=== PATIENT | male | born 1960 | race Caucasian/White ===

== ENCOUNTER 2018-10-25 07:04 | Day surgery (SDC) | payer BC ==
[2018-10-23 14:00] VITALS: BMI 41.3
[~2018-10-25 07:04] MED LIST: LACTATED RINGERS 1,000 ML IV SCH
[2018-10-25] MEDS ORDERED: LACTATED RINGERS 1,000 ML IV ONE (07:20)
[2018-10-25 07:28] VITALS: TEMP 97.8
[2018-10-25 07:40] LABS: Glucose,Whole Blood 90 mg/dL (75-99)
[2018-10-25] MEDS ORDERED: LIDOCAINE 1% INJ 10MG/ML (20 ML MDV) ONE (07:55)
[2018-10-25] MEDS ORDERED: fentaNYL (PF) 50 MCG/ML 2 ML AMP ONE (07:55)
[2018-10-25] MEDS ORDERED: MIDAZOLAM 2 MG/2 ML VIAL ONE (07:55)
[2018-10-25] MEDS ORDERED: PHENYLEPHRINE-0.9% NACL SYG 1 MG/10 ML SYRINGE ONE (07:55)
[2018-10-25] MEDS ORDERED: PROPOFOL 10 MG/ML 20 ML VIAL IV ONE (07:55)
--- NOTE | 2018-10-25 08:33 | P.PCN ---
Date of Procedure: 10/25/18 Procedure(s) Performed: Procedure: Colonoscopy and polypectomy. Preoperative diagnosis: Screening for neoplasia. Postoperative diagnosis: 1. Right colon polyp snared but no large polyps or cancer. 2. Diverticulosis with no evidence of acute diverticulitis or strictures. Preparation: HalfLytely prep. Sedation: Was provided by anesthesia. Brief clinical history: The patient is a 58-year-old male who is scheduled for this evaluation for screening for neoplasia age being his risk factor. No family history of colon cancer. He has no abdominal complaints, bleeding or anemia. This would be his first colonoscopy. Procedure: With the patient on his left lateral decubitus position and after informed consent and adequate sedation, the perianal area was inspected and it did not show any fissures or fistulas. There were no masses felt on digital rectal examination. The Olympus CF H190L video colonoscope was then inserted in the rectum in the usual fashion and advanced to the cecum. There were multiple diverticular orifices seen scattered along the length of the bowel wall , more on the left side, with no evidence of acute diverticulitis or strictures. There was a 1-1.5 cm polyp in the proximal right colon which I snared and retrieved by suction but there were no large polyps or cancer. The mucosa appeared healthy. I retroflexed the endoscope in the rectum before the endoscope was withdrawn. The patient tolerated the procedure well. Plan: The patient was reassured. Discussed dietary measures. He will follow up with you as planned and I anticipate repeating his colonoscopy in 5 years.
[2018-10-25 08:45] VITALS: RESP 18
[2018-10-25 09:00] VITALS: BP 111/74; PULSE 84
[2018-10-26 08:20] LABS: Glucose,Whole Blood 83 mg/dL (75-99)
== END 2018-10-25 09:35 | disposition home or self-care (01) ==
LOC: ORWHC2ENDO 07:04
DX: Z12.11 Encounter for screening for malignant neoplasm of colon (principal); D12.2 Benign neoplasm of ascending colon; K57.30 Diverticulosis of large intestine without perforation or abscess without bleeding; E11.9 Type 2 diabetes mellitus without complications; K21.9 Gastro-esophageal reflux disease without esophagitis; I10 Essential (primary) hypertension; I25.10 Atherosclerotic heart disease of native coronary artery without angina pectoris; I25.2 Old myocardial infarction; Z95.1 Presence of aortocoronary bypass graft; Z85.46 Personal history of malignant neoplasm of prostate; Z86.79 Personal history of other diseases of the circulatory system; Z79.01 Long term (current) use of anticoagulants; Z79.899 Other long term (current) drug therapy; Z79.4 Long term (current) use of insulin; Z95.5 Presence of coronary angioplasty implant and graft
CPT/HCPCS: 88305; 45385; J2250; J2001; J3010; J2370; J2704

== ENCOUNTER 2022-10-05 07:51 | Day surgery (SDC) | payer MEDICARE ==
[2022-10-03 11:32] VITALS: BMI 43.8
[~2022-10-05 07:51] MED LIST changes: +LIDOCAINE 1% (10MG/ML) FOR IV START INTRADERMA PRN
[2022-10-05 08:29] VITALS: TEMP 97.5
[2022-10-05] MEDS ORDERED: LACTATED RINGERS 1,000 ML IV ONE (08:29)
[2022-10-05 08:37] LABS: Glucose,Whole Blood 78 mg/dL (70-110)
[2022-10-05] MEDS ORDERED: KETAMINE 10 MG/ML 20 ML VIAL ONE (08:57)
[2022-10-05] MEDS ORDERED: PROPOFOL 10 MG/ML 20 ML VIAL IV ONE (08:57)
--- NOTE | 2022-10-05 09:28 | P.PCN ---
Date of Procedure: 10/05/22 Procedure(s) Performed: BRIEF HISTORY: Patient is a 62-year-old pleasant white male scheduled for an elective colonoscopy as a part of evaluation of prior history of colon polyps. Last colonoscopy was 4 years ago. PROCEDURE PERFORMED: Colonoscopy with snare polypectomy. PREOPERATIVE DIAGNOSIS: History of colon polyps. IV sedation per Anesthesia. PROCEDURE: After informed consent was obtained, the patient, was brought into the endoscopy unit. IV sedation was administered by Anesthesia under continuous monitoring. Digital rectal examination was normal. Initially the Olympus CF-160 flexible video colonoscope was then inserted in the rectum, gradually advanced into the cecum without any difficulty. Careful examination was performed as the scope was gradually being withdrawn. Ileocecal valve and the appendiceal orifice were visualized and appeared normal. Prep was excellent. Mucosa of the cecum, had a 6 mm sessile polyp removed by snare polypectomy. In the transverse colon there was a 5 mm polyp removed by snare polypectomy. Rest of the ascending colon, transverse colon, descending colon, appeared normal. In the sigmoid: There was a 3 mm and 7 mm polyp removed by snare polypectomy. Scattered sigmoid diverticulosis seen. Rest of the sigmoid colon, and rectum appeared normal. Ret roflexion was performed in the rectum and no lesions were seen. The patient tolerated the procedure well. IMPRESSION: Norm 6 mm cecal polyp status post polypectomy 5 mm sessile transverse colon polyp status post polypectomy 3 mm and 7 mm sigmoid polyp status post polypectomy Scattered sigmoid diverticulosis RECOMMENDATIONS: Findings of this examination were discussed with the patientas well as his family. He was advised to follow with the biopsy results. If the biopsy results adenoma he can have a repeat colonoscopy in 3 years.].
[2022-10-05 09:44] LABS: Glucose,Whole Blood 82 mg/dL (70-110)
[2022-10-05 10:08] VITALS: BP 119/65; PULSE 66; RESP 18
== END 2022-10-05 10:13 | disposition home or self-care (01) ==
LOC: ORWHC2ENDO 07:51
PROVIDERS: ATTEND Internal Medicine Gastroenterology
DX: Z12.11 Encounter for screening for malignant neoplasm of colon (principal); D12.3 Benign neoplasm of transverse colon; D12.5 Benign neoplasm of sigmoid colon; K57.30 Diverticulosis of large intestine without perforation or abscess without bleeding
CPT/HCPCS: 88305; 45385; J2704

== ENCOUNTER 2023-04-24 14:09 | Observation (INO) | payer MEDICARE ==
[2023-04-24] MEDS ORDERED: FUROSEMIDE 10 MG/ML 4 ML VIAL IV STA (14:50)
--- NOTE | 2023-04-24 14:57 | ED ---
General Adult HPI - General Chief complaint: Shortness of Breath Stated complaint: fluid retention Time Seen by Provider: 04/24/23 14:13 Source: patient, EMS, RN notes reviewed, old records reviewed (Review of records from Dr. Mccloud's office) Mode of arrival: EMS Limitations: no limitations - History of Present Illness Initial comments: Patient is a pleasant 63-year-old male presenting to the emergency department with concerns with edema and dyspnea. Onset of symptoms was several weeks ago. Patient normally rarely takes his Lasix however has been taking it daily for the past 2 weeks. Patient is having progressive leg swelling. No leg pain. Patient does have progressive dyspnea, especially with exertion or lying flat. No chest pain. No fever. Occasional cough with clear sputum. - Related Data Home Medications Medication Instructions Recorded Confirmed Apixaban [Eliquis] 5 mg PO BID 10/23/18 10/03/22 Aspirin [Adult Low Dose Aspirin EC] 81 mg PO DAILY 10/23/18 10/03/22 Atorvastatin [Lipitor] 80 mg PO HS 10/23/18 10/03/22 Empagliflozin [Jardiance] 25 mg PO DAILY 10/23/18 10/03/22 Omeprazole [PriLOSEC] 20 mg PO AC-BRKFST 10/23/18 10/03/22 lisinopriL 20 mg PO DAILY 10/23/18 10/03/22 Furosemide [Lasix] 40 mg PO DAILY PRN 10/03/22 10/03/22 Insulin Aspart [NovoLOG Flexpen] 36 - 50 units SQ AC-TID PRN 10/03/22 10/03/22 Insulin Degludec [Tresiba 120 units SQ HS 10/03/22 10/03/22 Flextouch U-200 Pen] Metoprolol Tartrate [Lopressor] 50 mg PO BID 10/03/22 10/03/22 Triamterene/Hydrochlorothiazid 1 each PO QAM 10/03/22 10/03/22 [Triamterene-Hctz 37.5-25 mg Cp] metFORMIN HCL [Glucophage] 1,000 mg PO BID 10/03/22 10/03/22 Allergies Allergy/AdvReac Type Severity Reaction Status Date / Time No Known Allergies Allergy Verified 04/24/23 14:28 Review of Systems ROS Statement: Those systems with pertinent positive or pertinent negative responses have been documented in the HPI. ROS Other: All systems not noted in ROS Statement are negative. Constitutional: Denies: fever Eyes: Denies: eye pain Respiratory: Reports: as per HPI, cough, dyspnea Cardiovascular: Reports: dyspnea on exertion, orthopnea, edema. Denies: chest pain Endocrine: Reports: fatigue Gastrointestinal: Denies: abdominal pain Genitourinary: Denies: urgency Past Medical History Past Medical History: Atrial Fibrillation, Coronary Artery Disease (CAD), Cancer, Diabetes Mellitus, Hypertension, Myocardial Infarction (HI), Prostate Disorder, Sleep Apnea/CPAP/BIPAP Additional Past Medical History / Comment(s): PROSTATE CANCER, uses CPAP, Last Myocardial Infarction Date:: 2015 History of Any Multi-Drug Resistant Organisms: None Reported Past Surgical History: Appendectomy, Coronary Bypass/CABG, Heart Catheterization With Stent, Hernia Repair, Prostate Surgery Additional Past Surgical History / Comment(s): HEART CATHS X7 WITH TOTAL OF 7 STENTS., CABG OCT 2016, JAYLYN INGUINAL HERNIAS., UMBILICAL HERNIAS. Past Anesthesia/Blood Transfusion Reactions: No Reported Reaction Date of Last Stent Placement:: UNKNOWN Past Psychological History: No Psychological Hx Reported Smoking Status: Former smoker - Past Family History Mother Family Medical History: No Reported History General Exam Limitations: no limitations General appearance: alert, in no apparent distress Head exam: Present: normocephalic Eye exam: Present: normal appearance Neck exam: Present: normal inspection Respiratory exam: Present: rales ( base of L) Cardiovascular Exam: Present: irregular rhythm GI/Abdominal exam: Present: soft. Absent: tenderness Extremities exam: Present: pedal edema. 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 Right bundle branch block. Inferior Q waves. Nonspecific T waves.) EKG shows: atrial fibrillation Medical Decision Making - Medical Decision Making Was pt. sent in by a medical professional or institution (, PA, COTTON CLASSER, urgent care, hospital, or prison...) When possible be specific @ -No Did you speak to anyone other than the patient for history (EMS, parent, family, police, friend...)? What history was obtained from this source @ -No Did you review nursing and triage notes (agree or disagree)? Why? @ -I reviewed and agree with nursing and triage notes Were old charts reviewed (outside hosp., previous admission, EMS record, old EKG, old radiological studies, urgent care reports/EKG's, prison records)? Report findings @ -No old charts were reviewed Differential Diagnosis (chest pain, altered mental status, abdominal pain women, abdominal pain men, vaginal bleeding, weakness, fever, dyspnea, syncope, headache, dizziness, GI bleed, back pain, seizure, CVA, palpatations, mental health)? @ -Differential Dyspnea: Coronary syndrome, arrhythmia, tamponade, asthma, COPD, pulmonary embolism, pneumonia, pneumothorax, pulmonary effusion, anaphylaxis, diabetic ketoacidosis, flailed chest, pulmonary contusion, diaphragmatic rupture, anemia, ne uromuscular, this is not meant to be an all-inclusive list. EKG interpreted by me (3pts min.). @ -Chest x-ray concerning for CHF X-rays interpreted by me (1pt min.). @ -None done CT interpreted by me (1pt min.). @ -None done U/S interpreted by me (1pt. min.). @ -None done What testing was considered but not performed or refused? (CT, X-rays, U/S, labs)? Why? @ -None What meds were considered but not given or refused? Why? @ -None Did you discuss the management of the patient with other professionals (professionals i.e. , PA, COTTON CLASSER, lab, RT, psych nurse, foster care social worker, health insurance assessor, teacher, real estate utilization officer, piano case and bench assembler)? Give summary @ -Case was discussed with practitioner Yany rojas, covering for Dr. Martins, who will admit covering for Dr. Mccloud Was smoking cessation discussed for >3mins.? @ -No Was critical care preformed (if so, how long)? @ -No Were there social determinants of health that impacted care today? How? (Homelessness, low income, unemployed, alcoholism, drug addiction, transportation, low edu. Level, literacy, decrease access to med. care, halfway, rehab)? @ -No Was there de-escalation of care discussed even if they declined (Discuss DNR or withdrawal of care, Hospice)? DNR status @ -No What co-morbidities impacted this encounter? (DM, HTN, Smoking, COPD, CAD, Cancer, CVA, ARF, Chemo, Hep., AIDS, mental health diagnosis, sleep apnea, morbid obesity)? @ -None Was patient admitted / discharged? Hospital course, mention meds given and route, prescriptions, significant lab abnormalities, going to OR and other pertinent info. @ -Patient reevaluated. Patient and family updated on results and plan. Patient will be admitted Undiagnosed new problem with uncertain prognosis? @ -No Drug Therapy requiring intensive monitoring for toxicity (Heparin, Nitro, Insulin, Cardizem)? @ -No Were any procedures done? @ -No Diagnosis/symptom? @ -CHF Acute, or Chronic, or Acute on Chronic? @ -Acute Uncomplicated (without systemic symptoms) or Complicated (systemic symptoms)? @ -default Side effects of treatment? @ -No Exacerbation, Progression, or Severe Exacerbation? @ -No Poses a threat to life or bodily function? How? (Chest pain, USA, HI, pneumonia, PE, COPD, DKA, ARF, appy, cholecystitis, CVA, Diverticulitis, Homicidal, Suicidal, threat to staff... and all critical care pts) @ -No - Lab Data Result diagrams: 04/24/23 15:41 04/24/23 15:41 Lab Results 04/24/23 04/24/23 04/24/23 Range/Units 15:32 15:41 15:41 WBC 7.2 (3.8-10.6) k/uL RBC 4.86 (4.30-5.90) m/uL Hgb 10.3 L (13.0-17.5) gm/dL Hct 34.7 L (39.0-53.0) % MCV 71.3 L (80.0-100.0) fL MCH 21.2 L (25.0-35.0) pg MCHC 29.7 L (31.0-37.0) g/dL RDW 19.5 H (11.5-15.5) % Plt Count 266 (150-450) k/uL MPV 7.5 Neutrophils % 68 % Lymphocytes % 17 % Monocytes % 9 % Eosinophils % 2 % Basophils % 1 % Neutrophils # 4.9 (1.3-7.7) k/uL Lymphocytes # 1.3 (1.0-4.8) k/uL Monocytes # 0.7 (0-1.0) k/uL Eosinophils # 0.2 (0-0.7) k/uL Basophils # 0.0 (0-0.2) k/uL Hypochromasia Marked Poikilocytosis Slight Anisocytosis Slight Microcytosis Marked PT 11.7 (9.0-12.0) sec INR 1.1 (<1.2) APTT 27.4 (22.0-30.0) sec Sodium (137-145) mmol/L Potassium (3.5-5.1) mmol/L Chloride (98-107) mmol/L Carbon Dioxide (22-30) mmol/L Anion Gap mmol/L BUN (9-20) mg/dL Creatinine (0.66-1.25) mg/dL Est GFR (CKD-EPI)AfAm (>60 ml/min/1.73 sqM) Est GFR (CKD-EPI)NonAf (>60 ml/min/1.73 sqM) Glucose (74-99) mg/dL POC Glucose (mg/dL) 54 L (70-110) mg/dL POC Glu Thread Grinder Tool ID Luis Alfredo Weinstein Calcium (8.4-10.2) mg/dL Magnesium (1.6-2.3) mg/dL Total Bilirubin (0.2-1.3) mg/dL AST (17-59) U/L ALT (4-49) U/L Alkaline Phosphatase (38-126) U/L Troponin I (0.000-0.034) ng/mL NT-Pro-B Natriuret Pep pg/mL Total Protein (6.3-8.2) g/dL Albumin (3.5-5.0) g/dL 04/24/23 04/24/23 04/24/23 Range/Units 15:41 15:41 15:41 WBC (3.8-10.6) k/uL RBC (4.30-5.90) m/uL Hgb (13.0-17.5) gm/dL Hct (39.0-53.0) % MCV (80.0-100.0) fL MCH (25.0-35.0) pg MCHC (31.0-37.0) g/dL RDW (11.5-15.5) % Plt Count (150-450) k/uL MPV Neutrophils % % Lymphocytes % % Monocytes % % Eosinophils % % Basophils % % Neutrophils # (1.3-7.7) k/uL Lymphocytes # (1.0-4.8) k/uL Monocytes # (0-1.0) k/uL Eosinophils # (0-0.7) k/uL Basophils # (0-0.2) k/uL Hypochromasia Poikilocytosis Anisocytosis Microcytosis PT (9.0-12.0) sec INR (<1.2) APTT (22.0-30.0) sec Sodium 141 (137-145) mmol/L Potassium 4.2 (3.5-5.1) mmol/L Chloride 98 (98-107) mmol/L Carbon Dioxide 33 H (22-30) mmol/L Anion Gap 10 mmol/L BUN 31 H (9-20) mg/dL Creatinine 0.96 (0.66-1.25) mg/dL Est GFR (CKD-EPI)AfAm >90 (>60 ml/min/1.73 sqM) Est GFR (CKD-EPI)NonAf 83 (>60 ml/min/1.73 sqM) Glucose 40 L* (74-99) mg/dL POC Glucose (mg/dL) (70-110) mg/dL POC Glu Thread Grinder Tool ID Calcium 8.9 (8.4-10.2) mg/dL Magnesium 2.0 (1.6-2.3) mg/dL Total Bilirubin 1.1 (0.2-1.3) mg/dL AST 25 (17-59) U/L ALT 21 (4-49) U/L Alkaline Phosphatase 110 (38-126) U/L Troponin I 0.014 (0.000-0.034) ng/mL NT-Pro-B Natriuret Pep 1940 pg/mL Total Protein 7.3 (6.3-8.2) g/dL Albumin 4.1 (3.5-5.0) g/dL Disposition Clinical Impression: Congestive heart failure Disposition: ADMITTED IP TO THIS HOSP Is patient prescribed a controlled substance at d/c from ED?: No Referrals: Jeanie Mccloud DO [Primary Care Provider] - 1-2 days Time of Disposition: 16:38
[2023-04-24 15:34] LABS: Glucose,Whole Blood 54 mg/dL (70-110)
[2023-04-24 15:50] LABS: Anisocytosis Slight; Basophils % (A) 1 %; Eosinophils # (A) 0.2 k/uL (0-0.7); Eosinophils % (A) 2 %; HCT 34.7 % (39.0-53.0); HGB 10.3 gm/dL (13.0-17.5); Hypochromasia Marked; Lymphocytes # (A) 1.3 k/uL (1.0-4.8); Lymphocytes % (A) 17 %; MCH 21.2 pg (25.0-35.0); MCHC 29.7 g/dL (31.0-37.0); MCV 71.3 fL (80.0-100.0); Mean Platelet Volume 7.5; Microcytosis Marked; Monocytes # (A) 0.7 k/uL (0-1.0); Monocytes % (A) 9 %; Neutrophils # (A) 4.9 k/uL (1.3-7.7); Neutrophils % (A) 68 %; Platelet Count 266 k/uL (150-450); Poikilocytosis Slight; RBC 4.86 m/uL (4.30-5.90); RDW 19.5 % (11.5-15.5); WBC 7.2 k/uL (3.8-10.6)
[2023-04-24 16:03] LABS: ALT 21 U/L (4-49); AST 25 U/L (17-59); African American GFR (CKD) >90 (>60 ml/min/1.73 sqM); Albumin 4.1 g/dL (3.5-5.0); Alkaline Phosphatase 110 U/L (38-126); Anion Gap 10 mmol/L; Blood Urea Nitrogen 31 mg/dL (9-20); Calcium 8.9 mg/dL (8.4-10.2); Carbon Dioxide 33 mmol/L (22-30); Chloride 98 mmol/L (98-107); Non-African American GFR(CKD) 83 (>60 ml/min/1.73 sqM); Potassium 4.2 mmol/L (3.5-5.1); Sodium 141 mmol/L (137-145); Total Bilirubin 1.1 mg/dL (0.2-1.3); Total Protein 7.3 g/dL (6.3-8.2)
[2023-04-24 16:10] LABS: INR 1.1 (<1.2); Partial Thromboplastin Time 27.4 sec (22.0-30.0); Prothrombin Time 11.7 sec (9.0-12.0)
[2023-04-24 16:15] LABS: Glucose 40 mg/dL (74-99)
--- NOTE | 2023-04-24 16:28 | XR ---
EXAMINATION TYPE: XR chest 2V DATE OF EXAM: 04/24/2023 COMPARISON: Outside chest x-ray March 06, 2019 HISTORY: Difficulty in breathing. TECHNIQUE: Frontal and lateral views of the chest are obtained. FINDINGS: Overlying sternal wires, several superiorly which are broken are redemonstrated. Overlying mediastinal clips are redemonstrated. There is coronary artery stent in the left circumflex distribu tion redemonstrated. Lateral view is suboptimal due to large body habitus similar to prior. Persisten t cardiomegaly with mild interstitial edema. No pleural effusion or pneumothorax seen bilaterally. IMPRESSION: Findings are consistent with CHF exacerbation. Cardiomegaly with mild central vascular c ongestion is present.
[2023-04-24 16:37] LABS: Glucose,Whole Blood 59 mg/dL (70-110)
[2023-04-24] MEDS ORDERED: ASPIRIN 325 MG TAB PO STA (16:39)
[2023-04-24 18:03] LABS: Glucose,Whole Blood 115 mg/dL (70-110)
[2023-04-24] MEDS ORDERED: DEXTROSE 50% SYRINGE 50 ML IVP PRN ×2 (19:58)
[2023-04-24] MEDS: FUROSEMIDE 10 MG/ML 4 ML VIAL IV SCH (20:18)
[2023-04-24] MEDS: APIXABAN 5 MG TAB PO SCH (20:18)
[2023-04-24] MEDS: ATORVASTATIN 80 MG TAB PO SCH (20:18)
[2023-04-24] MEDS: METOPROLOL TARTRATE 50 MG TAB PO SCH (20:18)
[2023-04-24] MEDS: metFORMIN 500 MG TAB PO SCH (20:19)
[2023-04-24 20:25] LABS: Glucose,Whole Blood 174 mg/dL (70-110)
[2023-04-24] MEDS: INSULIN ASPART (NovoLOG) 100 UNIT/ML VIAL SQ SCH (20:32)
[2023-04-24] MEDS ORDERED: INSULIN DETEMIR (LEVEMIR) 100 UNIT/ML SYR SQ SCH (21:00)
--- NOTE | 2023-04-24 23:29 | HP ---
HISTORY AND PHYSICAL CHIEF COMPLAINT: Shortness of breath and leg edema. HISTORY OF PRESENT ILLNESS: This is a 63-year-old gentleman with a past medical history of multiple medical problems including CAD, CABG, is complaining of bilateral leg swelling and as well as shortness of breath on walking. The patient came to [facility], was found to have CHF and the patient is admitted with intravenous Lasix at this time. The patient also reports that the patient is working on controlling the diabetes mellitus with resultant hemoglobin A1c 6.8 recently. There is no history of any fever, rigors, or chills. PAST MEDICAL HISTORY: Reviewed, include CAD, CABG, diabetes mellitus type 2, atrial ablation. Rest of the history and rest of the chart is also reviewed. HOME MEDICATIONS: Reviewed include insulin. Dose and rest of medications reviewed. ALLERGIES: None. FAMILY HISTORY: History of diabetes and heart disease in the family. SOCIAL HISTORY: Previous history of smoking. REVIEW OF SYSTEMS: A 14-point review is negative except as mentioned earlier. PHYSICAL EXAMINATION: VITAL SIGNS: Pulse is 85, blood pressure 102/70, respirations 18. HEENT: Conjunctivae normal. NECK: No jugular venous distention. CARDIOVASCULAR: S1, S2 muffled. RESPIRATIONS: A few scattered rhonchi and crackles in the bases. ABDOMEN: Soft, obese. LEGS: Bilateral pitting pedal edema up to the midthigh. SKIN: As mentioned earlier. NERVOUS SYSTEM: No focal deficit. JOINTS: No active deforming arthropathy. LABORATORY DATA: Reviewed. BNP is 1940. Chest x-ray reviewed personally. ASSESSMENT: 1. Congestive heart failure acute exacerbation. 2. History of coronary artery disease, coronary artery bypass grafting. 3. Diabetes mellitus, type 2. 4. Atrial fibrillation. 5. Hypertension. 6. Multiple medical issues. RECOMMENDATIONS AND DISCUSSION: This is a 63-year-old gentleman admitted with multiple complex medical issues, we will monitor the patient closely. We will initiate intravenous Lasix 40 mg IV q.8h and monitor creatinine closely. Monitor the intake and output closely. Limiting fluid intake to 1200 mL per 24 hours. Cardiology consultation. 2D echo with Doppler. Resume the home medications. Monitor blood sugars closely. Overall prognosis extremely guarded because of multiple complex medical issues. The patient is receiving a large dose of short-acting insulin, which we will reduce the amount and observe. The blood sugars are going up. The home dose may be reinstituted. Discussed with the patient. Prognosis guarded. Further recommendations to follow. See orders for further details. MMODL / IJN: [id number] /
[2023-04-25 03:37] LABS: Glucose,Whole Blood 45 mg/dL (70-110)
[2023-04-25] MEDS: FUROSEMIDE 10 MG/ML 4 ML VIAL IV SCH ×3 (03:48→21:45)
[2023-04-25 03:50] LABS: Glucose,Whole Blood 65 mg/dL (70-110)
[2023-04-25 04:02] LABS: Glucose,Whole Blood 88 mg/dL (70-110)
[2023-04-25 06:19] LABS: Glucose,Whole Blood 135 mg/dL (70-110)
[2023-04-25] MEDS: INSULIN ASPART (NovoLOG) 100 UNIT/ML VIAL SQ SCH ×4 (06:22→21:39)
[2023-04-25] MEDS: PANTOPRAZOLE 40 MG TABLET PO SCH (06:24)
[2023-04-25] MEDS: MULTIVITAMINS, THERA 1 EACH TAB PO SCH (08:42)
[2023-04-25] MEDS: metFORMIN 500 MG TAB PO SCH ×2 (08:42→21:46)
[2023-04-25] MEDS: APIXABAN 5 MG TAB PO SCH ×2 (08:42→21:46)
[2023-04-25] MEDS: TRIAMTERENE-HCTZ 37.5-25MG 1 EACH CAP PO SCH (08:43)
[2023-04-25] MEDS: lisinopriL 20 MG TAB PO SCH (08:43)
[2023-04-25] MEDS: ASPIRIN 81 MG PO SCH (08:43)
[2023-04-25] MEDS: DAPAGLIFLOZIN PROPANEDIOL 10 MG TABLET PO SCH (08:43)
[2023-04-25] MEDS: METOPROLOL TARTRATE 50 MG TAB PO SCH ×2 (08:43→21:46)
[2023-04-25] MEDS ORDERED: ASPIRIN 325 MG TAB PO SCH (09:00)
--- NOTE | 2023-04-25 10:52 | CA ---
Transthoracic Echo Report Name: Luis Alfredo Steinberg Age: 63 Gender: M : 1960 Exam Date: 04/25/2023 07:31 Exam Location: [facility] Ht (in): 76 Wt (lb): 387 Ordering Physician: Lonnie Martins MD Attending/Referring Phys: [facility] Care Program Resident Satinder Brito Procedure CPT: Indications: chf Cardiac Hx: Technical Quality: Technically difficult study Contrast 1: Lumason Total Dose (mL): 5 Contrast 2: Agitated Saline Total Dose (mL): 10 MEASUREMENTS (Male / Female) Normal Values 2D ECHO LV Diastolic Diameter PLAX 4.8 cm 4.2 - 5.9 / 3.9 - 5.3 cm LV Systolic Diameter PLAX 3.3 cm IVS Diastolic Thickness 1.5 cm 0.6 - 1.0 / 0.6 - 0.9 cm LVPW Diastolic Thickness 1.6 cm 0.6 - 1.0 / 0.6 - 0.9 cm LV Relative Wall Thickness 0.6 RV Internal Dim ED PLAX 4.5 cm LVOT Diameter 2.5 cm Aortic Root Diameter 3.0 cm LA Systolic Diameter LX 3.7 cm 3.0 - 4.0 / 2.7 - 3.8 cm LV Diastolic Volume MOD BP 101.1 cm??? 67 - 155 / 56 - 104 cm??? LV Systolic Volume MOD BP 41.9 cm??? 22 - 58 / 19 - 49 cm??? LV Ejection Fraction MOD BP 58.6 % >= 55 % LV Diastolic Volume MOD 4C 83.9 cm??? LV Systolic Volume MOD 4C 35.7 cm??? LV Ejection Fraction MOD 4C 57.4 % LV Diastolic Length 4C 8.6 cm LV Systolic Length 4C 7.6 cm LV Diastolic Volume MOD 2C 117.1 cm??? LV Systolic Volume MOD 2C 48.7 cm??? LV Ejection Fraction MOD 2C 58.4 % LV Diastolic Length 2C 8.2 cm LV Systolic Length 2C 7.7 cm LA Volume 139.6 cm??? 18 - 58 / 22 - 52 cm??? Ascending Aorta Diameter 2.9 cm DOPPLER AV Peak Velocity 131.7 cm/s AV Peak Gradient 6.9 mmHg LVOT Peak Velocity 77.3 cm/s LVOT Peak Gradient 2.4 mmHg AV Area Cont Eq pk 2.9 cm??? Mitral E Point Velocity 132.6 cm/s Mitral A Point Velocity 32.5 cm/s Mitral E to A Ratio 4.1 MV Deceleration Time 158.1 ms MV E' Velocity 6.9 cm/s Mitral E to MV E' Ratio 19.2 TR Peak Velocity 278.9 cm/s TR Peak Gradient 31.1 mmHg Right Ventricular Systolic Press 37.7 mmHg PV Peak Velocity 77.0 cm/s PV Peak Gradient 2.4 mmHg FINDINGS Left Ventricle Left ventricular ejection fraction is estimated a_40-45 %. Right Ventricle Right ventricular dilatation. RVSP=56mmhg Right Atrium Normal right atrial size. Left Atrium Left atrial dilatation. Mitral Valve Mitral valve not well visualized. Aortic Valve Trileaflet aortic valve. No aortic valve stenosis or regurgitation. Tricuspid Valve Structurally normal tricuspid valve. Mild to moderat TR. Pulmonic Valve Pulmonic valve not well visualized. No pulmonic regurgitation. Pericardium Not well visualized. Aorta Normal size aortic root and proximal ascending aorta. CONCLUSIONS Mildly impaired LV function was EF between 40-45% Previewed by: Dr. Chandana Mcintosh MD (Electronically Signed) Final Date: 25 April 2023 10:51
[2023-04-25 11:41] LABS: Glucose,Whole Blood 58 mg/dL (70-110)
[2023-04-25 12:06] LABS: Anisocytosis Slight; Basophils % (A) 0 %; Eosinophils # (A) 0.2 k/uL (0-0.7); Eosinophils % (A) 2 %; HCT 36.1 % (39.0-53.0); HGB 10.6 gm/dL (13.0-17.5); Hypochromasia Marked; Lymphocytes # (A) 1.1 k/uL (1.0-4.8); Lymphocytes % (A) 15 %; MCHC 29.3 g/dL (31.0-37.0); MCV 71.6 fL (80.0-100.0); Mean Platelet Volume 7.5; Microcytosis Marked; Monocytes # (A) 0.7 k/uL (0-1.0); Monocytes % (A) 9 %; Neutrophils # (A) 5.3 k/uL (1.3-7.7); Neutrophils % (A) 71 %; Platelet Count 259 k/uL (150-450); Poikilocytosis Slight; RBC 5.04 m/uL (4.30-5.90); RDW 19.6 % (11.5-15.5); WBC 7.5 k/uL (3.8-10.6)
[2023-04-25 12:17] LABS: African American GFR (CKD) >90 (>60 ml/min/1.73 sqM); Anion Gap 10 mmol/L; Blood Urea Nitrogen 29 mg/dL (9-20); Calcium 8.8 mg/dL (8.4-10.2); Carbon Dioxide 35 mmol/L (22-30); Chloride 97 mmol/L (98-107); Glucose 58 mg/dL (74-99); Non-African American GFR(CKD) 78 (>60 ml/min/1.73 sqM); Potassium 4.1 mmol/L (3.5-5.1); Sodium 142 mmol/L (137-145)
[2023-04-25 12:27] LABS: Glucose,Whole Blood 63 mg/dL (70-110)
[2023-04-25 12:27] LABS: Glucose,Whole Blood 69 mg/dL (70-110)
[2023-04-25 12:28] LABS: Glucose,Whole Blood 102 mg/dL (70-110)
[2023-04-25 12:43] VITALS: BMI 47.2
--- NOTE | 2023-04-25 14:17 | PN ---
PROGRESS NOTE DATE OF SERVICE: 04/25/2023 SUBJECTIVE: This is a 63-year-old gentleman who was admitted with CHF acute exacerbation and closely monitored. The patient has significant bilateral leg edema. A 2D echo which was reviewed personally by me showed ejection fraction about 40% to 45%. OBJECTIVE: VITAL SIGNS: Pulse is 84, blood pressure 99/56, respirations 19. CHEST: A few scattered rhonchi in the bases. ABDOMEN: Soft, obese. LEGS: Bilateral leg edema. LABORATORY DATA: Labs are reviewed. ASSESSMENT: 1. Congestive heart failure acute exacerbation with acute on chronic systolic dysfunction, ejection fraction is 40% to 45%. 2. History of coronary artery disease, coronary artery bypass grafting. 3. Diabetes mellitus, type 2. 4. Atrial fibrillation. 5. Bilateral leg edema. 6. Multiple medical issues. RECOMMENDATIONS: Recommend to continue current medications. Continue symptomatic treatment. Continue the Lasix. Otherwise, I would recommend ultrasound of the legs to rule out the possibility of DVT. Repeat labs. Closely follow with Cardiology and the prognosis guarded. Blood pressure is borderline. Further recommendations to follow. MMODL / IJN: [id number] /
--- NOTE | 2023-04-25 15:41 | US ---
EXAMINATION TYPE: US venous doppler duplex LE BI DATE OF EXAM: 04/25/2023 3:30 PM COMPARISON: NONE CLINICAL INDICATION: Male, 63 years old with history of leg swelling, rule out dvt; edema SIDE PERFORMED: Bilateral TECHNIQUE: The lower extremity deep venous system is examined utilizing real time linear array sonog pedro with graded compression, doppler sonography and color-flow sonography. VESSELS IMAGED: Common Femoral Vein Deep Femoral Vein Greater Saphenous Vein * Femoral Vein Popliteal Vein Small Saphenous Vein * Proximal Calf Veins (* superficial vessels) Right Leg: Negative for DVT Left Leg: Negative for DVT IMPRESSION: Grayscale, color doppler, spectral doppler imaging performed of the deep veins of the lo wer extremities. There is normal flow, compressibility, vascular waveforms.
[2023-04-25 16:50] LABS: Glucose,Whole Blood 123 mg/dL (70-110)
[2023-04-25] MEDS: NITROGLYCERIN OINT 1 INCH/GM PACKET TOPICAL SCH ×2 (16:57→21:39)
--- NOTE | 2023-04-25 17:49 | P.CRDCN ---
History of Present Illness History of present illness: HISTORY OF PRESENTING ILLNESS Patient pleasant 63-year-old male with history of CAD status post CABG as well as prior PCI, lower extremity edema, diabetes mellitus type 2, sleep apnea, prostate cancer who presents secondary to increasing shortness breath and lower extremity edema. Symptoms have been going on for last few weeks. He has been having increased lower extremity edema and normally does not take Lasix however has started taking it more recently over last 2 weeks however no significant improvement. Therefore presented to emergency department. He follows with a professional sports scout out of [facility]. EKG shows atrial fibrillation with right bundle branch block with nonspecific ST depressions. Blood work shows hemoglobin 10.3, platelets 266, glucose 40, BUN 31, creatinine 0.9, troponin 0.014, proBNP 1940. He was started on IV Lasix 40 mg every 8 hours and continued on home medications. REVIEW OF SYSTEMS At the time of my exam: CONSTITUTIONAL: Denies fever or chills. CARDIOVASCULAR: Denies chest pain, +shortness of breath, orthopnea, PND or palpitations. RESPIRATORY: Denies cough. GASTROINTESTINAL: Denies abdominal pain, diarrhea, constipation, nausea or vomiting. MUSCULOSKELETAL: Denies myalgias. NEUROLOGIC: Denies numbness, tingling or weakness. ENDOCRINE: Denies fatigue, weight change, polydipsia or polyurina. GENITOURINARY: Denies burning, hematuria or urgency with micturation. HEMATOLOGIC: Denies history of anemia or bleeding. PHYSICAL EXAMINATION Vital signs reviewed. CONSTITUTIONAL: No apparent distress. HEENT: Head is normocephalic. Pupils are equal, round. Sclerae anicteric. Mucous membranes of the mouth are moist. No JVD. No carotid bruit. CHEST EXAMINATION: Lungs are clear to auscultation. No chest wall tenderness is noted on palpation or with deep breathing. HEART EXAMINATION: Regular rate and rhythm. S1, S2 heard. No murmurs, gallops or rub. ABDOMEN: Soft, nontender. Positive bowel sounds. EXTREMITIES: 2+ peripheral pulses, no lower extremity edema and no calf tenderness. NEUROLOGIC EXAMINATION: Patient is awake, alert and oriented x3. ASSESSMENT 1. Acute on chronic diastolic heart failure 2. CAD s/p PCI as well as CABG 3. Lower extremity edema likely component of heart failure as well as some component of venous insufficiency with varicose veins 4. Hypertension 5. Diabetes mellitus type 2 6. Mild cardiomyopathy of 40-45%, stable per patient 7. Persistent Afib, may be permanent "in Afib 12/06" per patient PLAN Patient with heart failure symptoms with increased lower extremity edema over the last 2 weeks. No acute exacerbating issues such as A. fib or uncontrolled hypertension. Continue diuretics. His cardiomyopathy apparently is fairly stable per patient. Continue remainder of other medications. Hopeful discharge x-ray 4-48 hours if continues improved. Past Medical History Past Medical History: Atrial Fibrillation, Coronary Artery Disease (CAD), Cancer, Diabetes Mellitus, Hypertension, Myocardial Infarction ([place]), Prostate Disorder, Sleep Apnea/CPAP/BIPAP Additional Past Medical History / Comment(s): PROSTATE CANCER, uses CPAP Last Myocardial Infarction Date:: 2015 History of Any Multi-Drug Resistant Organisms: None Reported Past Surgical History: Appendectomy, Coronary Bypass/CABG, Heart Catheterization With Stent, Hernia Repair, Prostate Surgery Additional Past Surgical History / Comment(s): HEART CATHS X7 WITH TOTAL OF 7 STENTS, CABG OCT 2016, JAYLYN INGUINAL HERNIAS, UMBILICAL HERNIAS. Past Anesthesia/Blood Transfusion Reactions: No Reported Reaction Date of Last Stent Placement:: UNKNOWN Past Psychological History: No Psychological Hx Reported Smoking Status: Former smoker Past Alcohol Use History: Rare Additional Past Alcohol Use History / Comment(s): Smoked 3 PPD. Past Drug Use History: None Reported - Past Family History Mother Family Medical History: No Reported History Additional Family Medical History / Comment(s): Heart disease Father Family Medical History: Diabetes Mellitus Additional Family Medical History / Comment(s): Heart disease Medications and Allergies Home Medications Medication Instructions Recorded Confirmed Type Apixaban [Eliquis] 5 mg PO BID 10/23/18 04/24/23 History Aspirin [Adult Low Dose Aspirin EC] 81 mg PO DAILY 10/23/18 04/24/23 History Atorvastatin [Lipitor] 80 mg PO HS 10/23/18 04/24/23 History Empagliflozin [Jardiance] 25 mg PO DAILY 10/23/18 04/24/23 History Omeprazole [PriLOSEC] 20 mg PO DAILY 10/23/18 04/24/23 History lisinopriL 20 mg PO DAILY 10/23/18 04/24/23 History Insulin Aspart [NovoLOG Flexpen] 36 - 50 units SQ AC-TID PRN 10/03/22 04/24/23 History Insulin Degludec [Tresiba 110 units SQ HS 10/03/22 04/24/23 History Flextouch U-200 Pen] Metoprolol Tartrate [Lopressor] 50 mg PO BID 10/03/22 04/24/23 History Triamterene/Hydrochlorothiazid 1 cap PO DAILY 10/03/22 04/24/23 History [Triamterene-Hctz 37.5-25 mg Cp] Multivitamins, Thera [Multivitamin 1 tab PO DAILY 04/24/23 04/24/23 History (formulary)] metFORMIN HCL [Glucophage] 1,000 mg PO BID 04/24/23 04/24/23 History Allergies Allergy/AdvReac Type Severity Reaction Status Date / Time No Known Allergies Allergy Verified 04/24/23 17:09 Physical Exam Vitals: Vital Signs Temp Pulse Pulse Resp BP BP Pulse Ox 04/25/23 11:50 84 20 115/72 95 04/25/23 08:40 97.8 F 84 19 99/56 99 04/25/23 03:34 97.6 F 70 21 108/70 100 04/24/23 23:15 98.5 F 68 21 104/69 94 L 04/24/23 20:15 21 04/24/23 20:14 98.2 F 80 21 116/62 95 04/24/23 18:38 98.0 F 99 22 138/61 93 L 04/24/23 17:55 79 20 97/54 96 04/24/23 16:27 85 18 103/73 95 04/24/23 14:29 84 20 04/24/23 14:20 97.6 F 84 20 109/73 94 L Intake and Output 04/24/23 04/25/23 04/25/23 22:59 06:59 14:59 Intake Total 550 10 118 Output Total 1475 950 Balance 550 -1806 -830 Intake: IV 10 10 Invasive Line 1 10 10 Oral 540 118 Output: Urine 1375 950 Stool 100 Other: Voiding Method Toilet Toilet Toilet Urinal Urinal Urinal Weight 180.076 kg 175.9 kg 175.9 kg Results 04/25/23 11:39 04/25/23 11:39 Cardiac Enzymes 04/24/23 04/24/23 Range/Units 15:41 15:41 AST 25 (17-59) U/L Troponin I 0.014 (0.000-0.034) ng/mL Coagulation 04/24/23 Range/Units 15:41 PT 11.7 (9.0-12.0) sec APTT 27.4 (22.0-30.0) sec CBC 04/24/23 04/25/23 Range/Units 15:41 11:39 WBC 7.2 7.5 (3.8-10.6) k/uL RBC 4.86 5.04 (4.30-5.90) m/uL Hgb 10.3 L 10.6 L (13.0-17.5) gm/dL Hct 34.7 L 36.1 L (39.0-53.0) % Plt Count 266 259 (150-450) k/uL Comprehensive Metabolic Panel 04/24/23 04/25/23 Range/Units 15:41 11:39 Sodium 141 142 (137-145) mmol/L Potassium 4.2 4.1 (3.5-5.1) mmol/L Chloride 98 97 L (98-107) mmol/L Carbon Dioxide 33 H 35 H (22-30) mmol/L BUN 31 H 29 H (9-20) mg/dL Creatinine 0.96 1.01 (0.66-1.25) mg/dL Glucose 40 L* 58 L (74-99) mg/dL Calcium 8.9 8.8 (8.4-10.2) mg/dL AST 25 (17-59) U/L ALT 21 (4-49) U/L Alkaline Phosphatase 110 (38-126) U/L Total Protein 7.3 (6.3-8.2) g/dL Albumin 4.1 (3.5-5.0) g/dL Current Medications Generic Name Dose Route Start Last Admin Trade Name Freq PRN Reason Stop Dose Admin Apixaban 5 mg 04/24/23 21:00 04/25/23 08:42 Apixaban 5 Mg Tab PO 5 mg BID JANIS Administration Protocol Aspirin 81 mg 04/25/23 09:00 04/25/23 08:43 Aspirin 81 Mg PO 81 mg DAILY JANIS Administration Atorvastatin Calcium 80 mg 04/24/23 21:00 04/24/23 20:18 Atorvastatin 80 Mg Tab PO 80 mg HS JANIS Administration Dapagliflozin 10 mg 04/25/23 09:00 04/25/23 08:43 Dapagliflozin Propanediol 10 Mg Tablet PO 10 mg DAILY JANIS Administration Dextrose/Water 25 ml 04/24/23 19:58 Dextrose 50% Syringe 50 Ml IVP PER PROTOCOL PRN Hypoglycemia Protocol Dextrose/Water 50 ml 04/24/23 19:58 Dextrose 50% Syringe 50 Ml IVP PER PROTOCOL PRN Hypoglycemia Protocol Furosemide 40 mg 04/24/23 20:00 04/25/23 11:51 Furosemide 10 Mg/Ml 4 Ml Vial IV 40 mg Q8H JANIS Administration Insulin Aspart 0 unit 04/24/23 21:00 04/25/23 11:46 Insulin Aspart (Novolog) 100 Unit/Ml Vial SQ Not Given ACHS [facility] Protocol Lisinopril 20 mg 04/25/23 09:00 04/25/23 08:43 Lisinopril 20 Mg Tab PO 20 mg DAILY JANIS Administration Metformin HCl 1,000 mg 04/24/23 21:00 04/25/23 08:42 Metformin 500 Mg Tab PO 1,000 mg BID JANIS Administration Metoprolol Tartrate 50 mg 04/24/23 21:00 04/25/23 08:43 Metoprolol Tartrate 50 Mg Tab PO 50 mg BID JANIS Administration Multivitamins 1 each 04/25/23 09:00 04/25/23 08:42 Multivitamins, Thera 1 Each Tab PO 1 each DAILY JANIS Administration Nitroglycerin 1 inch 04/25/23 18:00 Nitroglycerin Oint 1 Inch/Gm Packet TOPICAL QID [facility] Pantoprazole Sodium 40 mg 04/25/23 07:30 04/25/23 06:24 Pantoprazole 40 Mg Tablet PO 40 mg [id number]-[id number] JANIS Administration Triamterene/Hydrochlorothiazide 1 each 04/25/23 09:00 04/25/23 08:43 Triamterene-Hctz 37.5-25mg 1 Each Cap PO 1 each DAILY JANIS Administration Intake and Output 04/24/23 04/25/23 04/25/23 22:59 06:59 14:59 Intake Total 550 10 118 Output Total 1475 950 Balance 550 -8551 -832 Intake: IV 10 10 Invasive Line 1 10 10 Oral 540 118 Output: Urine 1375 950 Stool 100 Other: Voiding Method Toilet Toilet Toilet Urinal Urinal Urinal Weight 180.076 kg 175.9 kg 175.9 kg Patient Weight 04/26/23 06:59 Weight 175.9 kg 04/25/23 11:39 04/25/23 11:39
[2023-04-25 20:14] LABS: Glucose,Whole Blood 139 mg/dL (70-110)
[2023-04-25] MEDS: ATORVASTATIN 80 MG TAB PO SCH (21:46)
[2023-04-25 23:24] VITALS: TEMP 97.5
[2023-04-26] MEDS: PANTOPRAZOLE 40 MG TABLET PO SCH (06:03)
[2023-04-26] MEDS: FUROSEMIDE 10 MG/ML 4 ML VIAL IV SCH ×2 (06:03→12:29)
[2023-04-26 06:24] LABS: Glucose,Whole Blood 66 mg/dL (70-110)
[2023-04-26] MEDS: INSULIN ASPART (NovoLOG) 100 UNIT/ML VIAL SQ SCH ×2 (06:35→11:48)
[2023-04-26 06:55] LABS: Glucose,Whole Blood 105 mg/dL (70-110)
[2023-04-26] MEDS: METOPROLOL TARTRATE 50 MG TAB PO SCH (09:37)
[2023-04-26] MEDS: NITROGLYCERIN OINT 1 INCH/GM PACKET TOPICAL SCH ×2 (09:37→12:30)
[2023-04-26] MEDS: MULTIVITAMINS, THERA 1 EACH TAB PO SCH (09:37)
[2023-04-26] MEDS: TRIAMTERENE-HCTZ 37.5-25MG 1 EACH CAP PO SCH (09:37)
[2023-04-26] MEDS: APIXABAN 5 MG TAB PO SCH (09:37)
[2023-04-26] MEDS: lisinopriL 20 MG TAB PO SCH (09:37)
[2023-04-26] MEDS: ASPIRIN 81 MG PO SCH (09:37)
[2023-04-26] MEDS: metFORMIN 500 MG TAB PO SCH (09:38)
[2023-04-26] MEDS: DAPAGLIFLOZIN PROPANEDIOL 10 MG TABLET PO SCH (09:41)
[2023-04-26 09:43] VITALS: RESP 16
[2023-04-26 11:16] LABS: Anisocytosis Slight; Basophils % (A) 0 %; Eosinophils # (A) 0.2 k/uL (0-0.7); Eosinophils % (A) 3 %; HCT 35.6 % (39.0-53.0); HGB 10.1 gm/dL (13.0-17.5); Hypochromasia Marked; Lymphocytes # (A) 1.4 k/uL (1.0-4.8); Lymphocytes % (A) 19 %; MCH 20.6 pg (25.0-35.0); MCHC 28.3 g/dL (31.0-37.0); MCV 72.6 fL (80.0-100.0); Mean Platelet Volume 7.1; Microcytosis Marked; Monocytes # (A) 0.6 k/uL (0-1.0); Monocytes % (A) 9 %; Neutrophils # (A) 4.8 k/uL (1.3-7.7); Neutrophils % (A) 66 %; Platelet Count 242 k/uL (150-450); Poikilocytosis Slight; RBC 4.91 m/uL (4.30-5.90); RDW 19.5 % (11.5-15.5); WBC 7.3 k/uL (3.8-10.6)
[2023-04-26 11:31] LABS: African American GFR (CKD) 82 (>60 ml/min/1.73 sqM); Anion Gap 6 mmol/L; Blood Urea Nitrogen 28 mg/dL (9-20); Calcium 8.7 mg/dL (8.4-10.2); Carbon Dioxide 37 mmol/L (22-30); Chloride 95 mmol/L (98-107); Glucose 166 mg/dL (74-99); Non-African American GFR(CKD) 71 (>60 ml/min/1.73 sqM); Potassium 4.1 mmol/L (3.5-5.1); Sodium 138 mmol/L (137-145)
[2023-04-26 11:39] LABS: Glucose,Whole Blood 113 mg/dL (70-110)
[2023-04-26 13:47] VITALS: BP 106/58; PULSE 74
--- NOTE | 2023-04-26 13:57 | P.PN ---
Subjective Progress Note Date: 04/26/23 HISTORY OF PRESENTING ILLNESS Patient pleasant 63-year-old male with history of CAD status post CABG as well as prior PCI, lower extremity edema, diabetes mellitus type 2, sleep apnea, prostate cancer who presents secondary to increasing shortness breath and lower extremity edema. Symptoms have been going on for last few weeks. He has been having increased lower extremity edema and normally does not take Lasix however has started taking it more recently over last 2 weeks however no significant improvement. Therefore presented to emergency department. 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 EKG shows atrial fibrillation with right bundle branch block with nonspecific ST depressions. Blood work shows hemoglobin 10.3, platelets 266, glucose 40, BUN 31, creatinine 0.9, troponin 0.014, proBNP 1940. He was started on IV Lasix 40 mg every 8 hours and continued on home medications. 04/26 Patient states that both his breathing and lower extremity edema is improving. He is urinating well. He states that the redness to his lower legs is also improved. He has been maintained on IV Lasix 40 mg every 8 hours. Repeat blood work reveals hemoglobin of 10.1, potassium 4.1, BUN 20 creatinine 1.09. Ultrasound bilateral lower extremity is negative for DVT. Echocardiogram reveals EF 40-45%. Plan is for discharge home today PHYSICAL EXAMINATION Vital signs reviewed. CONSTITUTIONAL: No apparent distress. HEENT: Head is normocephalic. Pupils are equal, round. Sclerae anicteric. Mucous membranes of the mouth are moist. No JVD. No carotid bruit. CHEST EXAMINATION: Lungs are clear to auscultation. No chest wall tenderness is noted on palpation or with deep breathing. HEART EXAMINATION: Regular rate and rhythm. S1, S2 heard. No murmurs, gallops or rub. ABDOMEN: Soft, nontender. Positive bowel sounds. EXTREMITIES: 2+ peripheral pulses, no lower extremity edema and no calf t enderness. NEUROLOGIC EXAMINATION: Patient is awake, alert and oriented x3. ASSESSMENT 1. Acute on chronic diastolic heart failure 2. CAD s/p PCI as well as CABG 3. Lower extremity edema likely component of heart failure as well as some component of venous insufficiency with varicose veins 4. Hypertension 5. Diabetes mellitus type 2 6. Mild cardiomyopathy of 40-45%, stable per patient 7. Persistent Afib, may be permanent "in Afib 12/06" per patient PLAN Patient with heart failure symptoms with increased lower extremity edema over the last 2 weeks. No acute exacerbating issues such as A. fib or uncontrolled hypertension. Continue diuretics. His cardiomyopathy apparently is fairly stable per patient. Continue remainder of other medications. Patient is cleared for discharge home from cardiology. Nurse practitioner note has been reviewed, I agree with the documented findings and plan of care. Patient was seen and examined. Objective - Vital Signs Vital signs: Vital Signs Temp 97.5 F L 04/25/23 20:00 Pulse 78 04/26/23 08:00 Resp 16 04/26/23 08:00 BP 123/66 04/26/23 08:00 Pulse Ox 95 04/26/23 08:24 FiO2 Intake & Output 04/25/23 04/26/23 04/26/23 18:59 06:59 18:59 Intake Total 376 540 Output Total 1950 1000 825 Balance -1574 -1000 -285 Weight 175.9 kg 173.2 kg Intake: Oral 376 540 Output: Urine 1850 1000 825 Stool 100 Other: Voiding Method Toilet Toilet Toilet Urinal Urinal Urinal - Labs CBC & Chem 7: 04/26/23 09:59 04/26/23 09:59 Labs: Abnormal Lab Results - Last 24 Hours (Table) 04/25/23 04/25/23 04/25/23 Range/Units 11:39 16:34 20:06 Hgb (13.0-17.5) gm/dL Hct (39.0-53.0) % MCV (80.0-100.0) fL MCH (25.0-35.0) pg MCHC (31.0-37.0) g/dL RDW (11.5-15.5) % Chloride (98-107) mmol/L Carbon Dioxide (22-30) mmol/L BUN (9-20) mg/dL Glucose (74-99) mg/dL POC Glucose (mg/dL) 123 H 139 H (70-110) mg/dL Hemoglobin A1c 7.0 H % 04/26/23 04/26/23 04/26/23 Range/Units 06:23 09:59 09:59 Hgb 10.1 L (13.0-17.5) gm/dL Hct 35.6 L (39.0-53.0) % MCV 72.6 L (80.0-100.0) fL MCH 20.6 L (25.0-35.0) pg MCHC 28.3 L (31.0-37.0) g/dL RDW 19.5 H (11.5-15.5) % Chloride 95 L (98-107) mmol/L Carbon Dioxide 37 H (22-30) mmol/L BUN 28 H (9-20) mg/dL Glucose 166 H (74-99) mg/dL POC Glucose (mg/dL) 66 L (70-110) mg/dL Hemoglobin A1c % 04/26/23 Range/Units 11:38 Hgb (13.0-17.5) gm/dL Hct (39.0-53.0) % MCV (80.0-100.0) fL MCH (25.0-35.0) pg MCHC (31.0-37.0) g/dL RDW (11.5-15.5) % Chloride (98-107) mmol/L Carbon Dioxide (22-30) mmol/L BUN (9-20) mg/dL Glucose (74-99) mg/dL POC Glucose (mg/dL) 113 H (70-110) mg/dL Hemoglobin A1c %
--- NOTE | 2023-04-27 12:40 | P.DS ---
Providers Date of admission: 04/24/23 16:54 Expected date of discharge: 04/26/23 Attending physician: Lonnie Martins Consults: 04/24/23 16:39 Consult Physician Routine Consulting Provider: Kishan Moffett Consult Reason/Comments: chf Do you want consulting provider notified?: Yes Primary care physician: Jeanie Sanchez Hospital Course: Final diagnosis Congestive heart failure, acute exacerbation with acute on chronic systolic dysfunction, EF 40-45% History of coronary artery disease with CABG Diabetes mellitus, type II Atrial fibrillation history Bilateral leg edema History of prostate cancer Hypertension history Sleep apnea uses a CPAP Former smoker GI prophylaxis DVT prophylaxis Full code Discharge disposition Patient is being discharged in a stable condition with guarded prognosis to home. Patient will follow-up with Dr. Sanchez in the outpatient setting upon discharge. Patient is to continue with oral diuretics twice daily for the next 1 week and then transitioned down to once daily and close outpatient follow-up with labs as well as cardiology follow-up as scheduled. Total time taken is greater than 35 minutes. Hospital course This is a 63-year-old male who was recently admitted with bilateral lower extremity edema with concerns of heart failure exacerbation. Patient being evaluated by cardiology maintained on IV Lasix and diuresed well and has cleared the patient for discharge. Please refer to cardiology notes for further HPI. Patient encouraged to continue with compression stockings or Chai wraps bilaterally to lower extremities from the toes up to the thighs and elevating while at rest. Strongly encourage fluid restrictions and monitoring of diet including salt intake. Patient to continue on Lasix 40 mg twice daily for the next 1 week and then transitioned to daily thereafter with close outpatient follow-up of labs. Patient also instructed to follow-up with primary care provider on discharge. Currently no reports of chest pain, shortness of breath, or palpitations. Patient is afebrile. No reports of nausea or vomiting and patient is tolerating diet. Patient will be discharged home today. Physical exam: Gen: This is a 63-year-old male who is awake, alert and oriented 3, well- developed, well-nourished, morbidly obese HEENT: Head is atraumatic, normocephalic. Pupils equal, round. Sclerae is anicteric. NECK: Supple. No JVD. No lymphadenopathy. No thyromegaly. LUNGS: Clear to auscultation. No wheezes or rhonchi. No intercostal retractions. HEART: Regular rate and rhythm. No murmur. ABDOMEN: Soft. Bowel sounds are present. No masses. No tenderness. EXTREMITIES: No pedal edema. No calf tenderness. Bilateral lower extremities with significant edema although some improvement from admission NEUROLOGICAL: Patient is awake, alert and oriented x3. Cranial nerves 2 through 12 are grossly intact. Please refer to medication reconciliation sheet for a list of medications. The impression and plan of care has been dictated by Yany Wilson, Nurse Practitioner as directed. Dr. Eliezer MD I have performed a history and examination and MDM of this patient, discussed the same with the dictator, and agree with the dictator's assessment and plan as written ,documented as a scribe. Based on total visit time, I have performed more than 50% of the visit. Patient Condition at Discharge: Stable Plan - Discharge Summary Discharge Rx Participant: No New Discharge Prescriptions: New Furosemide [Lasix] 40 mg PO BID #35 tab Continue Apixaban [Eliquis] 5 mg PO BID Omeprazole [PriLOSEC] 20 mg PO DAILY Atorvastatin [Lipitor] 80 mg PO HS lisinopriL 20 mg PO DAILY Empagliflozin [Jardiance] 25 mg PO DAILY Aspirin [Adult Low Dose Aspirin EC] 81 mg PO DAILY Triamterene/Hydrochlorothiazid [Triamterene-Hctz 37.5-25 mg Cp] 1 cap PO DAILY metFORMIN HCL [Glucophage] 1,000 mg PO BID Multivitamins, Thera [Multivitamin (formulary)] 1 tab PO DAILY Insulin Aspart [NovoLOG Flexpen] 36 - 50 units SQ AC-TID PRN PRN Reason: Blood Sugar - High Insulin Degludec [Tresiba Flextouch U-200 Pen] 110 units SQ HS Metoprolol Tartrate [Lopressor] 50 mg PO BID Discharge Medication List Apixaban [Eliquis] 5 mg PO BID 10/23/18 [History] Aspirin [Adult Low Dose Aspirin EC] 81 mg PO DAILY 10/23/18 [History] Atorvastatin [Lipitor] 80 mg PO HS 10/23/18 [History] Empagliflozin [Jardiance] 25 mg PO DAILY 10/23/18 [History] Omeprazole [PriLOSEC] 20 mg PO DAILY 10/23/18 [History] lisinopriL 20 mg PO DAILY 10/23/18 [History] Insulin Aspart [NovoLOG Flexpen] 36 - 50 units SQ AC-TID PRN 10/03/22 [History] Insulin Degludec [Tresiba Flextouch U-200 Pen] 110 units SQ HS 10/03/22 [History] Metoprolol Tartrate [Lopressor] 50 mg PO BID 10/03/22 [History] Triamterene/Hydrochlorothiazid [Triamterene-Hctz 37.5-25 mg Cp] 1 cap PO DAILY 10/03/22 [History] Multivitamins, Thera [Multivitamin (formulary)] 1 tab PO DAILY 04/24/23 [History] metFORMIN HCL [Glucophage] 1,000 mg PO BID 04/24/23 [History] Furosemide [Lasix] 40 mg PO BID #35 tab 04/26/23 [Rx] Follow up Appointment(s)/Referral(s): Kishan Moffett DO [STAFF PHYSICIAN] - 1 Week (office will call with an appt.) Jeanie Sanchez DO [Primary Care Provider] - 1-2 days Ambulatory/Diagnostic Orders: Basic Metabolic Panel [LAB.AMB] Time Frame: 3 Days, Location: None Selected Patient Instructions/Handouts: Heart Failure (ER), Heart Failure (DC) Activity/Diet/Wound Care/Special Instructions: Activity Limited until follow-up Continue with Lasix twice daily 40 mg for 1 week and then 40 mg daily Recommend repeat labs in one week to monitor kidney functions Recommend follow-up with primary care provider on discharge Recommend follow-up with cardiology outpatient in one week Recommend wearing Chai wraps to bilateral lower extremities and elevated while at rest Continue heart healthy diet Discharge Disposition: HOME SELF-CARE
== END 2023-04-26 15:40 | disposition home or self-care (01) ==
LOC: EC 14:09 → 3SCARD 16:40 → OBSVTOIN 16:54 → INTOOBSV 16:54 → 3SCARD 17:59 → UNDODISIN 04-26 15:40
PROVIDERS: ADMIT Hospitalist; ATTEND Hospitalist
DX: I11.0 Hypertensive heart disease with heart failure (principal); I50.33 Acute on chronic diastolic (congestive) heart failure; R60.0 Localized edema; I48.19 Other persistent atrial fibrillation; I42.9 Cardiomyopathy, unspecified; I25.10 Atherosclerotic heart disease of native coronary artery without angina pectoris; E11.9 Type 2 diabetes mellitus without complications; G47.30 Sleep apnea, unspecified; I25.2 Old myocardial infarction; E66.01 Morbid (severe) obesity due to excess calories; Z85.46 Personal history of malignant neoplasm of prostate; Z87.891 Personal history of nicotine dependence; Z95.1 Presence of aortocoronary bypass graft; Z79.01 Long term (current) use of anticoagulants; Z79.82 Long term (current) use of aspirin; Z79.84 Long term (current) use of oral hypoglycemic drugs; Z79.899 Other long term (current) drug therapy; Z79.4 Long term (current) use of insulin
CPT/HCPCS: 96372; 96376 ×3; 96374; 99285; 36415; 94760; 93005; 93306; 83880; 80053; 80048 ×2; 83735; 84484; 85025 ×3; 85610; 85730; 83036; 71046; 93970; G0378 ×3; J1940 ×3; Q9950

== ENCOUNTER 2023-06-20 06:48 | Day surgery (SDC) | payer MEDICARE ==
[2023-06-14 09:17] VITALS: BMI 45.0
[~2023-06-20 06:48] MED LIST changes: -LIDOCAINE 1% (10MG/ML) FOR IV START INTRADERMA PRN
[2023-06-20 07:19] VITALS: TEMP 97.4
[2023-06-20] MEDS ORDERED: LIDOCAINE 1% (10MG/ML) FOR IV START INTRADERMA ONE (07:25)
[2023-06-20 07:37] LABS: Glucose,Whole Blood 105 mg/dL (70-110)
[2023-06-20] MEDS ORDERED: PROPOFOL 10 MG/ML 20 ML VIAL IV ONE (08:08)
--- NOTE | 2023-06-20 08:43 | P.PCN ---
Date of Procedure: 06/20/23 Procedure(s) Performed: BRIEF HISTORY: Patient is [id number] pleasant white male scheduled for an elective colonoscopy as a part of evaluation of iron deficiency anemia.his last colonoscopy was a year ago and was noted to have multiple colon polyps. PROCEDURE PERFORMED: Colonoscopy. PREOPERATIVE DIAGNOSIS: iron deficiency anemia. IV sedation per Anesthesia. PROCEDURE: After informed consent was obtained, the patient, was brought into the endoscopy unit. IV sedation was administered by Anesthesia under continuous monitoring. Digital rectal examination was normal. Initially the Olympus CF-160 flexible video colonoscope was then inserted in the rectum, gradually advanced into the cecum with moderate to severe difficulty. Careful examination was performed as the scope was gradually being withdrawn. Ileocecal valve and the appendiceal orifice were visualized and appeared normal. Prep was excellent. Mucosa of the cecum, ascending colon, transverse colon, descending colon, sigmoid colon, and rectum appeared normal. Retroflexion was performed in the rectum and no lesions were seen. The patient tolerated the procedure well. IMPRESSION: Normal-appearing colon from rectum to cecum with no evidence of colorectal neoplasia . scattered sigmoid diverticula RECOMMENDATIONS: Findings of this examination were discussed with the patient as well as his family. He was advised to have a repeat screening colonoscopy in 3 years because of the prior history of colon polyps.
[2023-06-20 09:07] VITALS: BP 152/71; PULSE 76; RESP 18
== END 2023-06-20 09:21 | disposition home or self-care (01) ==
LOC: ORWHC2ENDO 06:48
PROVIDERS: ATTEND Internal Medicine Gastroenterology
DX: K57.30 Diverticulosis of large intestine without perforation or abscess without bleeding (principal); D50.9 Iron deficiency anemia, unspecified; I25.2 Old myocardial infarction; I10 Essential (primary) hypertension; E78.5 Hyperlipidemia, unspecified; I25.10 Atherosclerotic heart disease of native coronary artery without angina pectoris; G47.33 Obstructive sleep apnea (adult) (pediatric); E11.9 Type 2 diabetes mellitus without complications; Z79.01 Long term (current) use of anticoagulants; Z79.899 Other long term (current) drug therapy; Z79.82 Long term (current) use of aspirin
CPT/HCPCS: 45378; J2704

== ENCOUNTER 2025-02-25 16:58 | Inpatient (IN) | payer MEDICARE ==
--- NOTE | 2025-02-25 17:04 | ED ---
SOB HPI - General Chief Complaint: Shortness of Breath Stated Complaint: SOB Time Seen by Provider: 02/25/25 17:03 Source: patient, RN notes reviewed, old records reviewed Mode of arrival: wheelchair Limitations: no limitations - History of Present Illness Initial Comments: This is a 65 male to the ER today. He presents today for evaluation regards to shortness of breath severe lower extremity edema shortness of breath chest pain with walking history of A-fib on Eliquis history of heart failure long ago history of smoking mainly underlying history of heart disease. Patient was at his primary care because he has been feeling unwell and he sent him to the ER for low blood pressure elevated heart rate and shortness of breath with lower extremity edema severe -: days(s) Severity: severe Severity scale (1-10): 8 Consistency: constant Improves With: nothing Worsens With: nothing, lying flat, exertion Known History Of: congestive heart failure Context: recent URI, anxiety, recent illness Treatments Prior to Arrival: none - Related Data Home Medications Medication Instructions Recorded Confirmed Apixaban [Eliquis] 5 mg PO BID 10/23/18 02/25/25 Aspirin [Adult Low Dose Aspirin EC] 81 mg PO DAILY 10/23/18 02/25/25 Atorvastatin [Lipitor] 80 mg PO HS 10/23/18 02/25/25 Empagliflozin [Jardiance] 25 mg PO DAILY 10/23/18 02/25/25 Omeprazole [PriLOSEC] 20 mg PO DAILY PRN 10/23/18 02/25/25 lisinopriL 20 mg PO DAILY 10/23/18 02/25/25 Insulin Aspart [NovoLOG Flexpen] 36 - 50 units SQ AC-TID 10/03/22 02/25/25 Insulin Degludec [Tresiba 60 units SQ HS 10/03/22 02/25/25 Flextouch U-200 Pen] Metoprolol Tartrate [Lopressor] 50 mg PO BID 10/03/22 02/25/25 Triamterene/Hydrochlorothiazid 1 cap PO DAILY 10/03/22 02/25/25 [Triamterene-Hctz 37.5-25 mg Cp] Multivitamins, Thera [Multivitamin 1 tab PO DAILY 04/24/23 02/25/25 (formulary)] Furosemide [Lasix] 40 mg PO BID 02/25/25 02/25/25 metFORMIN HCL [Glucophage] 1,000 mg PO BID 02/25/25 02/25/25 Allergies Allergy/AdvReac Type Severity Reaction Status Date / Time No Known Allergies Allergy Verified 02/25/25 17:55 Review of Systems ROS Statement: Those systems with pertinent positive or pertinent negative responses have been documented in the HPI. ROS Other: All systems not noted in ROS Statement are negative. Past Medical History Past Medical History: Atrial Fibrillation, Coronary Artery Disease (CAD), Cancer, Diabetes Mellitus, Hypertension, Myocardial Infarction ([place]), Prostate Disorder, Sleep Apnea/CPAP/BIPAP Additional Past Medical History / Comment(s): PROSTATE CANCER, uses CPAP Last Myocardial Infarction Date:: 2015 History of Any Multi-Drug Resistant Organisms: None Reported Past Surgical History: Appendectomy, Coronary Bypass/CABG, Heart Catheterization With Stent, Hernia Repair, Prostate Surgery Additional Past Surgical History / Comment(s): HEART CATHS X7 WITH TOTAL OF 7 STENTS, CABG OCT 2016, JAYLYN INGUINAL HERNIAS, UMBILICAL HERNIAS. Past Anesthesia/Blood Transfusion Reactions: No Reported Reaction Additional Past Anesthesia/Blood Transfusion Reaction / Comment(s): no blood transfusion Date of Last Stent Placement:: 2014 Past Psychological History: No Psychological Hx Reported Smoking Status: Former smoker Past Alcohol Use History: Rare Past Drug Use History: None Reported - Past Family History Mother Family Medical History: No Reported History Additional Family Medical History / Comment(s): Heart disease Father Family Medical History: Diabetes Mellitus Additional Family Medical History / Comment(s): Heart disease General Exam Limitations: no limitations General appearance: alert, in no apparent distress Head exam: Present: atraumatic, normocephalic, normal inspection Eye exam: Present: normal appearance, PERRL, EOMI. Absent: scleral icterus, conjunctival injection, periorbital swelling ENT exam: Present: normal exam, mucous membranes moist Neck exam: Present: normal inspection. Absent: tenderness, meningismus, lymphadenopathy Respiratory exam: Present: normal lung sounds bilaterally, respiratory distress, rhonchi, stridor, decreased breath sounds, prolonged expiratory. Absent: whe ezes, rales Cardiovascular Exam: Present: irregular rhythm, normal heart sounds. Absent: systolic murmur, diastolic murmur, rubs, gallop, clicks GI/Abdominal exam: Present: soft, normal bowel sounds. Absent: distended, tenderness, guarding, rebound, rigid Extremities exam: Present: normal inspection, full ROM, normal capillary refill. Absent: tenderness, pedal edema, joint swelling, calf tenderness Back exam: Present: normal inspection Neurological exam: Present: alert, oriented X3, CN II-XII intact Psychiatric exam: Present: normal affect, normal mood Skin exam: Present: warm, dry, intact, normal color. Absent: rash Course Vital Signs 02/25/25 02/25/25 02/25/25 16:58 17:06 17:14 Temperature 97.5 F L Pulse Rate 75 68 Respiratory 18 24 24 Rate Blood Pressure 96/64 106/67 O2 Sat by Pulse 85 L 95 Oximetry 02/25/25 02/25/25 02/25/25 17:24 17:34 18:16 Temperature 97.6 F Pulse Rate 68 81 81 Respiratory 22 18 18 Rate Blood Pressure 101/70 O2 Sat by Pulse 97 Oximetry 02/25/25 19:52 Temperature 97.6 F Pulse Rate 73 Respiratory 20 Rate Blood Pressure 105/63 O2 Sat by Pulse 95 Oximetry - Reevaluation(s) Reevaluation #1: 02/25/25 17:54 Medical records reviewed Reevaluation #2: 02/25/25 18:33 Patient has not improvement in oxygen here in the ER with supplemental oxygen Reevaluation #3: 02/25/25 18:33 Informed of results questions answered Reevaluation #4: Was pt. sent in by a medical professional or institution (, PA, [facility], urgent care, hospital, or long-term...) When possible be specific @ -no Did you speak to anyone other than the patient for history (EMS, parent, family, police, friend...)? What history was obtained from this source @ -no Did you review nursing and triage notes (agree or disagree)? Why? @ -agree Are old charts reviewed (outside hosp., previous admission, EMS record, old EKG, old radiological studies, urgent care reports/EKG's, long-term records)? Report findings @ -yes Differential Diagnosis (chest pain, altered mental status, abdominal pain women, abdominal pain men, vaginal bleeding, weakness, fever, dyspnea, syncope, headache, dizziness, GI bleed, back pain, seizure, CVA, palpatations, mental health, musculoskeletal)? @ -prior EKG interpreted by me (3pts min.). @ -yes X-rays interpreted by me (1pt min.). @ -yes positive heart failure CT interpreted by me (1pt min.). @ -no U/S interpreted by me (1pt. min.). @ -no What testing was considered but not performed or refused? (CT, X-rays, U/S, labs)? Why? @ -none What meds were considered but not given or refused? Why? @ -none Did you discuss the management of the patient with other professionals (professionals i.e. Dr., PA, [facility], lab, RT, psych nurse, social sciences department chair, shredding machine operator, teacher, science and operations officer, rn case manager hospice)? Give summary @ -no Was smoking cessation discussed for >3mins.? @ -no Was critical care preformed (if so, how long)? @ -no Were there social determinants of health that impacted care today? How? (Homelessness, low income, unemployed, alcoholism, drug addiction, transportation, low edu. Level, literacy, decrease access to med. care, detention, rehab)? @ -none Was there de-escalation of care discussed even if they declined (Discuss DNR or withdrawal of care, Hospice)? DNR status @ -no What co-morbidities impacted this encounter? (DM, HTN, Smoking, COPD, CAD, Cancer, CVA, ARF, Chemo, Hep., AIDS, mental health diagnosis, sleep apnea, morbid obesity)? @ -none Was patient admitted / discharged? Hospital course, mention meds given and route, prescriptions, significant lab abnormalities, going to OR and other pertinent info. @ - 65 Male to the ER for evaluation of severe shortness of breath severe dyspnea here in the ER will admit for cardiac evaluation and CHF Admitted Undiagnosed new problem with uncertain prognosis? @ -no Drug Therapy requiring intensive monitoring for toxicity (Heparin, Nitro, Insulin, Cardizem)? @ -no Were any procedures done? @ -no Diagnosis/symptom? @ -CHF Acute, or Chronic, or Acute on Chronic? @ -Acute Uncomplicated (without systemic symptoms) or Complicated (systemic symptoms)? @ -Complicated Side effects of treatment? @ -no Exacerbation, Progression, or Severe Exacerbation? @ -exacerbation Poses a threat to life or bodily function? How? (Chest pain, [place], [place], pneumonia, PE, COPD, DKA, ARF, appy, cholecystitis, CVA, Diverticulitis, Homicidal, Suicidal, threat to staff... and all critical care pts) @ -yes yes with heart failure Reevaluation #5: Differential Dyspnea: Coronary syndrome, arrhythmia, tamponade, asthma, COPD, pulmonary embolism, pneumonia, pneumothorax, pulmonary effusion, anaphylaxis, diabetic ketoacidosis, flailed chest, pulmonary contusion, diaphragmatic rupture, anemia, neuromuscular, this is not meant to be an all-inclusive list. - Consultations Consultation #1: With admitting physicians agreed to admit this patient, [facility] Medical Decision Making - Medical Decision Making 65 Male to the ER for evaluation of severe shortness of breath severe dyspnea here in the ER will admit for cardiac evaluation and CHF - Lab Data Result diagrams: 03/02/25 04:53 03/02/25 04:53 Lab Results 02/25/25 02/25/25 02/25/25 Range/Units 17:22 17:22 17:22 WBC 6.08 (4.50-10.00) 10*3/uL RBC 4.85 (4.40-5.60) 10*6/uL Hgb 9.3 L (13.0-17.0) g/dL Hct 33.5 L (39.6-50.0) % MCV 69.1 L (80.0-97.0) fL MCH 19.2 L (27.0-32.0) pg MCHC 27.8 L (32.0-37.0) g/dL Plt Count 266 (140-440) 10*3/uL MPV 8.8 L (9.5-12.2) fL Immature Gran % (Auto) 0.3 % Neutrophils % 64.3 % Lymphocytes % 18.3 % Monocytes % 13.2 % Eosinophils % 3.1 % Basophils % 0.8 % Immature Gran # 0.02 (0.00-0.04) 10*3/uL Neutrophils # 3.91 (1.80-7.70) 10*3/uL Lymphocytes # 1.11 (0.90-5.00) 10*3/uL Monocytes # 0.80 (0.20-1.00) 10*3/uL Eosinophils # 0.19 (0.04-0.35) 10*3/uL Basophils # 0.05 (0.00-0.10) 10*3/uL PT 12.9 H (10.0-12.5) sec INR 1.2 H (<1.2) APTT 26.5 (22.0-30.0) sec Sodium 138 (137-145) mmol/L Potassium 4.7 (3.5-5.1) mmol/L Chloride 102 (98-107) mmol/L Carbon Dioxide 28 (22-30) mmol/L Anion Gap 8 mmol/L BUN 49 H (9-20) mg/dL Creatinine 1.29 H (0.66-1.25) mg/dL Est GFR (CKD-EPI)AfAm 66 (>60 ml/min/1.73 sqM) Est GFR (CKD-EPI)NonAf 57 (>60 ml/min/1.73 sqM) Glucose 164 H (74-99) mg/dL Estimated Ave Glu mg/dL mg/dL Hemoglobin A1c (<=6.0) % Plasma Lactic Acid Cong (0.7-2.0) mmol/L Calcium 8.9 (8.4-10.2) mg/dL Magnesium 1.9 (1.6-2.3) mg/dL Total Bilirubin 0.9 (0.2-1.3) mg/dL AST 27 (17-59) U/L ALT 22 (4-49) U/L Alkaline Phosphatase 147 H (38-126) U/L Troponin I (0.000-0.034) ng/mL NT-Pro-B Natriuret Pep 3550 pg/mL Total Protein 6.8 (6.3-8.2) g/dL Albumin 3.8 (3.5-5.0) g/dL 02/25/25 02/25/25 02/25/25 Range/Units 17:22 17:22 17:22 WBC (4.50-10.00) 10*3/uL RBC (4.40-5.60) 10*6/uL Hgb (13.0-17.0) g/dL Hct (39.6-50.0) % MCV (80.0-97.0) fL MCH (27.0-32.0) pg MCHC (32.0-37.0) g/dL Plt Count (140-440) 10*3/uL MPV (9.5-12.2) fL Immature Gran % (Auto) % Neutrophils % % Lymphocytes % % Monocytes % % Eosinophils % % Basophils % % Immature Gran # (0.00-0.04) 10*3/uL Neutrophils # (1.80-7.70) 10*3/uL Lymphocytes # (0.90-5.00) 10*3/uL Monocytes # (0.20-1.00) 10*3/uL Eosinophils # (0.04-0.35) 10*3/uL Basophils # (0.00-0.10) 10*3/uL PT (10.0-12.5) sec INR (<1.2) APTT (22.0-30.0) sec Sodium (137-145) mmol/L Potassium (3.5-5.1) mmol/L Chloride (98-107) mmol/L Carbon Dioxide (22-30) mmol/L Anion Gap mmol/L BUN (9-20) mg/dL Creatinine (0.66-1.25) mg/dL Est GFR (CKD-EPI)AfAm (>60 ml/min/1.73 sqM) Est GFR (CKD-EPI)NonAf (>60 ml/min/1.73 sqM) Glucose (74-99) mg/dL Estimated Ave Glu mg/dL 171 mg/dL Hemoglobin A1c 7.6 H (<=6.0) % Plasma Lactic Acid Cong 2.0 (0.7-2.0) mmol/L Calcium (8.4-10.2) mg/dL Magnesium (1.6-2.3) mg/dL Total Bilirubin (0.2-1.3) mg/dL AST (17-59) U/L ALT (4-49) U/L Alkaline Phosphatase (38-126) U/L Troponin I <0.012 (0.000-0.034) ng/mL NT-Pro-B Natriuret Pep pg/mL Total Protein (6.3-8.2) g/dL Albumin (3.5-5.0) g/dL - EKG Data -: EKG Interpreted by Me (EKG is Sinus 70 OR 125 QRS 162 QTc 460) - Radiology Data Radiology results: report reviewed (X-ray positive CHF), image reviewed Critical Care Time Critical Care Time: Yes Total Critical Care Time: 31 Disposition Clinical Impression: Congestive heart failure, Bilateral leg edema, Hypoxia Disposition: ADMITTED IP TO THIS HOSP Condition: Fair Is patient prescribed a controlled substance at d/c from ED?: No Time of Disposition: 18:30
[2025-02-25] MEDS: IPRATROPIUM-ALBUTEROL 3 ML NEB INHALATION STA (17:24)
[2025-02-25 17:35] LABS: Basophils # (A) 0.05 10*3/uL (0.00-0.10); Basophils % (A) 0.8 %; Eosinophils # (A) 0.19 10*3/uL (0.04-0.35); Eosinophils % (A) 3.1 %; HCT 33.5 % (39.6-50.0); HGB 9.3 g/dL (13.0-17.0); Lymphocytes # (A) 1.11 10*3/uL (0.90-5.00); Lymphocytes % (A) 18.3 %; MCH 19.2 pg (27.0-32.0); MCHC 27.8 g/dL (32.0-37.0); MCV 69.1 fL (80.0-97.0); Mean Platelet Volume 8.8 fL (9.5-12.2); Monocytes % (A) 13.2 %; Neutrophils # (A) 3.91 10*3/uL (1.80-7.70); Neutrophils % (A) 64.3 %; Platelet Count 266 10*3/uL (140-440); RBC 4.85 10*6/uL (4.40-5.60); WBC 6.08 10*3/uL (4.50-10.00)
[2025-02-25 17:46] LABS: INR 1.2 (<1.2); Partial Thromboplastin Time 26.5 sec (22.0-30.0); Prothrombin Time 12.9 sec (10.0-12.5)
[2025-02-25 17:51] LABS: ALT 22 U/L (4-49); AST 27 U/L (17-59); African American GFR (CKD) 66 (>60 ml/min/1.73 sqM); Albumin 3.8 g/dL (3.5-5.0); Alkaline Phosphatase 147 U/L (38-126); Anion Gap 8 mmol/L; Blood Urea Nitrogen 49 mg/dL (9-20); Calcium 8.9 mg/dL (8.4-10.2); Carbon Dioxide 28 mmol/L (22-30); Chloride 102 mmol/L (98-107); Glucose 164 mg/dL (74-99); Magnesium 1.9 mg/dL (1.6-2.3); Non-African American GFR(CKD) 57 (>60 ml/min/1.73 sqM); Potassium 4.7 mmol/L (3.5-5.1); Sodium 138 mmol/L (137-145); Total Bilirubin 0.9 mg/dL (0.2-1.3); Total Protein 6.8 g/dL (6.3-8.2)
[2025-02-25 18:00] LABS: NT-Pro-B-Type Natriuretic Pept 3550 pg/mL
--- NOTE | 2025-02-25 18:37 | XR ---
EXAMINATION TYPE: XR chest 1V portable DATE OF EXAM: 02/25/2025 6:07 PM COMPARISON: Chest radiographs from 6 x 23 TECHNIQUE: XR chest 1V portable Portable AP radiograph of the chest. CLINICAL INDICATION:Male, 65 years old with history of sob; FINDINGS: Lungs/Pleura: There is no evidence of pleural effusion, focal consolidation, or pneumothorax. Pulmonary vascularity: Pulmonary vascular congestion. Heart/mediastinum: Cardiomediastinal silhouette is enlarged and stable. Post-CABG changes. Left circ umflex distribution coronary stent redemonstrated. Musculoskeletal: No acute osseous pathology. Midline sternotomy wires are noted and stable. Few of th e upper sternotomy wires are again fracture. IMPRESSION: Cardiomegaly and mild pulmonary vascular congestion. Correlate with BNP for congestive heart failure. [facility], , 02/25/2025 6:35 PM
[2025-02-25] MEDS: FUROSEMIDE 10 MG/ML 4 ML VIAL IV SCH (19:26)
[2025-02-25 20:13] LABS: Glucose,Whole Blood 155 mg/dL (70-110)
[2025-02-25] MEDS ORDERED: PANTOPRAZOLE 40 MG TABLET PO PRN (22:18)
[2025-02-25] MEDS ORDERED: DEXTROSE 50% SYRINGE 50 ML IVP PRN ×2 (22:20)
[2025-02-25] MEDS: ATORVASTATIN 80 MG TAB PO SCH (22:56)
[2025-02-25] MEDS: APIXABAN 5 MG TAB PO SCH (22:56)
[2025-02-25] MEDS: METOPROLOL TARTRATE 50 MG TAB PO SCH (22:56)
[2025-02-25] MEDS: INSULIN GLARGINE (LANTUS) 100 UNIT/ML SYR SQ SCH (22:56)
[2025-02-26 06:30] LABS: Glucose,Whole Blood 165 mg/dL (70-110)
[2025-02-26] MEDS: INSULIN LISPRO (HumaLOG) 100 UNIT/ML 10 mL VL SQ SCH ×2 (06:49→06:50)
--- NOTE | 2025-02-26 09:06 | P.CRDCN ---
History of Present Illness History of present illness: HISTORY OF PRESENT ILLNESS: This is a 65-year-old male with a past medical history significant for coronary artery disease with previous CABG, congestive heart failure, hypertension, hype rlipidemia, diabetes, and atrial fibrillation. Patient follows in the office with Dr. Richards out of [facility]. We have been asked to see the patient in consultation for congestive heart failure. Patient examined at the bedside. Patient presented to the hospital with a chief complaint of shortness of breath. Patient states he has been feeling short of breath for the past 2 weeks. He also reports having a cough with sputum production. He reports increased swelling in his lower extremities. He reports a 20 pound weight gain in the past 6 weeks. He states he has been compliant with all of his medications and has been following a low-sodium diet. Patient was found to be in acute CHF and was started on IV Lasix. DIAGNOSTICS: - EKG reveals atrial fibrillation with controlled ventricular rate - Chest xray cardiomegaly mild pulmonary vascular congestion - Laboratory data: WBC 6.08. Hemoglobin 9.3. Platelet count 266. Sodium 138. Potassium 4.7. BUN 49. Creatinine 1.29. Troponin negative x 3. proBNP 3550. - Current home cardiac medications include aspirin 81 mg daily, Lasix 40 mg twice a day, metoprolol tartrate 50 mg twice a day, Eliquis 5 mg twice a day, lisinopril 20 mg daily, Lipitor 80 mg at night, Jardiance 25 mg daily - Most recent echocardiogram obtained in April 2023 revealed ejection fraction 40 to 45% - Cardiac catheterization history: Unknown REVIEW OF SYSTEMS: At the time of my exam: CONSTITUTIONAL: Denies fever or chills. HEENT: Denies blurred vision, vision changes, or eye pain. Denies hemoptysis CARDIOVASCULAR: Denies chest pain. Denies orthopnea. Denies PND. Denies palpitations RESPIRATORY: Denies shortness of breath. GASTROINTESTINAL: Denies abdominal pain. Denies nausea or vomiting. HEMATOLOGIC: Denies bleeding disorders. GENITOURINARY: Denies any blood in urine. SKIN: Denies pruitis. Denies rash. PHYSICAL EXAM: VITAL SIGNS: Reviewed. GENERAL: Well-developed in no acute distress. HEENT: Head is normocephalic. Pupils are equal, round. Sclerae anicteric. Mucous membranes of the mouth are moist. Neck supple. No JVD or thyromegaly LUNGS: Respirations even and unlabored. Lungs with bibasilar crackles HEART: Irregular rate and rhythm. S1 and S2 heard. ABDOMEN: Soft. Nondistended. Nontender. EXTREMITIES: Normal range of motion. No clubbing or cyanosis. Peripheral pulses intact. Bilateral lower extremity edema noted NEUROLOGIC: Awake and alert. Oriented x 3. ASSESSMENT: Acute on chronic heart failure with reduced EF Coronary artery disease with previous CABG Ischemic cardiomyopathy 40 to 45% Persistent atrial fibrillation Hypertension Hyperlipidemia Diabetes Obesity: BMI 48.7 PLAN: Obtain 2D echo to assess cardiac structure and function Continue IV Lasix 40 mg every 12 hours Daily weights, accurate intake and output, monitoring of kidney function Resume home cardiac medications Further recommendations pending patient course Nurse practitioner note has been reviewed by physician. Signing provider agrees with the documented findings, assessment, and plan of care documented by COUNTER SALES REPRESENTATIVE as a scribe. Past Medical History Past Medical History: Atrial Fibrillation, Coronary Artery Disease (CAD), Cancer, Diabetes Mellitus, Hypertension, Myocardial Infarction ([place]), Prostate Disorder, Sleep Apnea/CPAP/BIPAP Additional Past Medical History / Comment(s): PROSTATE CANCER, uses CPAP Last Myocardial Infarction Date:: 2015 History of Any Multi-Drug Resistant Organisms: None Reported Past Surgical History: Appendectomy, Coronary Bypass/CABG, Heart Catheterization With Stent, Hernia Repair, Prostate Surgery Additional Past Surgical History / Comment(s): HEART CATHS X7 WITH TOTAL OF 7 STENTS, CABG OCT 2016, JAYLYN INGUINAL HERNIAS, UMBILICAL HERNIAS. Past Anesthesia/Blood Transfusion Reactions: No Reported Reaction Additional Past Anesthesia/Blood Transfusion Reaction / Comment(s): no blood transfusion Date of Last Stent Placement:: 2014 Past Psychological History: No Psychological Hx Reported Smoking Status: Former smoker Past Alcohol Use History: Rare Additional Past Alcohol Use History / Comment(s): Smoked 3 PPD. quit 30 years Past Drug Use History: None Reported - Past Family History Mother Family Medical History: No Reported History Additional Family Medical History / Comment(s): Heart disease Father Family Medical History: Diabetes Mellitus Additional Family Medical History / Comment(s): Heart disease Medications and Allergies Home Medications Medication Instructions Recorded Confirmed Type Apixaban [Eliquis] 5 mg PO BID 10/23/18 02/25/25 History Aspirin [Adult Low Dose Aspirin EC] 81 mg PO DAILY 10/23/18 02/25/25 History Atorvastatin [Lipitor] 80 mg PO HS 10/23/18 02/25/25 History Empagliflozin [Jardiance] 25 mg PO DAILY 10/23/18 02/25/25 History Omeprazole [PriLOSEC] 20 mg PO DAILY PRN 10/23/18 02/25/25 History lisinopriL 20 mg PO DAILY 10/23/18 02/25/25 History Insulin Aspart [NovoLOG Flexpen] 36 - 50 units SQ AC-TID 10/03/22 02/25/25 History Insulin Degludec [Tresiba 60 units SQ HS 10/03/22 02/25/25 History Flextouch U-200 Pen] Metoprolol Tartrate [Lopressor] 50 mg PO BID 10/03/22 02/25/25 History Triamterene/Hydrochlorothiazid 1 cap PO DAILY 10/03/22 02/25/25 History [Triamterene-Hctz 37.5-25 mg Cp] Multivitamins, Thera [Multivitamin 1 tab PO DAILY 04/24/23 02/25/25 History (formulary)] Furosemide [Lasix] 40 mg PO BID 02/25/25 02/25/25 History metFORMIN HCL [Glucophage] 1,000 mg PO BID 02/25/25 02/25/25 History Allergies Allergy/AdvReac Type Severity Reaction Status Date / Time No Known Allergies Allergy Verified 02/25/25 17:55 Physical Exam Vitals: Vital Signs Temp Pulse Pulse Resp BP BP Pulse Ox 02/26/25 07:14 97.7 F 61 18 102/58 99 02/26/25 00:50 98.8 F 73 16 93/54 93 L 02/25/25 21:46 20 02/25/25 20:20 97.5 F L 76 18 120/65 100 02/25/25 20:00 97.5 F L 76 18 120/65 100 02/25/25 19:52 97.6 F 73 20 105/63 95 02/25/25 18:16 97.6 F 81 18 101/70 97 02/25/25 17:34 81 18 02/25/25 17:24 68 22 02/25/25 17:14 68 24 106/67 95 02/25/25 17:06 24 04/08/25 16:58 97.5 F L 75 18 96/64 85 L Intake and Output 02/25/25 02/26/25 02/26/25 22:59 06:59 14:59 Intake Total 1500 Output Total 1400 Balance 100 Intake: Oral 1500 Output: Urine 1400 Other: Voiding Method External Catheter Weight 181.437 kg Results 02/25/25 17:22 02/25/25 17:22 Cardiac Enzymes 02/25/25 02/25/25 02/25/25 Range/Units 17:22 17:22 20:35 AST 27 (17-59) U/L Troponin I <0.012 <0.012 (0.000-0.034) ng/mL 02/25/25 Range/Units 23:33 AST (17-59) U/L Troponin I 0.013 (0.000-0.034) ng/mL Coagulation 02/25/25 Range/Units 17:22 PT 12.9 H (10.0-12.5) sec APTT 26.5 (22.0-30.0) sec CBC 02/25/25 Range/Units 17:22 WBC 6.08 (4.50-10.00) 10*3/uL RBC 4.85 (4.40-5.60) 10*6/uL Hgb 9.3 L (13.0-17.0) g/dL Hct 33.5 L (39.6-50.0) % Plt Count 266 (140-440) 10*3/uL Comprehensive Metabolic Panel 02/25/25 Range/Units 17:22 Sodium 138 (137-145) mmol/L Potassium 4.7 (3.5-5.1) mmol/L Chloride 102 (98-107) mmol/L Carbon Dioxide 28 (22-30) mmol/L BUN 49 H (9-20) mg/dL Creatinine 1.29 H (0.66-1.25) mg/dL Glucose 164 H (74-99) mg/dL Calcium 8.9 (8.4-10.2) mg/dL AST 27 (17-59) U/L ALT 22 (4-49) U/L Alkaline Phosphatase 147 H (38-126) U/L Total Protein 6.8 (6.3-8.2) g/dL Albumin 3.8 (3.5-5.0) g/dL Current Medications Generic Name Dose Route Start Last Admin Trade Name Frank PRN Reason Stop Dose Admin Apixaban 5 mg 02/25/25 22:30 02/25/25 22:56 Apixaban 5 Mg Tab PO 5 mg BID COUNTS INCLUDE 234 BEDS AT THE [facility] Administration Protocol Aspirin 81 mg 02/26/25 09:00 Aspirin 81 Mg PO DAILY COUNTS INCLUDE 234 BEDS AT THE [facility] Atorvastatin Calcium 80 mg 02/25/25 22:30 02/25/25 22:56 Atorvastatin 80 Mg Tab PO 80 mg HS COUNTS INCLUDE 234 BEDS AT THE [facility] Administration Dapagliflozin 10 mg 02/26/25 09:00 Dapagliflozin Propanediol 10 Mg Tablet PO DAILY COUNTS INCLUDE 234 BEDS AT THE [facility] Dextrose/Water 25 ml 02/25/25 22:20 Dextrose 50% Syringe 50 Ml IVP PER PROTOCOL PRN Hypoglycemia Protocol Dextrose/Water 50 ml 02/25/25 22:20 Dextrose 50% Syringe 50 Ml IVP PER PROTOCOL PRN Hypoglycemia Protocol Furosemide 40 mg 02/25/25 19:00 02/26/25 06:49 Furosemide 10 Mg/Ml 4 Ml Vial IV 40 mg Q12H JANIS Administration Insulin Glargine 60 unit 02/25/25 22:45 02/25/25 22:56 Insulin Glargine (Lantus) 100 Unit/Ml Syr SQ 60 unit HS COUNTS INCLUDE 234 BEDS AT THE [facility] Administration Insulin Human Lispro 36 unit 02/26/25 07:30 02/26/25 06:50 Insulin Lispro (Humalog) 100 Unit/Ml 10 Ml Vl SQ Not Given AC-TID COUNTS INCLUDE 234 BEDS AT THE [facility] Insulin Human Lispro 0 unit 02/26/25 07:30 02/26/25 06:49 Insulin Lispro (Humalog) 100 Unit/Ml 10 Ml Vl SQ 2 unit ACHS JANIS Administration Protocol Metoprolol Tartrate 50 mg 02/25/25 22:30 02/25/25 22:56 Metoprolol Tartrate 50 Mg Tab PO 50 mg BID COUNTS INCLUDE 234 BEDS AT THE [facility] Administration Multivitamins 1 each 02/26/25 09:00 Multivitamins, Thera 1 Each Tab PO DAILY COUNTS INCLUDE 234 BEDS AT THE [facility] Pantoprazole Sodium 40 mg 02/25/25 22:18 Pantoprazole 40 Mg Tablet PO DAILY PRN GI Upset Intake and Output 02/25/25 02/26/25 02/26/25 22:59 06:59 14:59 Intake Total 1500 Output Total 1400 Balance 100 Intake: Oral 1500 Output: Urine 1400 Other: Voiding Method External Catheter Weight 181.437 kg 02/25/25 17:22 02/25/25 17:22
[2025-02-26] MEDS: DAPAGLIFLOZIN PROPANEDIOL 10 MG TABLET PO SCH (09:33)
[2025-02-26] MEDS: MULTIVITAMINS, THERA 1 EACH TAB PO SCH (09:33)
[2025-02-26] MEDS: ASPIRIN 81 MG PO SCH (09:33)
--- NOTE | 2025-02-26 12:07 | P.HPIM ---
History of Present Illness This is a pleasant 65 years old male with past medical history of multiple medical problems including history of CHF. Patient went to see his PCP Dr. Sanchez who referred him to the hospital has been having increasingly worsening leg swelling and shortness of breath over several days and weeks or even months. He feels some dizziness when he tries to get up He denies chest pain. His leather skinner Dr. Cabral from outside of the system. He denies any specific GI/ symptoms. No headache or dizziness currently. No weakness or numbness. He denies smoking alcohol or illicit drugs. He was admitted to the hospital about 1 year ago for course of similar complaints and acute CHF. Patient is hemodynamically stable, blood pressure slightly on the low side 96/64. Before it was more 120/65 on admission. Patient is afebrile. He has unremarkable CBC, BMP and INR. Troponin is negative. Hemoglobin 9.3 which is slightly less than his baseline of 10-11. Creatinine 1.2 which is at baseline of 1.2-1.4. proBNP is elevated 3550. Chest x-ray showing cardiomegaly with pulmonary vascular congestion EKG showing sinus rhythm with marked sinus arrhythmia at a rate of 70/min with right bundle branch block and there is Q waves in the inferior leads. Echocardiogram is requested and is pending On admission time during and hydrochlorothiazide was held as well as metformin 1000 and lisinopril 20 mg. Patient continued on his home dose of aspirin 81 mg metoprolol 50 mg and his insulin confirms he takes Lantus 6 units at 56 units up to 50 units with meals. He is currently placed on IV Lasix 40 mg twice daily. Review of Systems Review of systems CONSTITUTIONAL: No fever, no malaise, no fatigue. HEENT: No recent visual problems or hearing problems. Denied any sore throat. CARDIOVASCULAR: No orthopnea, PND, no palpitations, no syncope. PULMONARY: No chest wall tenderness, no hemoptysis. GASTROINTESTINAL: No diarrhea, no nausea, no vomiting, no abdominal pain. Normoactive bowel sounds. NEUROLOGICAL: No headaches, no weakness, no numbness. HEMATOLOGICAL: Denies any bleeding or petechiae. GENITOURINARY: Denies any burning micturition, frequency, or urgency. MUSCULOSKELETAL/RHEUMATOLOGICAL: Denies any joint pain, swelling, or any muscle pain. ENDOCRINE: Denies any polyuria or polydipsia. Past Medical History Past Medical History: Atrial Fibrillation, Coronary Artery Disease (CAD), Cancer, Diabetes Mellitus, Hypertension, Myocardial Infarction ([place]), Prostate Disorder, Sleep Apnea/CPAP/BIPAP Additional Past Medical History / Comment(s): PROSTATE CANCER, uses CPAP Last Myocardial Infarction Date:: 2015 History of Any Multi-Drug Resistant Organisms: None Reported Past Surgical History: Appendectomy, Coronary Bypass/CABG, Heart Catheterization With Stent, Hernia Repair, Prostate Surgery Additional Past Surgical History / Comment(s): HEART CATHS X7 WITH TOTAL OF 7 STENTS, CABG OCT 2016, JAYLYN INGUINAL HERNIAS, UMBILICAL HERNIAS. Past Anesthesia/Blood Transfusion Reactions: No Reported Reaction Additional Past Anesthesia/Blood Transfusion Reaction / Comment(s): no blood transfusion Date of Last Stent Placement:: 2014 Past Psychological History: No Psychological Hx Reported Smoking Status: Former smoker Past Alcohol Use History: Rare Additional Past Alcohol Use History / Comment(s): Smoked 3 PPD. quit 30 years Past Drug Use History: None Reported - Past Family History Mother Family Medical History: No Reported History Additional Family Medical History / Comment(s): Heart disease Father Family Medical History: Diabetes Mellitus Additional Family Medical History / Comment(s): Heart disease Medications and Allergies Home Medications Medication Instructions Recorded Confirmed Type Apixaban [Eliquis] 5 mg PO BID 10/23/18 02/25/25 History Aspirin [Adult Low Dose Aspirin EC] 81 mg PO DAILY 10/23/18 02/25/25 History Atorvastatin [Lipitor] 80 mg PO HS 10/23/18 02/25/25 History Empagliflozin [Jardiance] 25 mg PO DAILY 10/23/18 02/25/25 History Omeprazole [PriLOSEC] 20 mg PO DAILY PRN 10/23/18 02/25/25 History lisinopriL 20 mg PO DAILY 10/23/18 02/25/25 History Insulin Aspart [NovoLOG Flexpen] 36 - 50 units SQ AC-TID 10/03/22 02/25/25 History Insulin Degludec [Tresiba 60 units SQ HS 10/03/22 02/25/25 History Flextouch U-200 Pen] Metoprolol Tartrate [Lopressor] 50 mg PO BID 10/03/22 02/25/25 History Triamterene/Hydrochlorothiazid 1 cap PO DAILY 10/03/22 02/25/25 History [Triamterene-Hctz 37.5-25 mg Cp] Multivitamins, Thera [Multivitamin 1 tab PO DAILY 04/24/23 02/25/25 History (formulary)] Furosemide [Lasix] 40 mg PO BID 02/25/25 02/25/25 History metFORMIN HCL [Glucophage] 1,000 mg PO BID 02/25/25 02/25/25 History Allergies Allergy/AdvReac Type Severity Reaction Status Date / Time No Known Allergies Allergy Verified 02/25/25 17:55 Physical Exam Vitals: Vital Signs Temp Pulse Pulse Resp BP BP Pulse Ox 02/26/25 10:22 20 02/26/25 07:14 97.7 F 61 18 102/58 99 02/26/25 00:50 98.8 F 73 16 93/54 93 L 02/25/25 21:46 20 02/25/25 20:20 97.5 F L 76 18 120/65 100 02/25/25 20:00 97.5 F L 76 18 120/65 100 02/25/25 19:52 97.6 F 73 20 105/63 95 02/25/25 18:16 97.6 F 81 18 101/70 97 02/25/25 17:34 81 18 02/25/25 17:24 68 22 02/25/25 17:14 68 24 106/67 95 02/25/25 17:06 24 02/25/25 16:58 97.5 F L 75 18 96/64 85 L Intake and Output 02/25/25 02/26/25 02/26/25 22:59 06:59 14:59 Intake Total 1500 Output Total 1400 Balance 100 Intake: Oral 1500 Output: Urine 1400 Other: Voiding Method External Catheter External Catheter Weight 181.437 kg -GENERAL: The patient is alert and oriented x3, not in any acute distress. Well developed, well nourished. Morbidly obese HEENT: Pupils are round and equally reacting to light. EOMI. No scleral icterus. No conjunctival pallor. Normocephalic, atraumatic. No pharyngeal erythema. No thyromegaly. CARDIOVASCULAR: S1 and S2 present. No murmurs, rubs, or gallops. -PULMONARY: Chest is clear to auscultation, no wheezing , bilateral basal crackles. ABDOMEN: Soft, nontender, nondistended, normoactive bowel sounds. No palpable organomegaly. MUSCULOSKELETAL: No joint swelling or deformity. -EXTREMITIES: No cyanosis, clubbing,. Bilateral pitting leg edema. NEUROLOGICAL: Gross neurological examination did not reveal any focal deficits. SKIN: No rashes. no petechiae. Results CBC & Chem 7: 02/25/25 17:22 02/25/25 17:22 Labs: Abnormal Lab Results - Last 24 Hours (Table) 02/25/25 02/25/25 02/25/25 Range/Units 17:22 17: 17:22 Hgb 9.3 L (13.0-17.0) g/dL Hct 33.5 L (39.6-50.0) % MCV 69.1 L (80.0-97.0) fL MCH 19.2 L (27.0-32.0) pg MCHC 27.8 L (32.0-37.0) g/dL MPV 8.8 L (9.5-12.2) fL PT 12.9 H (10.0-12.5) sec INR 1.2 H (<1.2) BUN 49 H (9-20) mg/dL Creatinine 1.29 H (0.66-1.25) mg/dL Glucose 164 H (74-99) mg/dL POC Glucose (mg/dL) (70-110) mg/dL Hemoglobin A1c (<=6.0) % Alkaline Phosphatase 147 H (38-126) U/L 02/25/25 02/25/25 02/26/25 Range/Units 17:22 20:12 06:29 Hgb (13.0-17.0) g/dL Hct (39.6-50.0) % MCV (80.0-97.0) fL MCH (27.0-32.0) pg MCHC (32.0-37.0) g/dL MPV (9.5-12.2) fL PT (10.0-12.5) sec INR (<1.2) BUN (9-20) mg/dL Creatinine (0.66-1.25) mg/dL Glucose (74-99) mg/dL POC Glucose (mg/dL) 155 H 165 H (70-110) mg/dL Hemoglobin A1c 7.6 H (<=6.0) % Alkaline Phosphatase (38-126) U/L Thrombosis Risk Factor Assmnt - Choose All That Apply Each Factor Represents 1 point: Obesity (BMI >25), Swollen legs (current) Other Risk Factors: Yes Each Risk Factor Represents 2 Points: Age 61-74 years Thrombosis Risk Factor Assessment Total Risk Factor Score: 4 Thrombosis Risk Factor Assessment Level: Moderate Risk Assessment and Plan Assessment: Acute CHF exacerbation Mild hypertension, asymptomatic Chronic kidney disease Chronic anemia with slight worsening recently Paroxysmal A-fib on Eliquis at home obesity with BMI of 48.7. Coronary artery disease, status post CABG and stent placement Diabetes mellitus Hypertension Hyperlipidemia Benign prostatic hypertrophy Sleep apnea on CPAP/BiPAP. Plan: Continue with IV Lasix 40 mg twice daily Keep holding triamterene hydrochlorothiazide and metformin Cardiac team consult Check echocardiogram Continue with Eliquis 5 mg and aspirin 81 mg which are home doses. Labs and medication were reviewed.. Continue same treatment. Continue with symptomatic treatment. Resume home medication. Monitor labs and vitals. DVT and GI prophylaxis. Further recommendations as per clinical course of the patient DVT prophylaxis: Eliquis GI Prophylaxis: Protonix PT/OT: Pending Prognosis is guarded
[2025-02-26 12:55] LABS: Glucose,Whole Blood 168 mg/dL (70-110)
[2025-02-26 14:43] VITALS: BMI 48.6
[2025-02-26 16:13] LABS: Glucose,Whole Blood 159 mg/dL (70-110)
[2025-02-26 20:35] LABS: Glucose,Whole Blood 271 mg/dL (70-110)
[2025-02-27 02:37] LABS: Glucose,Whole Blood 156 mg/dL (70-110)
[2025-02-27 06:19] LABS: Glucose,Whole Blood 192 mg/dL (70-110)
[2025-02-27 08:34] LABS: HCT 31.5 % (39.6-50.0); HGB 8.4 g/dL (13.0-17.0); MCH 18.8 pg (27.0-32.0); MCHC 26.7 g/dL (32.0-37.0); MCV 70.5 FL (80.0-97.0); Mean Platelet Volume 9.6 FL (9.5-12.2); NRBC Per 100 WBC 0 X 10*3/uL (0.00-0.01); Platelet Count 267 X 10*3/uL (140-440); RBC 4.47 X 10*6/uL (4.40-5.60); RDW 21.8 % (11.5-14.5); WBC 6.55 X 10*3/uL (4.50-10.00)
[2025-02-27 09:13] LABS: BUN/Creat Ratio 31.87 Ratio (12.00-20.00); Blood Urea Nitrogen 47.8 mg/dL (9.0-27.0); Calcium 8.7 mg/dL (8.7-10.3); Carbon Dioxide 29.1 mmol/L (21.6-31.8); Chloride 101 mmol/L (96-109); Ferritin 9.5 ng/mL (22.0-322.0); Glucose 171 mg/dL (70-110); Iron 24 UG/DL (65-175); Potassium 4.9 mmol/L (3.5-5.5); Sodium 138 mmol/L (135-145); Total Iron Binding Capacity 500 UG/DL (228-460)
[2025-02-27 10:08] LABS: Acanthocytes 2+ (None Seen); Anisocytosis (M) 2+ (None Seen); Basophils # (A) 0.05 X 10*3/uL (0.00-0.10); Basophils % (A) 0.8 %; Elliptocytes 2+ (None Seen); Eosinophils # (A) 0.22 X 10*3/uL (0.04-0.35); Eosinophils % (A) 3.4 %; Lymphocytes # (A) 1.22 X 10*3/uL (0.90-5.00); Lymphocytes % (A) 18.6 %; Microcytosis (M) 3+ (None Seen); Monocytes # (A) 1.12 X 10*3/uL (0.20-1.00); Monocytes % (A) 17.1 %; Neutrophils # (A) 3.91 X 10*3/uL (1.80-7.70); Neutrophils % (A) 59.6 %
--- NOTE | 2025-02-27 10:58 | CA ---
Transthoracic Echo Report Name: Luis Alfredo Steinberg Age: 65 Gender: M : 1960 Exam Date: 02/26/2025 14:43 Exam Location: [facility] Ht (in): 76 Wt (lb): 400 Ordering Physician: Myron Herron DO Attending/Referring Phys: [id number], [employer] Shereen Quinn RDCS Procedure CPT: Indications: Heart failure Cardiac Hx: Stents x7, CABG Technical Quality: Technically difficult study Contrast 1: Definity Total Dose (mL): 5 Contrast 2: Total Dose (mL): MEASUREMENTS (Male / Female) Normal Values 2D ECHO LV Diastolic Diameter PLAX 5.7 cm 4.2 - 5.9 / 3.9 - 5.3 cm LV Systolic Diameter PLAX 4.6 cm IVS Diastolic Thickness 1.3 cm 0.6 - 1.0 / 0.6 - 0.9 cm LVPW Diastolic Thickness 1.0 cm 0.6 - 1.0 / 0.6 - 0.9 cm LV Relative Wall Thickness 0.4 LVOT Diameter 2.4 cm LV Diastolic Volume MOD BP 236.0 cm??? 67 - 155 / 56 - 104 cm??? LV Systolic Volume MOD BP 148.0 cm??? 22 - 58 / 19 - 49 cm??? LV Ejection Fraction MOD BP 37.3 % >= 55 % LV Cardiac Index MOD BP 2004.5 cm???/min???m??? LV Diastolic Volume MOD 4C 214.0 cm??? LV Systolic Volume MOD 4C 129.1 cm??? LV Ejection Fraction MOD 4C 39.6 % LV Cardiac Index MOD 4C 1932.8 cm???/min???m??? LV Diastolic Length 4C 10.0 cm LV Systolic Length 4C 10.0 cm LV Diastolic Volume MOD 2C 251.5 cm??? LV Systolic Volume MOD 2C 156.9 cm??? LV Ejection Fraction MOD 2C 37.6 % LV Cardiac Index MOD 2C 2155.2 cm???/min???m??? LV Diastolic Length 2C 10.4 cm LV Systolic Length 2C 9.2 cm LA Volume 166.1 cm??? 18 - 58 / 22 - 52 cm??? LA Volume Index 51.8 cm???/m??? 16 - 28 cm???/m??? DOPPLER AV Peak Velocity 134.5 cm/s AV Peak Gradient 7.2 mmHg AV Mean Velocity 86.6 cm/s AV Mean Gradient 3.5 mmHg AV Velocity Time Integral 26.2 cm LVOT Peak Velocity 93.9 cm/s LVOT Peak Gradient 3.5 mmHg LVOT Velocity Time Integral 19.8 cm LVOT Stroke Volume 87.5 cm??? LVOT Stroke Volume Index 29.4 ml/m??? LVOT Cardiac Index 1993.4 cm???/min???m??? AV Area Cont Eq vti 3.3 cm??? AV Area Cont Eq pk 3.1 cm??? MV Peak Velocity 166.1 cm/s MV Peak Gradient 11.0 mmHg MV Mean Velocity 95.0 cm/s MV Mean Gradient 4.3 mmHg MV Velocity Time Integral 31.5 cm TR Peak Velocity 308.2 cm/s TR Peak Gradient 38.0 mmHg Right Atrial Pressure 20.0 mmHg Pulmonary Artery Systolic Pressu 58.0 mmHg Right Ventricular Systolic Press 58.0 mmHg PV Peak Velocity 81.6 cm/s PV Peak Gradient 2.7 mmHg FINDINGS Left Ventricle Left ventricular ejection fraction is estimated at 40 %. Mildly increased septal wall thickness. Severely increased left ventricular diastolic volume. Severely increased left ventricular systolic volume. Moderately decreased left ventricular ejection fraction. Global left ventricular hypokinesis. D-shaped septum. Right Ventricle Severe right ventricular dilatation. Severely reduced right ventricular global systolic function. Severe pulmonary hypertension. Right Atrium Severe right atrial dilatation. Left Atrium Severely increased left atrial volume. Moderately increased left atrial area. Mitral Valve Structurally normal mitral valve. No evidence for mitral valve prolapse. No mitral stenosis. Trace to mild mitral regurgitation. Aortic Valve Trileaflet aortic valve. No aortic valve stenosis or regurgitation. Tricuspid Valve Structurally normal tricuspid valve. No tricuspid stenosis. Moderate to severe tricuspid regurgitation, may be underestimated due to inadequate image quality. Pulmonic Valve Structurally normal pulmonic valve. No pulmonic stenosis. Trace pulmonic regurgitation. Pericardium Trace pericardial effusion located posteriorly. Aorta Normal size aortic root and proximal ascending aorta. CONCLUSIONS Technically difficult study for interpretation with poorly visualized endocardium and intracardiac valves The EF is around 40% Severe pulmonary hypertension Dilated right ventricle Moderate to severe tricuspid regurgitation Poorly visualized aortic valve and mitral valve Previewed by: Dr. Chandana Mcintosh MD (Electronically Signed) Final Date: 27 February 2025 10:57
[2025-02-27] MEDS ORDERED: DOCUSATE 100 MG CAP PO PRN (11:22)
--- NOTE | 2025-02-27 11:53 | P.NPCON ---
History of Present Illness - Reason for Consult acute renal failure, chronic renal failure - History of Present Illness Reason for consultation: Acute kidney injury on chronic kidney disease History of present illness: Patient is a 65-year-old male seen in renal consultation for acute kidney injury on chronic kidney disease. Patient has chronic kidney disease stage IIIa with baseline creatinine near 1.3-1.4. Creatinine today is 1.5. Patient came to the hospital due to shortness of breath and edema in the lower extremities. Family is present at bedside. Per family member, patient has gained about 100 pounds in the last 3 months. Patient does take oral Lasix at home. Patient states he has been voiding but urine output has been low. He denies any gross hematuria or dysuria. No fever or chills. He does have a nonproductive cough. No vomiting or diarrhea. Oral intake is good. He does have history of diabetes. Also has history of coronary disease with stent placements and then subsequent CABG. He denies use of nonsteroidals. Currently on 3 L nasal cannula. Hemodynamically stable. Vital signs are stable. General: No acute distress. HEENT: Head exam is unremarkable. On nasal cannula. LUNGS: Scattered rhonchi. HEART: Rate and Rhythm are regular. ABDOMEN: Obese, nontender. EXTREMITITES: 2+ edema. Past Medical History Past Medical History: Atrial Fibrillation, Coronary Artery Disease (CAD), Cancer, Diabetes Mellitus, Hypertension, Myocardial Infarction ([place]), Prostate Disorder, Sleep Apnea/CPAP/BIPAP Additional Past Medical History / Comment(s): PROSTATE CANCER, uses CPAP Last Myocardial Infarction Date:: 2015 History of Any Multi-Drug Resistant Organisms: None Reported Past Surgical History: Appendectomy, Coronary Bypass/CABG, Heart Catheterization With Stent, Hernia Repair, Prostate Surgery Additional Past Surgical History / Comment(s): HEART CATHS X7 WITH TOTAL OF 7 STENTS, CABG OCT 2016, JAYLYN INGUINAL HERNIAS, UMBILICAL HERNIAS. Past Anesthesia/Blood Transfusion Reactions: No Reported Reaction Additional Past Anesthesia/Blood Transfusion Reaction / Comment(s): no blood transfusion Date of Last Stent Placement:: 2014 Past Psychological History: No Psychological Hx Reported Smoking Status: Former smoker Past Alcohol Use History: Rare Additional Past Alcohol Use History / Comment(s): Smoked 3 PPD. quit 30 years Past Drug Use History: None Reported - Past Family History Mother Family Medical History: No Reported History Additional Family Medical History / Comment(s): Heart disease Father Family Medical History: Diabetes Mellitus Additional Family Medical History / Comment(s): Heart disease Medications and Allergies Home Medications Medication Instructions Recorded Confirmed Type Apixaban [Eliquis] 5 mg PO BID 10/23/18 02/25/25 History Aspirin [Adult Low Dose Aspirin EC] 81 mg PO DAILY 10/23/18 02/25/25 History Atorvastatin [Lipitor] 80 mg PO HS 10/23/18 02/25/25 History Empagliflozin [Jardiance] 25 mg PO DAILY 10/23/18 02/25/25 History Omeprazole [PriLOSEC] 20 mg PO DAILY PRN 10/23/18 02/25/25 History lisinopriL 20 mg PO DAILY 10/23/18 02/25/25 History Insulin Aspart [NovoLOG Flexpen] 36 - 50 units SQ AC-TID 10/03/22 02/25/25 History Insulin Degludec [Tresiba 60 units SQ HS 10/03/22 02/25/25 History Flextouch U-200 Pen] Metoprolol Tartrate [Lopressor] 50 mg PO BID 10/03/22 02/25/25 History Triamterene/Hydrochlorothiazid 1 cap PO DAILY 10/03/22 02/25/25 History [Triamterene-Hctz 37.5-25 mg Cp] Multivitamins, Thera [Multivitamin 1 tab PO DAILY 04/24/23 02/25/25 History (formulary)] Furosemide [Lasix] 40 mg PO BID 02/25/25 02/25/25 History metFORMIN HCL [Glucophage] 1,000 mg PO BID 02/25/25 02/25/25 History Allergies Allergy/AdvReac Type Severity Reaction Status Date / Time No Known Allergies Allergy Verified 02/25/25 17:55 Physical Exam Vitals: Vital Signs Temp Pulse Resp BP Pulse Ox 02/27/25 06:57 97.8 F 64 20 131/62 93 L 02/27/25 01:28 97.6 F 58 L 20 108/76 96 02/26/25 19:28 97.9 F 97 16 110/72 92 L 02/26/25 13:03 98.0 F 73 16 116/67 97 Intake and Output 02/26/25 02/27/25 02/27/25 22:59 06:59 14:59 Output Total 875 300 Balance -875 -300 Output: Urine 875 300 Other: Voiding Method External Catheter # Voids 1 1 Weight 187.4 kg Results - Lab Results Most recent lab results Calcium 8.7 mg/dL (8.7-10.3) 02/27/25 03:21 Magnesium 1.9 mg/dL (1.6-2.3) 02/25/25 17:22 02/27/25 03:21 02/27/25 03:21 Assessment and Plan Plan: Assessment: 1. Acute kidney injury secondary to ATN secondary to cardiorenal syndrome. Creatinine 1.5 today. 2. Chronic kidney disease stage IIIa with baseline creatinine 1.3-1.4 secondary to nephrosclerosis/diabetic kidney disease. 3. Acute hypoxic respiratory failure. 4. Volume overload. 5. Diabetes mellitus. 6. Anemia of chronic kidney disease. Iron deficiency noted. 7. History of A-fib. 8. Acute on chronic systolic CHF ejection fraction of 40% with severe pulmonary hypertension, moderate to severe tricuspid regurgitation. Plan: Increase Lasix dose to 60 mg IV twice daily. Add metolazone 5 mg once daily. Maintain Farxiga. Low-salt diet and 1500 cc fluid restriction. Check UA. Check bladder scan to make sure no urinary retention. Check renal ultrasound. Add IV iron. Continue to monitor renal function and urine output. Thank you for the consultation. I will continue to follow the patient with you during his hospital stay.
[2025-02-27 11:56] LABS: Glucose,Whole Blood 194 mg/dL (70-110)
[2025-02-27] MEDS ORDERED: IPRATROPIUM-ALBUTEROL 3 ML NEB INHALATION PRN (11:56)
[2025-02-27] MEDS: metOLazone 5 MG TAB PO SCH (12:25)
[2025-02-27] MEDS: SODIUM FERRIC GLUCONAT-SUCROSE 125 MG in SODIUM CHLORIDE 0.9% 100 ML IVPB SCH (12:25)
--- NOTE | 2025-02-27 12:26 | XR ---
EXAMINATION TYPE: XR chest 1V DATE OF EXAM: 02/27/2025 12:21 PM COMPARISON: None. CLINICAL INDICATION: Male, 65 years old with history of sob, TECHNIQUE: XR chest 1V view(s) obtained. FINDINGS: The heart size is prominent. The pulmonary vasculature is normal. Bibasilar infiltrates are present developing from comparison IMPRESSION: 1. Cardiomegaly. 2. Bibasilar infiltrates developing from prior exam. Correlate for atelectasis. Differential diagnosi s would include pneumonia, pulmonary edema. [facility], , 02/27/2025 12:24 PM
--- NOTE | 2025-02-27 13:07 | P.PN ---
Subjective HISTORY OF PRESENT ILLNESS: This is a 65-year-old male with a past medical history significant for coronary artery disease with previous CABG, congestive heart failure, hypertension, hyperlipidemia, diabetes, and atrial fibrillation. Patient follows in the office with Dr. Richards out of [facility]. We have been asked to see the patient in consultation for congestive heart failure. Patient examined at the bedside. Patient presented to the hospital with a chief complaint of shortness of breath. Patient states he has been feeling short of breath for the past 2 weeks. He also reports having a cough with sputum production. He reports increased swelling in his lower extremities. He reports a 20 pound weight gain in the past 6 weeks. He states he has been compliant with all of his medications and has been following a low-sodium diet. Patient was found to be in acute CHF and was started on IV Lasix. DIAGNOSTICS: - EKG reveals atrial fibrillation with controlled ventricular rate - Chest xray cardiomegaly mild pulmonary vascular congestion - Laboratory data: WBC 6.08. Hemoglobin 9.3. Platelet count 266. Sodium 138. Potassium 4.7. BUN 49. Creatinine 1.29. Troponin negative x 3. proBNP 3550. - Current home cardiac medications include aspirin 81 mg daily, Lasix 40 mg twice a day, metoprolol tartrate 50 mg twice a day, Eliquis 5 mg twice a day, lisinopril 20 mg daily, Lipitor 80 mg at night, Jardiance 25 mg daily - Most recent echocardiogram obtained in April 2023 revealed ejection fraction 40 to 45% - Cardiac catheterization history: Unknown 02/27/2025 Patient examined this morning. Patient is sitting up in the chair. Patient continues to report shortness of breath. He denies chest pain or pressure. He continues to have lower extremity edema. Patient's Lasix has been increased to 60 mg every 12 hours per pulmonary. Creatinine today 1.5, up from 1.29. Echocardiogram reveals ejection fraction 40%, global hypokinesis, trace to mild MR, moderate to severe TR PHYSICAL EXAM: VITAL SIGNS: Reviewed. GENERAL: Well-developed in no acute distress. HEENT: Head is normocephalic. Pupils are equal, round. Sclerae anicteric. Mucous membranes of the mouth are moist. Neck supple. No JVD or thyromegaly LUNGS: Respirations even and unlabored. Lungs with bibasilar crackles HEART: Irregular rate and rhythm. S1 and S2 heard. ABDOMEN: Soft. Nondistended. Nontender. EXTREMITIES: Normal range of motion. No clubbing or cyanosis. Peripheral pulses intact. Bilateral lower extremity edema noted NEUROLOGIC: Awake and alert. Oriented x 3. ASSESSMENT: Acute on chronic heart failure with reduced EF Coronary artery disease with previous CABG Ischemic cardiomyopathy 40 to 45% Persistent atrial fibrillation Hypertension Hyperlipidemia Diabetes Obesity: BMI 48.7 PLAN: Continue IV Lasix 40 mg every 12 hours. Dose increased to 60 mg per nephrology. Daily weights, accurate intake and output, monitoring of kidney function Continue additional cardiac medications Further recommendations pending patient course Nurse practitioner note has been reviewed by physician. Signing provider agrees with the documented findings, assessment, and plan of care documented by [employer] as a scribe. Objective - Vital Signs Vital signs: Vital Signs Temp 97.8 F 02/27/25 06:57 Pulse 64 02/27/25 06:57 Resp 20 02/27/25 06:57 BP 131/62 02/27/25 06:57 Pulse Ox 93 L 02/27/25 06:57 FiO2 Intake & Output 02/26/25 02/27/25 02/27/25 18:59 06:59 18:59 Output Total 875 300 Balance -875 -300 Weight 181.437 kg 187.4 kg Output: Urine 875 300 Other: Voiding Method External Catheter External Catheter # Voids 1 1 - Labs CBC & Chem 7: 02/27/25 03:21 02/27/25 03:21 Labs: Abnormal Lab Results - Last 24 Hours (Table) 02/26/25 02/26/25 02/27/25 Range/Units 16:11 20:34 02:35 Hgb (13.0-17.0) g/dL Hct (39.6-50.0) % MCV (80.0-97.0) FL MCH (27.0-32.0) pg MCHC (32.0-37.0) g/dL RDW (11.5-14.5) % Monocytes # (0.20-1.00) X 10*3/uL Anisocytosis (manual) (None Seen) Microcytosis (manual) (None Seen) Elliptocytes (None Seen) Acanthocytes (Spur) (None Seen) BUN (9.0-27.0) mg/dL Est GFR (CKD-EPI) (>=60) BUN/Creatinine Ratio (12.00-20.00) Ratio Glucose (70-110) mg/dL POC Glucose (mg/dL) 159 H 271 H 156 H (70-110) mg/dL Iron (65-175) UG/DL TIBC (228-460) UG/DL % Saturation (15.00-50.00) Transferrin (204.0-354.0) mg/dL Ferritin (22.0-322.0) ng/mL Vitamin B12 (200.0-944.0) pg/mL 02/27/25 02/27/25 02/27/25 Range/Units 03:21 03:21 06:17 Hgb 8.4 L (13.0-17.0) g/dL Hct 31.5 L (39.6-50.0) % MCV 70.5 L (80.0-97.0) FL MCH 18.8 L (27.0-32.0) pg MCHC 26.7 L (32.0-37.0) g/dL RDW 21.8 H (11.5-14.5) % Monocytes # 1.12 H (0.20-1.00) X 10*3/uL Anisocytosis (manual) 2+ A (None Seen) Microcytosis (manual) 3+ A (None Seen) Elliptocytes 2+ A (None Seen) Acanthocytes (Spur) 2+ A (None Seen) BUN 47.8 H (9.0-27.0) mg/dL Est GFR (CKD-EPI) 51 L (>=60) BUN/Creatinine Ratio 31.87 H (12.00-20.00) Ratio Glucose 171 H (70-110) mg/dL POC Glucose (mg/dL) 192 H (70-110) mg/dL Iron 24 L (65-175) UG/DL TIBC 500 H (228-460) UG/DL % Saturation 4.80 L (15.00-50.00) Transferrin 357.0 H (204.0-354.0) mg/dL Ferritin 9.5 L (22.0-322.0) ng/mL Vitamin B12 1318.0 H (200.0-944.0) pg/mL 02/27/25 Range/Units 11:53 Hgb (13.0-17.0) g/dL Hct (39.6-50.0) % MCV (80.0-97.0) FL MCH (27.0-32.0) pg MCHC (32.0-37.0) g/dL RDW (11.5-14.5) % Monocytes # (0.20-1.00) X 10*3/uL Anisocytosis (manual) (None Seen) Microcytosis (manual) (None Seen) Elliptocytes (None Seen) Acanthocytes (Spur) (None Seen) BUN (9.0-27.0) mg/dL Est GFR (CKD-EPI) (>=60) BUN/Creatinine Ratio (12.00-20.00) Ratio Glucose (70-110) mg/dL POC Glucose (mg/dL) 194 H (70-110) mg/dL Iron (65-175) UG/DL TIBC (228-460) UG/DL % Saturation (15.00-50.00) Transferrin (204.0-354.0) mg/dL Ferritin (22.0-322.0) ng/mL Vitamin B12 (200.0-944.0) pg/mL
--- NOTE | 2025-02-27 13:20 | P.PN ---
Subjective This is a pleasant 65 years old male with past medical history of multiple medical problems including history of CHF. Patient went to see his PCP Dr. Sanchez who referred him to the hospital has been having increasingly worsening leg swelling and shortness of breath over several days and weeks or even months. He feels some dizziness when he tries to get up He denies chest pain. His institution librarian Dr. Cabral from outside of the system. He denies any specific GI/ symptoms. No headache or dizziness currently. No weakness or numbness. He denies smoking alcohol or illicit drugs. He was admitted to the hospital about 1 year ago for course of similar complaints and acute CHF. Patient is hemodynamically stable, blood pressure slightly on the low side 96/64. Before it was more 120/65 on admission. Patient is afebrile. He has unremarkable CBC, BMP and INR. Troponin is negative. Hemoglobin 9.3 which is slightly less than his baseline of 10-11. Creatinine 1.2 which is at baseline of 1.2-1.4. proBNP is elevated 3550. Chest x-ray showing cardiomegaly with pulmonary vascular congestion EKG showing sinus rhythm with marked sinus arrhythmia at a rate of 70/min with right bundle branch block and there is Q waves in the inferior leads. Echocardiogram is requested and is pending On admission time during and hydrochlorothiazide was held as well as metformin 1000 and lisinopril 20 mg. Patient continued on his home dose of aspirin 81 mg metoprolol 50 mg and his insulin confirms he takes Lantus 6 units at 56 units up to 50 units with meals. He is currently placed on IV Lasix 40 mg twice daily. 02/27 Patient has worsening pulmonary breathing he is more short of breath, he still on 3 L oxygen via nasal cannula Repeat chest x-ray showing worsening pulmonary infiltrate. Patient with no chest pain. No much coughing. We going to consult pulmonary service. He still on IV Lasix twice daily, metolazone was ordered Nephrology team consulted after creatinine went up 1.2 up to 1.5. Discussed with case with the [id number] after the patient gave me verbal consent. She was concerned about his urine output and his breathing. All que stions answered to their satisfaction. Will check labs in the morning. Also repeat chest x-ray shows possibility of pneumonia therefore recommend starting him on ceftriaxone and Zithromax will check procalcitonin Review of systems CONSTITUTIONAL: No fever, no malaise, no fatigue. GASTROINTESTINAL: No diarrhea, no nausea, no vomiting, no abdominal pain. Normoactive bowel sounds. NEUROLOGICAL: No headaches, no weakness, no numbness. HEMATOLOGICAL: Denies any bleeding or petechiae. GENITOURINARY: Denies any burning micturition, frequency, or urgency. MUSCULOSKELETAL/RHEUMATOLOGICAL: Denies any joint pain, swelling, or any muscle pain. ENDOCRINE: Denies any polyuria or polydipsia. Active Medications Generic Name Dose Route Start Last Admin Trade Name Freq PRN Reason Stop Dose Admin Albuterol/Ipratropium 3 ml 02/27/25 11:56 Ipratropium-Albuterol 3 Ml Neb INHALATION RT-QID PRN Shortness Of Breath Or Wheezing Apixaban 5 mg 02/25/25 22:30 02/27/25 08:50 Apixaban 5 Mg Tab PO 5 mg BID JANIS Administration Protocol Aspirin 81 mg 02/26/25 09:00 02/27/25 08:50 Aspirin 81 Mg PO 81 mg DAILY JANIS Administration Atorvastatin Calcium 80 mg 02/25/25 22:30 02/26/25 21:13 Atorvastatin 80 Mg Tab PO 80 mg HS JANIS Administration Azithromycin 500 mg 02/27/25 13:30 Azithromycin 500 Mg Tab PO 03/01/25 09:01 DAILY JANIS Protocol Dapagliflozin 10 mg 02/26/25 09:00 02/27/25 08:50 Dapagliflozin Propanediol 10 Mg Tablet PO 10 mg DAILY JANIS Administration Dextrose/Water 25 ml 02/25/25 22:20 Dextrose 50% Syringe 50 Ml IVP PER PROTOCOL PRN Hypoglycemia Protocol Dextrose/Water 50 ml 02/25/25 22:20 Dextrose 50% Syringe 50 Ml IVP PER PROTOCOL PRN Hypoglycemia Protocol Docusate Sodium 100 mg 02/27/25 11:22 Docusate 100 Mg Cap PO BID PRN Constipation Furosemide 60 mg 02/27/25 19:00 Furosemide 10 Mg/Ml 10 Ml Vial IV Q12H JANIS Ferric Sodium Gluconate 125 mg 110 mls @ 100 mls/hr 02/27/25 12:00 02/27/25 12:25 / Sodium Chloride IVPB 03/02/25 11:59 100 mls/hr DAILY JANIS Administration Ceftriaxone Sodium 1 gm/ 50 mls @ 100 mls/hr 02/27/25 13:30 Sodium Chloride IVPB Q24HR [facility] Protocol Insulin Glargine 60 unit 02/25/25 22:45 02/26/25 21:13 Insulin Glargine (Lantus) 100 Unit/Ml Syr SQ 60 unit HS JANIS Administration Insulin Human Lispro 0 unit 02/26/25 07:30 02/27/25 12:25 Insulin Lispro (Humalog) 100 Unit/Ml 10 Ml Vl SQ 2 unit ACHS JANIS Administration Protocol Metolazone 5 mg 02/27/25 12:00 02/27/25 12:25 Metolazone 5 Mg Tab PO 5 mg DAILY JANIS Administration Metoprolol Tartrate 50 mg 02/25/25 22:30 02/27/25 08:50 Metoprolol Tartrate 50 Mg Tab PO 50 mg BID JANIS Administration Multivitamins 1 each 02/26/25 09:00 02/27/25 08:50 Multivitamins, Thera 1 Each Tab PO 1 each DAILY JNAIS Administration Pantoprazole Sodium 40 mg 02/25/25 22:18 Pantoprazole 40 Mg Tablet PO DAILY PRN GI Upset Objective - Vital Signs Vital signs: Vital Signs Temp 97.8 F 02/27/25 06:57 Pulse 64 02/27/25 06:57 Resp 20 02/27/25 06:57 BP 131/62 02/27/25 06:57 Pulse Ox 93 L 02/27/25 06:57 FiO2 Intake & Output 02/26/25 02/27/25 02/27/25 18:59 06:59 18:59 Output Total 875 300 Balance -875 -300 Weight 181.437 kg 187.4 kg Output: Urine 875 300 Other: Voiding Method External Catheter External Catheter # Voids 1 1 - Exam -GENERAL: The patient is alert and oriented x3, not in any acute distress. Well developed, well nourished. Morbidly obese HEENT: Pupils are round and equally reacting to light. EOMI. No scleral icterus. No conjunctival pallor. Normocephalic, atraumatic. No pharyngeal erythema. No thyromegaly. CARDIOVASCULAR: S1 and S2 present. No murmurs, rubs, or gallops. -PULMONARY: Chest is clear to auscultation, no wheezing , Bilateral decreased air entry with crepitation ABDOMEN: Soft, nontender, nondistended, normoactive bowel sounds. No palpable organomegaly. MUSCULOSKELETAL: No joint swelling or deformity. EXTREMITIES: No cyanosis, clubbing, or pedal edema. NEUROLOGICAL: Gross neurological examination did not reveal any focal deficits. SKIN: No rashes. no petechiae. - Labs CBC & Chem 7: 02/27/25 03:21 02/27/25 03:21 Labs: Abnormal Lab Results - Last 24 Hours (Table) 02/26/25 02/26/25 02/27/25 Range/Units 16:11 20:34 02:35 Hgb (13.0-17.0) g/dL Hct (39.6-50.0) % MCV (80.0-97.0) FL MCH (27.0-32.0) pg MCHC (32.0-37.0) g/dL RDW (11.5-14.5) % Monocytes # (0.20-1.00) X 10*3/uL Anisocytosis (manual) (None Seen) Microcytosis (manual) (None Seen) Elliptocytes (None Seen) Acanthocytes (Spur) (None Seen) BUN (9.0-27.0) mg/dL Est GFR (CKD-EPI) (>=60) BUN/Creatinine Ratio (12.00-20.00) Ratio Glucose (70-110) mg/dL POC Glucose (mg/dL) 159 H 271 H 156 H (70-110) mg/dL Iron (65-175) UG/DL TIBC (228-460) UG/DL % Saturation (15.00-50.00) Transferrin (204.0-354.0) mg/dL Ferritin (22.0-322.0) ng/mL Vitamin B12 (200.0-944.0) pg/mL 02/27/25 02/27/25 02/27/25 Range/Units 03:21 03:21 06:17 Hgb 8.4 L (13.0-17.0) g/dL Hct 31.5 L (39.6-50.0) % MCV 70.5 L (80.0-97.0) FL MCH 18.8 L (27.0-32.0) pg MCHC 26.7 L (32.0-37.0) g/dL RDW 21.8 H (11.5-14.5) % Monocytes # 1.12 H (0.20-1.00) X 10*3/uL Anisocytosis (manual) 2+ A (None Seen) Microcytosis (manual) 3+ A (None Seen) Elliptocytes 2+ A (None Seen) Acanthocytes (Spur) 2+ A (None Seen) BUN 47.8 H (9.0-27.0) mg/dL Est GFR (CKD-EPI) 51 L (>=60) BUN/Creatinine Ratio 31.87 H (12.00-20.00) Ratio Glucose 171 H (70-110) mg/dL POC Glucose (mg/dL) 192 H (70-110) mg/dL Iron 24 L (65-175) UG/DL TIBC 500 H (228-460) UG/DL % Saturation 4.80 L (15.00-50.00) Transferrin 357.0 H (204.0-354.0) mg/dL Ferritin 9.5 L (22.0-322.0) ng/mL Vitamin B12 1318.0 H (200.0-944.0) pg/mL 02/27/25 Range/Units 11:53 Hgb (13.0-17.0) g/dL Hct (39.6-50.0) % MCV (80.0-97.0) FL MCH (27.0-32.0) pg MCHC (32.0-37.0) g/dL RDW (11.5-14.5) % Monocytes # (0.20-1.00) X 10*3/uL Anisocytosis (manual) (None Seen) Microcytosis (manual) (None Seen) Elliptocytes (None Seen) Acanthocytes (Spur) (None Seen) BUN (9.0-27.0) mg/dL Est GFR (CKD-EPI) (>=60) BUN/Creatinine Ratio (12.00-20.00) Ratio Glucose (70-110) mg/dL POC Glucose (mg/dL) 194 H (70-110) mg/dL Iron (65-175) UG/DL TIBC (228-460) UG/DL % Saturation (15.00-50.00) Transferrin (204.0-354.0) mg/dL Ferritin (22.0-322.0) ng/mL Vitamin B12 (200.0-944.0) pg/mL Assessment and Plan Assessment: Acute CHF exacerbation Mild hypertension, asymptomatic Acute kidney injury on CKD Chronic kidney disease Chronic anemia with slight worsening recently Paroxysmal A-fib on Eliquis at home obesity with BMI of 48.7. Coronary artery disease, status post CABG and stent placement Diabetes mellitus Hypertension Hyperlipidemia Benign prostatic hypertrophy Sleep apnea on CPAP/BiPAP. Plan: Continue with IV Lasix 40 mg twice daily Keep holding triamterene hydrochlorothiazide and metformin Cardiac team consult Check echocardiogram Nephrology team consult Metolazone added Check procalcitonin Start antibiotic Pulmonary team consult Continue with Eliquis 5 mg and aspirin 81 mg which are home doses. Labs and medication were reviewed.. Continue same treatment. Continue with symptomatic treatment. Resume home medication. Monitor labs and vitals. DVT and GI prophylaxis. Further recommendations as per clinical course of the patient DVT prophylaxis: Eliquis GI Prophylaxis: Protonix PT/OT: Pending Prognosis is guarded
--- NOTE | 2025-02-27 13:59 | US ---
EXAMINATION TYPE: US renals and bladder DATE OF EXAM: 02/27/2025 COMPARISON: NONE CLINICAL INDICATION: Male, 65 years old with history of nelda; morbidly obese 400lbs TECHNIQUE: Grayscale imaging of the bilateral kidneys and urinary bladder: FINDINGS: EXAM MEASUREMENTS: Right Kidney: 10.9 x 5.9 x 6.8cm Left Kidney: not seen Right Kidney: limited views Left Kidney: not seen due to bowel gas and habitus, patient could not lay flat either Bladder: not seen - pt voided during exam IMPRESSION: 1. Limited exam [facility], , 02/27/2025 1:57 PM
--- NOTE | 2025-02-27 15:38 | P.CNPUL ---
History of Present Illness Consult date: 02/27/25 Requesting physician: Kelechi E Nir Reason for consult: dyspnea, hypoxemia, abnormal CXR/CT Chief complaint: Lower extremity edema, shortness of breath History of present illness: This is a morbidly obese 65-year-old male patient with a known history of obstructive sleep apnea maintained on CPAP, congestive heart failure, atrial fibrillation anticoagulated with Eliquis, diabetes mellitus, hypertension, coronary artery disease with stent placement x 7, coronary artery bypass surgery in 2016, former smoker of 30 years at 3 packs/day however quit 30 years ago. He presented here on February 25, 2025 with complaints of increasing shortness of breath, increasing lower extremity edema. Chest x-ray showed cardiomegaly and mild pulmonary vascular congestion. White count 6.5. Hemoglobin 8.4. P latelets 267. Sodium 138. Potassium 4.9. Bicarb 29. BUN 48. Creatinine 1.5. Glucose 171. Troponins were negative. proBNP 3550. Echocardiogram revealed impaired left ventricular systolic function with an ejection fraction of 40%. Severe pulmonary hypertension. Moderate to severe tricuspid regurgitation. He is seen today in consultation on the regular medical floor. He is currently resting in bed. Awake and alert in no acute distress. He is maintaining O2 saturations in the 90s on 3 L/min per nasal cannula. He has been afebrile. Hemodynamically stable. He has been initiated on Lasix 60 mg IV every 12 hours. Review of Systems REVIEW OF SYSTEMS: CONSTITUTIONAL: Denies any recent significant weight loss or weight gain. EYES: Denies change in vision. EARS, NOSE, MOUTH, THROAT: Denies headaches, denies sore throat. CARDIOVASCULAR: Denies chest pain, palpitations or syncopal episodes. RESPIRATORY: Positive for shortness of breath, no cough, congestion or hemoptysis. GASTROINTESTINAL: Denies change in appetite, denies abdominal pain GENITOURINARY: Denies hematuria, denies infections. MUSKULOSKELETAL: Positive for lower extremity swelling. INTEGUMENTARY: Denies rash, denies eczema. NEUROLOGICAL: Denies recent memory loss, no recent seizure activity. PSYCHIATRIC: Denies anxiety, denies depression. HEMATOLOGIC/LYMPHATIC: Denies anemia, denies enlarged lymph nodes. Past Medical History Past Medical History: Atrial Fibrillation, Coronary Artery Disease (CAD), Cancer, Diabetes Mellitus, Hypertension, Myocardial Infarction ([place]), Prostate Disorder, Sleep Apnea/CPAP/BIPAP Additional Past Medical History / Comment(s): PROSTATE CANCER, uses CPAP Last Myocardial Infarction Date:: 2015 History of Any Multi-Drug Resistant Organisms: None Reported Past Surgical History: Appendectomy, Coronary Bypass/CABG, Heart Catheterization With Stent, Hernia Repair, Prostate Surgery Additional Past Surgical History / Comment(s): HEART CATHS X7 WITH TOTAL OF 7 STENTS, CABG OCT 2016, JAYLYN INGUINAL HERNIAS, UMBILICAL HERNIAS. Past Anesthesia/Blood Transfusion Reactions: No Reported Reaction Additional Past Anesthesia/Blood Transfusion Reaction / Comment(s): no blood transfusion Date of Last Stent Placement:: 2014 Past Psychological History: No Psychological Hx Reported Smoking Status: Former smoker Past Alcohol Use History: Rare Additional Past Alcohol Use History / Comment(s): Smoked 3 PPD. quit 30 years Past Drug Use History: None Reported - Past Family History Mother Family Medical History: No Reported History Additional Family Medical History / Comment(s): Heart disease Father Family Medical History: Diabetes Mellitus Additional Family Medical History / Comment(s): Heart disease Medications and Allergies Home Medications Medication Instructions Recorded Confirmed Type Apixaban [Eliquis] 5 mg PO BID 10/23/18 02/25/25 History Aspirin [Adult Low Dose Aspirin EC] 81 mg PO DAILY 10/23/18 02/25/25 History Atorvastatin [Lipitor] 80 mg PO HS 10/23/18 02/25/25 History Empagliflozin [Jardiance] 25 mg PO DAILY 10/23/18 02/25/25 History Omeprazole [PriLOSEC] 20 mg PO DAILY PRN 10/23/18 02/25/25 History lisinopriL 20 mg PO DAILY 10/23/18 02/25/25 History Insulin Aspart [NovoLOG Flexpen] 36 - 50 units SQ AC-TID 10/03/22 02/25/25 History Insulin Degludec [Tresiba 60 units SQ HS 10/03/22 02/25/25 History Flextouch U-200 Pen] Metoprolol Tartrate [Lopressor] 50 mg PO BID 10/03/22 02/25/25 History Triamterene/Hydrochlorothiazid 1 cap PO DAILY 10/03/22 02/25/25 History [Triamterene-Hctz 37.5-25 mg Cp] Multivitamins, Thera [Multivitamin 1 tab PO DAILY 04/24/23 02/25/25 History (formulary)] Furosemide [Lasix] 40 mg PO BID 02/25/25 02/25/25 History metFORMIN HCL [Glucophage] 1,000 mg PO BID 02/25/25 02/25/25 History Allergies Allergy/AdvReac Type Severity Reaction Status Date / Time No Known Allergies Allergy Verified 02/25/25 17:55 Physical Exam Vitals: Vital Signs Temp Pulse Resp BP Pulse Ox 02/27/25 13:47 97.4 F L 68 22 111/64 92 L 02/27/25 06:57 97.8 F 64 20 131/62 93 L 02/27/25 01:28 97.6 F 58 L 20 108/76 96 02/26/25 19:28 97.9 F 97 16 110/72 92 L Intake and Output 02/27/25 02/27/25 02/27/25 06:59 14:59 22:59 Output Total 300 Balance -300 Output: Urine 300 Other: # Voids 1 1 Weight 187.4 kg GENERAL EXAM: Alert, 65-year-old morbidly obese male, on 3 L nasal cannula, fairly comfortable in no apparent distress. HEAD: Normocephalic. EYES: Normal reaction of pupils, equal size. NOSE: Clear with pink turbinates. THROAT: No erythema or exudates. NECK: No masses, no JVD. CHEST: No chest wall deformity. LUNGS: Equal air entry with close in the bilateral bases. CVS: S1 and S2 normal with no audible murmur, regular rhythm. ABDOMEN: Soft, unable to appreciate any hepatosplenomegaly, normal bowel sounds, no guarding or rigidity. SPINE: No scoliosis or deformity SKIN: No rashes CENTRAL NERVOUS SYSTEM: No focal deficits, tone is normal in all 4 extremities. EXTREMITIES: There is 2-3+ peripheral edema. No clubbing, no cyanosis. Peripheral pulses are intact. Results - Laboratory Findings CBC and BMP: 02/27/25 03:21 02/27/25 03:21 PT/INR, D-dimer PT 12.9 sec (10.0-12.5) H 02/25/25 17:22 INR 1.2 (<1.2) H 02/25/25 17:22 Abnormal lab findings: Abnormal Labs 02/25/25 02/25/25 02/25/25 17:22 17:22 17:22 Hgb 9.3 L Hct 33.5 L MCV 69.1 L MCH 19.2 L MCHC 27.8 L RDW MPV 8.8 L Monocytes # Anisocytosis (manual) Microcytosis (manual) Elliptocytes Acanthocytes (Spur) PT 12.9 H INR 1.2 H BUN 49 H Creatinine 1.29 H Est GFR (CKD-EPI) BUN/Creatinine Ratio Glucose 164 H POC Glucose (mg/dL) Hemoglobin A1c Iron TIBC % Saturation Transferrin Ferritin Alkaline Phosphatase 147 H Vitamin B12 02/25/25 02/25/25 02/26/25 17:22 20:12 06:29 Hgb Hct MCV MCH MCHC RDW MPV Monocytes # Anisocytosis (manual) Microcytosis (manual) Elliptocytes Acanthocytes (Spur) PT INR BUN Creatinine Est GFR (CKD-EPI) BUN/Creatinine Ratio Glucose POC Glucose (mg/dL) 155 H 165 H Hemoglobin A1c 7.6 H Iron TIBC % Saturation Transferrin Ferritin Alkaline Phosphatase Vitamin B12 02/26/25 02/26/25 02/26/25 12:54 16:11 20:34 Hgb Hct MCV MCH MCHC RDW MPV Monocytes # Anisocytosis (manual) Microcytosis (manual) Elliptocytes Acanthocytes (Spur) PT INR BUN Creatinine Est GFR (CKD-EPI) BUN/Creatinine Ratio Glucose POC Glucose (mg/dL) 168 H 159 H 271 H Hemoglobin A1c Iron TIBC % Saturation Transferrin Ferritin Alkaline Phosphatase Vitamin B12 02/27/25 02/27/25 02/27/25 02:35 03:21 03:21 Hgb 8.4 L Hct 31.5 L MCV 70.5 L MCH 18.8 L MCHC 26.7 L RDW 21.8 H MPV Monocytes # 1.12 H Anisocytosis (manual) 2+ A Microcytosis (manual) 3+ A Elliptocytes 2+ A Acanthocytes (Spur) 2+ A PT INR BUN 47.8 H Creatinine Est GFR (CKD-EPI) 51 L BUN/Creatinine Ratio 31.87 H Glucose 171 H POC Glucose (mg/dL) 156 H Hemoglobin A1c Iron 24 L TIBC 500 H % Saturation 4.80 L Transferrin 357.0 H Ferritin 9.5 L Alkaline Phosphatase Vitamin B12 1318.0 H 02/27/25 02/27/25 06:17 11:53 Hgb Hct MCV MCH MCHC RDW MPV Monocytes # Anisocytosis (manual) Microcytosis (manual) Elliptocytes Acanthocytes (Spur) PT INR BUN Creatinine Est GFR (CKD-EPI) BUN/Creatinine Ratio Glucose POC Glucose (mg/dL) 192 H 194 H Hemoglobin A1c Iron TIBC % Saturation Transferrin Ferritin Alkaline Phosphatase Vitamin B12 - Diagnostic Findings Chest x-ray: image reviewed Assessment and Plan Assessment: Acute hypoxemic respiratory failure secondary to an acute exacerbation of systolic congestive heart failure, severe pulmonary hypertension, morbid obesity Severe pulmonary hypertension/cor pulmonale Morbid obesity with a BMI of 50 kg/m Obstructive sleep apnea maintained on BiPAP Obesity/hypoventilation syndrome Chronic systolic congestive heart failure with an ejection fraction of 40% Coronary artery disease with previous multiple stent placements/CABG 2016 Fibrillation anticoagulated with Eliquis Diabetes mellitus, type II Hypertension History of prostate cancer status post surgery Former smoker Gastroesophageal reflux disease Hyperlipidemia Plan: The patient was seen and evaluated Imaging, labs and medications reviewed Currently stable on 3 L nasal cannula Requested family to bring in his home BiPAP device Continue DuoNeb and elations Continue IV diuretics Continue Zaroxolyn Recommend indwelling [place] catheter for accurate I&O Anticoagulated with Eliquis Continue on ceftriaxone and azithromycin for now Check a procalcitonin Anticoagulated with Eliquis Protonix for GI prophylaxis Resume his home medications Increase his activity as tolerated Titrate down the FiO2 as tolerated Plan of care was discussed with the patient and his family We will continue to follow and make further recommendations based on his clinical status I have personally seen and examined the patient, performed the documentation and the assessment and plan as written. Number of minutes spent on the visit: 20 Dictation was produced using [employer] dictation software. Please excuse any grammatical, word or spelling errors. Time with Patient: Greater than 30
[2025-02-27] MEDS: IPRATROPIUM-ALBUTEROL 3 ML NEB INHALATION STA (16:24)
[2025-02-27 16:46] LABS: Glucose,Whole Blood 232 mg/dL (70-110)
[2025-02-27] MEDS: AZITHROMYCIN 500 MG TAB PO SCH (17:39)
[2025-02-27] MEDS: FUROSEMIDE 10 MG/ML 10 ML VIAL IV SCH (18:23)
[2025-02-27 18:39] LABS: Appearance,Urine Clear (Clear); Bilirubin,Urine Negative (Negative); Blood,Urine Negative (Negative); Color,Urine Colorless; Glucose,Urine (UA) 4+ (Negative); Ketones,Urine Negative (Negative); Leukocyte Esterase,Urine Negative (Negative); Nitrite,Urine Negative (Negative); Protein,Urine Negative (Negative); Specific Gravity,Urine 1.015 (1.001-1.035); Urobilinogen,Urine <2.0 mg/dL (<2.0)
[2025-02-27 20:26] LABS: Glucose,Whole Blood 217 mg/dL (70-110)
[2025-02-28 06:27] LABS: Glucose,Whole Blood 156 mg/dL (70-110)
--- NOTE | 2025-02-28 09:54 | P.CONS ---
History of Present Illness - Reason for Consult Consult date: 02/28/25 Anemia Requesting physician: Lonnie Martins - Chief Complaint Shortness of breath - History of Present Illness This a pleasant 65-year-old male with multiple comorbidities including iron deficiency anemia, morbid obesity, pulmonary hypertension, cor pulmonale, obstructive sleep apnea maintained on BiPAP at home, obesity hypoventilation syndrome underlying coronary artery disease with previous stenting and CABG, chronic atrial fibrillation, diabetes mellitus who had presented to the emergency department 3 days ago with complaints of shortness of breath and increased lower extremity edema. Patient admitted with acute hypoxemic respiratory failure and acute kidney injury. He is being followed by pulmonology and nephrology. Patient has a history of iron deficiency anemia he has had outpatient colonoscopy in 2022 as part of his workup for anemia which was a normal colon. Prior to that he had a colonoscopy in 2021 with findings of colon polyps status post polypectomy. Currently patient is trying to rest. He is not very responsive to answering questions. When asked if he has had an upper endoscopy he states he does not know. No record in chart at this time. Patient is not currently on Eliquis 5 mg twice daily for chronic atrial fibrillation. He has microcytic anemia. Gastroenterology was consulted for further evaluation. Iron studies completed and are consistent with iron deficiency anemia. Patient denies any blood in his stool or black stool. Denies any abdominal pain nausea or vomiting. Review of Systems REVIEW OF SYSTEMS: CARDIOPULMONARY: No chest pain, positive for shortness of breath and dyspnea on exertion. Lower extremity swelling. Gastrointestinal: No abdominal pain. No nausea or vomiting. No hematemesis, coffee-ground emesis. No rectal bleeding, or melena. GENITOURINARY: No dysuria or hematuria. MUSCULOSKELETAL: Reports normal range of motion., Joint pain. SKIN: No rashes. No jaundice. ENDOCRINE: No chills, fevers. No excessive weight gain or loss. No polydipsia or polyuria. PSYCHIATRIC: Unremarkable. NEUROLOGY: No change in mental status. Denies dizziness, headache. ENT: Vision unremarkable. CONSTITUTIONAL: No recent weight loss. No fever, chills, night sweats. Past Medical History Past Medical History: Atrial Fibrillation, Coronary Artery Disease (CAD), Cancer, Diabetes Mellitus, Hypertension, Myocardial Infarction ([place]), Prostate Disorder, Sleep Apnea/CPAP/BIPAP Additional Past Medical History / Comment(s): PROSTATE CANCER, uses CPAP Last Myocardial Infarction Date:: 2015 History of Any Multi-Drug Resistant Organisms: None Reported Past Surgical History: Appendectomy, Coronary Bypass/CABG, Heart Catheterization With Stent, Hernia Repair, Prostate Surgery Additional Past Surgical History / Comment(s): HEART CATHS X7 WITH TOTAL OF 7 STENTS, CABG OCT 2016, JAYLYN INGUINAL HERNIAS, UMBILICAL HERNIAS. Past Anesthesia/Blood Transfusion Reactions: No Reported Reaction Additional Past Anesthesia/Blood Transfusion Reaction / Comm: no blood transfusion Date of Last Stent Placement:: 2014 Past Psychological History: No Psychological Hx Reported Smoking Status: Former smoker Past Alcohol Use History: Rare Additional Past Alcohol Use History / Comment(s): Smoked 3 PPD. quit 30 years Past Drug Use History: None Reported - Past Family History Mother Family Medical History: No Reported History Additional Family Medical History / Comment(s): Heart disease Father Family Medical History: Diabetes Mellitus Additional Family Medical History / Comment(s): Heart disease Medications and Allergies Home Medications Medication Instructions Recorded Confirmed Type Apixaban [Eliquis] 5 mg PO BID 10/23/18 02/25/25 History Aspirin [Adult Low Dose Aspirin EC] 81 mg PO DAILY 10/23/18 02/25/25 History Atorvastatin [Lipitor] 80 mg PO HS 10/23/18 02/25/25 History Empagliflozin [Jardiance] 25 mg PO DAILY 10/23/18 02/25/25 History Omeprazole [PriLOSEC] 20 mg PO DAILY PRN 10/23/18 02/25/25 History lisinopriL 20 mg PO DAILY 10/23/18 02/25/25 History Insulin Aspart [NovoLOG Flexpen] 36 - 50 units SQ AC-TID 10/03/22 02/25/25 History Insulin Degludec [Tresiba 60 units SQ HS 10/03/22 02/25/25 History Flextouch U-200 Pen] Metoprolol Tartrate [Lopressor] 50 mg PO BID 10/03/22 02/25/25 History Triamterene/Hydrochlorothiazid 1 cap PO DAILY 10/03/22 02/25/25 History [Triamterene-Hctz 37.5-25 mg Cp] Multivitamins, Thera [Multivitamin 1 tab PO DAILY 04/24/23 02/25/25 History (formulary)] Furosemide [Lasix] 40 mg PO BID 02/25/25 02/25/25 History metFORMIN HCL [Glucophage] 1,000 mg PO BID 02/25/25 02/25/25 History Allergies Allergy/AdvReac Type Severity Reaction Status Date / Time No Known Allergies Allergy Verified 02/25/25 17:55 Physical Exam Vitals: Vital Signs Temp Pulse Pulse Resp BP Pulse Ox 02/28/25 00:25 98.1 F 85 22 146/61 90 L 02/27/25 19:53 98.0 F 80 22 99/56 90 L 02/27/25 19:05 98.2 F 94 21 146/83 90 L 02/27/25 18:15 118/68 02/27/25 16:37 82 02/27/25 16:35 85 24 02/27/25 16:28 97.9 F 85 24 99/53 92 L 02/27/25 16:26 80 02/27/25 13:47 97.4 F L 68 22 111/64 92 L 02/27/25 06:57 97.8 F 64 20 131/62 93 L Intake and Output 02/27/25 02/27/25 02/28/25 14:59 22:59 06:59 Output Total 300 2225 3700 Balance -300 -2225 -3700 Output: Urine 300 2225 3700 Other: Voiding Method Indwelling Catheter # Voids 1 1 Weight 215.5 kg General appearance: The patient is alert, oriented, appears in no acute distress. Morbidly obese. HET: Head is normocephalic and atraumatic. Conjunctiva pink. Sclera anicteric. Neck: Supple without lymphadenopathy. Trachea midline. Heart: Regular. Lungs: Equal expansion, increased respiratory effort. Wheezing. Abdomen: Soft, nontender, nondistended. Skin: No rashes. No jaundice. Extremities: Normal skin color and turgor. Lower extremity edema. Neurological: No focal deficits. Alert and oriented x3. Results CBC & Chem 7: 02/27/25 03:21 02/27/25 03:21 Labs: Abnormal Lab Results - Last 24 Hours (Table) 02/27/25 02/27/25 02/27/25 Range/Units 03:21 03:21 11:53 Hgb 8.4 L (13.0-17.0) g/dL Hct 31.5 L (39.6-50.0) % MCV 70.5 L (80.0-97.0) FL MCH 18.8 L (27.0-32.0) pg MCHC 26.7 L (32.0-37.0) g/dL RDW 21.8 H (11.5-14.5) % Monocytes # 1.12 H (0.20-1.00) X 10*3/uL Anisocytosis (manual) 2+ A (None Seen) Microcytosis (manual) 3+ A (None Seen) Elliptocytes 2+ A (None Seen) Acanthocytes (Spur) 2+ A (None Seen) BUN 47.8 H (9.0-27.0) mg/dL Est GFR (CKD-EPI) 51 L (>=60) BUN/Creatinine Ratio 31.87 H (12.00-20.00) Ratio Glucose 171 H (70-110) mg/dL POC Glucose (mg/dL) 194 H (70-110) mg/dL Iron 24 L (65-175) UG/DL TIBC 500 H (228-460) UG/DL % Saturation 4.80 L (15.00-50.00) Transferrin 357.0 H (204.0-354.0) mg/dL Ferritin 9.5 L (22.0-322.0) ng/mL Vitamin B12 1318.0 H (200.0-944.0) pg/mL Urine Glucose (UA) (Negative) 02/27/25 02/27/25 02/27/25 Range/Units 16:42 18:28 20:26 Hgb (13.0-17.0) g/dL Hct (39.6-50.0) % MCV (80.0-97.0) FL MCH (27.0-32.0) pg MCHC (32.0-37.0) g/dL RDW (11.5-14.5) % Monocytes # (0.20-1.00) X 10*3/uL Anisocytosis (manual) (None Seen) Microcytosis (manual) (None Seen) Elliptocytes (None Seen) Acanthocytes (Spur) (None Seen) BUN (9.0-27.0) mg/dL Est GFR (CKD-EPI) (>=60) BUN/Creatinine Ratio (12.00-20.00) Ratio Glucose (70-110) mg/dL POC Glucose (mg/dL) 232 H 217 H (70-110) mg/dL Iron (65-175) UG/DL TIBC (228-460) UG/DL % Saturation (15.00-50.00) Transferrin (204.0-354.0) mg/dL Ferritin (22.0-322.0) ng/mL Vitamin B12 (200.0-944.0) pg/mL Urine Glucose (UA) 4+ H (Negative) 02/28/25 Range/Units 06:26 Hgb (13.0-17.0) g/dL Hct (39.6-50.0) % MCV (80.0-97.0) FL MCH (27.0-32.0) pg MCHC (32.0-37.0) g/dL RDW (11.5-14.5) % Monocytes # (0.20-1.00) X 10*3/uL Anisocytosis (manual) (None Seen) Microcytosis (manual) (None Seen) Elliptocytes (None Seen) Acanthocytes (Spur) (None Seen) BUN (9.0-27.0) mg/dL Est GFR (CKD-EPI) (>=60) BUN/Creatinine Ratio (12.00-20.00) Ratio Glucose (70-110) mg/dL POC Glucose (mg/dL) 156 H (70-110) mg/dL Iron (65-175) UG/DL TIBC (228-460) UG/DL % Saturation (15.00-50.00) Transferrin (204.0-354.0) mg/dL Ferritin (22.0-322.0) ng/mL Vitamin B12 (200.0-944.0) pg/mL Urine Glucose (UA) (Negative) Assessment and Plan (1) Iron deficiency anemia Narrative/Plan: 65-year-old male with multiple comorbidities with known history of iron de ficiency anemia with prior workup with at least colonoscopy and no overt signs of GI bleed. Unclear if patient had prior upper endoscopy as he is a poor historian. Anemia likely multifactorial. Patient with multiple comorbidities, likely anemia of chronic disease. Patient is on anticoagulation for atrial fibrillation but again has no reported blood in his stool or black stool but cannot completely rule out GI source. Patient currently getting IV. No plans for endoscopic evaluation especially at this time secondary to respiratory status. He can follow-up as an outpatient with gastroenterology to discuss possible endoscopic evaluation. He is an established patient. Consider hematology referral. Current Visit: Yes Status: Acute Code(s): D50.9 - IRON DEFICIENCY ANEMIA, UNSPECIFIED SNOMED Code(s): 33552601 (2) Microcytic anemia Current Visit: Yes Status: Acute Code(s): D50.9 - IRON DEFICIENCY ANEMIA, UNSPECIFIED SNOMED Code(s): 806164434 (3) Bilateral leg edema Current Visit: Yes Status: Acute Code(s): R60.0 - LOCALIZED EDEMA SNOMED Code(s): 437625180 (4) Congestive heart failure Current Visit: Yes Status: Acute Code(s): I50.9 - HEART FAILURE, UNSPECIFIED SNOMED Code(s): 66515842 (5) Hypoxia Current Visit: Yes Status: Acute Code(s): R09.02 - HYPOXEMIA SNOMED Code(s): 312096546 Plan: 1. Continue symptomatic and supportive care 2. Agree with IV iron replacement 3. Recommend oral iron on discharge 4. May continue anticoagulation at discretion of primary medical team and cardiology 5. Protonix 40 mg daily for GI prophylaxis 6. No plans on endoscopic evaluation at this time. Patient can follow-up with gastroenterology once respiratory status stabilized and patient discharged. Thank you for this consultation, gastroenterology will sign off at this time. Dr. Clark Dupree I agree with the dictator's note, documented as a scribe by [place].
--- NOTE | 2025-02-28 10:21 | P.PN ---
Subjective Patient is seen in follow-up for acute kidney injury on chronic kidney disease. On IV Lasix. Nonoliguric. Urine output over 6 L in the last 24 hours. On IV Lasix, metolazone and Farxiga. Vital signs are stable. General: No acute distress. HEENT: Head exam is unremarkable. On nasal cannula. LUNGS: No audible rhonchi or wheezes. HEART: Rate and Rhythm are regular. ABDOMEN: Obese, nontender. EXTREMITITES: 2+ edema. Objective - Vital Signs Vital signs: Vital Signs Temp 97.7 F 02/28/25 07:20 Pulse 81 02/28/25 07:20 Resp 19 02/28/25 07:20 BP 100/50 02/28/25 07:20 Pulse Ox 85 L 02/28/25 08:56 FiO2 Intake & Output 02/27/25 02/28/25 02/28/25 18:59 06:59 18:59 Output Total 625 5600 Balance -625 -5600 Weight 215.5 kg Output: Urine 625 5600 Other: Voiding Method Indwelling Catheter # Voids 1 - Labs CBC & Chem 7: 02/27/25 03:21 02/27/25 03:21 Labs: Abnormal Lab Results - Last 24 Hours (Table) 02/27/25 02/27/25 02/27/25 Range/Units 11:53 16:42 18:28 POC Glucose (mg/dL) 194 H 232 H (70-110) mg/dL Urine Glucose (UA) 4+ H (Negative) 02/27/25 02/28/25 Range/Units 20:26 06:26 POC Glucose (mg/dL) 217 H 156 H (70-110) mg/dL Urine Glucose (UA) (Negative) Assessment and Plan Plan: Assessment: 1. Acute kidney injury secondary to ATN secondary to cardiorenal syndrome. Creatinine 1.5 yesterday. UA benign. No hydronephrosis noted on kidney ultrasound. Left kidney not seen due to body habitus. 2. Chronic kidney disease stage IIIa with baseline creatinine 1.3-1.4 secondary to nephrosclerosis/diabetic kidney disease. 3. Acute hypoxic respiratory failure. 4. Volume overload. Improving with diuresis. 5. Diabetes mellitus. 6. Anemia of chronic kidney disease. Iron deficiency noted. 7. History of A-fib. 8. Acute on chronic systolic CHF ejection fraction of 40% with severe pulmonary hypertension, moderate to severe tricuspid regurgitation. Plan: Maintain IV Lasix. Maintain metolazone. Maintain Farxiga. Low-salt diet and 1500 cc fluid restriction. Maintain IV iron. Continue to monitor renal function and urine output.
[2025-02-28 10:22] LABS: HCT 35.4 % (39.6-50.0); HGB 8.9 g/dL (13.0-17.0); MCH 18.4 pg (27.0-32.0); MCHC 25.1 g/dL (32.0-37.0); MCV 73.3 FL (80.0-97.0); Mean Platelet Volume 9.5 FL (9.5-12.2); NRBC Per 100 WBC 0.03 X 10*3/uL (0.00-0.01); Platelet Count 278 X 10*3/uL (140-440); RBC 4.83 X 10*6/uL (4.40-5.60); RDW 22.1 % (11.5-14.5); WBC 8.19 X 10*3/uL (4.50-10.00)
[2025-02-28 10:57] LABS: BUN/Creat Ratio 29.29 Ratio (12.00-20.00); Blood Urea Nitrogen 49.8 mg/dL (9.0-27.0); Calcium 8.7 mg/dL (8.7-10.3); Chloride 102 mmol/L (96-109); Glucose 136 mg/dL (70-110); Magnesium 2.3 mg/dL (1.5-2.4); Potassium 5.1 mmol/L (3.5-5.5); Sodium 140 mmol/L (135-145)
[2025-02-28 11:04] LABS: Basophils # (A) 0.05 X 10*3/uL (0.00-0.10); Basophils % (A) 0.6 %; Eosinophils # (A) 0.14 X 10*3/uL (0.04-0.35); Eosinophils % (A) 1.7 %; Lymphocytes # (A) 1.14 X 10*3/uL (0.90-5.00); Lymphocytes % (A) 13.9 %; Microcytosis (M) 2+ (None Seen); Monocytes # (A) 1.48 X 10*3/uL (0.20-1.00); Monocytes % (A) 18.1 %; Neutrophils # (A) 5.34 X 10*3/uL (1.80-7.70); Neutrophils % (A) 65.2 %
--- NOTE | 2025-02-28 12:06 | P.PN ---
Subjective HISTORY OF PRESENT ILLNESS: This is a 65-year-old male with a past medical history significant for coronary artery disease with previous CABG, congestive heart failure, hypertension, hyperlipidemia, diabetes, and atrial fibrillation. Patient follows in the office with Dr. Richards out of [facility]. We have been asked to see the patient in consultation for congestive heart failure. Patient examined at the bedside. Patient presented to the hospital with a chief complaint of shortness of breath. Patient states he has been feeling short of breath for the past 2 weeks. He also reports having a cough with sputum production. He reports increased swelling in his lower extremities. He reports a 20 pound weight gain in the past 6 weeks. He states he has been compliant with all of his medications and has been following a low-sodium diet. Patient was found to be in acute CHF and was started on IV Lasix. DIAGNOSTICS: - EKG reveals atrial fibrillation with controlled ventricular rate - Chest xray cardiomegaly mild pulmonary vascular congestion - Laboratory data: WBC 6.08. Hemoglobin 9.3. Platelet count 266. Sodium 138. Potassium 4.7. BUN 49. Creatinine 1.29. Troponin negative x 3. proBNP 3550. - Current home cardiac medications include aspirin 81 mg daily, Lasix 40 mg twice a day, metoprolol tartrate 50 mg twice a day, Eliquis 5 mg twice a day, lisinopril 20 mg daily, Lipitor 80 mg at night, Jardiance 25 mg daily - Most recent echocardiogram obtained in April 2023 revealed ejection fraction 40 to 45% - Cardiac catheterization history: Unknown 02/27/2025 Patient examined this morning. Patient is sitting up in the chair. Patient continues to report shortness of breath. He denies chest pain or pressure. He continues to have lower extremity edema. Patient's Lasix has been increased to 60 mg every 12 hours per pulmonary. Creatinine today 1.5, up from 1.29. Echocardiogram reveals ejection fraction 40%, global hypokinesis, trace to mild MR, moderate to severe TR 02/28/2025 Patient examined this morning at the bedside. He is sitting up in the chair. He reports improvement in his shortness of breath. He denies chest pain or pressure. He continues to have lower extremity edema although improving. He remains on IV Lasix 60 mg every 12 hours. Creatinine today 1.7. PHYSICAL EXAM: VITAL SIGNS: Reviewed. GENERAL: Well-developed in no acute distress. HEENT: Head is normocephalic. Pupils are equal, round. Sclerae anicteric. Mucous membranes of the mouth are moist. Neck supple. No JVD or thyromegaly LUNGS: Respirations even and unlabored. Lungs diminished bilaterally HEART: Irregular rate and rhythm. S1 and S2 heard. ABDOMEN: Soft. Nondistended. Nontender. EXTREMITIES: Normal range of motion. No clubbing or cyanosis. Peripheral pulses intact. Bilateral lower extremity edema noted NEUROLOGIC: Awake and alert. Oriented x 3. ASSESSMENT: Acute on chronic heart failure with reduced EF Coronary artery disease with previous CABG Ischemic cardiomyopathy 40 to 45% Persistent atrial fibrillation Hypertension Hyperlipidemia Diabetes Obesity: BMI 48.7 PLAN: Continue IV Lasix. Dose increased yesterday to 60 mg twice a day per nephrology. Daily weights, accurate intake and output, monitoring of kidney function Continue additional cardiac medications Further recommendations pending patient course Nurse practitioner note has been reviewed by physician. Signing provider agrees with the documented findings, assessment, and plan of care documented by ECCLESIASTICAL WORKER as a scribe. Objective - Vital Signs Vital signs: Vital Signs Temp 97.7 F 02/28/25 07:20 Pulse 81 02/28/25 07:20 Resp 19 02/28/25 07:20 BP 100/50 02/28/25 07:20 Pulse Ox 97 02/28/25 12:00 FiO2 Intake & Output 02/27/25 02/28/25 02/28/25 18:59 06:59 18:59 Output Total 625 5600 Balance -625 -5600 Weight 215.5 kg Output: Urine 625 5600 Other: Voiding Method Indwelling Catheter # Voids 1 - Labs CBC & Chem 7: 02/28/25 06:28 02/28/25 06:28 Labs: Abnormal Lab Results - Last 24 Hours (Table) 02/27/25 02/27/25 02/27/25 Range/Units 16:42 18:28 20:26 Hgb (13.0-17.0) g/dL Hct (39.6-50.0) % MCV (80.0-97.0) FL MCH (27.0-32.0) pg MCHC (32.0-37.0) g/dL RDW (11.5-14.5) % Monocytes # (0.20-1.00) X 10*3/uL NRBC/100 WBC Diff (0.00-0.01) X 10*3/uL Microcytosis (manual) (None Seen) BUN (9.0-27.0) mg/dL Creatinine (0.6-1.5) mg/dL Est GFR (CKD-EPI) (>=60) BUN/Creatinine Ratio (12.00-20.00) Ratio Glucose (70-110) mg/dL POC Glucose (mg/dL) 232 H 217 H (70-110) mg/dL Urine Glucose (UA) 4+ H (Negative) 02/28/25 02/28/25 02/28/25 Range/Units 06:26 06:28 06:28 Hgb 8.9 L (13.0-17.0) g/dL Hct 35.4 L (39.6-50.0) % MCV 73.3 L (80.0-97.0) FL MCH 18.4 L (27.0-32.0) pg MCHC 25.1 L (32.0-37.0) g/dL RDW 22.1 H (11.5-14.5) % Monocytes # 1.48 H (0.20-1.00) X 10*3/uL NRBC/100 WBC Diff 0.03 H (0.00-0.01) X 10*3/uL Microcytosis (manual) 2+ A (None Seen) BUN 49.8 H (9.0-27.0) mg/dL Creatinine 1.7 H (0.6-1.5) mg/dL Est GFR (CKD-EPI) 44 L (>=60) BUN/Creatinine Ratio 29.29 H (12.00-20.00) Ratio Glucose 136 H (70-110) mg/dL POC Glucose (mg/dL) 156 H (70-110) mg/dL Urine Glucose (UA) (Negative)
[2025-02-28 12:13] LABS: Glucose,Whole Blood 181 mg/dL (70-110)
--- NOTE | 2025-02-28 14:03 | P.PN ---
Subjective Progress Note Date: 02/28/25 This is a morbidly obese 65-year-old male patient with a known history of obstructive sleep apnea maintained on CPAP, congestive heart failure, atrial fibrillation anticoagulated with Eliquis, diabetes mellitus, hypertension, coronary artery disease with stent placement x 7, coronary artery bypass surgery in 2016, former smoker of 30 years at 3 packs/day however quit 30 years ago. He presented here on February 25, 2025 with complaints of increasing shortness of breath, increasing lower extremity edema. Chest x-ray showed cardiomegaly and mild pulmonary vascular congestion. White count 6.5. Hemoglobin 8.4. Platelets 267. Sodium 138. Potassium 4.9. Bicarb 29. BUN 48. Creatinine 1.5. Glucose 171. Troponins were negative. proBNP 3550. Echocardiogram revealed impaired left ventricular systolic function with an ejection fraction of 40%. Severe pulmonary hypertension. Moderate to severe tricuspid regurgitation. He is seen today in consultation on the regular medical floor. He is currently resting in bed. Awake and alert in no acute distress. He is maintaining O2 saturations in the 90s on 3 L/min per nasal cannula. He has been afebrile. Hemodynamically stable. He has been initiated on Lasix 60 mg IV every 12 hours. The patient is seen today February 28, 2025 in follow-up on the regular medical floor. He is currently sitting up in a chair at the bedside. Awake and alert in no acute distress. Maintaining O2 saturations in the 90s on 5 L/min per nasal cannula. He is breathing a bit easier today compared to yesterday. Hatfield catheter was placed. He is in a -6 L balance. White count 8.1. Hemoglobin 8.9. Platelets 278. Sodium 140. Potassium 5.1. Bicarb 28. BUN 50. Creatinine 1.7. Glucose 136. Urinalysis clean. He remains on Lasix 60 mg IV every 12 hours and Zaroxolyn. Anticoagulated with Eliquis. He is continued on azithromycin and ceftriaxone. Procalcitonin was negative at 0.08. He has been afebrile. Hemodynamically stable. Objective - Vital Signs Vital signs: Vital Signs Temp 97.7 F 02/28/25 07:20 Pulse 81 02/28/25 07:20 Resp 19 02/28/25 07:20 BP 100/50 02/28/25 07:20 Pulse Ox 97 02/28/25 12:00 FiO2 Intake & Output 02/27/25 02/28/25 02/28/25 18:59 06:59 18:59 Intake Total 1020 Output Total 625 5600 Balance -625 -5600 1020 Weight 215.5 kg Intake: Blood Product 1020 Output: Urine 625 5600 Other: Voiding Method Indwelling Catheter # Voids 1 # Bowel Movements 1 - Exam GENERAL EXAM: Alert, 65-year-old morbidly obese male, up in a chair, on 5 L nasal cannula, comfortable in no apparent distress. HEAD: Normocephalic. EYES: Normal reaction of pupils, equal size. NOSE: Clear with pink turbinates. THROAT: No erythema or exudates. NECK: No masses, no JVD. CHEST: No chest wall deformity. LUNGS: Equal air entry with crackles in the bilateral bases. CVS: S1 and S2 normal with no audible murmur, regular rhythm. ABDOMEN: Soft, unable to appreciate any hepatosplenomegaly, normal bowel sounds, no guarding or rigidity. SPINE: No scoliosis or deformity SKIN: No rashes CENTRAL NERVOUS SYSTEM: No focal deficits, tone is normal in all 4 extremities. EXTREMITIES: There is 2+ peripheral edema. No clubbing, no cyanosis. Peripheral pulses are intact. - Labs CBC & Chem 7: 02/28/25 06:28 02/28/25 06:28 Labs: Abnormal Lab Results - Last 24 Hours (Table) 02/27/25 02/27/25 02/27/25 Range/Units 16:42 18:28 20:26 Hgb (13.0-17.0) g/dL Hct (39.6-50.0) % MCV (80.0-97.0) FL MCH (27.0-32.0) pg MCHC (32.0-37.0) g/dL RDW (11.5-14.5) % Monocytes # (0.20-1.00) X 10*3/uL NRBC/100 WBC Diff (0.00-0.01) X 10*3/uL Microcytosis (manual) (None Seen) BUN (9.0-27.0) mg/dL Creatinine (0.6-1.5) mg/dL Est GFR (CKD-EPI) (>=60) BUN/Creatinine Ratio (12.00-20.00) Ratio Glucose (70-110) mg/dL POC Glucose (mg/dL) 232 H 217 H (70-110) mg/dL Urine Glucose (UA) 4+ H (Negative) 02/28/25 02/28/25 02/28/25 Range/Units 06:26 06:28 06:28 Hgb 8.9 L (13.0-17.0) g/dL Hct 35.4 L (39.6-50.0) % MCV 73.3 L (80.0-97.0) FL MCH 18.4 L (27.0-32.0) pg MCHC 25.1 L (32.0-37.0) g/dL RDW 22.1 H (11.5-14.5) % Monocytes # 1.48 H (0.20-1.00) X 10*3/uL NRBC/100 WBC Diff 0.03 H (0.00-0.01) X 10*3/uL Microcytosis (manual) 2+ A (None Seen) BUN 49.8 H (9.0-27.0) mg/dL Creatinine 1.7 H (0.6-1.5) mg/dL Est GFR (CKD-EPI) 44 L (>=60) BUN/Creatinine Ratio 29.29 H (12.00-20.00) Ratio Glucose 136 H (70-110) mg/dL POC Glucose (mg/dL) 156 H (70-110) mg/dL Urine Glucose (UA) (Negative) 02/28/25 Range/Units 12:09 Hgb (13.0-17.0) g/dL Hct (39.6-50.0) % MCV (80.0-97.0) FL MCH (27.0-32.0) pg MCHC (32.0-37.0) g/dL RDW (11.5-14.5) % Monocytes # (0.20-1.00) X 10*3/uL NRBC/100 WBC Diff (0.00-0.01) X 10*3/uL Microcytosis (manual) (None Seen) BUN (9.0-27.0) mg/dL Creatinine (0.6-1.5) mg/dL Est GFR (CKD-EPI) (>=60) BUN/Creatinine Ratio (12.00-20.00) Ratio Glucose (70-110) mg/dL POC Glucose (mg/dL) 181 H (70-110) mg/dL Urine Glucose (UA) (Negative) Assessment and Plan Assessment: Acute hypoxemic respiratory failure secondary to an acute exacerbation of systolic congestive heart failure, severe pulmonary hypertension, morbid obesity Severe pulmonary hypertension/cor pulmonale Morbid obesity with a BMI of 50 kg/m Obstructive sleep apnea maintained on BiPAP Obesity/hypoventilation syndrome Chronic systolic congestive heart failure with an ejection fraction of 40% Coronary artery disease with previous multiple stent placements/CABG 2016 Fibrillation anticoagulated with Eliquis Diabetes mellitus, type II Hypertension History of prostate cancer status post surgery Former smoker Gastroesophageal reflux disease Hyperlipidemia Plan: The patient was seen and evaluated Labs and medications reviewed Currently stable on 5 L nasal cannula Requested family to bring in his home BiPAP device Continue DuoNeb and elations Continue IV diuretics Continue Zaroxolyn Continue Hatfield catheter for accurate I&O Anticoagulated with Eliquis Urinalysis clean Procalcitonin negative Recommend discontinuing antibiotics Protonix for GI prophylaxis Increase his activity as tolerated Titrate down the FiO2 as tolerated Follow-up chest x-ray in a.m. We will continue to follow I have personally seen and examined the patient, performed the documentation and the assessment and plan as written. Number of minutes spent on the visit: 10 Dictation was produced using [employer] dictation software. Please excuse any grammatical, word or spelling errors.
[2025-02-28 16:53] LABS: Glucose,Whole Blood 216 mg/dL (70-110)
[2025-02-28 20:34] LABS: Glucose,Whole Blood 172 mg/dL (70-110)
[2025-03-01 06:23] LABS: Glucose,Whole Blood 104 mg/dL (70-110)
--- NOTE | 2025-03-01 09:20 | XR ---
EXAMINATION TYPE: XR chest 1V portable DATE OF EXAM: 03/01/2025 4:43 AM COMPARISON: 02/27/2025 CLINICAL INDICATION: Male, 65 years old with history of CHF, TECHNIQUE: XR chest 1V portable view(s) obtained. FINDINGS: The heart size is enlarged. The pulmonary vasculature is normal. There is mild infiltrate along the left diaphragm with silhouette of the diaphragm. Moderate infiltra bairno in the right lower lung field. Correlate for pneumonia. Continued follow-up is recommended IMPRESSION: 1. Right lower lobe infiltrate. Correlate for atelectasis and pneumonia. 2. Mild infiltrate along the left diaphragm may be some additional atelectasis. [facility], , 03/01/2025 9:18 AM
[2025-03-01 09:46] LABS: Blood Urea Nitrogen 58.5 mg/dL (9.0-27.0); Calcium 8.7 mg/dL (8.7-10.3); Carbon Dioxide 27.9 mmol/L (21.6-31.8); Chloride 99 mmol/L (96-109); Glucose 94 mg/dL (70-110); Magnesium 2.3 mg/dL (1.5-2.4); Potassium 4.6 mmol/L (3.5-5.5); Sodium 139 mmol/L (135-145)
[2025-03-01 11:43] LABS: Glucose,Whole Blood 136 mg/dL (70-110)
--- NOTE | 2025-03-01 12:34 | P.PN ---
Subjective Patient is seen for follow-up for chronic kidney disease and acute kidney injury. Currently maintained on IV lasix, metolazone and IV farxiga UOP 1.4L x 24 hrs No significant complaints Continues to have significant edema. Serum creatinine staying at 1.7 to 1.8 mg/dL Patient has indwelling Hatfield catheter Objective - Vital Signs Vital signs: Vital Signs Temp 97.8 F 03/01/25 07:05 Pulse 76 03/01/25 07:05 Resp 19 03/01/25 10:04 BP 98/61 03/01/25 07:05 Pulse Ox 92 L 03/01/25 07:05 FiO2 Intake & Output 02/28/25 03/01/25 03/01/25 18:59 06:59 18:59 Intake Total 1256 870 300 Output Total 450 1000 1000 Balance 806 -130 -700 Weight 187 kg Intake: Intake, IV Titration 150 Amount Sodium Ferric Gluconat- 100 Sucrose 125 mg In Sodium Chloride 0.9% 100 ml @ 100 mls/hr IVPB DAILY JANIS Rx#:[id number] cefTRIAXone 1 gm In 50 Sodium Chloride 0.9% 50 ml @ 100 mls/hr IVPB Q24HR JANIS Rx#:[id number] Oral 720 300 Blood Product 1256 Output: Urine 450 1000 1000 Other: Voiding Method Indwelling Catheter Indwelling Catheter # Voids 1 # Bowel Movements 1 1 - Exam Patient is awake, comfortable, no acute distress Examination of the heart S1 and S2 Examination of the lungs bilateral breath sounds are heard Abdomen is soft obese Examination of lower extremity shows chronic skin changes with 2-3+ edema TICKET MANAGER exam grossly intact - Labs CBC & Chem 7: 02/28/25 06:28 03/01/25 05:00 Labs: Abnormal Lab Results - Last 24 Hours (Table) 02/28/25 02/28/25 03/01/25 Range/Units 16:51 20:31 05:00 Anion Gap 12.10 H (4.00-12.00) mmol/L BUN 58.5 H (9.0-27.0) mg/dL Creatinine 1.8 H (0.6-1.5) mg/dL Est GFR (CKD-EPI) 41 L (>=60) BUN/Creatinine Ratio 32.50 H (12.00-20.00) Ratio POC Glucose (mg/dL) 216 H 172 H (70-110) mg/dL 03/01/25 Range/Units 11:42 Anion Gap (4.00-12.00) mmol/L BUN (9.0-27.0) mg/dL Creatinine (0.6-1.5) mg/dL Est GFR (CKD-EPI) (>=60) BUN/Creatinine Ratio (12.00-20.00) Ratio POC Glucose (mg/dL) 136 H (70-110) mg/dL Assessment and Plan Assessment: 1. Acute kidney injury secondary to ATN secondary to cardiorenal syndrome. Creatinine staying at 1.7-1.8. UA benign. No hydronephrosis noted on kidney ultrasound. Left kidney not seen due to body habitus. 2. Chronic kidney disease stage IIIa with baseline creatinine 1.3-1.4 secondary to nephrosclerosis/diabetic kidney disease. 3. Acute hypoxic respiratory failure. 4. Volume overload. Improving with diuresis. 5. Diabetes mellitus. 6. Anemia of chronic kidney disease. Iron deficiency noted. 7. History of A-fib. 8. Acute on chronic systolic CHF ejection fraction of 40% with severe pulmonary hypertension, moderate to severe tricuspid regurgitation. Plan: Continue with IV Lasix and metolazone Discussed salt and fluid restriction Repeat labs in a.m. Continue with Hatfield catheter
--- NOTE | 2025-03-01 13:04 | P.PN ---
Subjective Progress Note Date: 03/01/25 This is a morbidly obese 65-year-old male patient with a known history of obstructive sleep apnea maintained on CPAP, congestive heart failure, atrial fibrillation anticoagulated with Eliquis, diabetes mellitus, hypertension, coronary artery disease with stent placement x 7, coronary artery bypass surgery in 2016, former smoker of 30 years at 3 packs/day however quit 30 years ago. He presented here on February 25, 2025 with complaints of increasing shortness of breath, increasing lower extremity edema. Chest x-ray showed cardiomegaly and mild pulmonary vascular congestion. White count 6.5. Hemoglobin 8.4. Platelets 267. Sodium 138. Potassium 4.9. Bicarb 29. BUN 48. Creatinine 1.5. Glucose 171. Troponins were negative. proBNP 3550. Echocardiogram revealed impaired left ventricular systolic function with an ejection fraction of 40%. Severe pulmonary hypertension. Moderate to severe tricuspid regurgitation. He is seen today in consultation on the regular medical floor. He is currently resting in bed. Awake and alert in no acute distress. He is maintaining O2 saturations in the 90s on 3 L/min per nasal cannula. He has been afebrile. Hemodynamically stable. He has been initiated on Lasix 60 mg IV every 12 hours. The patient is seen today February 28, 2025 in follow-up on the regular medical floor. He is currently sitting up in a chair at the bedside. Awake and alert in no acute distress. Maintaining O2 saturations in the 90s on 5 L/min per nasal cannula. He is breathing a bit easier today compared to yesterday. Hatfield catheter was placed. He is in a -6 L balance. White count 8.1. Hemoglobin 8.9. Platelets 278. Sodium 140. Potassium 5.1. Bicarb 28. BUN 50. Creatinine 1.7. Glucose 136. Urinalysis clean. He remains on Lasix 60 mg IV every 12 hours and Zaroxolyn. Anticoagulated with Eliquis. He is continued on azithromycin and ceftriaxone. Procalcitonin was negative at 0.08. He has been afebrile. Hemodynamically stable. The patient is seen today March 01, 2025 in follow-up on the regular medical floor. He is currently sitting up in a chair. Awake and alert in no acute distress. Maintaining O2 saturations in the 90s on 5 L/min per nasal cannula. He has been afebrile. Hemodynamically stable. Follow-up chest x-ray shows right lower lobe atelectasis. Minimally in the left lower lobe. Sodium 139. Potassium 4.6. Bicarb 28. BUN 58. Creatinine 1.8. Glucose 94. He remains on Lasix 60 mg every 12 hours and Zaroxolyn. Anticoagulated with Eliquis. Remains on ceftriaxone. Remains on bronchodilators as needed. Completed azithromycin. Objective - Vital Signs Vital signs: Vital Signs Temp 97.8 F 03/01/25 07:05 Pulse 76 03/01/25 07:05 Resp 19 03/01/25 10:04 BP 98/61 03/01/25 07:05 Pulse Ox 92 L 03/01/25 07:05 FiO2 Intake & Output 02/28/25 03/01/25 03/01/25 18:59 06:59 18:59 Intake Total 1256 870 650 Output Total 450 1000 1000 Balance 806 -130 -350 Weight 187 kg Intake: Intake, IV Titration 150 Amount Sodium Ferric Gluconat- 100 Sucrose 125 mg In Sodium Chloride 0.9% 100 ml @ 100 mls/hr IVPB DAILY JANIS Rx#:[id number] cefTRIAXone 1 gm In 50 Sodium Chloride 0.9% 50 ml @ 100 mls/hr IVPB Q24HR JANIS Rx#:[id number] Oral 720 650 Blood Product 1256 Output: Urine 450 1000 1000 Other: Voiding Method Indwelling Catheter Indwelling Catheter # Voids 300 # Bowel Movements 1 1 - Exam GENERAL EXAM: Alert, pleasant 65-year-old morbidly obese male, up in a chair, on 5 L nasal cannula, in no apparent distress. HEAD: Normocephalic. EYES: Normal reaction of pupils, equal size. NOSE: Clear with pink turbinates. THROAT: No erythema or exudates. NECK: No masses, no JVD. CHEST: No chest wall deformity. LUNGS: Equal air entry with crackles in the bilateral bases. CVS: S1 and S2 normal with no audible murmur, regular rhythm. ABDOMEN: Soft, unable to appreciate any hepatosplenomegaly, normal bowel sounds, no guarding or rigidity. SPINE: No scoliosis or deformity SKIN: No rashes CENTRAL NERVOUS SYSTEM: No focal deficits, tone is normal in all 4 extremities. EXTREMITIES: There is 1+ peripheral edema. No clubbing, no cyanosis. Peripheral pulses are intact. - Labs CBC & Chem 7: 02/28/25 06:28 03/01/25 05:00 Labs: Abnormal Lab Results - Last 24 Hours (Table) 02/28/25 02/28/25 03/01/25 Range/Units 16:51 20:31 05:00 Anion Gap 12.10 H (4.00-12.00) mmol/L BUN 58.5 H (9.0-27.0) mg/dL Creatinine 1.8 H (0.6-1.5) mg/dL Est GFR (CKD-EPI) 41 L (>=60) BUN/Creatinine Ratio 32.50 H (12.00-20.00) Ratio POC Glucose (mg/dL) 216 H 172 H (70-110) mg/dL 03/01/25 Range/Units 11:42 Anion Gap (4.00-12.00) mmol/L BUN (9.0-27.0) mg/dL Creatinine (0.6-1.5) mg/dL Est GFR (CKD-EPI) (>=60) BUN/Creatinine Ratio (12.00-20.00) Ratio POC Glucose (mg/dL) 136 H (70-110) mg/dL Assessment and Plan Assessment: Acute hypoxemic respiratory failure secondary to an acute exacerbation of systolic congestive heart failure, severe pulmonary hypertension, morbid obesity Severe pulmonary hypertension/cor pulmonale Morbid obesity with a BMI of 50.2 kg/m Obstructive sleep apnea maintained on BiPAP Obesity/hypoventilation syndrome Chronic systolic congestive heart failure with an ejection fraction of 40% Coronary artery disease with previous multiple stent placements/CABG 2016 Fibrillation anticoagulated with Eliquis Diabetes mellitus, type II Hypertension History of prostate cancer status post surgery Former smoker Gastroesophageal reflux disease Hyperlipidemia Plan: The patient was seen and evaluated Chest x-ray, labs and medications reviewed Chest x-ray showing improvement Currently on 5 L nasal cannula Utilizing his home BiPAP at night and as needed Continue IV diuretics Continue Zaroxolyn Continue Hatfield catheter for accurate I&O Anticoagulated with Eliquis Protonix for GI prophylaxis Increase his activity as tolerated Titrate down the FiO2 as tolerated I have personally seen and examined the patient, performed the documentation and the assessment and plan as written. Number of minutes spent on the visit: 10 Dictation was produced using [employer] software. Please excuse any grammatical, word or spelling errors.
--- NOTE | 2025-03-01 14:52 | P.PN ---
Subjective Progress Note Date: 03/01/25 This is a 65-year-old male with a past medical history significant for coronary artery disease with previous CABG, congestive heart failure, hypertension, hyperlipidemia, diabetes, and atrial fibrillation. Patient follows in the office with Dr. Richards out of [facility]. We have been asked to see the patient in consultation for congestive heart failure. Patient examined at the bedside. Patient presented to the hospital with a chief complaint of shortness of breath. Patient states he has been feeling short of breath for the past 2 weeks. He also reports having a cough with sputum production. He reports increased swelling in his lower extremities. He reports a 20 pound weight gain in the pa st 6 weeks. He states he has been compliant with all of his medications and has been following a low-sodium diet. Patient was found to be in acute CHF and was started on IV Lasix. DIAGNOSTICS: - EKG reveals atrial fibrillation with controlled ventricular rate - Chest xray cardiomegaly mild pulmonary vascular congestion - Laboratory data: WBC 6.08. Hemoglobin 9.3. Platelet count 266. Sodium 138. Potassium 4.7. BUN 49. Creatinine 1.29. Troponin negative x 3. proBNP 3550. - Current home cardiac medications include aspirin 81 mg daily, Lasix 40 mg twice a day, metoprolol tartrate 50 mg twice a day, Eliquis 5 mg twice a day, lisinopril 20 mg daily, Lipitor 80 mg at night, Jardiance 25 mg daily - Most recent echocardiogram obtained in April 2023 revealed ejection fraction 40 to 45% - Cardiac catheterization history: Unknown 02/27/2025 Patient examined this morning. Patient is sitting up in the chair. Patient continues to report shortness of breath. He denies chest pain or pressure. He continues to have lower extremity edema. Patient's Lasix has been increased to 60 mg every 12 hours per pulmonary. Creatinine today 1.5, up from 1.29. Echocardiogram reveals ejection fraction 40%, global hypokinesis, trace to mild MR, moderate to severe TR 02/28/2025 Patient examined this morning at the bedside. He is sitting up in the chair. He reports improvement in his shortness of breath. He denies chest pain or pressure. He continues to have lower extremity edema although improving. He remains on IV Lasix 60 mg every 12 hours. Creatinine today 1.7. 03/01/2025 Patient was seen and examined sitting up in a chair. Continues to have lower extremity edema. Feels his breathing is improving. Feels significantly better and asking to go home. He remains on IV Lasix 60 mg every 12 hours. Renal function is stable. PHYSICAL EXAM: VITAL SIGNS: Reviewed. GENERAL: Well-developed in no acute distress. HEENT: Head is normocephalic. Pupils are equal, round. Sclerae anicteric. Mucous membranes of the mouth are moist. Neck supple. No JVD or thyromegaly LUNGS: Respirations even and unlabored. Lungs diminished bilaterally with bibasilar crackles HEART: Irregular rate and rhythm. S1 and S2 heard. ABDOMEN: Soft. Nondistended. Nontender. EXTREMITIES: Normal range of motion. No clubbing or cyanosis. Peripheral pulses intact. Bilateral lower extremity edema noted NEUROLOGIC: Awake and alert. Oriented x 3. ASSESSMENT: Acute on chronic heart failure with reduced EF Coronary artery disease with previous CABG Ischemic cardiomyopathy 40 to 45% Persistent atrial fibrillation Hypertension Hyperlipidemia Diabetes Obesity: BMI 48.7 PLAN: Continue IV Lasix. Daily weights, accurate intake and output, monitoring of kidney function Continue additional cardiac medications Recheck NT proBNP in the morning Further recommendations pending patient course COVERAGE SPECIALIST RN note has been reviewed, I agree with a documented findings and plan of care. Patient was seen and examined. Objective - Vital Signs Vital signs: Vital Signs Temp 97.8 F 03/01/25 07:05 Pulse 76 03/01/25 07:05 Resp 19 03/01/25 10:04 BP 98/61 03/01/25 07:05 Pulse Ox 92 L 03/01/25 07:05 FiO2 Intake & Output 02/28/25 03/01/25 03/01/25 18:59 06:59 18:59 Intake Total 1256 870 650 Output Total 450 1000 1000 Balance 806 -130 -350 Weight 187 kg Intake: Intake, IV Titration 150 Amount Sodium Ferric Gluconat- 100 Sucrose 125 mg In Sodium Chloride 0.9% 100 ml @ 100 mls/hr IVPB DAILY JANIS Rx#:[id number] cefTRIAXone 1 gm In 50 Sodium Chloride 0.9% 50 ml @ 100 mls/hr IVPB Q24HR JANIS Rx#:[id number] Oral 720 650 Blood Product 1256 Output: Urine 450 1000 1000 Other: Voiding Method Indwelling Catheter Indwelling Catheter # Voids 300 # Bowel Movements 1 1 - Labs CBC & Chem 7: 02/28/25 06:28 03/01/25 05:00 Labs: Abnormal Lab Results - Last 24 Hours (Table) 02/28/25 02/28/25 03/01/25 Range/Units 16:51 20:31 05:00 Anion Gap 12.10 H (4.00-12.00) mmol/L BUN 58.5 H (9.0-27.0) mg/dL Creatinine 1.8 H (0.6-1.5) mg/dL Est GFR (CKD-EPI) 41 L (>=60) BUN/Creatinine Ratio 32.50 H (12.00-20.00) Ratio POC Glucose (mg/dL) 216 H 172 H (70-110) mg/dL 03/01/25 Range/Units 11:42 Anion Gap (4.00-12.00) mmol/L BUN (9.0-27.0) mg/dL Creatinine (0.6-1.5) mg/dL Est GFR (CKD-EPI) (>=60) BUN/Creatinine Ratio (12.00-20.00) Ratio POC Glucose (mg/dL) 136 H (70-110) mg/dL
[2025-03-01 16:50] LABS: Glucose,Whole Blood 141 mg/dL (70-110)
[2025-03-01 20:03] LABS: Glucose,Whole Blood 150 mg/dL (70-110)
--- NOTE | 2025-03-01 20:40 | P.PN ---
Subjective Progress Note Date: 02/28/25 65 years old male with past medical history of multiple medical problems including history of CHF. Patient went to see his PCP Dr. Sanchez who referred him to the hospital has been having increasingly worsening leg swelling and shortness of breath over several days and weeks or even months. He feels some dizziness when he tries to get up He denies chest pain. 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 Cabral from outside of the system. He denies any specific GI/ symptoms. No headache or dizziness currently. No weakness or numbness. He denies smoking alcohol or illicit drugs. He was admitted to the hospital about 1 year ago for course of similar complaints and acute CHF. Patient is hemodynamically stable, blood pressure slightly on the low side 96/64. Before it was more 120/65 on admission. Patient is afebrile. He has unremarkable CBC, BMP and INR. Troponin is negative. Hemoglobin 9.3 which is slightly less than his baseline of 10-11. Creatinine 1.2 which is at baseline of 1.2-1.4. proBNP is elevated 3550. Chest x-ray showing cardiomegaly with pulmonary vascular congestion EKG showing sinus rhythm with marked sinus arrhythmia at a rate of 70/min with right bundle branch block and there is Q waves in the inferior leads. Echocardiogram is requested and is pending On admission time during and hydrochlorothiazide was held as well as metformin 1000 and lisinopril 20 mg. Patient continued on his home dose of aspirin 81 mg metoprolol 50 mg and his insulin confirms he takes Lantus 6 units at 56 units up to 50 units with meals. He is currently placed on IV Lasix 40 mg twice daily. Objective - Vital Signs Vital signs: Vital Signs Temp 97.7 F 02/28/25 07:20 Pulse 81 02/28/25 07:20 Resp 19 02/28/25 07:20 BP 100/50 02/28/25 07:20 Pulse Ox 97 02/28/25 12:00 FiO2 Intake & Output 02/27/25 02/28/25 02/28/25 18:59 06:59 18:59 Intake Total 1020 Output Total 625 5600 Balance -625 -5600 1020 Weight 215.5 kg Intake: Blood Product 1020 Output: Urine 625 5600 Other: Voiding Method Indwelling Catheter # Voids 1 # Bowel Movements 1 - Exam -GENERAL: The patient is alert and oriented x3, not in any acute distress. Well developed, well nourished. Morbidly obese HEENT: Pupils are round and equally reacting to light. EOMI. No scleral icterus. No conjunctival pallor. Normocephalic, atraumatic. No pharyngeal erythema. No thyromegaly. CARDIOVASCULAR: S1 and S2 present. No murmurs, rubs, or gallops. -PULMONARY: Chest is clear to auscultation, no wheezing , Bilateral decreased air entry with crepitation ABDOMEN: Soft, nontender, nondistended, normoactive bowel sounds. No palpable organomegaly. MUSCULOSKELETAL: No joint swelling or deformity. EXTREMITIES: No cyanosis, clubbing, or pedal edema. NEUROLOGICAL: Gross neurological examination did not reveal any focal deficits. SKIN: No rashes. no petechiae. - Labs CBC & Chem 7: 02/28/25 06:28 03/01/25 05:00 Labs: Abnormal Lab Results - Last 24 Hours (Table) 02/27/25 02/27/25 02/27/25 Range/Units 16:42 18:28 20:26 Hgb (13.0-17.0) g/dL Hct (39.6-50.0) % MCV (80.0-97.0) FL MCH (27.0-32.0) pg MCHC (32.0-37.0) g/dL RDW (11.5-14.5) % Monocytes # (0.20-1.00) X 10*3/uL NRBC/100 WBC Diff (0.00-0.01) X 10*3/uL Microcytosis (manual) (None Seen) BUN (9.0-27.0) mg/dL Creatinine (0.6-1.5) mg/dL Est GFR (CKD-EPI) (>=60) BUN/Creatinine Ratio (12.00-20.00) Ratio Glucose (70-110) mg/dL POC Glucose (mg/dL) 232 H 217 H (70-110) mg/dL Urine Glucose (UA) 4+ H (Negative) 02/28/25 02/28/25 02/28/25 Range/Units 06:26 06:28 06:28 Hgb 8.9 L (13.0-17.0) g/dL Hct 35.4 L (39.6-50.0) % MCV 73.3 L (80.0-97.0) FL MCH 18.4 L (27.0-32.0) pg MCHC 25.1 L (32.0-37.0) g/dL RDW 22.1 H (11.5-14.5) % Monocytes # 1.48 H (0.20-1.00) X 10*3/uL NRBC/100 WBC Diff 0.03 H (0.00-0.01) X 10*3/uL Microcytosis (manual) 2+ A (None Seen) BUN 49.8 H (9.0-27.0) mg/dL Creatinine 1.7 H (0.6-1.5) mg/dL Est GFR (CKD-EPI) 44 L (>=60) BUN/Creatinine Ratio 29.29 H (12.00-20.00) Ratio Glucose 136 H (70-110) mg/dL POC Glucose (mg/dL) 156 H (70-110) mg/dL Urine Glucose (UA) (Negative) 02/28/25 Range/Units 12:09 Hgb (13.0-17.0) g/dL Hct (39.6-50.0) % MCV (80.0-97.0) FL MCH (27.0-32.0) pg MCHC (32.0-37.0) g/dL RDW (11.5-14.5) % Monocytes # (0.20-1.00) X 10*3/uL NRBC/100 WBC Diff (0.00-0.01) X 10*3/uL Microcytosis (manual) (None Seen) BUN (9.0-27.0) mg/dL Creatinine (0.6-1.5) mg/dL Est GFR (CKD-EPI) (>=60) BUN/Creatinine Ratio (12.00-20.00) Ratio Glucose (70-110) mg/dL POC Glucose (mg/dL) 181 H (70-110) mg/dL Urine Glucose (UA) (Negative) Assessment and Plan Assessment: Acute CHF exacerbation Mild hypertension, asymptomatic Acute kidney injury on CKD Chronic kidney disease Chronic anemia with slight worsening recently Paroxysmal A-fib on Eliquis at home obesity with BMI of 48.7. Coronary artery disease, status post CABG and stent placement Diabetes mellitus Hypertension Hyperlipidemia Benign prostatic hypertrophy Sleep apnea on CPAP/BiPAP. Plan: Continue with IV Lasix 40 mg twice daily Keep holding triamterene hydrochlorothiazide and metformin Cardiac team consult Check echocardiogram Nephrology team consult Metolazone added Check procalcitonin Start antibiotic Pulmonary team consult Continue with Eliquis 5 mg and aspirin 81 mg which are home doses. Labs and medication were reviewed.. Continue same treatment. Continue with symptomatic treatment. Resume home medication. Monitor labs and vitals. DVT and GI prophylaxis. Further recommendations as per clinical course of the pat ient DVT prophylaxis: Eliquis GI Prophylaxis: Protonix PT/OT: Pending Prognosis is guarded
--- NOTE | 2025-03-01 20:41 | P.PN ---
Subjective Progress Note Date: 03/01/25 65 years old male with past medical history of multiple medical problems including history of CHF. Patient went to see his PCP Dr. Sanchez who referred him to the hospital has been having increasingly worsening leg swelling and shortness of breath over several days and weeks or even months. He feels some dizziness when he tries to get up He denies chest pain. 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 Cabral from outside of the system. He denies any specific GI/ symptoms. No headache or dizziness currently. No weakness or numbness. He denies smoking alcohol or illicit drugs. He was admitted to the hospital about 1 year ago for course of similar complaints and acute CHF. Patient is hemodynamically stable, blood pressure slightly on the low side 96/64. Before it was more 120/65 on admission. Patient is afebrile. He has unremarkable CBC, BMP and INR. Troponin is negative. Hemoglobin 9.3 which is slightly less than his baseline of 10-11. Creatinine 1.2 which is at baseline of 1.2-1.4. proBNP is elevated 3550. Chest x-ray showing cardiomegaly with pulmonary vascular congestion EKG showing sinus rhythm with marked sinus arrhythmia at a rate of 70/min with right bundle branch block and there is Q waves in the inferior leads. Echocardiogram is requested and is pending On admission time during and hydrochlorothiazide was held as well as metformin 1000 and lisinopril 20 mg. Patient continued on his home dose of aspirin 81 mg metoprolol 50 mg and his insulin confirms he takes Lantus 6 units at 56 units up to 50 units with meals. He is currently placed on IV Lasix 40 mg twice daily. 03/01/2025 Patient is seen and evaluated in follow-up on the regular medical floor. He is currently sitting up in a chair. Awake and alert in no acute distress. Maintaining O2 saturations in the 90s on 5 L/min per nasal cannula. He has been afebrile. Hemodynamically stable. Follow-up chest x-ray shows right lower lobe atelectasis. Minimally in the left lower lobe. Sodium 139. Potassium 4.6. Bicarb 28. BUN 58. Creatinine 1.8. Glucose 94. He remains on Lasix 60 mg every 12 hours and Zaroxolyn. Anticoagulated with Eliquis. Remains on ceftriaxone. Remains on bronchodilators as needed. Completed azithromycin Patient is currently saturating above 92% on O2 at 5 L per nasal cannula; recommend to continue utilize BiPAP at night. Continue with IV diuresis and oral Zaroxolyn Objective - Vital Signs Vital signs: Vital Signs Temp 97.8 F 03/01/25 07:05 Pulse 76 03/01/25 07:05 Resp 19 03/01/25 10:04 BP 98/61 03/01/25 07:05 Pulse Ox 92 L 03/01/25 07:05 FiO2 Intake & Output 02/28/25 03/01/25 03/01/25 18:59 06:59 18:59 Intake Total 1256 870 650 Output Total 450 1000 1000 Balance 806 -130 -350 Weight 187 kg Intake: Intake, IV Titration 150 Amount Sodium Ferric Gluconat- 100 Sucrose 125 mg In Sodium Chloride 0.9% 100 ml @ 100 mls/hr IVPB DAILY JANIS Rx#:[id number] cefTRIAXone 1 gm In 50 Sodium Chloride 0.9% 50 ml @ 100 mls/hr IVPB Q24HR JANIS Rx#:[id number] Oral 720 650 Blood Product 1256 Output: Urine 450 1000 1000 Other: Voiding Method Indwelling Catheter Indwelling Catheter # Voids 300 # Bowel Movements 1 1 - Exam -GENERAL: The patient is alert and oriented x3, not in any acute distress. Well developed, well nourished. Morbidly obese HEENT: Pupils are round and equally reacting to light. EOMI. No scleral icterus. No conjunctival pallor. Normocephalic, atraumatic. No pharyngeal erythema. No thyromegaly. CARDIOVASCULAR: S1 and S2 present. No murmurs, rubs, or gallops. -PULMONARY: Chest is clear to auscultation, no wheezing , Bilateral decreased air entry with crepitation ABDOMEN: Soft, nontender, nondistended, normoactive bowel sounds. No palpable organomegaly. MUSCULOSKELETAL: No joint swelling or deformity. EXTREMITIES: No cyanosis, clubbing, or pedal edema. NEUROLOGICAL: Gross neurological examination did not reveal any focal deficits. SKIN: No rashes. no petechiae. - Labs CBC & Chem 7: 02/28/25 06:28 03/01/25 05:00 Labs: Abnormal Lab Results - Last 24 Hours (Table) 02/28/25 02/28/25 03/01/25 Range/Units 16:51 20:31 05:00 Anion Gap 12.10 H (4.00-12.00) mmol/L BUN 58.5 H (9.0-27.0) mg/dL Creatinine 1.8 H (0.6-1.5) mg/dL Est GFR (CKD-EPI) 41 L (>=60) BUN/Creatinine Ratio 32.50 H (12.00-20.00) Ratio POC Glucose (mg/dL) 216 H 172 H (70-110) mg/dL 03/01/25 Range/Units 11:42 Anion Gap (4.00-12.00) mmol/L BUN (9.0-27.0) mg/dL Creatinine (0.6-1.5) mg/dL Est GFR (CKD-EPI) (>=60) BUN/Creatinine Ratio (12.00-20.00) Ratio POC Glucose (mg/dL) 136 H (70-110) mg/dL Assessment and Plan Assessment: Acute CHF exacerbation Mild hypertension, asymptomatic Acute kidney injury on CKD Chronic kidney disease Chronic anemia with slight worsening recently Paroxysmal A-fib on Eliquis at home obesity with BMI of 48.7. Coronary artery disease, status post CABG and stent placement Diabetes mellitus Hypertension Hyperlipidemia Benign prostatic hypertrophy Sleep apnea on CPAP/BiPAP. Plan: Continue with IV Lasix 40 mg twice daily Keep holding triamterene hydrochlorothiazide and metformin Cardiac team consult Check echocardiogram Nephrology team consult Metolazone added Check procalcitonin Start antibiotic Pulmonary team consult Continue with Eliquis 5 mg and aspirin 81 mg which are home doses. Labs and medication were reviewed.. Continue same treatment. Continue with symptomatic treatment. Resume home medication. Monitor labs and vitals. DVT and GI prophylaxis. Further recommendations as per clinical course of the patient DVT prophylaxis: Eliquis GI Prophylaxis: Protonix PT/OT: Pending Prognosis is guarded
[2025-03-02 02:21] LABS: Glucose,Whole Blood 109 mg/dL (70-110)
[2025-03-02 05:45] LABS: African American GFR (CKD) 54 (>60 ml/min/1.73 sqM); Anion Gap 6 mmol/L; Blood Urea Nitrogen 64 mg/dL (9-20); Calcium 8.9 mg/dL (8.4-10.2); Carbon Dioxide 38 mmol/L (22-30); Chloride 94 mmol/L (98-107); Glucose 55 mg/dL (74-99); Non-African American GFR(CKD) 47 (>60 ml/min/1.73 sqM); Potassium 3.8 mmol/L (3.5-5.1); Sodium 138 mmol/L (137-145)
[2025-03-02 06:06] LABS: Glucose,Whole Blood 58 mg/dL (70-110)
[2025-03-02 06:22] LABS: Glucose,Whole Blood 70 mg/dL (70-110)
[2025-03-02 07:37] LABS: Glucose,Whole Blood 153 mg/dL (70-110)
[2025-03-02 10:00] LABS: Basophils # (A) 0.06 X 10*3/uL (0.00-0.10); Basophils % (A) 0.9 %; Eosinophils # (A) 0.23 X 10*3/uL (0.04-0.35); Eosinophils % (A) 3.3 %; HCT 32.9 % (39.6-50.0); HGB 8.9 g/dL (13.0-17.0); Lymphocytes # (A) 1.04 X 10*3/uL (0.90-5.00); MCH 18.9 pg (27.0-32.0); MCHC 27.1 g/dL (32.0-37.0); Mean Platelet Volume 9.7 FL (9.5-12.2); Monocytes # (A) 1.14 X 10*3/uL (0.20-1.00); Monocytes % (A) 16.4 %; NRBC Per 100 WBC 0 X 10*3/uL (0.00-0.01); Neutrophils # (A) 4.45 X 10*3/uL (1.80-7.70); Platelet Count 235 X 10*3/uL (140-440); RDW 21.7 % (11.5-14.5); WBC 6.95 X 10*3/uL (4.50-10.00)
--- NOTE | 2025-03-02 11:43 | P.PN ---
Subjective Progress Note Date: 03/02/25 This is a morbidly obese 65-year-old male patient with a known history of obstructive sleep apnea maintained on CPAP, congestive heart failure, atrial fibrillation anticoagulated with Eliquis, diabetes mellitus, hypertension, coronary artery disease with stent placement x 7, coronary artery bypass surgery in 2016, former smoker of 30 years at 3 packs/day however quit 30 years ago. He presented here on February 25, 2025 with complaints of increasing shortness of breath, increasing lower extremity edema. Chest x-ray showed cardiomegaly and mild pulmonary vascular congestion. White count 6.5. Hemoglobin 8.4. Platelets 267. Sodium 138. Potassium 4.9. Bicarb 29. BUN 48. Creatinine 1.5. Glucose 171. Troponins were negative. proBNP 3550. Echocardiogram revealed impaired left ventricular systolic function with an ejection fraction of 40%. Severe pulmonary hypertension. Moderate to severe tricuspid regurgitation. He is seen today in consultation on the regular medical floor. He is currently resting in bed. Awake and alert in no acute distress. He is maintaining O2 saturations in the 90s on 3 L/min per nasal cannula. He has been afebrile. Hemodynamically stable. He has been initiated on Lasix 60 mg IV every 12 hours. The patient is seen today February 28, 2025 in follow-up on the regular medical floor. He is currently sitting up in a chair at the bedside. Awake and alert in no acute distress. Maintaining O2 saturations in the 90s on 5 L/min per nasal cannula. He is breathing a bit easier today compared to yesterday. Hat[place] catheter was placed. He is in a -6 L balance. White count 8.1. Hemoglobin 8.9. Platelets 278. Sodium 140. Potassium 5.1. Bicarb 28. BUN 50. Creatinine 1.7. Glucose 136. Urinalysis clean. He remains on Lasix 60 mg IV every 12 hours and Zaroxolyn. Anticoagulated with Eliquis. He is continued on azithromycin and ceftriaxone. Procalcitonin was negative at 0.08. He has been afebrile. Hemodynamically stable. The patient is seen today March 01, 2025 in follow-up on the regular medical floor. He is currently sitting up in a chair. Awake and alert in no acute distress. Maintaining O2 saturations in the 90s on 5 L/min per nasal cannula. He has been afebrile. Hemodynamically stable. Follow-up chest x-ray shows right lower lobe atelectasis. Minimally in the left lower lobe. Sodium 139. Potassium 4.6. Bicarb 28. BUN 58. Creatinine 1.8. Glucose 94. He remains on Lasix 60 mg every 12 hours and Zaroxolyn. Anticoagulated with Eliquis. Remains on ceftriaxone. Remains on bronchodilators as needed. Completed azithromycin. The patient is seen today March 02, 2025 in follow-up on the regular medical floor. He is awake and alert in no acute distress. Breathing easier today compared to yesterday. He is maintaining O2 saturations in the upper 90s on 4 L/min per nasal cannula. White count 6.9. Hemoglobin 8.9. Platelets 235. Sodium 138. Potassium 3.8. Bicarb 38. BUN 64. Creatinine 1.52. Glucose 153. He is continued on Lasix 60 mg IV every 12 hours. Remains on Zaroxolyn. He is currently in a -5.7 L balance. Remains on ceftriaxone. Anticoagulated with Eliquis. Receiving iron replacement. Objective - Vital Signs Vital signs: Vital Signs Temp 98.1 F 03/02/25 07:03 Pulse 81 03/02/25 07:03 Resp 18 03/02/25 09:53 BP 100/64 03/02/25 07:03 Pulse Ox 93 L 03/02/25 07:03 FiO2 Intake & Output 03/01/25 03/02/25 03/02/25 18:59 06:59 18:59 Intake Total 900 716 Output Total 4310 3100 Balance -3410 -2384 Weight 182.4 kg Intake: Oral 900 716 Output: Urine 4310 3100 Other: Voiding Method Indwelling Catheter Self-Catheterization Self-Catheterization # Voids 300 # Bowel Movements 1 - Exam GENERAL EXAM: Alert, pleasant 65-year-old morbidly obese male, up in a chair, on 4 L nasal cannula, in no apparent distress. HEAD: Normocephalic. EYES: Normal reaction of pupils, equal size. NOSE: Clear with pink turbinates. THROAT: No erythema or exudates. NECK: No masses, no JVD. CHEST: No chest wall deformity. LUNGS: Equal air entry with crackles in the bilateral bases. CVS: S1 and S2 normal with no audible murmur, regular rhythm. ABDOMEN: Soft, unable to appreciate any hepatosplenomegaly, normal bowel sounds, no guarding or rigidity. SPINE: No scoliosis or deformity SKIN: No rashes CENTRAL NERVOUS SYSTEM: No focal deficits, tone is normal in all 4 extremities. EXTREMITIES: There is 1+ peripheral edema. No clubbing, no cyanosis. Peripheral pulses are intact. - Labs CBC & Chem 7: 03/02/25 04:53 03/02/25 04:53 Labs: Abnormal Lab Results - Last 24 Hours (Table) 03/01/25 03/01/25 03/01/25 Range/Units 11:42 16:46 20:02 Hgb (13.0-17.0) g/dL Hct (39.6-50.0) % MCV (80.0-97.0) FL MCH (27.0-32.0) pg MCHC (32.0-37.0) g/dL RDW (11.5-14.5) % Monocytes # (0.20-1.00) X 10*3/uL Chloride (98-107) mmol/L Carbon Dioxide (22-30) mmol/L BUN (9-20) mg/dL Creatinine (0.66-1.25) mg/dL Glucose (74-99) mg/dL POC Glucose (mg/dL) 136 H 141 H 150 H (70-110) mg/dL 03/02/25 03/02/25 03/02/25 Range/Units 04:53 04:53 06:04 Hgb 8.9 L (13.0-17.0) g/dL Hct 32.9 L (39.6-50.0) % MCV 70.0 L (80.0-97.0) FL MCH 18.9 L (27.0-32.0) pg MCHC 27.1 L (32.0-37.0) g/dL RDW 21.7 H (11.5-14.5) % Monocytes # 1.14 H (0.20-1.00) X 10*3/uL Chloride 94 L (98-107) mmol/L Carbon Dioxide 38 H (22-30) mmol/L BUN 64 H (9-20) mg/dL Creatinine 1.52 H (0.66-1.25) mg/dL Glucose 55 L (74-99) mg/dL POC Glucose (mg/dL) 58 L (70-110) mg/dL 03/02/25 Range/Units 07:36 Hgb (13.0-17.0) g/dL Hct (39.6-50.0) % MCV (80.0-97.0) FL MCH (27.0-32.0) pg MCHC (32.0-37.0) g/dL RDW (11.5-14.5) % Monocytes # (0.20-1.00) X 10*3/uL Chloride (98-107) mmol/L Carbon Dioxide (22-30) mmol/L BUN (9-20) mg/dL Creatinine (0.66-1.25) mg/dL Glucose (74-99) mg/dL POC Glucose (mg/dL) 153 H (70-110) mg/dL Assessment and Plan Assessment: Acute hypoxemic respiratory failure secondary to an acute exacerbation of systolic congestive heart failure, severe pulmonary hypertension, morbid obesity Severe pulmonary hypertension/cor pulmonale Morbid obesity with a BMI of 50.2 kg/m Obstructive sleep apnea maintained on BiPAP Obesity/hypoventilation syndrome Chronic systolic congestive heart failure with an ejection fraction of 40% Coronary artery disease with previous multiple stent placements/CABG 2015 Atrial fibrillation anticoagulated with Eliquis Diabetes mellitus, type II Hypertension History of prostate cancer, status post surgery Former smoker Gastroesophageal reflux disease Hyperlipidemia Plan: The patient was seen and evaluated Labs and medications reviewed Currently on 4 L nasal cannula Utilizing his home BiPAP at night Continue IV diuretics Continue Zaroxolyn In a -5.7 L balance today Anticoagulated with Eliquis Protonix for GI prophylaxis Increase his activity as tolerated Titrate down the FiO2 as tolerated We will continue to follow I have personally seen and examined the patient, performed the documentation and the assessment and plan as written. Number of minutes spent on the visit: 10 Dictation was produced using [email or web address] software. Please excuse any grammatical, word or spelling errors.
[2025-03-02 11:46] LABS: Glucose,Whole Blood 80 mg/dL (70-110)
--- NOTE | 2025-03-02 11:58 | P.PN ---
Subjective Patient is seen for follow-up for chronic kidney disease and acute kidney injury. Currently maintained on IV lasix, metolazone and IV farxiga UOP 7.4 L for 24 hours No significant complaints Continues to have significant edema. Serum creatinine decreased to 1.5 mg/dL Patient has indwelling Hatfield catheter Objective - Vital Signs Vital signs: Vital Signs Temp 98.1 F 03/02/25 07:03 Pulse 81 03/02/25 07:03 Resp 18 03/02/25 09:53 BP 100/64 03/02/25 07:03 Pulse Ox 93 L 03/02/25 07:03 FiO2 Intake & Output 03/01/25 03/02/25 03/02/25 18:59 06:59 18:59 Intake Total 900 716 Output Total 4310 3100 Balance -3410 -2384 Weight 182.4 kg Intake: Oral 900 716 Output: Urine 4310 3100 Other: Voiding Method Indwelling Catheter Self-Catheterization Self-Catheterization # Voids 300 # Bowel Movements 1 - Exam Patient is awake, comfortable, no acute distress Examination of the heart S1 and S2 Examination of the lungs bilateral breath sounds are heard Abdomen is soft obese Examination of lower extremity shows chronic skin changes with 2-3+ edema RN [employer] exam grossly intact - Labs CBC & Chem 7: 03/02/25 04:53 03/02/25 04:53 Labs: Abnormal Lab Results - Last 24 Hours (Table) 03/01/25 03/01/25 03/02/25 Range/Units 16:46 20:02 04:53 Hgb (13.0-17.0) g/dL Hct (39.6-50.0) % MCV (80.0-97.0) FL MCH (27.0-32.0) pg MCHC (32.0-37.0) g/dL RDW (11.5-14.5) % Monocytes # (0.20-1.00) X 10*3/uL Chloride 94 L (98-107) mmol/L Carbon Dioxide 38 H (22-30) mmol/L BUN 64 H (9-20) mg/dL Creatinine 1.52 H (0.66-1.25) mg/dL Glucose 55 L (74-99) mg/dL POC Glucose (mg/dL) 141 H 150 H (70-110) mg/dL 03/02/25 03/02/25 03/02/25 Range/Units 04:53 06:04 07:36 Hgb 8.9 L (13.0-17.0) g/dL Hct 32.9 L (39.6-50.0) % MCV 70.0 L (80.0-97.0) FL MCH 18.9 L (27.0-32.0) pg MCHC 27.1 L (32.0-37.0) g/dL RDW 21.7 H (11.5-14.5) % Monocytes # 1.14 H (0.20-1.00) X 10*3/uL Chloride (98-107) mmol/L Carbon Dioxide (22-30) mmol/L BUN (9-20) mg/dL Creatinine (0.66-1.25) mg/dL Glucose (74-99) mg/dL POC Glucose (mg/dL) 58 L 153 H (70-110) mg/dL Assessment and Plan Assessment: 1. Acute kidney injury secondary to ATN secondary to cardiorenal syndrome. Creatinine staying at 1.7-1.8, decreased to 1.5 today UA benign. No hydronephrosis noted on kidney ultrasound. Left kidney not seen due to body habitus. 2. Chronic kidney disease stage IIIa with baseline creatinine 1.3-1.4 secondary to nephrosclerosis/diabetic kidney disease. 3. Acute hypoxic respiratory failure. 4. Volume overload. Improving with diuresis. 5. Diabetes mellitus. 6. Anemia of chronic kidney disease. Iron deficiency noted. 7. History of A-fib. 8. Acute on chronic systolic CHF ejection fraction of 40% with severe pulmonary hypertension, moderate to severe tricuspid regurgitation. Plan: Continue with IV Lasix and metolazone Discussed salt and fluid restriction Repeat labs in a.m. Continue with Hatfield catheter
--- NOTE | 2025-03-02 12:51 | P.PN ---
Subjective Progress Note Date: 03/02/25 This is a 65-year-old male with a past medical history significant for coronary artery disease with previous CABG, congestive heart failure, hypertension, hyperlipidemia, diabetes, and atrial fibrillation. Patient follows in the office with Dr. Richards out of [facility]. We have been asked to see the patient in consultation for congestive heart failure. Patient examined at the bedside. Patient presented to the hospital with a chief complaint of shortness of breath. Patient states he has been feeling short of breath for the past 2 weeks. He also reports having a cough with sputum production. He reports increased swelling in his lower extremities. He reports a 20 pound weight gain in the pa st 6 weeks. He states he has been compliant with all of his medications and has been following a low-sodium diet. Patient was found to be in acute CHF and was started on IV Lasix. DIAGNOSTICS: - EKG reveals atrial fibrillation with controlled ventricular rate - Chest xray cardiomegaly mild pulmonary vascular congestion - Laboratory data: WBC 6.08. Hemoglobin 9.3. Platelet count 266. Sodium 138. Potassium 4.7. BUN 49. Creatinine 1.29. Troponin negative x 3. proBNP 3550. - Current home cardiac medications include aspirin 81 mg daily, Lasix 40 mg twice a day, metoprolol tartrate 50 mg twice a day, Eliquis 5 mg twice a day, lisinopril 20 mg daily, Lipitor 80 mg at night, Jardiance 25 mg daily - Most recent echocardiogram obtained in April 2023 revealed ejection fraction 40 to 45% - Cardiac catheterization history: Unknown 02/27/2025 Patient examined this morning. Patient is sitting up in the chair. Patient continues to report shortness of breath. He denies chest pain or pressure. He continues to have lower extremity edema. Patient's Lasix has been increased to 60 mg every 12 hours per pulmonary. Creatinine today 1.5, up from 1.29. Echocardiogram reveals ejection fraction 40%, global hypokinesis, trace to mild MR, moderate to severe TR 02/28/2025 Patient examined this morning at the bedside. He is sitting up in the chair. He reports improvement in his shortness of breath. He denies chest pain or pressure. He continues to have lower extremity edema although improving. He remains on IV Lasix 60 mg every 12 hours. Creatinine today 1.7. 03/01/2025 Patient was seen and examined sitting up in a chair. Continues to have lower extremity edema. Feels his breathing is improving. Feels significantly better and asking to go home. He remains on IV Lasix 60 mg every 12 hours. Renal function is stable. 03/02/2025 Patient seen and examined sitting up in a chair. Continues to have lower extremity edema. Continues to asked to go home. He remains on IV Lasix 60 mg every 12 hours. Renal function shows some improvement compared to yesterday with a creatinine of 1.5 PHYSICAL EXAM: VITAL SIGNS: Reviewed. GENERAL: Well-developed in no acute distress. HEENT: Head is normocephalic. Pupils are equal, round. Sclerae anicteric. Mucous membranes of the mouth are moist. Neck supple. No JVD or thyromegaly LUNGS: Respirations even and unlabored. Lungs diminished bilaterally with bibasilar crackles HEART: Irregular rate and rhythm. S1 and S2 heard. ABDOMEN: Soft. Nondistended. Nontender. EXTREMITIES: Normal range of motion. No clubbing or cyanosis. Peripheral pulses intact. Bilateral lower extremity edema noted NEUROLOGIC: Awake and alert. Oriented x 3. ASSESSMENT: Acute on chronic heart failure with reduced EF Coronary artery disease with previous CABG Ischemic cardiomyopathy 40 to 45% Persistent atrial fibrillation Hypertension Hyperlipidemia Diabetes Obesity: BMI 48.7 PLAN: Continue IV Lasix. Daily weights, accurate intake and output, monitoring of kidney function Continue additional cardiac medications NT proBNP is pending Further recommendations pending patient course POCKET [employer] note has been reviewed, I agree with a documented findings and plan of care. Patient was seen and examined. Objective - Vital Signs Vital signs: Vital Signs Temp 98.1 F 03/02/25 07:03 Pulse 81 03/02/25 07:03 Resp 18 03/02/25 09:53 BP 100/64 03/02/25 07:03 Pulse Ox 93 L 03/02/25 07:03 FiO2 Intake & Output 03/01/25 03/02/25 03/02/25 18:59 06:59 18:59 Intake Total 900 716 500 Output Total 4310 3100 Balance -1770 -1036 500 Weight 182.4 kg Intake: Oral 900 716 500 Output: Urine 4310 3100 Other: Voiding Method Indwelling Catheter Self-Catheterization Indwelling Catheter # Voids 300 # Bowel Movements 1 - Labs CBC & Chem 7: 03/02/25 04:53 04/13/25 04:53 Labs: Abnormal Lab Results - Last 24 Hours (Table) 03/01/25 03/01/25 03/02/25 Range/Units 16:46 20:02 04:53 Hgb (13.0-17.0) g/dL Hct (39.6-50.0) % MCV (80.0-97.0) FL MCH (27.0-32.0) pg MCHC (32.0-37.0) g/dL RDW (11.5-14.5) % Monocytes # (0.20-1.00) X 10*3/uL Chloride 94 L (98-107) mmol/L Carbon Dioxide 38 H (22-30) mmol/L BUN 64 H (9-20) mg/dL Creatinine 1.52 H (0.66-1.25) mg/dL Glucose 55 L (74-99) mg/dL POC Glucose (mg/dL) 141 H 150 H (70-110) mg/dL 03/02/25 03/02/25 03/02/25 Range/Units 04:53 06:04 07:36 Hgb 8.9 L (13.0-17.0) g/dL Hct 32.9 L (39.6-50.0) % MCV 70.0 L (80.0-97.0) FL MCH 18.9 L (27.0-32.0) pg MCHC 27.1 L (32.0-37.0) g/dL RDW 21.7 H (11.5-14.5) % Monocytes # 1.14 H (0.20-1.00) X 10*3/uL Chloride (98-107) mmol/L Carbon Dioxide (22-30) mmol/L BUN (9-20) mg/dL Creatinine (0.66-1.25) mg/dL Glucose (74-99) mg/dL POC Glucose (mg/dL) 58 L 153 H (70-110) mg/dL
--- NOTE | 2025-03-02 15:26 | P.PN ---
Subjective Progress Note Date: 03/02/25 65 years old male with past medical history of multiple medical problems including history of CHF. Patient went to see his PCP Dr. Sanchez who referred him to the hospital has been having increasingly worsening leg swelling and shortness of breath over several days and weeks or even months. He feels some dizziness when he tries to get up He denies chest pain. 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 Cabral from outside of the system. He denies any specific GI/ symptoms. No headache or dizziness currently. No weakness or numbness. He denies smoking alcohol or illicit drugs. He was admitted to the hospital about 1 year ago for course of similar complaints and acute CHF. Patient is hemodynamically stable, blood pressure slightly on the low side 96/64. Before it was more 120/65 on admission. Patient is afebrile. He has unremarkable CBC, BMP and INR. Troponin is negative. Hemoglobin 9.3 which is slightly less than his baseline of 10-11. Creatinine 1.2 which is at baseline of 1.2-1.4. proBNP is elevated 3550. Chest x-ray showing cardiomegaly with pulmonary vascular congestion EKG showing sinus rhythm with marked sinus arrhythmia at a rate of 70/min with right bundle branch block and there is Q waves in the inferior leads. Echocardiogram is requested and is pending On admission time during and hydrochlorothiazide was held as well as metformin 1000 and lisinopril 20 mg. Patient continued on his home dose of aspirin 81 mg metoprolol 50 mg and his insulin confirms he takes Lantus 6 units at 56 units up to 50 units with meals. He is currently placed on IV Lasix 40 mg twice daily. 03/01/2025 Patient is seen and evaluated in follow-up on the regular medical floor. He is currently sitting up in a chair. Awake and alert in no acute distress. Maintaining O2 saturations in the 90s on 5 L/min per nasal cannula. He has been afebrile. Hemodynamically stable. Follow-up chest x-ray shows right lower lobe atelectasis. Minimally in the left lower lobe. Sodium 139. Potassium 4.6. Bicarb 28. BUN 58. Creatinine 1.8. Glucose 94. He remains on Lasix 60 mg every 12 hours and Zaroxolyn. Anticoagulated with Eliquis. Remains on ceftriaxone. Remains on bronchodilators as needed. Completed azithromycin Patient is currently saturating above 92% on O2 at 5 L per nasal cannula; recommend to continue utilize BiPAP at night. Continue with IV diuresis and oral Zaroxolyn 03/02/2025 Patient is seen and evaluated in follow-up on the regular medical floor. He is awake and alert in no acute distress. Breathing easier today compared to yesterday. He is maintaining O2 saturations in the upper 90s on 4 L/min per nasal cannula. White count 6.9. Hemoglobin 8.9. Platelets 235. Sodium 138. Potassium 3.8. Bicarb 38. BUN 64. Creatinine 1.52. Glucose 153. He is continued on Lasix 60 mg IV every 12 hours. Remains on Zaroxolyn. He is currently in a -5.7 L balance. Remains on ceftriaxone. Anticoagulated with Eliquis. Receiving iron replacement. Currently on 4 L nasal cannula Utilizing his home BiPAP at night Continue IV diuretics Continue Zaroxolyn In a -5.7 L balance today Anticoagulated with Eliquis Objective - Vital Signs Vital signs: Vital Signs Temp 98.1 F 03/02/25 07:03 Pulse 81 03/02/25 07:03 Resp 18 03/02/25 09:53 BP 100/64 03/02/25 07:03 Pulse Ox 93 L 03/02/25 07:03 FiO2 Intake & Output 03/01/25 03/02/25 03/02/25 18:59 06:59 18:59 Intake Total 900 716 Output Total 4310 3100 Balance -3410 -2384 Weight 182.4 kg Intake: Oral 900 716 Output: Urine 4310 3100 Other: Voiding Method Indwelling Catheter Self-Catheterization Self-Catheterization # Voids 300 # Bowel Movements 1 - Exam -GENERAL: The patient is alert and oriented x3, not in any acute distress. Well developed, well nourished. Morbidly obese HEENT: Pupils are round and equally reacting to light. EOMI. No scleral icterus. No conjunctival pallor. Normocephalic, atraumatic. No pharyngeal erythema. No thyromegaly. CARDIOVASCULAR: S1 and S2 present. No murmurs, rubs, or gallops. -PULMONARY: Chest is clear to auscultation, no wheezing , Bilateral decreased air entry with crepitation ABDOMEN: Soft, nontender, nondistended, normoactive bowel sounds. No palpable organomegaly. MUSCULOSKELETAL: No joint swelling or deformity. EXTREMITIES: No cyanosis, clubbing, or pedal edema. NEUROLOGICAL: Gross neurological examination did not reveal any focal deficits. SKIN: No rashes. no petechiae. - Labs CBC & Chem 7: 03/02/25 04:53 03/02/25 04:53 Labs: Abnormal Lab Results - Last 24 Hours (Table) 03/01/25 03/01/25 03/01/25 Range/Units 11:42 16:46 20:02 Chloride (98-107) mmol/L Carbon Dioxide (22-30) mmol/L BUN (9-20) mg/dL Creatinine (0.66-1.25) mg/dL Glucose (74-99) mg/dL POC Glucose (mg/dL) 136 H 141 H 150 H (70-110) mg/dL 03/02/25 03/02/25 03/02/25 Range/Units 04:53 06:04 07:36 Chloride 94 L (98-107) mmol/L Carbon Dioxide 38 H (22-30) mmol/L BUN 64 H (9-20) mg/dL Creatinine 1.52 H (0.66-1.25) mg/dL Glucose 55 L (74-99) mg/dL POC Glucose (mg/dL) 58 L 153 H (70-110) mg/dL Assessment and Plan Assessment: Acute CHF exacerbation Mild hypertension, asymptomatic Acute kidney injury on CKD Chronic kidney disease Chronic anemia with slight worsening recently Paroxysmal A-fib on Eliquis at home obesity with BMI of 48.7. Coronary artery disease, status post CABG and stent placement Diabetes mellitus Hypertension Hyperlipidemia Benign prostatic hypertrophy Sleep apnea on CPAP/BiPAP. Plan: Continue with IV Lasix 40 mg twice daily Keep holding triamterene hydrochlorothiazide and metformin Cardiac team consult Check echocardiogram Nephrology team consult Metolazone added Check procalcitonin Start antibiotic Pulmonary team consult Continue with Eliquis 5 mg and aspirin 81 mg which are home doses. Labs and medication were reviewed.. Continue same treatment. Continue with symptomatic treatment. Resume home medication. Monitor labs and vitals. DVT and GI prophylaxis. Further recommendations as per clinical course of the patient DVT prophylaxis: Eliquis GI Prophylaxis: Protonix PT/OT: Pending Prognosis is guarded
[2025-03-02 16:59] LABS: Glucose,Whole Blood 130 mg/dL (70-110)
[2025-03-02 20:18] LABS: Glucose,Whole Blood 206 mg/dL (70-110)
[2025-03-03 02:00] LABS: Glucose,Whole Blood 70 mg/dL (70-110)
[2025-03-03 06:08] LABS: Glucose,Whole Blood 44 mg/dL (70-110)
[2025-03-03 06:08] LABS: Glucose,Whole Blood 45 mg/dL (70-110)
[2025-03-03 06:34] LABS: Glucose,Whole Blood 101 mg/dL (70-110)
[2025-03-03 06:34] LABS: Glucose,Whole Blood 104 mg/dL (70-110)
[2025-03-03 08:52] LABS: Basophils # (A) 0.04 X 10*3/uL (0.00-0.10); Basophils % (A) 0.6 %; Eosinophils # (A) 0.21 X 10*3/uL (0.04-0.35); Eosinophils % (A) 3.4 %; HGB 8.7 g/dL (13.0-17.0); Lymphocytes # (A) 0.88 X 10*3/uL (0.90-5.00); Lymphocytes % (A) 14.1 %; MCH 19.2 pg (27.0-32.0); MCHC 27.2 g/dL (32.0-37.0); MCV 70.5 FL (80.0-97.0); Mean Platelet Volume 9.8 FL (9.5-12.2); Monocytes # (A) 0.92 X 10*3/uL (0.20-1.00); Monocytes % (A) 14.7 %; NRBC Per 100 WBC 0 X 10*3/uL (0.00-0.01); Neutrophils # (A) 4.17 X 10*3/uL (1.80-7.70); Neutrophils % (A) 66.9 %; Platelet Count 242 X 10*3/uL (140-440); RBC 4.54 X 10*6/uL (4.40-5.60); WBC 6.24 X 10*3/uL (4.50-10.00)
[2025-03-03 09:03] LABS: BUN/Creat Ratio 36.23 Ratio (12.00-20.00); Blood Urea Nitrogen 47.1 mg/dL (9.0-27.0); Calcium 8.9 mg/dL (8.7-10.3); Carbon Dioxide 37.5 mmol/L (21.6-31.8); Chloride 96 mmol/L (96-109); Glucose 60 mg/dL (70-110); Potassium 3.1 mmol/L (3.5-5.5); Sodium 144 mmol/L (135-145)
[2025-03-03] MEDS ORDERED: Potassium Replacement Protocol 1 EACH MISC MISCELLANE PRN (09:27)
[2025-03-03] MEDS: POTASSIUM CHLORIDE ER 20 MEQ TAB.ER PO SCH ×2 (10:54→17:15)
[2025-03-03 11:16] LABS: Glucose,Whole Blood 118 mg/dL (70-110)
--- NOTE | 2025-03-03 11:41 | P.CONS ---
History of Present Illness - Reason for Consult Consult date: 03/03/25 wound care - History of Present Illness This is a 65-year-old patient with past medical history significant for atrial fibrillation, coronary artery disease, diabetes, hypertension, prostate cancer, NE, sleep apnea. Patient has a open ulceration to the right great toe plantar aspect measuring approximately 0.4 x 0.3 x 0.3 cm with significant amount of slough and callus noted no granulation seen to the wound bed. Wound edges are attached to the wound base. Unable to palpate bone at this time. Patient has been utilizing collagen to the site. He follows with Dr. Kohler in [place]. Patient states that the ulceration has been there for 6 months. Denies any offloading at this time. Review Of Systems: Constitutional: No fever, no chills, no night sweats. No weight change. No weakness, fatigue or lethargy. No daytime sleepiness. Integumentary:reports wounds, no lesions. No rash or pruritus. No unusual bru ising. No change in hair or nails. Physical exam: General Appearance: Alert, cooperative, no distress, appears stated age. Skin: See HPI all other Skin color, texture, tugor normal, no rashes or lesions. Neurologic: Alert oriented x3 Assessment: 1. Nonhealing ulceration with fat layer exposure other site right foot 2. Diabetic foot ulcer Plan: 1. Apply Santyl, saline moist gauze, dry gauze, rolled gauze secured with paper tape. 2. Avoid pressure to the right great toe. Utilize a walker to offload. Patient may benefit for a total contact cast in outpatient setting. 3. Would be happy to see the patient upon discharge. Thank for the consultation any questions please contact the wound care center DNP note has been reviewed and discussed with Dr. Shaikh and the impression and plan of care has been directed as dictated. Past Medical History Past Medical History: Atrial Fibrillation, Coronary Artery Disease (CAD), Cancer, Diabetes Mellitus, Hypertension, Myocardial Infarction (NE), Prostate Disorder, Sleep Apnea/CPAP/BIPAP Additional Past Medical History / Comment(s): PROSTATE CANCER, uses CPAP Last Myocardial Infarction Date:: 2015 History of Any Multi-Drug Resistant Organisms: None Reported Past Surgical History: Appendectomy, Coronary Bypass/CABG, Heart Catheterization With Stent, Hernia Repair, Prostate Surgery Additional Past Surgical History / Comment(s): HEART CATHS X7 WITH TOTAL OF 7 STENTS, CABG OCT 2016, JAYLYN INGUINAL HERNIAS, UMBILICAL HERNIAS. Past Anesthesia/Blood Transfusion Reactions: No Reported Reaction Additional Past Anesthesia/Blood Transfusion Reaction / Comm: no blood transfusion Date of Last Stent Placement:: 2014 Past Psychological History: No Psychological Hx Reported Smoking Status: Former smoker Past Alcohol Use History: Rare Past Drug Use History: None Reported - Past Family History Mother Family Medical History: No Reported History Additional Family Medical History / Comment(s): Heart disease Father Family Medical History: Diabetes Mellitus Additional Family Medical History / Comment(s): Heart disease Medications and Allergies Home Medications Medication Instructions Recorded Confirmed Type Apixaban [Eliquis] 5 mg PO BID 10/23/18 02/25/25 History Aspirin [Adult Low Dose Aspirin EC] 81 mg PO DAILY 10/23/18 02/25/25 History Atorvastatin [Lipitor] 80 mg PO HS 10/23/18 02/25/25 History Empagliflozin [Jardiance] 25 mg PO DAILY 10/23/18 02/25/25 History Omeprazole [PriLOSEC] 20 mg PO DAILY PRN 10/23/18 02/25/25 History lisinopriL 20 mg PO DAILY 10/23/18 02/25/25 History Insulin Aspart [NovoLOG Flexpen] 36 - 50 units SQ AC-TID 10/03/22 02/25/25 History Insulin Degludec [Tresiba 60 units SQ HS 10/03/22 02/25/25 History Flextouch U-200 Pen] Metoprolol Tartrate [Lopressor] 50 mg PO BID 10/03/22 02/25/25 History Triamterene/Hydrochlorothiazid 1 cap PO DAILY 10/03/22 02/25/25 History [Triamterene-Hctz 37.5-25 mg Cp] Multivitamins, Thera [Multivitamin 1 tab PO DAILY 04/24/23 02/25/25 History (formulary)] Furosemide [Lasix] 40 mg PO BID 02/25/25 02/25/25 History metFORMIN HCL [Glucophage] 1,000 mg PO BID 02/25/25 02/25/25 History Allergies Allergy/AdvReac Type Severity Reaction Status Date / Time No Known Allergies Allergy Verified 02/25/25 17:55 Physical Exam Vitals: Vital Signs Temp Pulse Resp BP BP Pulse Ox 03/03/25 10:51 96 03/03/25 10:23 80 117/68 95 03/03/25 09:00 97.5 F L 84 112/61 03/03/25 07:40 97.7 F 81 19 92/51 94 L 03/03/25 01:58 97.5 F L 83 18 105/66 93 L 03/03/25 00:11 97.9 F 77 18 109/64 96 03/02/25 20:49 77 108/67 93 L 03/02/25 13:51 97.6 F 78 18 93/53 95 Intake and Output 03/02/25 03/03/25 03/03/25 22:59 06:59 14:59 Intake Total 440 440 Output Total 4300 4150 2400 Balance -3860 -3710 -2400 Intake: Oral 440 440 Output: Urine 4300 4150 2400 Other: Voiding Method Indwelling Catheter Weight 177.9 kg Results CBC & Chem 7: 03/03/25 03:35 03/03/25 03:35 Labs: Abnormal Lab Results - Last 24 Hours (Table) 03/02/25 03/02/25 03/02/25 Range/Units 04:53 16:46 20:17 Hgb (13.0-17.0) g/dL Hct (39.6-50.0) % MCV (80.0-97.0) FL MCH (27.0-32.0) pg MCHC (32.0-37.0) g/dL RDW (11.5-14.5) % Lymphocytes # (0.90-5.00) X 10*3/uL Potassium (3.5-5.5) mmol/L Carbon Dioxide (21.6-31.8) mmol/L BUN (9.0-27.0) mg/dL BUN/Creatinine Ratio (12.00-20.00) Ratio Glucose (70-110) mg/dL POC Glucose (mg/dL) 130 H 206 H (70-110) mg/dL NT-Pro-B Natriuret Pep 3463 H (0-125) pg/mL 03/03/25 03/03/25 03/03/25 Range/Units 03:35 03:35 06:02 Hgb 8.7 L (13.0-17.0) g/dL Hct 32.0 L (39.6-50.0) % MCV 70.5 L (80.0-97.0) FL MCH 19.2 L (27.0-32.0) pg MCHC 27.2 L (32.0-37.0) g/dL RDW 22.0 H (11.5-14.5) % Lymphocytes # 0.88 L (0.90-5.00) X 10*3/uL Potassium 3.1 L (3.5-5.5) mmol/L Carbon Dioxide 37.5 H (21.6-31.8) mmol/L BUN 47.1 H (9.0-27.0) mg/dL BUN/Creatinine Ratio 36.23 H (12.00-20.00) Ratio Glucose 60 L (70-110) mg/dL POC Glucose (mg/dL) 44 L* (70-110) mg/dL NT-Pro-B Natriuret Pep (0-125) pg/mL 03/03/25 03/03/25 Range/Units 06:07 11:07 Hgb (13.0-17.0) g/dL Hct (39.6-50.0) % MCV (80.0-97.0) FL MCH (27.0-32.0) pg MCHC (32.0-37.0) g/dL RDW (11.5-14.5) % Lymphocytes # (0.90-5.00) X 10*3/uL Potassium (3.5-5.5) mmol/L Carbon Dioxide (21.6-31.8) mmol/L BUN (9.0-27.0) mg/dL BUN/Creatinine Ratio (12.00-20.00) Ratio Glucose (70-110) mg/dL POC Glucose (mg/dL) 45 L* 118 H (70-110) mg/dL NT-Pro-B Natriuret Pep (0-125) pg/mL Assessment and Plan (1) Non-pressure chronic ulcer of other part of right foot with fat layer exposed Current Visit: Yes Status: Acute Code(s): L97.512 - NON-PRS CHRONIC ULCER OTH PRT RIGHT FOOT W FAT LAYER EXPOSED SNOMED Code(s): 39292303123254443 (2) Type 2 diabetes mellitus with foot ulcer Current Visit: Yes Status: Acute Code(s): E11.621 - TYPE 2 DIABETES MELLITUS WITH FOOT ULCER; L97.509 - NON-PRESSURE CHRONIC ULCER OTH PRT UNSP FOOT W UNSP SEVERITY SNOMED Code(s): 2805912911310
[2025-03-03] MEDS: SPIRONOLACTONE 25 MG TAB PO SCH (11:46)
--- NOTE | 2025-03-03 13:54 | P.PN ---
Subjective Progress Note Date: 03/03/25 This is a morbidly obese 65-year-old male patient with a known history of obstructive sleep apnea maintained on CPAP, congestive heart failure, atrial fibrillation anticoagulated with Eliquis, diabetes mellitus, hypertension, coronary artery disease with stent placement x 7, coronary artery bypass surgery in 2016, former smoker of 30 years at 3 packs/day however quit 30 years ago. He presented here on February 25, 2025 with complaints of increasing shortness of breath, increasing lower extremity edema. Chest x-ray showed cardiomegaly and mild pulmonary vascular congestion. White count 6.5. Hemoglobin 8.4. Platelets 267. Sodium 138. Potassium 4.9. Bicarb 29. BUN 48. Creatinine 1.5. Glucose 171. Troponins were negative. proBNP 3550. Echocardiogram revealed impaired left ventricular systolic function with an ejection fraction of 40%. Severe pulmonary hypertension. Moderate to severe tricuspid regurgitation. He is seen today in consultation on the regular medical floor. He is currently resting in bed. Awake and alert in no acute distress. He is maintaining O2 saturations in the 90s on 3 L/min per nasal cannula. He has been afebrile. Hemodynamically stable. He has been initiated on Lasix 60 mg IV every 12 hours. The patient is seen today February 28, 2025 in follow-up on the regular medical floor. He is currently sitting up in a chair at the bedside. Awake and alert in no acute distress. Maintaining O2 saturations in the 90s on 5 L/min per nasal cannula. He is breathing a bit easier today compared to yesterday. Hatfield catheter was placed. He is in a -6 L balance. White count 8.1. Hemoglobin 8.9. Platelets 278. Sodium 140. Potassium 5.1. Bicarb 28. BUN 50. Creatinine 1.7. Glucose 136. Urinalysis clean. He remains on Lasix 60 mg IV every 12 hours and Zaroxolyn. Anticoagulated with Eliquis. He is continued on azithromycin and ceftriaxone. Procalcitonin was negative at 0.08. He has been afebrile. Hemodynamically stable. The patient is seen today March 01, 2025 in follow-up on the regular medical floor. He is currently sitting up in a chair. Awake and alert in no acute distress. Maintaining O2 saturations in the 90s on 5 L/min per nasal cannula. He has been afebrile. Hemodynamically stable. Follow-up chest x-ray shows right lower lobe atelectasis. Minimally in the left lower lobe. Sodium 139. Potassium 4.6. Bicarb 28. BUN 58. Creatinine 1.8. Glucose 94. He remains on Lasix 60 mg every 12 hours and Zaroxolyn. Anticoagulated with Eliquis. Remains on ceftriaxone. Remains on bronchodilators as needed. Completed azithromycin. The patient is seen today March 02, 2025 in follow-up on the regular medical floor. He is awake and alert in no acute distress. Breathing easier today compared to yesterday. He is maintaining O2 saturations in the upper 90s on 4 L/min per nasal cannula. White count 6.9. Hemoglobin 8.9. Platelets 235. Sodium 138. Potassium 3.8. Bicarb 38. BUN 64. Creatinine 1.52. Glucose 153. He is continued on Lasix 60 mg IV every 12 hours. Remains on Zaroxolyn. He is currently in a -5.7 L balance. Remains on ceftriaxone. Anticoagulated with Eliquis. Receiving iron replacement. The patient is seen today March 03, 2025 in follow-up on the regular medical floor. He is currently resting in bed. Awake and alert in no acute distress. He is maintaining O2 saturations in the 90s on 4 L/min per nasal cannula. He uses his home CPAP device at night. White count 6.2. Hemoglobin 8.7. Platelets 242. Sodium 144. Potassium 3.1. Bicarb 38. BUN 47. Creatinine 1.3. Glucose 60. He is continued on IV diuretics. Continued on oral diuretics. Antibiotics in the form of ceftriaxone. Anticoagulated with Eliquis. Currently in a -7 L balance. Objective - Vital Signs Vital signs: Vital Signs Temp 97.5 F L 03/03/25 09:00 Pulse 80 03/03/25 10:23 Resp 19 03/03/25 07:40 BP 117/68 03/03/25 10:23 Pulse Ox 96 03/03/25 10:51 FiO2 Intake & Output 03/02/25 03/03/25 03/03/25 18:59 06:59 18:59 Intake Total 700 680 Output Total 1500 6950 2400 Balance -144 -5657 -2403 Weight 177.9 kg Intake: Oral 700 680 Output: Urine 1500 6950 2400 Other: Voiding Method Indwelling Catheter Indwelling Catheter Indwelling Catheter - Exam GENERAL EXAM: Alert, 65-year-old morbidly obese male, resting in bed, on 4 L nasal cannula, in no apparent distress. HEAD: Normocephalic. EYES: Normal reaction of pupils, equal size. NOSE: Clear with pink turbinates. THROAT: No erythema or exudates. NECK: No masses, no JVD. CHEST: No chest wall deformity. LUNGS: Equal air entry with crackles in the bilateral bases. CVS: S1 and S2 normal with no audible murmur, regular rhythm. ABDOMEN: Soft, unable to appreciate any hepatosplenomegaly, normal bowel sounds, no guarding or rigidity. SPINE: No scoliosis or deformity SKIN: No rashes CENTRAL NERVOUS SYSTEM: No focal deficits, tone is normal in all 4 extremities. EXTREMITIES: There is 1+ peripheral edema. No clubbing, no cyanosis. Peripheral pulses are intact. - Labs CBC & Chem 7: 03/03/25 03:35 03/03/25 03:35 Labs: Abnormal Lab Results - Last 24 Hours (Table) 03/02/25 03/02/25 03/02/25 Range/Units 04:53 16:46 20:17 Hgb (13.0-17.0) g/dL Hct (39.6-50.0) % MCV (80.0-97.0) FL MCH (27.0-32.0) pg MCHC (32.0-37.0) g/dL RDW (11.5-14.5) % Lymphocytes # (0.90-5.00) X 10*3/uL Potassium (3.5-5.5) mmol/L Carbon Dioxide (21.6-31.8) mmol/L BUN (9.0-27.0) mg/dL BUN/Creatinine Ratio (12.00-20.00) Ratio Glucose (70-110) mg/dL POC Glucose (mg/dL) 130 H 206 H (70-110) mg/dL NT-Pro-B Natriuret Pep 3463 H (0-125) pg/mL 03/03/25 03/03/25 03/03/25 Range/Units 03:35 03:35 06:02 Hgb 8.7 L (13.0-17.0) g/dL Hct 32.0 L (39.6-50.0) % MCV 70.5 L (80.0-97.0) FL MCH 19.2 L (27.0-32.0) pg MCHC 27.2 L (32.0-37.0) g/dL RDW 22.0 H (11.5-14.5) % Lymphocytes # 0.88 L (0.90-5.00) X 10*3/uL Potassium 3.1 L (3.5-5.5) mmol/L Carbon Dioxide 37.5 H (21.6-31.8) mmol/L BUN 47.1 H (9.0-27.0) mg/dL BUN/Creatinine Ratio 36.23 H (12.00-20.00) Ratio Glucose 60 L (70-110) mg/dL POC Glucose (mg/dL) 44 L* (70-110) mg/dL NT-Pro-B Natriuret Pep (0-125) pg/mL 03/03/25 03/03/25 Range/Units 06:07 11:07 Hgb (13.0-17.0) g/dL Hct (39.6-50.0) % MCV (80.0-97.0) FL MCH (27.0-32.0) pg MCHC (32.0-37.0) g/dL RDW (11.5-14.5) % Lymphocytes # (0.90-5.00) X 10*3/uL Potassium (3.5-5.5) mmol/L Carbon Dioxide (21.6-31.8) mmol/L BUN (9.0-27.0) mg/dL BUN/Creatinine Ratio (12.00-20.00) Ratio Glucose (70-110) mg/dL POC Glucose (mg/dL) 45 L* 118 H (70-110) mg/dL NT-Pro-B Natriuret Pep (0-125) pg/mL Assessment and Plan Assessment: Acute hypoxemic respiratory failure secondary to an acute exacerbation of s ystolic congestive heart failure, severe pulmonary hypertension, morbid obesity Acute on chronic kidney disease Chronic kidney disease stage IIIa Severe pulmonary hypertension/cor pulmonale Morbid obesity with a BMI of 47.7 kg/m Obstructive sleep apnea maintained on BiPAP Obesity/hypoventilation syndrome Chronic systolic congestive heart failure with an ejection fraction of 40% Coronary artery disease with previous multiple stent placements/CABG 2015 Atrial fibrillation anticoagulated with Eliquis Diabetes mellitus, type II Hypertension History of prostate cancer, status post surgery Former smoker Gastroesophageal reflux disease Hyperlipidemia Plan: The patient was seen and evaluated Labs and medications reviewed Continue IV diuretics Continue Zaroxolyn, Aldactone In a -7 L balance today Anticoagulated with Eliquis Protonix for GI prophylaxis Increase his activity as tolerated And 4 L/min nasal cannula Titrate down the FiO2 as tolerated We will continue to follow I have personally seen and examined the patient, performed the documentation and the assessment and plan as written. Number of minutes spent on the visit: 10 Dictation was produced using [employer] dictation software. Please excuse any grammatical, word or spelling errors.
--- NOTE | 2025-03-03 15:07 | P.PN ---
Subjective Progress Note Date: 03/03/25 This is a 65-year-old male with a past medical history significant for coronary artery disease with previous CABG, congestive heart failure, hypertension, hyperlipidemia, diabetes, and atrial fibrillation. Patient follows in the office with Dr. Richards out of [facility]. We have been asked to see the patient in consultation for congestive heart failure. Patient examined at the bedside. Patient presented to the hospital with a chief complaint of shortness of breath. Patient states he has been feeling short of breath for the past 2 weeks. He also reports having a cough with sputum production. He reports increased swelling in his lower extremities. He reports a 20 pound weight gain in the p ast 6 weeks. He states he has been compliant with all of his medications and has been following a low-sodium diet. Patient was found to be in acute CHF and was started on IV Lasix. DIAGNOSTICS: - EKG reveals atrial fibrillation with controlled ventricular rate - Chest xray cardiomegaly mild pulmonary vascular congestion - Laboratory data: WBC 6.08. Hemoglobin 9.3. Platelet count 266. Sodium 138. Potassium 4.7. BUN 49. Creatinine 1.29. Troponin negative x 3. proBNP 3550. - Current home cardiac medications include aspirin 81 mg daily, Lasix 40 mg twice a day, metoprolol tartrate 50 mg twice a day, Eliquis 5 mg twice a day, lisinopril 20 mg daily, Lipitor 80 mg at night, Jardiance 25 mg daily - Most recent echocardiogram obtained in April 2023 revealed ejection fraction 40 to 45% - Cardiac catheterization history: Unknown 02/27/2025 Patient examined this morning. Patient is sitting up in the chair. Patient continues to report shortness of breath. He denies chest pain or pressure. He continues to have lower extremity edema. Patient's Lasix has been increased to 60 mg every 12 hours per pulmonary. Creatinine today 1.5, up from 1.29. Echocardiogram reveals ejection fraction 40%, global hypokinesis, trace to mild MR, moderate to severe TR 02/28/2025 Patient examined this morning at the bedside. He is sitting up in the chair. He reports improvement in his shortness of breath. He denies chest pain or pressure. He continues to have lower extremity edema although improving. He remains on IV Lasix 60 mg every 12 hours. Creatinine today 1.7. 03/01/2025 Patient was seen and examined sitting up in a chair. Continues to have lower extremity edema. Feels his breathing is improving. Feels significantly better and asking to go home. He remains on IV Lasix 60 mg every 12 hours. Renal function is stable. 03/02/2025 Patient seen and examined sitting up in a chair. Continues to have lower extremity edema. Continues to asked to go home. He remains on IV Lasix 60 mg every 12 hours. Renal function shows some improvement compared to yesterday with a creatinine of 1.5 03/03/2025 Patient is sitting in the chair. Still has lower extremity edema and appears vo lume overloaded is getting IV Lasix extremities twice daily as per nephrology recommendations. Kidney function is 1.3 today yesterday it was 1.5. Noticed to be hypoglycemic this morning PHYSICAL EXAM: VITAL SIGNS: Reviewed. GENERAL: Well-developed in no acute distress. HEENT: Head is normocephalic. Pupils are equal, round. Sclerae anicteric. Mucous membranes of the mouth are moist. Neck supple. No JVD or thyromegaly LUNGS: Respirations even and unlabored. Lungs diminished bilaterally with b ibasilar crackles HEART: Irregular rate and rhythm. S1 and S2 heard. ABDOMEN: Soft. Nondistended. Nontender. EXTREMITIES: Normal range of motion. No clubbing or cyanosis. Peripheral pulses intact. Bilateral lower extremity edema noted NEUROLOGIC: Awake and alert. Oriented x 3. ASSESSMENT: Acute on chronic heart failure with reduced EF Coronary artery disease with previous CABG Ischemic cardiomyopathy 40 to 45% Persistent atrial fibrillation Hypertension Hyperlipidemia Diabetes Obesity: BMI 48.7 PLAN: Add Aldactone 25 mg daily. Discontinue potassium Continue IV Lasix. Daily weights, accurate intake and output, monitoring of kidney function Continue additional cardiac medications Further recommendations pending patient course Objective - Vital Signs Vital signs: Vital Signs Temp 98.0 F 03/03/25 14:14 Pulse 66 03/03/25 14:14 Resp 19 03/03/25 14:14 BP 104/60 03/03/25 14:14 Pulse Ox 95 03/03/25 14:14 FiO2 Intake & Output 03/02/25 03/03/25 03/03/25 18:59 06:59 18:59 Intake Total 700 680 Output Total 1500 6950 2400 Balance -604 -9870 -2407 Weight 177.9 kg Intake: Oral 700 680 Output: Urine 1500 6950 2400 Other: Voiding Method Indwelling Catheter Indwelling Catheter Indwelling Catheter - Labs CBC & Chem 7: 03/03/25 03:35 03/03/25 03:35 Labs: Abnormal Lab Results - Last 24 Hours (Table) 03/02/25 03/02/25 03/02/25 Range/Units 04:53 16:46 20:17 Hgb (13.0-17.0) g/dL Hct (39.6-50.0) % MCV (80.0-97.0) FL MCH (27.0-32.0) pg MCHC (32.0-37.0) g/dL RDW (11.5-14.5) % Lymphocytes # (0.90-5.00) X 10*3/uL Potassium (3.5-5.5) mmol/L Carbon Dioxide (21.6-31.8) mmol/L BUN (9.0-27.0) mg/dL BUN/Creatinine Ratio (12.00-20.00) Ratio Glucose (70-110) mg/dL POC Glucose (mg/dL) 130 H 206 H (70-110) mg/dL NT-Pro-B Natriuret Pep 3463 H (0-125) pg/mL 03/03/25 03/03/25 03/03/25 Range/Units 03:35 03:35 06:02 Hgb 8.7 L (13.0-17.0) g/dL Hct 32.0 L (39.6-50.0) % MCV 70.5 L (80.0-97.0) FL MCH 19.2 L (27.0-32.0) pg MCHC 27.2 L (32.0-37.0) g/dL RDW 22.0 H (11.5-14.5) % Lymphocytes # 0.88 L (0.90-5.00) X 10*3/uL Potassium 3.1 L (3.5-5.5) mmol/L Carbon Dioxide 37.5 H (21.6-31.8) mmol/L BUN 47.1 H (9.0-27.0) mg/dL BUN/Creatinine Ratio 36.23 H (12.00-20.00) Ratio Glucose 60 L (70-110) mg/dL POC Glucose (mg/dL) 44 L* (70-110) mg/dL NT-Pro-B Natriuret Pep (0-125) pg/mL 03/03/25 03/03/25 Range/Units 06:07 11:07 Hgb (13.0-17.0) g/dL Hct (39.6-50.0) % MCV (80.0-97.0) FL MCH (27.0-32.0) pg MCHC (32.0-37.0) g/dL RDW (11.5-14.5) % Lymphocytes # (0.90-5.00) X 10*3/uL Potassium (3.5-5.5) mmol/L Carbon Dioxide (21.6-31.8) mmol/L BUN (9.0-27.0) mg/dL BUN/Creatinine Ratio (12.00-20.00) Ratio Glucose (70-110) mg/dL POC Glucose (mg/dL) 45 L* 118 H (70-110) mg/dL NT-Pro-B Natriuret Pep (0-125) pg/mL
--- NOTE | 2025-03-03 16:47 | P.PN ---
Subjective Patient is seen for follow-up for chronic kidney disease and acute kidney injury. Currently maintained on IV lasix, metolazone and IV farxiga UOP 8.4 L for 24 hours No significant complaints Continues to have significant edema. Serum creatinine decreased to 1.5 mg/dL Patient has indwelling Hatfield catheter Objective - Vital Signs Vital signs: Vital Signs Temp 98.0 F 03/03/25 14:14 Pulse 66 03/03/25 14:14 Resp 19 03/03/25 14:14 BP 104/60 03/03/25 14:14 Pulse Ox 95 03/03/25 14:14 FiO2 Intake & Output 03/02/25 03/03/25 03/03/25 18:59 06:59 18:59 Intake Total 700 680 Output Total 1500 6950 2400 Balance -800 -6141 -2400 Weight 177.9 kg Intake: Oral 700 680 Output: Urine 1500 6950 2400 Other: Voiding Method Indwelling Catheter Indwelling Catheter Indwelling Catheter - Exam Patient is awake, comfortable, no acute distress Examination of the heart S1 and S2 Examination of the lungs bilateral breath sounds are heard Abdomen is soft obese Examination of lower extremity shows chronic skin changes with 2-3+ edema FUR TRIMMER exam grossly intact - Labs CBC & Chem 7: 03/03/25 03:35 03/03/25 15:59 Labs: Abnormal Lab Results - Last 24 Hours (Table) 03/02/25 03/02/25 03/02/25 Range/Units 04:53 16:46 20:17 Hgb (13.0-17.0) g/dL Hct (39.6-50.0) % MCV (80.0-97.0) FL MCH (27.0-32.0) pg MCHC (32.0-37.0) g/dL RDW (11.5-14.5) % Lymphocytes # (0.90-5.00) X 10*3/uL Potassium (3.5-5.5) mmol/L Carbon Dioxide (21.6-31.8) mmol/L BUN (9.0-27.0) mg/dL BUN/Creatinine Ratio (12.00-20.00) Ratio Glucose (70-110) mg/dL POC Glucose (mg/dL) 130 H 206 H (70-110) mg/dL NT-Pro-B Natriuret Pep 3463 H (0-125) pg/mL 03/03/25 03/03/25 03/03/25 Range/Units 03:35 03:35 06:02 Hgb 8.7 L (13.0-17.0) g/dL Hct 32.0 L (39.6-50.0) % MCV 70.5 L (80.0-97.0) FL MCH 19.2 L (27.0-32.0) pg MCHC 27.2 L (32.0-37.0) g/dL RDW 22.0 H (11.5-14.5) % Lymphocytes # 0.88 L (0.90-5.00) X 10*3/uL Potassium 3.1 L (3.5-5.5) mmol/L Carbon Dioxide 37.5 H (21.6-31.8) mmol/L BUN 47.1 H (9.0-27.0) mg/dL BUN/Creatinine Ratio 36.23 H (12.00-20.00) Ratio Glucose 60 L (70-110) mg/dL POC Glucose (mg/dL) 44 L* (70-110) mg/dL NT-Pro-B Natriuret Pep (0-125) pg/mL 03/03/25 03/03/25 03/03/25 Range/Units 06:07 11:07 15:59 Hgb (13.0-17.0) g/dL Hct (39.6-50.0) % MCV (80.0-97.0) FL MCH (27.0-32.0) pg MCHC (32.0-37.0) g/dL RDW (11.5-14.5) % Lymphocytes # (0.90-5.00) X 10*3/uL Potassium 3.2 L (3.5-5.5) mmol/L Carbon Dioxide (21.6-31.8) mmol/L BUN (9.0-27.0) mg/dL BUN/Creatinine Ratio (12.00-20.00) Ratio Glucose (70-110) mg/dL POC Glucose (mg/dL) 45 L* 118 H (70-110) mg/dL NT-Pro-B Natriuret Pep (0-125) pg/mL Assessment and Plan Assessment: 1. Acute kidney injury secondary to ATN secondary to cardiorenal syndrome. Creatinine staying at 1.7-1.8, decreased to 1.3 today UA benign. No hy dronephrosis noted on kidney ultrasound. Left kidney not seen due to body habitus. 2. Chronic kidney disease stage IIIa with baseline creatinine 1.3-1.4 secondary to nephrosclerosis/diabetic kidney disease. 3. Acute hypoxic respiratory failure. 4. Volume overload. Improving with diuresis. 5. Diabetes mellitus. 6. Anemia of chronic kidney disease. Iron deficiency noted. 7. History of A-fib. 8. Acute on chronic systolic CHF ejection fraction of 40% with severe pulmonary hypertension, moderate to severe tricuspid regurgitation. Plan: Continue with IV Lasix and metolazone Replace potassium Discussed salt and fluid restriction Repeat labs in a.m. Continue with Hatfield catheter
[2025-03-03 16:56] LABS: Glucose,Whole Blood 89 mg/dL (70-110)
[2025-03-03] MEDS: COLLAGENASE 250 UNIT/GM OINTMENT 30 GM TUBE TOPICAL SCH (17:25)
[2025-03-03 21:00] LABS: Glucose,Whole Blood 102 mg/dL (70-110)
[2025-03-03] MEDS ORDERED: POTASSIUM CHLORIDE ER 10 MEQ TAB.ER.PRT PO SCH (21:00)
[2025-03-03] MEDS ORDERED: INSULIN GLARGINE (LANTUS) 100 UNIT/ML SYR SQ SCH (21:00)
--- NOTE | 2025-03-03 21:14 | P.PN ---
Subjective Progress Note Date: 03/03/25 65 years old male with past medical history of multiple medical problems including history of CHF. Patient went to see his PCP Dr. Sanchez who referred him to the hospital has been having increasingly worsening leg swelling and shortness of breath over several days and weeks or even months. He feels some dizziness when he tries to get up He denies chest pain. 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 He denies any specific GI/ symptoms. No headache or dizziness currently. No weakness or numbness. He denies smoking alcohol or illicit drugs. He was admitted to the hospital about 1 year ago for course of similar complaints and acute CHF. Patient is hemodynamically stable, blood pressure slightly on the low side 96/64. Before it was more 120/65 on admission. Patient is afebrile. He has unremarkable CBC, BMP and INR. Troponin is negative. Hemoglobin 9.3 which is slightly less than his baseline of 10-11. Creatinine 1.2 which is at baseline of 1.2-1.4. proBNP is elevated 3550. Chest x-ray showing cardiomegaly with pulmonary vascular congestion EKG showing sinus rhythm with marked sinus arrhythmia at a rate of 70/min with right bundle branch block and there is Q waves in the inferior leads. Echocardiogram is requested and is pending On admission time during and hydrochlorothiazide was held as well as metformin 1000 and lisinopril 20 mg. Patient continued on his home dose of aspirin 81 mg metoprolol 50 mg and his insulin confirms he takes Lantus 6 units at 56 units up to 50 units with meals. He is currently placed on IV Lasix 40 mg twice daily. 03/01/2025 Patient is seen and evaluated in follow-up on the regular medical floor. He is currently sitting up in a chair. Awake and alert in no acute distress. Maintaining O2 saturations in the 90s on 5 L/min per nasal cannula. He has been afebrile. Hemodynamically stable. Follow-up chest x-ray shows right lower lobe atelectasis. Minimally in the left lower lobe. Sodium 139. Potassium 4.6. Bicarb 28. BUN 58. Creatinine 1.8. Glucose 94. He remains on Lasix 60 mg every 12 hours and Zaroxolyn. Anticoagulated with Eliquis. Remains on ceftriaxone. Remains on bronchodilators as needed. Completed azithromycin Patient is currently saturating above 92% on O2 at 5 L per nasal cannula; recommend to continue utilize BiPAP at night. Continue with IV diuresis and oral Zaroxolyn 03/02/2025 Patient is seen and evaluated in follow-up on the regular medical floor. He is awake and alert in no acute distress. Breathing easier today compared to yesterday. He is maintaining O2 saturations in the upper 90s on 4 L/min per nasal cannula. White count 6.9. Hemoglobin 8.9. Platelets 235. Sodium 138. Potassium 3.8. Bicarb 38. BUN 64. Creatinine 1.52. Glucose 153. He is continued on Lasix 60 mg IV every 12 hours. Remains on Zaroxolyn. He is currently in a -5.7 L balance. Remains on ceftriaxone. Anticoagulated with Eliquis. Receiving iron replacement. Currently on 4 L nasal cannula Utilizing his home BiPAP at night Continue IV diuretics Continue Zaroxolyn In a -5.7 L balance today Anticoagulated with Eliquis 03/03/2025 Patient seen in follow-up today with cardiology and nephrology following maintained on IV Lasix and continues on 5 L via nasal cannula. Apparently patient does not wear oxygen outpatient and will need to be weaned as tolerated. Patient continues with significant volume overload and will continue current regimen. Recommend follow-up labs. Potassium slightly low and will be replaced per protocol. Aldactone being added and will follow-up Review of systems: Constitutional: No reports of fatigue, fever, or chills Cardiovascular: No reports of chest pain or palpitations Respiratory: reports of continued shortness of breath GI: No reports of nausea, vomiting, or diarrhea : No reports of dysuria or retention Neurovascular: reports of generalized weakness All medications have been reviewed Physical exam: Gen: This is a 65-year-old male who is awake, alert and oriented x 3, well- developed, appears older than stated age, morbidly obese HEENT: Head is atraumatic, normocephalic. Pupils equal, round. Sclerae is anicteric. NECK: Supple. No JVD. No lymphadenopathy. No thyromegaly. LUNGS: Diminished breath sounds bilaterally otherwise clear to auscultation. No wheezes or rhonchi. No intercostal retractions. HEART: S1, S2 are muffled ABDOMEN: Soft. Obese. Bowel sounds are present. No masses. No tenderness. EXTREMITIES: Significant bilateral lower extremity edema noted. No calf tenderness. NEUROLOGICAL: Patient is awake, alert and oriented x3. Cranial nerves 2 through 12 are grossly intact. Diffusely weak Assessment: Acute CHF exacerbation, with reduced EF Ischemic cardiomyopathy with an EF of 40 to 45% Mild hypertension, asymptomatic Acute kidney injury on CKD, improving Chronic kidney disease Chronic anemia with slight worsening recently History of A-fib, persistent on Eliquis at home Morbid obesity with BMI of 47.7 Coronary artery disease, status post CABG and stent placement Diabetes mellitus, type II, uncontrolled with hyperglycemia Hypertension Hyperlipidemia Benign prostatic hypertrophy Sleep apnea on CPAP/BiPAP. GI prophylaxis DVT prophylaxis Full code Plan: Continue with IV Lasix 40 mg twice daily with nephrology and cardiology following. Continue holding diuretics and metformin as kidney functions are improving Potassium replaced and Aldactone is being added per cardiology, discontinue supplement and will monitor closely Encouraged increase activity as tolerated, recommend PT/OT therapy evaluation Patient continues with indwelling Hatfield catheter and will discontinue and monitor for retention Prognosis is guarded The impression and plan of care has been dictated by Yany Wilson, Nurse Practitioner as directed. Dr. Israel MD I have performed a history and examination and MDM of this patient, discussed the same with the dictator, and agree with the dictator's assessment and plan as written ,documented as a scribe. Based on total visit time, I have performed more than 50% of the visit. Objective - Vital Signs Vital signs: Vital Signs Temp 97.7 F 03/03/25 07:40 Pulse 81 03/03/25 07:40 Resp 19 03/03/25 07:40 BP 92/51 03/03/25 07:40 Pulse Ox 94 L 03/03/25 07:40 FiO2 Intake & Output 03/02/25 03/03/25 03/03/25 18:59 06:59 18:59 Intake Total 700 680 Output Total 1500 6950 Balance -800 -6270 Weight 177.9 kg Intake: Oral 700 680 Output: Urine 1500 6950 Other: Voiding Method Indwelling Catheter Indwelling Catheter - Labs CBC & Chem 7: 03/03/25 03:35 03/03/25 15:59 Labs: Abnormal Lab Results - Last 24 Hours (Table) 03/02/25 03/02/25 03/02/25 Range/Units 04:53 16:46 20:17 Hgb 8.9 L (13.0-17.0) g/dL Hct 32.9 L (39.6-50.0) % MCV 70.0 L (80.0-97.0) FL MCH 18.9 L (27.0-32.0) pg MCHC 27.1 L (32.0-37.0) g/dL RDW 21.7 H (11.5-14.5) % Lymphocytes # (0.90-5.00) X 10*3/uL Monocytes # 1.14 H (0.20-1.00) X 10*3/uL Potassium (3.5-5.5) mmol/L Carbon Dioxide (21.6-31.8) mmol/L BUN (9.0-27.0) mg/dL BUN/Creatinine Ratio (12.00-20.00) Ratio Glucose (70-110) mg/dL POC Glucose (mg/dL) 130 H 206 H (70-110) mg/dL 03/03/25 03/03/25 03/03/25 Range/Units 03:35 03:35 06:02 Hgb 8.7 L (13.0-17.0) g/dL Hct 32.0 L (39.6-50.0) % MCV 70.5 L (80.0-97.0) FL MCH 19.2 L (27.0-32.0) pg MCHC 27.2 L (32.0-37.0) g/dL RDW 22.0 H (11.5-14.5) % Lymphocytes # 0.88 L (0.90-5.00) X 10*3/uL Monocytes # (0.20-1.00) X 10*3/uL Potassium 3.1 L (3.5-5.5) mmol/L Carbon Dioxide 37.5 H (21.6-31.8) mmol/L BUN 47.1 H (9.0-27.0) mg/dL BUN/Creatinine Ratio 36.23 H (12.00-20.00) Ratio Glucose 60 L (70-110) mg/dL POC Glucose (mg/dL) 44 L* (70-110) mg/dL 03/03/25 Range/Units 06:07 Hgb (13.0-17.0) g/dL Hct (39.6-50.0) % MCV (80.0-97.0) FL MCH (27.0-32.0) pg MCHC (32.0-37.0) g/dL RDW (11.5-14.5) % Lymphocytes # (0.90-5.00) X 10*3/uL Monocytes # (0.20-1.00) X 10*3/uL Potassium (3.5-5.5) mmol/L Carbon Dioxide (21.6-31.8) mmol/L BUN (9.0-27.0) mg/dL BUN/Creatinine Ratio (12.00-20.00) Ratio Glucose (70-110) mg/dL POC Glucose (mg/dL) 45 L* (70-110) mg/dL
[2025-03-03] MEDS: INSULIN GLARGINE (LANTUS) 100 UNIT/ML SYR SQ SCH (21:17)
[2025-03-04 01:04] LABS: Glucose,Whole Blood 73 mg/dL (70-110)
[2025-03-04 03:59] LABS: Glucose,Whole Blood 77 mg/dL (70-110)
[2025-03-04 06:40] LABS: Glucose,Whole Blood 87 mg/dL (70-110)
[2025-03-04 08:38] LABS: ALT 28 U/L (10-49); AST 37 U/L (14-35); Albumin 3.7 g/dL (3.8-4.9); Albumin/Globulin Ratio 1.19 Ratio (1.60-3.17); Alkaline Phosphatase 212 U/L (41-126); BUN/Creat Ratio 30.21 Ratio (12.00-20.00); Blood Urea Nitrogen 42.3 mg/dL (9.0-27.0); Calcium 9.1 mg/dL (8.7-10.3); Carbon Dioxide 38.8 mmol/L (21.6-31.8); Chloride 97 mmol/L (96-109); Globulin 3.1 g/dL (1.6-3.3); Glucose 75 mg/dL (70-110); Potassium 3.8 mmol/L (3.5-5.5); Sodium 146 mmol/L (135-145); Total Bilirubin 0.7 mg/dL (0.3-1.2); Total Protein 6.8 g/dL (6.2-8.2)
[2025-03-04 09:05] LABS: Basophils # (A) 0.04 X 10*3/uL (0.00-0.10); Basophils % (A) 0.7 %; Eosinophils # (A) 0.18 X 10*3/uL (0.04-0.35); Eosinophils % (A) 3.2 %; HCT 33.5 % (39.6-50.0); HGB 8.8 g/dL (13.0-17.0); Lymphocytes # (A) 1.05 X 10*3/uL (0.90-5.00); Lymphocytes % (A) 18.6 %; MCHC 26.3 g/dL (32.0-37.0); MCV 72.4 FL (80.0-97.0); Mean Platelet Volume 9.8 FL (9.5-12.2); Monocytes # (A) 0.85 X 10*3/uL (0.20-1.00); Monocytes % (A) 15.1 %; NRBC Per 100 WBC 0 X 10*3/uL (0.00-0.01); Platelet Count 245 X 10*3/uL (140-440); RBC 4.63 X 10*6/uL (4.40-5.60); RDW 22.5 % (11.5-14.5); WBC 5.64 X 10*3/uL (4.50-10.00)
[2025-03-04 11:13] LABS: Glucose,Whole Blood 94 mg/dL (70-110)
--- NOTE | 2025-03-04 11:55 | P.PN ---
Subjective Patient is seen for follow-up for chronic kidney disease and acute kidney injury. Currently maintained on IV lasix, metolazone and IV farxiga UOP 5.2 L for 24 hours No significant complaints Edema has improved Serum creatinine decreased to 1.4 mg/dL Patient has indwelling Hatfield catheter Objective - Vital Signs Vital signs: Vital Signs Temp 97.7 F 03/04/25 07:39 Pulse 72 03/04/25 11:49 Resp 19 03/04/25 07:39 BP 95/55 03/04/25 11:49 Pulse Ox 93 L 03/04/25 07:39 FiO2 Intake & Output 03/03/25 03/04/25 03/04/25 18:59 06:59 18:59 Intake Total 630 556 Output Total 3650 1600 Balance -3020 -1044 Intake: Oral 630 556 Output: Urine 3650 1600 Other: Voiding Method Indwelling Catheter Indwelling Catheter - Exam Patient is awake, comfortable, no acute distress Examination of the heart S1 and S2 Examination of the lungs bilateral breath sounds are heard Abdomen is soft obese Examination of lower extremity shows chronic skin changes with 2+ edema, improved [employer]UC[employer] PROF[employer] exam grossly intact - Labs CBC & Chem 7: 03/04/25 03:47 03/04/25 03:47 Labs: Abnormal Lab Results - Last 24 Hours (Table) 03/03/25 03/03/25 03/04/25 Range/Units 15:59 21:10 03:47 Hgb 8.8 L (13.0-17.0) g/dL Hct 33.5 L (39.6-50.0) % MCV 72.4 L (80.0-97.0) FL MCH 19.0 L (27.0-32.0) pg MCHC 26.3 L (32.0-37.0) g/dL RDW 22.5 H (11.5-14.5) % Sodium (135-145) mmol/L Potassium 3.2 L 3.4 L (3.5-5.1) mmol/L Carbon Dioxide (21.6-31.8) mmol/L BUN (9.0-27.0) mg/dL Est GFR (CKD-EPI) (>=60) BUN/Creatinine Ratio (12.00-20.00) Ratio AST (14-35) U/L Alkaline Phosphatase (41-126) U/L Albumin (3.8-4.9) g/dL Albumin/Globulin Ratio (1.60-3.17) Ratio // Range/Units 03:47 Hgb (13.0-17.0) g/dL Hct (39.6-50.0) % MCV (80.0-97.0) FL MCH (27.0-32.0) pg MCHC (32.0-37.0) g/dL RDW (11.5-14.5) % Sodium 146 H (135-145) mmol/L Potassium (3.5-5.1) mmol/L Carbon Dioxide 38.8 H (21.6-31.8) mmol/L BUN 42.3 H (9.0-27.0) mg/dL Est GFR (CKD-EPI) 55 L (>=60) BUN/Creatinine Ratio 30.21 H (12.00-20.00) Ratio AST 37 H (14-35) U/L Alkaline Phosphatase 212 H (41-126) U/L Albumin 3.7 L (3.8-4.9) g/dL Albumin/Globulin Ratio 1.19 L (1.60-3.17) Ratio Assessment and Plan Assessment: 1. Acute kidney injury secondary to ATN secondary to cardiorenal syndrome. Creatinine staying at 1.7-1.8, decreased to 1.3 today UA benign. No hydronephrosis noted on kidney ultrasound. Left kidney not seen due to body romero bitus. 2. Chronic kidney disease stage IIIa with baseline creatinine 1.3-1.4 secondary to nephrosclerosis/diabetic kidney disease. 3. Acute hypoxic respiratory failure. 4. Volume overload. Improving with diuresis. 5. Diabetes mellitus. 6. Anemia of chronic kidney disease. Iron deficiency noted. 7. History of A-fib. 8. Acute on chronic systolic CHF ejection fraction of 40% with severe pulmonary hypertension, moderate to severe tricuspid regurgitation. Plan: Switched to oral Bumex earlier today Stable for discharge from nephrology standpoint Discussed salt and fluid restriction Continue with Hatfield catheter
--- NOTE | 2025-03-04 12:25 | P.PN ---
Subjective Progress Note Date: 03/04/25 This is a morbidly obese 65-year-old male patient with a known history of obstructive sleep apnea maintained on CPAP, congestive heart failure, atrial fibrillation anticoagulated with Eliquis, diabetes mellitus, hypertension, coronary artery disease with stent placement x 7, coronary artery bypass surgery in 2016, former smoker of 30 years at 3 packs/day however quit 30 years ago. He presented here on February 25, 2025 with complaints of increasing shortness of breath, increasing lower extremity edema. Chest x-ray showed cardiomegaly and mild pulmonary vascular congestion. White count 6.5. Hemoglobin 8.4. Platelets 267. Sodium 138. Potassium 4.9. Bicarb 29. BUN 48. Creatinine 1.5. Glucose 171. Troponins were negative. proBNP 3550. Echocardiogram revealed impaired left ventricular systolic function with an ejection fraction of 40%. Severe pulmonary hypertension. Moderate to severe tricuspid regurgitation. He is seen today in consultation on the regular medical floor. He is currently resting in bed. Awake and alert in no acute distress. He is maintaining O2 saturations in the 90s on 3 L/min per nasal cannula. He has been afebrile. Hemodynamically stable. He has been initiated on Lasix 60 mg IV every 12 hours. The patient is seen today February 28, 2025 in follow-up on the regular medical floor. He is currently sitting up in a chair at the bedside. Awake and alert in no acute distress. Maintaining O2 saturations in the 90s on 5 L/min per nasal cannula. He is breathing a bit easier today compared to yesterday. Hatfield catheter was placed. He is in a -6 L balance. White count 8.1. Hemoglobin 8.9. Platelets 278. Sodium 140. Potassium 5.1. Bicarb 28. BUN 50. Creatinine 1.7. Glucose 136. Urinalysis clean. He remains on Lasix 60 mg IV every 12 hours and Zaroxolyn. Anticoagulated with Eliquis. He is continued on azithromycin and ceftriaxone. Procalcitonin was negative at 0.08. He has been afebrile. Hemodynamically stable. The patient is seen today March 01, 2025 in follow-up on the regular medical floor. He is currently sitting up in a chair. Awake and alert in no acute distress. Maintaining O2 saturations in the 90s on 5 L/min per nasal cannula. He has been afebrile. Hemodynamically stable. Follow-up chest x-ray shows right lower lobe atelectasis. Minimally in the left lower lobe. Sodium 139. Potassium 4.6. Bicarb 28. BUN 58. Creatinine 1.8. Glucose 94. He remains on Lasix 60 mg every 12 hours and Zaroxolyn. Anticoagulated with Eliquis. Remains on ceftriaxone. Remains on bronchodilators as needed. Completed azithromycin. The patient is seen today March 02, 2025 in follow-up on the regular medical floor. He is awake and alert in no acute distress. Breathing easier today compared to yesterday. He is maintaining O2 saturations in the upper 90s on 4 L/min per nasal cannula. White count 6.9. Hemoglobin 8.9. Platelets 235. Sodium 138. Potassium 3.8. Bicarb 38. BUN 64. Creatinine 1.52. Glucose 153. He is continued on Lasix 60 mg IV every 12 hours. Remains on Zaroxolyn. He is currently in a -5.7 L balance. Remains on ceftriaxone. Anticoagulated with Eliquis. Receiving iron replacement. The patient is seen today March 03, 2025 in follow-up on the regular medical floor. He is currently resting in bed. Awake and alert in no acute distress. He is maintaining O2 saturations in the 90s on 4 L/min per nasal cannula. He uses his home CPAP device at night. White count 6.2. Hemoglobin 8.7. Platelets 242. Sodium 144. Potassium 3.1. Bicarb 38. BUN 47. Creatinine 1.3. Glucose 60. He is continued on IV diuretics. Continued on oral diuretics. Antibiotics in the form of ceftriaxone. Anticoagulated with Eliquis. Currently in a -7 L balance. The patient is seen today March 04, 2025 in follow-up on the regular medical floor. He is currently up in a chair at the bedside. Awake and alert in no acute distress. Maintaining O2 saturations in the 90s on 4 L/min per nasal cannula. No IV fluids. White count 5.6. Hemoglobin 8.8. Platelets 245. Sodium 146. Potassium 3.8. Bicarb 39. BUN 42. Creatinine 1.4. Glucose 77. He has been converted to oral diuretics. He remains on Bumex, Zaroxolyn, Aldactone. Anticoagulated with Eliquis. On ceftriaxone. Continued on Lantus and Humalog sliding scale. Currently in a -4 L balance. Objective - Vital Signs Vital signs: Vital Signs Temp 97.7 F 03/04/25 07:39 Pulse 72 03/04/25 11:49 Resp 19 03/04/25 07:39 BP 95/55 03/04/25 11:49 Pulse Ox 93 L 03/04/25 07:39 FiO2 Intake & Output 03/03/25 03/04/25 03/04/25 18:59 06:59 18:59 Intake Total 630 556 Output Total 3650 1600 Balance -3020 -1044 Intake: Oral 630 556 Output: Urine 3650 1600 Other: Voiding Method Indwelling Catheter Indwelling Catheter - Exam GENERAL EXAM: Alert, 65-year-old morbidly obese male, sitting up in a chair, on 4 L nasal cannula, in no apparent distress. HEAD: Normocephalic. EYES: Normal reaction of pupils, equal size. NOSE: Clear with pink turbinates. THROAT: No erythema or exudates. NECK: No masses, no JVD. CHEST: No chest wall deformity. LUNGS: Equal air entry with crackles in the bilateral bases. CVS: S1 and S2 normal with no audible murmur, regular rhythm. ABDOMEN: Soft, unable to appreciate any hepatosplenomegaly, normal bowel sounds, no guarding or rigidity. SPINE: No scoliosis or deformity SKIN: No rashes CENTRAL NERVOUS SYSTEM: No focal deficits, tone is normal in all 4 extremities. EXTREMITIES: There is 1+ peripheral edema. No clubbing, no cyanosis. Peripheral pulses are intact. - Labs CBC & Chem 7: 03/04/25 03:47 03/04/25 03:47 Labs: Abnormal Lab Results - Last 24 Hours (Table) 03/03/25 03/03/25 03/04/25 Range/Units 15:59 21:10 03:47 Hgb 8.8 L (13.0-17.0) g/dL Hct 33.5 L (39.6-50.0) % MCV 72.4 L (80.0-97.0) FL MCH 19.0 L (27.0-32.0) pg MCHC 26.3 L (32.0-37.0) g/dL RDW 22.5 H (11.5-14.5) % Sodium (135-145) mmol/L Potassium 3.2 L 3.4 L (3.5-5.1) mmol/L Carbon Dioxide (21.6-31.8) mmol/L BUN (9.0-27.0) mg/dL Est GFR (CKD-EPI) (>=60) BUN/Creatinine Ratio (12.00-20.00) Ratio AST (14-35) U/L Alkaline Phosphatase (41-126) U/L Albumin (3.8-4.9) g/dL Albumin/Globulin Ratio (1.60-3.17) Ratio // Range/Units 03:47 Hgb (13.0-17.0) g/dL Hct (39.6-50.0) % MCV (80.0-97.0) FL MCH (27.0-32.0) pg MCHC (32.0-37.0) g/dL RDW (11.5-14.5) % Sodium 146 H (135-145) mmol/L Potassium (3.5-5.1) mmol/L Carbon Dioxide 38.8 H (21.6-31.8) mmol/L BUN 42.3 H (9.0-27.0) mg/dL Est GFR (CKD-EPI) 55 L (>=60) BUN/Creatinine Ratio 30.21 H (12.00-20.00) Ratio AST 37 H (14-35) U/L Alkaline Phosphatase 212 H (41-126) U/L Albumin 3.7 L (3.8-4.9) g/dL Albumin/Globulin Ratio 1.19 L (1.60-3.17) Ratio Assessment and Plan Assessment: Acute hypoxemic respiratory failure secondary to an acute exacerbation of systolic congestive heart failure, severe pulmonary hypertension, morbid obesity Acute on chronic kidney disease Chronic kidney disease stage IIIa Severe pulmonary hypertension/cor pulmonale Morbid obesity with a BMI of 47.7 kg/m Obstructive sleep apnea maintained on BiPAP Obesity/hypoventilation syndrome Chronic systolic congestive heart failure with an ejection fraction of 40% Coronary artery disease with previous multiple stent placements/CABG 2015 Atrial fibrillation anticoagulated with Eliquis Diabetes mellitus, type II Hypertension History of prostate cancer, status post surgery Former smoker Gastroesophageal reflux disease Hyperlipidemia Plan: The patient was seen and evaluated Labs and medications reviewed Transitioned to oral Bumex Continue Zaroxolyn, Aldactone In a -4 L balance today Anticoagulated with Eliquis Protonix for GI prophylaxis Increase his activity as tolerated Currently on 4 L/min nasal cannula Titrate down the FiO2 as tolerated Plan is for home with home care at discharge Will need to be tested for possible home oxygen We will continue to follow I have personally seen and examined the patient, performed the documentation and the assessment and plan as written. Number of minutes spent on the visit: 10 Dictation was produced using [employer] dictation software. Please excuse any grammatical, word or spelling errors.
--- NOTE | 2025-03-04 12:42 | P.PN ---
Subjective Progress Note Date: 03/04/25 This is a 65-year-old male with a past medical history significant for coronary artery disease with previous CABG, congestive heart failure, hypertension, hyperlipidemia, diabetes, and atrial fibrillation. Patient follows in the office with Dr. Richards out of [facility]. We have been asked to see the patient in consultation for congestive heart failure. Patient examined at the bedside. Patient presented to the hospital with a chief complaint of shortness of breath. Patient states he has been feeling short of breath for the past 2 weeks. He also reports having a cough with sputum production. He reports increased swelling in his lower extremities. He reports a 20 pound weight gain in the pa st 6 weeks. He states he has been compliant with all of his medications and has been following a low-sodium diet. Patient was found to be in acute CHF and was started on IV Lasix. DIAGNOSTICS: - EKG reveals atrial fibrillation with controlled ventricular rate - Chest xray cardiomegaly mild pulmonary vascular congestion - Laboratory data: WBC 6.08. Hemoglobin 9.3. Platelet count 266. Sodium 138. Potassium 4.7. BUN 49. Creatinine 1.29. Troponin negative x 3. proBNP 3550. - Current home cardiac medications include aspirin 81 mg daily, Lasix 40 mg twice a day, metoprolol tartrate 50 mg twice a day, Eliquis 5 mg twice a day, lisinopril 20 mg daily, Lipitor 80 mg at night, Jardiance 25 mg daily - Most recent echocardiogram obtained in April 2023 revealed ejection fraction 40 to 45% - Cardiac catheterization history: Unknown 02/27/2025 Patient examined this morning. Patient is sitting up in the chair. Patient continues to report shortness of breath. He denies chest pain or pressure. He continues to have lower extremity edema. Patient's Lasix has been increased to 60 mg every 12 hours per pulmonary. Creatinine today 1.5, up from 1.29. Echocardiogram reveals ejection fraction 40%, global hypokinesis, trace to mild MR, moderate to severe TR 02/28/2025 Patient examined this morning at the bedside. He is sitting up in the chair. He reports improvement in his shortness of breath. He denies chest pain or pressure. He continues to have lower extremity edema although improving. He remains on IV Lasix 60 mg every 12 hours. Creatinine today 1.7. 03/01/2025 Patient was seen and examined sitting up in a chair. Continues to have lower extremity edema. Feels his breathing is improving. Feels significantly better and asking to go home. He remains on IV Lasix 60 mg every 12 hours. Renal function is stable. 03/02/2025 Patient seen and examined sitting up in a chair. Continues to have lower extremity edema. Continues to asked to go home. He remains on IV Lasix 60 mg every 12 hours. Renal function shows some improvement compared to yesterday with a creatinine of 1.5 03/03/2025 Patient is sitting in the chair. Still has lower extremity edema and appears volume overloaded is getting IV Lasix extremities twice daily as per nephrology recommendations. Kidney function is 1.3 today yesterday it was 1.5. Noticed to be hypoglycemic this morning 03/04 The patient seen and examined. He states he is ready to go home but has been stating this all along. He is on oxygen 4 L nasal cannula with pulse ox of 93%. Patient has been maintained on IV Lasix and Aldactone was added. He has a negative fluid balance and documented weight loss. Heart rate is running 59-80, blood pressure 95/55. Repeat blood work reveals hemoglobin 8.8, BUN 42 creatinine 1.4, potassium 3.8. Chest x-ray has been ordered today by pulmonary medicine. PHYSICAL EXAM: VITAL SIGNS: Reviewed. GENERAL: Well-developed in no acute distress. HEENT: Head is normocephalic. Pupils are equal, round. Sclerae anicteric. Mucous membranes of the mouth are moist. Neck supple. No JVD or thyromegaly LUNGS: Respirations even and unlabored. Lungs diminished bilaterally with bibasilar crackles HEART: Irregular rate and rhythm. S1 and S2 heard. ABDOMEN: Soft. Nondistended. Nontender. EXTREMITIES: Normal range of motion. No clubbing or cyanosis. Peripheral pulses intact. Bilateral lower extremity edema noted NEUROLOGIC: Awake and alert. Oriented x 3. ASSESSMENT: Acute on chronic heart failure with reduced EF Coronary artery disease with previous CABG Ischemic cardiomyopathy 40 to 45% Persistent atrial fibrillation Hypertension Hyperlipidemia Diabetes Obesity: BMI 48.7 PLAN: Continue patient on Eliquis 5 mg twice daily, aspirin 81 mg daily, atorvastatin 80 mg at bedtime, Farxiga 10 mg daily, metoprolol tartrate 50 mg twice daily Transition IV Lasix to oral Bumex 2 mg in the morning and 1 mg in the afternoon Add lisinopril at a reduced 10 mg daily Continue Zaroxolyn 5 mg daily and Aldactone 25 mg daily Daily weights, accurate intake and output, monitoring of kidney function Further recommendations pending patient course Nurse practitioner note has been reviewed, I agree with documented findings and plan of care. Patient was seen and examined. Objective - Vital Signs Vital signs: Vital Signs Temp 97.7 F 03/04/25 07:39 Pulse 73 03/04/25 07:39 Resp 19 03/04/25 07:39 BP 106/58 03/04/25 07:39 Pulse Ox 93 L 03/04/25 07:39 FiO2 Intake & Output 03/03/25 03/04/25 03/04/25 18:59 06:59 18:59 Intake Total 630 556 Output Total 3650 1600 Balance -3020 -1044 Intake: Oral 630 556 Output: Urine 3650 1600 Other: Voiding Method Indwelling Catheter Indwelling Catheter - Labs CBC & Chem 7: 03/04/25 03:47 03/04/25 03:47 Labs: Abnormal Lab Results - Last 24 Hours (Table) 03/03/25 03/03/25 03/04/25 Range/Units 15:59 21:10 03:47 Hgb 8.8 L (13.0-17.0) g/dL Hct 33.5 L (39.6-50.0) % MCV 72.4 L (80.0-97.0) FL MCH 19.0 L (27.0-32.0) pg MCHC 26.3 L (32.0-37.0) g/dL RDW 22.5 H (11.5-14.5) % Sodium (135-145) mmol/L Potassium 3.2 L 3.4 L (3.5-5.1) mmol/L Carbon Dioxide (21.6-31.8) mmol/L BUN (9.0-27.0) mg/dL Est GFR (CKD-EPI) (>=60) BUN/Creatinine Ratio (12.00-20.00) Ratio AST (14-35) U/L Alkaline Phosphatase (41-126) U/L Albumin (3.8-4.9) g/dL Albumin/Globulin Ratio (1.60-3.17) Ratio 04/15/25 Range/Units 03:47 Hgb (13.0-17.0) g/dL Hct (39.6-50.0) % MCV (80.0-97.0) FL MCH (27.0-32.0) pg MCHC (32.0-37.0) g/dL RDW (11.5-14.5) % Sodium 146 H (135-145) mmol/L Potassium (3.5-5.1) mmol/L Carbon Dioxide 38.8 H (21.6-31.8) mmol/L BUN 42.3 H (9.0-27.0) mg/dL Est GFR (CKD-EPI) 55 L (>=60) BUN/Creatinine Ratio 30.21 H (12.00-20.00) Ratio AST 37 H (14-35) U/L Alkaline Phosphatase 212 H (41-126) U/L Albumin 3.7 L (3.8-4.9) g/dL Albumin/Globulin Ratio 1.19 L (1.60-3.17) Ratio
--- NOTE | 2025-03-04 12:58 | XR ---
EXAMINATION TYPE: XR chest 1V portable DATE OF EXAM: 03/04/2025 12:32 PM COMPARISON: 03/01/2025 CLINICAL INDICATION: Male, 65 years old with history of shortness of breath, , FINDINGS: Median sternotomy wires and post-CABG clips. Heart mild to moderately enlarged. Diffuse interstitial and vascular density persists. Right greater than left bibasilar opacity persists. IMPRESSION: 1. Correlate for ongoing CHF with pulmonary vascular congestion. 2. Correlate for a moderate right and trace left pleural effusion with adjacent atelectasis and/or co nsolidation. Overall appearance is relatively similar to prior. [facility], , 03/04/2025 12:56 PM
[2025-03-04] MEDS: lisinopriL 10 MG TAB PO SCH (13:21)
[2025-03-04] MEDS: TAMSULOSIN 0.4 MG CAP.ER.24H PO STA (14:22)
[2025-03-04 16:52] LABS: Glucose,Whole Blood 93 mg/dL (70-110)
[2025-03-04] MEDS: BUMETANIDE 1 MG TAB PO SCH (18:17)
[2025-03-04 20:18] LABS: Glucose,Whole Blood 196 mg/dL (70-110)
--- NOTE | 2025-03-05 05:42 | P.PN ---
Subjective Progress Note Date: 03/04/25 65 years old male with past medical history of multiple medical problems including history of CHF. Patient went to see his PCP Dr. Sanchez who referred him to the hospital has been having increasingly worsening leg swelling and shortness of breath over several days and weeks or even months. He feels some dizziness when he tries to get up He denies chest pain. His wireless consultant Dr. Cabral from outside of the system. He denies any specific GI/ symptoms. No headache or dizziness currently. No weakness or numbness. He denies smoking alcohol or illicit drugs. He was admitted to the hospital about 1 year ago for course of similar complaints and acute CHF. Patient is hemodynamically stable, blood pressure slightly on the low side 96/64. Before it was more 120/65 on admission. Patient is afebrile. He has unremarkable CBC, BMP and INR. Troponin is negative. Hemoglobin 9.3 which is slightly less than his baseline of 10-11. Creatinine 1.2 which is at baseline of 1.2-1.4. proBNP is elevated 3550. Chest x-ray showing cardiomegaly with pulmonary vascular congestion EKG showing sinus rhythm with marked sinus arrhythmia at a rate of 70/min with right bundle branch block and there is Q waves in the inferior leads. Echocardiogram is requested and is pending On admission time during and hydrochlorothiazide was held as well as metformin 1000 and lisinopril 20 mg. Patient continued on his home dose of aspirin 81 mg metoprolol 50 mg and his insulin confirms he takes Lantus 6 units at 56 units up to 50 units with meals. He is currently placed on IV Lasix 40 mg twice daily. 03/01/2025 Patient is seen and evaluated in follow-up on the regular medical floor. He is currently sitting up in a chair. Awake and alert in no acute distress. Maintaining O2 saturations in the 90s on 5 L/min per nasal cannula. He has been afebrile. Hemodynamically stable. Follow-up chest x-ray shows right lower lobe atelectasis. Minimally in the left lower lobe. Sodium 139. Potassium 4.6. Bicarb 28. BUN 58. Creatinine 1.8. Glucose 94. He remains on Lasix 60 mg every 12 hours and Zaroxolyn. Anticoagulated with Eliquis. Remains on ceftriaxone. Remains on bronchodilators as needed. Completed azithromycin Patient is currently saturating above 92% on O2 at 5 L per nasal cannula; recommend to continue utilize BiPAP at night. Continue with IV diuresis and oral Zaroxolyn 03/02/2025 Patient is seen and evaluated in follow-up on the regular medical floor. He is awake and alert in no acute distress. Breathing easier today compared to yesterday. He is maintaining O2 saturations in the upper 90s on 4 L/min per nasal cannula. White count 6.9. Hemoglobin 8.9. Platelets 235. Sodium 138. Potassium 3.8. Bicarb 38. BUN 64. Creatinine 1.52. Glucose 153. He is continued on Lasix 60 mg IV every 12 hours. Remains on Zaroxolyn. He is currently in a -5.7 L balance. Remains on ceftriaxone. Anticoagulated with Eliquis. Receiving iron replacement. Currently on 4 L nasal cannula Utilizing his home BiPAP at night Continue IV diuretics Continue Zaroxolyn In a -5.7 L balance today Anticoagulated with Eliquis 03/03/2025 Patient seen in follow-up today with cardiology and nephrology following maintained on IV Lasix and continues on 5 L via nasal cannula. Apparently patient does not wear oxygen outpatient and will need to be weaned as tolerated. Patient continues with significant volume overload and will continue current regimen. Recommend follow-up labs. Potassium slightly low and will be replaced per protocol. Aldactone being added and will follow-up 03/04/2025 Patient is seen in follow up today currently sitting up in the chair with cardiology and nephrology following. Patient reports swelling has improved and asking when he can go home. Lower extremities do appear improved and is being transitioned to oral Bumex per nephrology. Patient continues on 4 L via nasal cannula also with indwelling Hatfield catheter and recommend to wean FiO2 as tolerated. Discontinue Hatfield catheter and will add Flomax and monitor voiding trial. Patient is continued on IV ceftriaxone for urinary tract infection and will transition to Ceftin for short course on discharge. Encouraged to increase activity as tolerated with reevaluation by physical therapy as nursing staff reports he is weak and has fallen twice. Patient reports his is in a halfway and he is refusing to go to rehab at this time. Will discuss with other consultations regarding possible discharge planning Review of systems: Constitutional: No reports of fatigue, fever, or chills Cardiovascular: No reports of chest pain or palpitations Respiratory: reports of continued shortness of breath although feels it is improved, currently on 4 L still, reports does not wear oxygen outpatient GI: No reports of nausea, vomiting, or diarrhea : No reports of dysuria or retention Neurovascular: reports of generalized weakness All medications have been reviewed Physical exam: Gen: This is a 65-year-old male who is awake, alert and oriented x 3, well- developed, appears older than stated age, morbidly obese HEENT: Head is atraumatic, normocephalic. Pupils equal, round. Sclerae is anicteric. NECK: Supple. No JVD. No lymphadenopathy. No thyromegaly. LUNGS: Diminished breath sounds bilaterally otherwise clear to auscultation. No wheezes or rhonchi. No intercostal retractions. HEART: S1, S2 are muffled ABDOMEN: Soft. Obese. Bowel sounds are present. No masses. No tenderness. EXTREMITIES: Significant bilateral lower extremity edema noted. No calf tenderness. NEUROLOGICAL: Patient is awake, alert and oriented x3. Cranial nerves 2 through 12 are grossly intact. Diffusely weak Assessment: Acute CHF exacerbation, with reduced EF Ischemic cardiomyopathy with an EF of 40 to 45% Mild hypertension, asymptomatic Acute kidney injury on CKD, improving Acute urinary tract infection, present on admission Chronic kidney disease Chronic anemia with slight worsening recently History of A-fib, persistent on Eliquis at home Morbid obesity with BMI of 47.7 Coronary artery disease, status post CABG and stent placement Diabetes mellitus, type II, uncontrolled with hyperglycemia Hypertension Hyperlipidemia Benign prostatic hypertrophy Sleep apnea on CPAP/BiPAP. GI prophylaxis DVT prophylaxis Full code Plan: Continue with current medications per nephrology and cardiology. Patient being transitioned to oral Bumex and will continue to follow electrolytes and replace per protocol. Monitor kidney functions closely. Encouraged increase activity as tolerated, recommend PT/OT therapy evaluation as patient is adamant he is returning home and will not be going to rehab. Patient continues with indwelling Hatfield catheter and will discontinue and monitor for retention, Flomax added Will discuss with other consultations regarding discharge planning possibly in the next 24 to 48 hours Due to multiple complex medical issues, overall prognosis is guarded The impression and plan of care has been dictated by Yany Wilson, Nurse Practitioner as directed. Dr. Israel MD I have performed a history and examination and MDM of this patient, discussed the same with the dictator, and agree with the dictator's assessment and plan as written ,documented as a scribe. Based on total visit time, I have performed more than 50% of the visit. Objective - Vital Signs Vital signs: Vital Signs Temp 97.7 F 03/04/25 07:39 Pulse 73 03/04/25 07:39 Resp 19 03/04/25 07:39 BP 106/58 03/04/25 07:39 Pulse Ox 93 L 03/04/25 07:39 FiO2 Intake & Output 03/03/25 03/04/25 03/04/25 18:59 06:59 18:59 Intake Total 630 556 Output Total 3650 1600 Balance -3020 -1044 Intake: Oral 630 556 Output: Urine 3650 1600 Other: Voiding Method Indwelling Catheter Indwelling Catheter - Labs CBC & Chem 7: 03/04/25 03:47 03/04/25 03:47 Labs: Abnormal Lab Results - Last 24 Hours (Table) 03/02/25 03/03/25 03/03/25 Range/Units 04:53 11:07 15:59 Hgb (13.0-17.0) g/dL Hct (39.6-50.0) % MCV (80.0-97.0) FL MCH (27.0-32.0) pg MCHC (32.0-37.0) g/dL RDW (11.5-14.5) % Sodium (135-145) mmol/L Potassium 3.2 L (3.5-5.1) mmol/L Carbon Dioxide (21.6-31.8) mmol/L BUN (9.0-27.0) mg/dL Est GFR (CKD-EPI) (>=60) BUN/Creatinine Ratio (12.00-20.00) Ratio POC Glucose (mg/dL) 118 H (70-110) mg/dL AST (14-35) U/L Alkaline Phosphatase (41-126) U/L NT-Pro-B Natriuret Pep 3463 H (0-125) pg/mL Albumin (3.8-4.9) g/dL Albumin/Globulin Ratio (1.60-3.17) Ratio 03/03/25 03/04/25 03/04/25 Range/Units 21:10 03:47 03:47 Hgb 8.8 L (13.0-17.0) g/dL Hct 33.5 L (39.6-50.0) % MCV 72.4 L (80.0-97.0) FL MCH 19.0 L (27.0-32.0) pg MCHC 26.3 L (32.0-37.0) g/dL RDW 22.5 H (11.5-14.5) % Sodium 146 H (135-145) mmol/L Potassium 3.4 L (3.5-5.1) mmol/L Carbon Dioxide 38.8 H (21.6-31.8) mmol/L BUN 42.3 H (9.0-27.0) mg/dL Est GFR (CKD-EPI) 55 L (>=60) BUN/Creatinine Ratio 30.21 H (12.00-20.00) Ratio POC Glucose (mg/dL) (70-110) mg/dL AST 37 H (14-35) U/L Alkaline Phosphatase 212 H (41-126) U/L NT-Pro-B Natriuret Pep (0-125) pg/mL Albumin 3.7 L (3.8-4.9) g/dL Albumin/Globulin Ratio 1.19 L (1.60-3.17) Ratio
[2025-03-05 06:19] LABS: Glucose,Whole Blood 117 mg/dL (70-110)
--- NOTE | 2025-03-05 10:17 | P.PN ---
Subjective Progress Note Date: 03/05/25 This is a 65-year-old male with a past medical history significant for coronary artery disease with previous CABG, congestive heart failure, hypertension, hyperlipidemia, diabetes, and atrial fibrillation. Patient follows in the office with Dr. Richards out of [facility]. We have been asked to see the patient in consultation for congestive heart failure. Patient examined at the bedside. Patient presented to the hospital with a chief complaint of shortness of breath. Patient states he has been feeling short of breath for the past 2 weeks. He also reports having a cough with sputum production. He reports increased swelling in his lower extremities. He reports a 20 pound weight gain in the pa st 6 weeks. He states he has been compliant with all of his medications and has been following a low-sodium diet. Patient was found to be in acute CHF and was started on IV Lasix. DIAGNOSTICS: - EKG reveals atrial fibrillation with controlled ventricular rate - Chest xray cardiomegaly mild pulmonary vascular congestion - Laboratory data: WBC 6.08. Hemoglobin 9.3. Platelet count 266. Sodium 138. Potassium 4.7. BUN 49. Creatinine 1.29. Troponin negative x 3. proBNP 3550. - Current home cardiac medications include aspirin 81 mg daily, Lasix 40 mg twice a day, metoprolol tartrate 50 mg twice a day, Eliquis 5 mg twice a day, lisinopril 20 mg daily, Lipitor 80 mg at night, Jardiance 25 mg daily - Most recent echocardiogram obtained in April 2023 revealed ejection fraction 40 to 45% - Cardiac catheterization history: Unknown 02/27/2025 Patient examined this morning. Patient is sitting up in the chair. Patient continues to report shortness of breath. He denies chest pain or pressure. He continues to have lower extremity edema. Patient's Lasix has been increased to 60 mg every 12 hours per pulmonary. Creatinine today 1.5, up from 1.29. Echocardiogram reveals ejection fraction 40%, global hypokinesis, trace to mild MR, moderate to severe TR 02/28/2025 Patient examined this morning at the bedside. He is sitting up in the chair. He reports improvement in his shortness of breath. He denies chest pain or pressure. He continues to have lower extremity edema although improving. He remains on IV Lasix 60 mg every 12 hours. Creatinine today 1.7. 03/01/2025 Patient was seen and examined sitting up in a chair. Continues to have lower extremity edema. Feels his breathing is improving. Feels significantly better and asking to go home. He remains on IV Lasix 60 mg every 12 hours. Renal function is stable. 03/02/2025 Patient seen and examined sitting up in a chair. Continues to have lower extremity edema. Continues to asked to go home. He remains on IV Lasix 60 mg every 12 hours. Renal function shows some improvement compared to yesterday with a creatinine of 1.5 03/03/2025 Patient is sitting in the chair. Still has lower extremity edema and appears volume overloaded is getting IV Lasix extremities twice daily as per nephrology recommendations. Kidney function is 1.3 today yesterday it was 1.5. Noticed to be hypoglycemic this morning 03/04 The patient seen and examined. He states he is ready to go home but has been stating this all along. He is on oxygen 4 L nasal cannula with pulse ox of 93%. Patient has been maintained on IV Lasix and Aldactone was added. He has a negative fluid balance and documented weight loss. Heart rate is running 59-80, blood pressure 95/55. Repeat blood work reveals hemoglobin 8.8, BUN 42 creatinine 1.4, potassium 3.8. Chest x-ray has been ordered today by pulmonary medicine. 03/05 Patient seen and examined. He is continued on oxygen at 4 L nasal cannula with a pulse ox of 97%. Vital signs have been stable. Blood pressure 121/74, heart rate 76. He remains in atrial fibrillation. No repeat blood work at the time of this dictation. Yesterday, IV Lasix was transitioned to oral Bumex and lisinopril was added at a lower dose. PHYSICAL EXAM: VITAL SIGNS: Reviewed. GENERAL: Well-developed in no acute distress. HEENT: Head is normocephalic. Pupils are equal, round. Sclerae anicteric. Mucous membranes of the mouth are moist. Neck supple. No JVD or thyromegaly LUNGS: Respirations even and unlabored. Lungs diminished bilaterally with bibasilar crackles HEART: Irregular rate and rhythm. S1 and S2 heard. ABDOMEN: Soft. Nondistended. Nontender. EXTREMITIES: Normal range of motion. No clubbing or cyanosis. Peripheral pulses intact. Bilateral lower extremity edema noted NEUROLOGIC: Awake and alert. Oriented x 3. ASSESSMENT: Acute on chronic heart failure with reduced EF Coronary artery disease with previous CABG Ischemic cardiomyopathy 40 to 45% Persistent atrial fibrillation Hypertension Hyperlipidemia Diabetes Obesity: BMI 48.7 PLAN: Continue patient on Eliquis 5 mg twice daily, aspirin 81 mg daily, atorvastatin 80 mg at bedtime, Farxiga 10 mg daily, metoprolol tartrate 50 mg twice daily Continue oral Bumex 2 mg in the morning and 1 mg in the afternoon Continue lisinopril at a reduced 10 mg daily Continue Zaroxolyn 5 mg daily and Aldactone 25 mg daily Patient is cleared for discharge from cardiology and may follow-up with his primary game warden in 1 to 2 weeks. Nurse practitioner note has been reviewed, I agree with documented findings and plan of care. Patient was seen and examined. Objective - Vital Signs Vital signs: Vital Signs Temp 98.0 F 03/05/25 07:11 Pulse 76 03/05/25 07:11 Resp 15 03/05/25 07:11 BP 121/74 03/05/25 07:11 Pulse Ox 97 03/05/25 07:11 FiO2 Intake & Output 03/04/25 03/05/25 03/05/25 18:59 06:59 18:59 Intake Total 230 Output Total 4200 1650 Balance -3970 -1650 Intake: Oral 230 Output: Urine 4200 1650 Uretheral (Hatfield) 2100 Other: Voiding Method Urinal # Voids 3 - Labs CBC & Chem 7: 03/04/25 03:47 03/04/25 03:47 Labs: Abnormal Lab Results - Last 24 Hours (Table) 03/04/25 03/05/25 Range/Units 20:15 06:18 POC Glucose (mg/dL) 196 H 117 H (70-110) mg/dL
[2025-03-05] MEDS: BUMETANIDE 1 MG TAB PO SCH (10:20)
[2025-03-05] MEDS: TAMSULOSIN 0.4 MG CAP.ER.24H PO SCH (10:22)
[2025-03-05 10:41] LABS: African American GFR (CKD) 87 (>60 ml/min/1.73 sqM); Blood Urea Nitrogen 46 mg/dL (9-20); Calcium 9.1 mg/dL (8.4-10.2); Chloride 92 mmol/L (98-107); Glucose 147 mg/dL (74-99); Non-African American GFR(CKD) 75 (>60 ml/min/1.73 sqM); Potassium 3.3 mmol/L (3.5-5.1); Sodium 140 mmol/L (137-145)
[2025-03-05 10:48] LABS: Anion Gap 7 mmol/L
[2025-03-05 10:55] LABS: Carbon Dioxide 41 mmol/L (22-30)
[2025-03-05 11:20] LABS: Glucose,Whole Blood 141 mg/dL (70-110)
[2025-03-05] MEDS: SODIUM FERRIC GLUCONAT-SUCROSE 125 MG in SODIUM CHLORIDE 0.9% 100 ML IVPB ONE (11:25)
--- NOTE | 2025-03-05 13:49 | P.PN ---
Subjective Progress Note Date: 03/05/25 This is a morbidly obese 65-year-old male patient with a known history of obstructive sleep apnea maintained on CPAP, congestive heart failure, atrial fibrillation anticoagulated with Eliquis, diabetes mellitus, hypertension, coronary artery disease with stent placement x 7, coronary artery bypass surgery in 2016, former smoker of 30 years at 3 packs/day however quit 30 years ago. He presented here on February 25, 2025 with complaints of increasing shortness of breath, increasing lower extremity edema. Chest x-ray showed cardiomegaly and mild pulmonary vascular congestion. White count 6.5. Hemoglobin 8.4. Platelets 267. Sodium 138. Potassium 4.9. Bicarb 29. BUN 48. Creatinine 1.5. Glucose 171. Troponins were negative. proBNP 3550. Echocardiogram revealed impaired left ventricular systolic function with an ejection fraction of 40%. Severe pulmonary hypertension. Moderate to severe tricuspid regurgitation. He is seen today in consultation on the regular medical floor. He is currently resting in bed. Awake and alert in no acute distress. He is maintaining O2 saturations in the 90s on 3 L/min per nasal cannula. He has been afebrile. Hemodynamically stable. He has been initiated on Lasix 60 mg IV every 12 hours. The patient is seen today February 28, 2025 in follow-up on the regular medical floor. He is currently sitting up in a chair at the bedside. Awake and alert in no acute distress. Maintaining O2 saturations in the 90s on 5 L/min per nasal cannula. He is breathing a bit easier today compared to yesterday. Hatfield catheter was placed. He is in a -6 L balance. White count 8.1. Hemoglobin 8.9. Platelets 278. Sodium 140. Potassium 5.1. Bicarb 28. BUN 50. Creatinine 1.7. Glucose 136. Urinalysis clean. He remains on Lasix 60 mg IV every 12 hours and Zaroxolyn. Anticoagulated with Eliquis. He is continued on azithromycin and ceftriaxone. Procalcitonin was negative at 0.08. He has been afebrile. Hemodynamically stable. The patient is seen today March 01, 2025 in follow-up on the regular medical floor. He is currently sitting up in a chair. Awake and alert in no acute distress. Maintaining O2 saturations in the 90s on 5 L/min per nasal cannula. He has been afebrile. Hemodynamically stable. Follow-up chest x-ray shows right lower lobe atelectasis. Minimally in the left lower lobe. Sodium 139. Potassium 4.6. Bicarb 28. BUN 58. Creatinine 1.8. Glucose 94. He remains on Lasix 60 mg every 12 hours and Zaroxolyn. Anticoagulated with Eliquis. Remains on ceftriaxone. Remains on bronchodilators as needed. Completed azithromycin. The patient is seen today March 02, 2025 in follow-up on the regular medical floor. He is awake and alert in no acute distress. Breathing easier today compared to yesterday. He is maintaining O2 saturations in the upper 90s on 4 L/min per nasal cannula. White count 6.9. Hemoglobin 8.9. Platelets 235. Sodium 138. Potassium 3.8. Bicarb 38. BUN 64. Creatinine 1.52. Glucose 153. He is continued on Lasix 60 mg IV every 12 hours. Remains on Zaroxolyn. He is currently in a -5.7 L balance. Remains on ceftriaxone. Anticoagulated with Eliquis. Receiving iron replacement. The patient is seen today March 03, 2025 in follow-up on the regular medical floor. He is currently resting in bed. Awake and alert in no acute distress. He is maintaining O2 saturations in the 90s on 4 L/min per nasal cannula. He uses his home CPAP device at night. White count 6.2. Hemoglobin 8.7. Platelets 242. Sodium 144. Potassium 3.1. Bicarb 38. BUN 47. Creatinine 1.3. Glucose 60. He is continued on IV diuretics. Continued on oral diuretics. Antibiotics in the form of ceftriaxone. Anticoagulated with Eliquis. Currently in a -7 L balance. The patient is seen today March 04, 2025 in follow-up on the regular medical floor. He is currently up in a chair at the bedside. Awake and alert in no acute distress. Maintaining O2 saturations in the 90s on 4 L/min per nasal cannula. No IV fluids. White count 5.6. Hemoglobin 8.8. Platelets 245. Sodium 146. Potassium 3.8. Bicarb 39. BUN 42. Creatinine 1.4. Glucose 77. He has been converted to oral diuretics. He remains on Bumex, Zaroxolyn, Aldactone. Anticoagulated with Eliquis. On ceftriaxone. Continued on Lantus and Humalog sliding scale. Currently in a -4 L balance. The patient is seen today March 05, 2025 in follow-up on the regular medical floor. He is currently awake and alert in no acute distress. Sitting up at the bedside. Denies any worsening shortness of breath, cough or congestion. He is maintaining O2 saturations in the upper 90s on 4 L/min per nasal cannula. He is afebrile. Hemodynamically stable. He remains on oral Bumex, Aldactone and Flomax. Anticoagulated with Eliquis. Currently in a -5.6 L balance. Sodium 140. Potassium 3.3. Bicarb 41. BUN 46. Creatinine 1.03. Glucose 147. Objective - Vital Signs Vital signs: Vital Signs Temp 98.0 F 03/05/25 07:11 Pulse 76 03/05/25 07:11 Resp 15 03/05/25 07:11 BP 119/74 03/05/25 10:22 Pulse Ox 96 03/05/25 10:57 FiO2 Intake & Output 03/04/25 03/05/25 03/05/25 18:59 06:59 18:59 Intake Total 230 Output Total 4200 1650 Balance -3970 -1650 Intake: Oral 230 Output: Urine 4200 1650 Uretheral (Hatfield) 2100 Other: Voiding Method Urinal # Voids 3 - Exam GENERAL EXAM: Alert, pleasant 65-year-old morbidly obese male, up in a chair, on 4 L nasal cannula, in no apparent distress. HEAD: Normocephalic. EYES: Normal reaction of pupils, equal size. NOSE: Clear with pink turbinates. THROAT: No erythema or exudates. NECK: No masses, no JVD. CHEST: No chest wall deformity. LUNGS: Equal air entry with crackles in the bilateral bases. CVS: S1 and S2 normal with no audible murmur, regular rhythm. ABDOMEN: Soft, unable to appreciate any hepatosplenomegaly, normal bowel sounds, no guarding or rigidity. SPINE: No scoliosis or deformity SKIN: No rashes CENTRAL NERVOUS SYSTEM: No focal deficits, tone is normal in all 4 extremities. EXTREMITIES: There is 1+ peripheral edema. No clubbing, no cyanosis. Peripheral pulses are intact. - Labs CBC & Chem 7: 03/04/25 03:47 03/05/25 10:03 Labs: Abnormal Lab Results - Last 24 Hours (Table) 03/04/25 03/05/25 03/05/25 Range/Units 20:15 06:18 10:03 Potassium 3.3 L (3.5-5.1) mmol/L Chloride 92 L (98-107) mmol/L Carbon Dioxide 41 H* (22-30) mmol/L BUN 46 H (9-20) mg/dL Glucose 147 H (74-99) mg/dL POC Glucose (mg/dL) 196 H 117 H (70-110) mg/dL 03/05/25 Range/Units 11:19 Potassium (3.5-5.1) mmol/L Chloride (98-107) mmol/L Carbon Dioxide (22-30) mmol/L BUN (9-20) mg/dL Glucose (74-99) mg/dL POC Glucose (mg/dL) 141 H (70-110) mg/dL Assessment and Plan Assessment: Acute hypoxemic respiratory failure secondary to an acute exacerbation of systolic congestive heart failure, severe pulmonary hypertension, morbid obesity Acute on chronic kidney disease Chronic kidney disease stage IIIa Severe pulmonary hypertension/cor pulmonale Morbid obesity with a BMI of 47.7 kg/m Obstructive sleep apnea maintained on BiPAP Obesity/hypoventilation syndrome Chronic systolic congestive heart failure with an ejection fraction of 40% Coronary artery disease with previous multiple stent placements/CABG 2015 Atrial fibrillation anticoagulated with Eliquis Diabetes mellitus, type II Hypertension History of prostate cancer, status post surgery Former smoker Gastroesophageal reflux disease Hyperlipidemia Plan: The patient was seen and evaluated Labs and medications reviewed Continued on Bumex, Zaroxolyn, Aldactone Currently in a -5.6 L balance today Anticoagulated with Eliquis Protonix for GI prophylaxis Increase his activity as tolerated Currently on 4 L/min nasal cannula To be evaluated for possible home oxygen Home once cleared by cardiology Plan is for home with home care at discharge I have personally seen and examined the patient, performed the documentation and the assessment and plan as written. Number of minutes spent on the visit: 10 Dictation was produced using [employer] dictation software. Please excuse any grammatical, word or spelling errors.
[2025-03-05 13:55] VITALS: BP 110/56; PULSE 79; RESP 16; TEMP 98.3
--- NOTE | 2025-03-05 23:08 | P.PN ---
Subjective Patient is seen for follow-up for chronic kidney disease and acute kidney injury. Currently maintained on IV lasix, metolazone and IV farxiga No significant complaints Edema has improved Serum creatinine decreased to 1.0 mg/dL Patient has indwelling Hatfield catheter Objective - Vital Signs Vital signs: Vital Signs Temp 98.3 F 03/05/25 13:54 Pulse 79 03/05/25 13:54 Resp 16 03/05/25 13:54 BP 110/56 03/05/25 13:54 Pulse Ox 99 03/05/25 13:54 FiO2 Intake & Output 03/05/25 03/05/25 03/06/25 06:59 18:59 06:59 Output Total 1650 750 Balance -1650 -750 Output: Urine 1650 750 Other: Voiding Method Urinal # Voids 3 1 - Exam Patient is awake, comfortable, no acute distress Examination of the heart S1 and S2 Examination of the lungs bilateral breath sounds are heard Abdomen is soft obese Examination of lower extremity shows chronic skin changes with 2+ edema, improved [employer] exam grossly intact - Labs CBC & Chem 7: 03/04/25 03:47 03/05/25 10:03 Labs: Abnormal Lab Results - Last 24 Hours (Table) 03/05/25 03/05/25 03/05/25 Range/Units 06:18 10:03 11:19 Potassium 3.3 L (3.5-5.1) mmol/L Chloride 92 L (98-107) mmol/L Carbon Dioxide 41 H* (22-30) mmol/L BUN 46 H (9-20) mg/dL Glucose 147 H (74-99) mg/dL POC Glucose (mg/dL) 117 H 141 H (70-110) mg/dL Assessment and Plan Assessment: 1. Acute kidney injury secondary to ATN secondary to cardiorenal syndrome. Creatinine staying at 1.7-1.8, decreased to 1.0 today UA benign. No hydronephrosis noted on kidney ultrasound. Left kidney not seen due to body habitus. 2. Chronic kidney disease stage IIIa with baseline creatinine 1.3-1.4 secondary to nephrosclerosis/diabetic kidney disease. 3. Acute hypoxic respiratory failure. 4. Volume overload. Improving with diuresis. 5. Diabetes mellitus. 6. Anemia of chronic kidney disease. Iron deficiency noted. 7. History of A-fib. 8. Acute on chronic systolic CHF ejection fraction of 40% with severe pulmonary hypertension, moderate to severe tricuspid regurgitation. 9. Metabolic alkalosis secondary to diuresis Plan: Continue with oral diuretics Stable for discharge from nephrology standpoint Discussed salt and fluid restriction Continue with Hatfield catheter Repeat labs as outpatient in 3 to 4 days
[2025-03-06] MEDS ORDERED: FERROUS SULFATE 325 MG TAB PO SCH (12:30)
--- NOTE | 2025-03-06 14:16 | P.DS ---
Providers Date of admission: 02/25/25 18:31 Expected date of discharge: 03/05/25 Attending physician: Lonnie Martins Consults: 02/25/25 18:30 Consult Physician Routine Consulting Provider: Cuco Sotomayor Consult Reason/Comments: chf Do you want consulting provider notified?: Yes 02/27/25 11:56 Consult Physician Urgent Consulting Provider: Jose Narvaez Consult Reason/Comments: nelda Do you want consulting provider notified?: Already Contacted 02/27/25 13:17 Consult Physician Routine Consulting Provider: Dane Rey Consult Reason/Comments: worsening pulmonary infilterate Do you want consulting provider notified?: Yes Primary care physician: Jeanie Sanchez Hospital Course: Final diagnosis Acute CHF exacerbation, with reduced EF Acute hypoxic respiratory failure secondary to above, requiring oxygen on discharge Ischemic cardiomyopathy with an EF of 40 to 45% Mild hypertension, asymptomatic Acute kidney injury on CKD, improving Acute urinary tract infection, present on admission Chronic kidney disease history Chronic anemia with slight worsening recently History of A-fib, persistent on Eliquis at home Morbid obesity with BMI of 47.7 Coronary artery disease, status post CABG and stent placement Diabetes mellitus, type II, uncontrolled with hyperglycemia Hypertension Hyperlipidemia Benign prostatic hypertrophy Sleep apnea on CPAP/BiPAP. Gait dysfunction with generalized weakness GI prophylaxis DVT prophylaxis Full code Discharge disposition Patient is being discharged in a stable condition with guarded prognosis to home with home care. Patient will follow-up with Dr. Sanchez in the outpatient setting upon discharge. Patient is to continue with current cardiac medications and close outpatient follow-up with cardiology as scheduled. Total time taken is greater than 35 minutes. Hospital course This is a 65-year-old male who was recently admitted with increasing shortness of breath secondary to CHF exacerbation being closely monitored with multiple consultations. Patient with significant volume overload and lower extremity swelling along with shortness of breath requiring high flow oxygen initially. Patient has transition down to 4 L via nasal cannula and home O2 evaluation was performed and patient will qualify for oxygen on discharge to manage CHF. Patient also noted to have an acute urinary tract infection and has received a dequate antibiotics and will not require antibiotics on discharge. Patient did have indwelling Hatfield catheter for strict I&O and initially retention although his voiding and not requiring Hatfield catheter on discharge. Patient was evaluated by physical therapy and significantly weak with multiple falls most recently recommending rehab although patient is adamant he is returning home. Home care being arranged and patient has been instructed to follow-up with cardiology as well as his primary care provider this week. Patient reports he still drives himself to appointments. Patient is rather noncompliant with diet and fluid restrictions and instructed patient to follow with 40 ounces of fluid or less daily and close outpatient follow-up. Patient to continue on cardiac medications as mentioned below and close outpatient follow-up in the next 1 to 2 weeks. Patient has been cleared by consultations for discharge. Please refer to consultation notes for further HPI. Currently no reports of chest pain, no worsening shortness of breath, or palpitations. Patient is afebrile. Patient continues with lower extremity edema although improved and encouraged the patient to continue using Chai wraps from the toes up to the knees and taking the Chai wraps off at bedtime and elevating while at rest. Patient is unable to get compression stockings on himself. No reports of nausea or vomiting and patient is tolerating diet. Patient will be discharged home today. Guarded prognosis and high risk for readmissions given noncompliance and significant multiple comorbidities. Physical exam: Gen: This is a 65-year-old male who is awake, alert and oriented x 3, well- developed, elderly appearing, morbidly obese HEENT: Head is atraumatic, normocephalic. Pupils equal, round. Sclerae is anicte jie. NECK: Supple. No JVD. No lymphadenopathy. No thyromegaly. LUNGS: Diminished breath sounds bilaterally otherwise clear to auscultation. No wheezes or rhonchi. No intercostal retractions. HEART: S1, S2 are muffled ABDOMEN: Soft. Morbidly obese bowel sounds are present. No masses. No tenderness. EXTREMITIES: No pedal edema. No calf tenderness. Lower extremity edema noted with some improvement although continued to be 1+ pitting NEUROLOGICAL: Patient is awake, alert and oriented x3. Cranial nerves 2 through 12 are grossly intact. Diffusely weak Please refer to medication reconciliation sheet for a list of medications. The impression and plan of care has been dictated by Yany Wilson, Nurse Practitioner as directed. Dr. Israel MD I have performed a history and examination and MDM of this patient, discussed the same with the dictator, and agree with the dictator's assessment and plan as written ,documented as a scribe. Based on total visit time, I have performed more than 50% of the visit. Patient Condition at Discharge: Fair Plan - Discharge Summary New Discharge Prescriptions: New Spironolactone [Aldactone] 25 mg PO DAILY #30 tab Bumetanide [BUMEX] 2 mg PO DAILY #90 tab Tamsulosin [Flomax] 0.4 mg PO PC-BRKFST #30 cap Collagenase [Santyl Ointment] 1 applic TOPICAL DAILY each metOLazone [Zaroxolyn] 5 mg PO DAILY #30 tab lisinopriL [Zestril] 10 mg PO DAILY #30 tab Docusate [Colace] 100 mg PO BID PRN cap PRN Reason: Constipation Ferrous Sulfate [Iron (65 MG Elemental)] 325 mg PO W/LUNCH #30 tab Continue Apixaban [Eliquis] 5 mg PO BID Omeprazole [PriLOSEC] 20 mg PO DAILY PRN PRN Reason: Gi Upset Atorvastatin [Lipitor] 80 mg PO HS Empagliflozin [Jardiance] 25 mg PO DAILY Aspirin [Adult Low Dose Aspirin EC] 81 mg PO DAILY Multivitamins, Thera [Multivitamin (formulary)] 1 tab PO DAILY metFORMIN HCL [Glucophage] 1,000 mg PO BID Insulin Aspart [NovoLOG Flexpen] 36 - 50 units SQ AC-TID Insulin Degludec [Tresiba Flextouch U-200 Pen] 60 units SQ HS Metoprolol Tartrate [Lopressor] 50 mg PO BID Discontinued lisinopriL 20 mg PO DAILY Triamterene/Hydrochlorothiazid [Triamterene-Hctz 37.5-25 mg Cp] 1 cap PO DAILY Furosemide [Lasix] 40 mg PO BID No Action Bumetanide [BUMEX] 1 mg PO DAILY@1600 Vericiguat [Verquvo] 2.5 mg PO DIRECTED Discharge Medication List Apixaban [Eliquis] 5 mg PO BID 10/23/18 [History] Aspirin [Adult Low Dose Aspirin EC] 81 mg PO DAILY 10/23/18 [History] Atorvastatin [Lipitor] 80 mg PO HS 10/23/18 [History] Empagliflozin [Jardiance] 25 mg PO DAILY 10/23/18 [History] Omeprazole [PriLOSEC] 20 mg PO DAILY PRN 10/23/18 [History] Insulin Aspart [NovoLOG Flexpen] 36 - 50 units SQ AC-TID 10/03/22 [History] Insulin Degludec [Tresiba Flextouch U-200 Pen] 60 units SQ HS 10/03/22 [History] Metoprolol Tartrate [Lopressor] 50 mg PO BID 10/03/22 [History] Multivitamins, Thera [Multivitamin (formulary)] 1 tab PO DAILY 04/24/23 [History] metFORMIN HCL [Glucophage] 1,000 mg PO BID 02/25/25 [History] Bumetanide [BUMEX] 2 mg PO DAILY #90 tab 03/05/25 [Rx] Collagenase [Santyl Ointment] 1 applic TOPICAL DAILY each 03/05/25 [Rx] Docusate [Colace] 100 mg PO BID PRN cap 03/05/25 [Rx] Ferrous Sulfate [Iron (65 MG Elemental)] 325 mg PO W/LUNCH #30 tab 03/05/25 [Rx] Spironolactone [Aldactone] 25 mg PO DAILY #30 tab 03/05/25 [Rx] Tamsulosin [Flomax] 0.4 mg PO PC-BRKFST #30 cap 03/05/25 [Rx] lisinopriL [Zestril] 10 mg PO DAILY #30 tab 03/05/25 [Rx] metOLazone [Zaroxolyn] 5 mg PO DAILY #30 tab 03/05/25 [Rx] Bumetanide [BUMEX] 1 mg PO DAILY@1600 03/06/25 [History] Vericiguat [Verquvo] 2.5 mg PO DIRECTED 03/06/25 [History] Follow up Appointment(s)/Referral(s): [facility] [NON-STAFF] - As Needed (Call [facility] once home to arrange delivery of the oxygen concentrator today) Jeanie Sanchez DO [Primary Care Provider] - 1-2 days [facility] [[facility]] - As Needed ([facility] will call you to schedule your in home nursing visits. ) Ambulatory/Diagnostic Orders: Basic Metabolic Panel [LAB.AMB] Time Frame: 3 Days, Location: None Selected Activity/Diet/Wound Care/Special Instructions: Activity limited until follow-up Follow-up with primary care provider this week Follow-up with cardiology outpatient Follow-up with pulmonary outpatient Continue taking medications as prescribed Continue monitoring Accu-Cheks AC and at bedtime Continue heart healthy diabetic diet Recommend fluid restrictions of 40 ounces of fluid the entire day that includes all water, coffee, pop, tea intake Repeat labs in the outpatient setting Continue using incentive spirometer outpatient Use Chai wraps and/or compression stockings to bilateral lower extremities and elevate while at rest Discharge Disposition: HOME WITH HOME HEALTH SERVICES
== END 2025-03-05 15:32 | disposition home health service (06) | DRG 291 ==
LOC: EC 16:58 → 4SSUR 18:31
PROVIDERS: ADMIT Hospitalist; ATTEND Hospitalist
DX: I13.0 Hypertensive heart and chronic kidney disease with heart failure and stage 1 through stage 4 chronic kidney disease, or unspecified chronic kidney disease (principal); I50.23 Acute on chronic systolic (congestive) heart failure; J96.01 Acute respiratory failure with hypoxia; N17.0 Acute kidney failure with tubular necrosis; E87.3 Alkalosis; E66.2 Morbid (severe) obesity with alveolar hypoventilation; I27.81 Cor pulmonale (chronic); D63.1 Anemia in chronic kidney disease; E11.22 Type 2 diabetes mellitus with diabetic chronic kidney disease; N18.31 Chronic kidney disease, stage 3a; I08.1 Rheumatic disorders of both mitral and tricuspid valves; Z68.42 Body mass index [BMI] 45.0-49.9, adult; I48.19 Other persistent atrial fibrillation; Z68.43 Body mass index [BMI] 50.0-59.9, adult; N39.0 Urinary tract infection, site not specified; I27.29 Other secondary pulmonary hypertension; E11.621 Type 2 diabetes mellitus with foot ulcer; L98.492 Non-pressure chronic ulcer of skin of other sites with fat layer exposed; L97.512 Non-pressure chronic ulcer of other part of right foot with fat layer exposed; Z79.4 Long term (current) use of insulin; D50.9 Iron deficiency anemia, unspecified; Z95.1 Presence of aortocoronary bypass graft; K21.9 Gastro-esophageal reflux disease without esophagitis; I25.5 Ischemic cardiomyopathy; Z79.01 Long term (current) use of anticoagulants; N40.0 Benign prostatic hyperplasia without lower urinary tract symptoms; I25.10 Atherosclerotic heart disease of native coronary artery without angina pectoris; T50.2X5A Adverse effect of carbonic-anhydrase inhibitors, benzothiadiazides and other diuretics, initial encounter; E78.5 Hyperlipidemia, unspecified; I25.2 Old myocardial infarction; I45.10 Unspecified right bundle-branch block; R29.6 Repeated falls; Z79.82 Long term (current) use of aspirin; Z79.84 Long term (current) use of oral hypoglycemic drugs; Z79.899 Other long term (current) drug therapy; Z85.46 Personal history of malignant neoplasm of prostate; Z86.0100 Personal history of colon polyps, unspecified; Z87.891 Personal history of nicotine dependence; Z91.119 Patient's noncompliance with dietary regimen due to unspecified reason; Z95.5 Presence of coronary angioplasty implant and graft; X58.XXXA Exposure to other specified factors, initial encounter; Z87.19 Personal history of other diseases of the digestive system
CPT/HCPCS: 36415; 71045; 76770; 80048; 80053; 81003; 82607; 82728; 82746; 83036; 83540; 83550; 83605; 83735; 83880; 84132; 84145; 84484; 85025; 85610; 85730; 93005; 93306; 94640; 94760; 96374; 99291

== ENCOUNTER 2025-03-06 07:57 | Inpatient (IN) | payer MEDICARE ==
[2025-03-06] MEDS: FUROSEMIDE 10 MG/ML 4 ML VIAL IV STA (08:45)
[2025-03-06 08:51] LABS: Basophils # (A) 0.05 10*3/uL (0.00-0.10); Basophils % (A) 0.7 %; Eosinophils # (A) 0.07 10*3/uL (0.04-0.35); HCT 34.2 % (39.6-50.0); HGB 9.5 g/dL (13.0-17.0); Immature Platelet Fraction 2.6 % (1.1-6.1); Lymphocytes # (A) 0.93 10*3/uL (0.90-5.00); Lymphocytes % (A) 13.1 %; MCH 19.4 pg (27.0-32.0); MCHC 27.8 g/dL (32.0-37.0); MCV 69.9 fL (80.0-97.0); Mean Platelet Volume 9.8 fL (9.5-12.2); Monocytes # (A) 0.86 10*3/uL (0.20-1.00); Monocytes % (A) 12.1 %; Neutrophils # (A) 5.18 10*3/uL (1.80-7.70); Neutrophils % (A) 72.8 %; Platelet Count 196 10*3/uL (140-440); RBC 4.89 10*6/uL (4.40-5.60); RDW 23.4 % (11.5-14.5); WBC 7.11 10*3/uL (4.50-10.00)
--- NOTE | 2025-03-06 08:51 | ED ---
General Adult HPI - General Chief complaint: Weakness Stated complaint: Weakness Time Seen by Provider: 03/06/25 08:00 Source: patient, EMS, RN notes reviewed, old records reviewed Mode of arrival: EMS Limitations: no limitations - History of Present Illness Initial comments: This is a 65-year-old male with a past medical history significant for congest rubén heart failure diabetes bypass surgery hypertension high cholesterol. Patient states he was a smoker but he quit 30 years ago. Patient was recently in the hospital for congestive heart failure for 7 days. Patient states he is got home and got considerably weaker and he was unable to go to the bathroom and get up off the toilet. Patient states he does not think he can go back home because he is not strong enough. Son states that the patient was not participating in physical therapy. - Related Data Home Medications Medication Instructions Recorded Confirmed Apixaban [Eliquis] 5 mg PO BID 10/23/18 03/06/25 Aspirin [Adult Low Dose Aspirin EC] 81 mg PO DAILY 10/23/18 03/06/25 Atorvastatin [Lipitor] 80 mg PO HS 10/23/18 03/06/25 Empagliflozin [Jardiance] 25 mg PO DAILY 10/23/18 03/06/25 Omeprazole [PriLOSEC] 20 mg PO DAILY PRN 10/23/18 03/06/25 Insulin Aspart [NovoLOG Flexpen] 36 - 50 units SQ AC-TID 10/03/22 03/06/25 Insulin Degludec [Tresiba 60 units SQ HS 10/03/22 03/06/25 Flextouch U-200 Pen] Metoprolol Tartrate [Lopressor] 50 mg PO BID 10/03/22 03/06/25 Multivitamins, Thera [Multivitamin 1 tab PO DAILY 04/24/23 03/06/25 (formulary)] metFORMIN HCL [Glucophage] 1,000 mg PO BID 02/25/25 03/06/25 Bumetanide [BUMEX] 1 mg PO DAILY@1600 03/06/25 03/06/25 Vericiguat [Verquvo] 2.5 mg PO DIRECTED 03/06/25 03/06/25 Previous Rx's Medication Instructions Recorded Bumetanide [BUMEX] 2 mg PO DAILY #90 tab 03/05/25 Collagenase [Santyl Ointment] 1 applic TOPICAL DAILY each 03/05/25 Docusate [Colace] 100 mg PO BID PRN cap 03/05/25 Ferrous Sulfate [Iron (65 MG 325 mg PO W/LUNCH #30 tab 03/05/25 Elemental)] Spironolactone [Aldactone] 25 mg PO DAILY #30 tab 03/05/25 Tamsulosin [Flomax] 0.4 mg PO PC-BRKFST #30 cap 03/05/25 lisinopriL [Zestril] 10 mg PO DAILY #30 tab 03/05/25 metOLazone [Zaroxolyn] 5 mg PO DAILY #30 tab 03/05/25 Allergies Allergy/AdvReac Type Severity Reaction Status Date / Time No Known Allergies Allergy Verified 03/06/25 09:14 Review of Systems ROS Statement: Those systems with pertinent positive or pertinent negative responses have been documented in the HPI. ROS Other: All systems not noted in ROS Statement are negative. Past Medical History Past Medical History: Atrial Fibrillation, Coronary Artery Disease (CAD), Cancer, Diabetes Mellitus, Hypertension, Myocardial Infarction ([place]), Prostate Disorder, Sleep Apnea/CPAP/BIPAP Additional Past Medical History / Comment(s): PROSTATE CANCER, uses CPAP, CHF Last Myocardial Infarction Date:: 2015 History of Any Multi-Drug Resistant Organisms: None Reported Past Surgical History: Appendectomy, Coronary Bypass/CABG, Heart Catheterization With Stent, Hernia Repair, Prostate Surgery Additional Past Surgical History / Comment(s): HEART CATHS X7 WITH TOTAL OF 7 STENTS, CABG OCT 2016, JAYLYN INGUINAL HERNIAS, UMBILICAL HERNIAS. Past Anesthesia/Blood Transfusion Reactions: No Reported Reaction Additional Past Anesthesia/Blood Transfusion Reaction / Comment(s): no blood transfusion Date of Last Stent Placement:: 2014 Past Psychological History: No Psychological Hx Reported Smoking Status: Former smoker Past Alcohol Use History: Rare Past Drug Use History: None Reported - Past Family History Mother Family Medical History: No Reported History Additional Family Medical History / Comment(s): Heart disease Father Family Medical History: Diabetes Mellitus Additional Family Medical History / Comment(s): Heart disease General Exam - General Exam Comments Initial Comments: GENERAL: Patient is well-developed and well-nourished. Patient is nontoxic and well- hydrated and is in no acute distress. ENT: Neck is soft and supple. No significant lymphadenopathy is noted. Oropharynx is clear. Moist mucous membranes. Neck has full range of motion without eliciting any pain. EYES: The sclera were anicteric and conjunctiva were pink and moist. Extraocular movements were intact and pupils were equal round and reactive to light. Eye lids were unremarkable. PULMONARY: Close in the bases bilaterally CARDIOVASCULAR: There is a regular rate and rhythm without any murmurs gallops or rubs. ABDOMEN: Soft and nontender with normal bowel sounds. SKIN: Skin is clear with no lesions or rashes and otherwise unremarkable. NEUROLOGIC: Patient is alert and oriented x3. Cranial nerves II through XII are grossly intact. Motor and sensory are also intact. Normal speech, volume and content. Symmetrical smile. MUSCULOSKELETAL: Normal extremities with adequate strength and full range of motion. Chronic cellulitis bilaterally edema 2+ LYMPHATICS: No significant lymphadenopathy is noted PSYCHIATRIC: Normal psychiatric evaluation. Limitations: no limitations Course Vital Signs 03/06/25 03/06/25 03/06/25 08:02 09:21 10:29 Temperature 97.8 F Pulse Rate 77 73 83 Respiratory 20 18 18 Rate Blood Pressure 108/47 104/65 113/67 O2 Sat by Pulse 95 95 97 Oximetry Medical Decision Making - Medical Decision Making EKG is interpreted by myself. EKG shows atrial fibrillation at 81 bpm QRS is 210 QT interval is 490 QTc is 427. Patient's EKG has a right bundle branch block Was pt. sent in by a medical professional or institution (RIANNA Kim, PAINTER DECORATOR, urgent care, hospital, or senior care...) When possible be specific @ -No Did you speak to anyone other than the patient for history (EMS, parent, family, police, friend...)? What history was obtained from this source @ -No Did you review nursing and triage notes (agree or disagree)? Why? @ -I reviewed and agree with nursing and triage notes Were old charts reviewed (outside hosp., previous admission, EMS record, old EKG, old radiological studies, urgent care reports/EKG's, senior care records)? Report findings @ -No old charts were reviewed Differential Diagnosis? @ -Differential Dyspnea: Coronary syndrome, arrhythmia, tamponade, asthma, COPD, pulmonary embolism, pneumonia, pneumothorax, pulmonary effusion, anaphylaxis, diabetic ketoacidosis, flailed chest, pulmonary contusion, diaphragmatic rupture, anemia, neuro muscular, this is not meant to be an all-inclusive list. Differential Weakness: Hypoglycemia, shock, sepsis, hyponatremia, anemia, infection, TN, ETOH, adverse medicine reaction, overdose, stroke, this is not meant to be an all-inclusive list. EKG interpreted by me (3pts min.). @ -As above X-rays interpreted by me (1pt min.). @ -Patient's chest x-ray shows pleural effusion on the right and pulmonary edema CT interpreted by me (1pt min.). @ -None done U/S interpreted by me (1pt. min.). @ -None done What testing was considered but not performed or refused? (CT, X-rays, U/S, labs)? Why? @ -None What meds were considered but not given or refused? Why? @ -None Did you discuss the management of the patient with other professionals (professionals i.e. , PA, PAINTER DECORATOR, lab, RT, psych nurse, social media assistant, art objects salesperson, teacher, dispatch officer, rehabilitation case coordinator)? Give summary @ -I spoke with Dr. Wood he agreed to admit the patient Was smoking cessation discussed for >3mins.? @ -No Was critical care preformed (if so, how long)? @ -No Were there social determinants of health that impacted care today? How? (Homelessness, low income, unemployed, alcoholism, drug addiction, transportation, low edu. Level, literacy, decrease access to med. care, senior care, rehab)? @ -No Was there de-escalation of care discussed even if they declined (Discuss DNR or withdrawal of care, Hospice)? DNR status @ -No What co-morbidities impacted this encounter? (DM, HTN, Smoking, COPD, CAD, Cancer, CVA, ARF, Chemo, Hep., AIDS, mental health diagnosis, sleep apnea, morbid obesity)? @ -None Was patient admitted / discharged? Hospital course, mention meds given and route, prescriptions, significant lab abnormalities, going to OR and other pertinent info. @ -[facility] the patient patient's lab work showed an elevated troponin elevated creatinine and elevated BNP x-ray showed pulmonary edema along with a pleural effusion on the right that seems to be worse and then prior. Patient is too weak to ambulate so patient needs to be admitted and will agree to rehab at a nursing facility Undiagnosed new problem with uncertain prognosis? @ -No Drug Therapy requiring intensive monitoring for toxicity (Heparin, Nitro, Insulin, Cardizem)? @ -No Were any procedures done? @ -No Diagnosis/symptom? @ -Pulmonary edema Acute, or Chronic, or Acute on Chronic? @ -Acute Uncomplicated (without systemic symptoms) or Complicated (systemic symptoms)? @ -Complicated Side effects of treatment? @ -No Exacerbation, Progression, or Severe Exacerbation? @ -No Poses a threat to life or bodily function? How? (Chest pain, USA, TN, pneumonia, PE, COPD, DKA, ARF, appy, cholecystitis, CVA, Diverticulitis, Homicidal, Suicidal, threat to staff... and all critical care pts) @ -Yes this can lead to hypoxia and endorgan dysfunction Diagnosis/symptom? @ -LEO Acute, or Chronic, or Acute on Chronic? @ -Acute Uncomplicated (without systemic symptoms) or Complicated (systemic symptoms)? @ -Complicated Side effects of treatment? @ -None Exacerbation, Progression, or Severe Exacerbation] @ -No Poses a threat to life or bodily function? @ -Yes this can lead to electrolyte abnormalities Diagnosis/symptom? @ -Elevated troponin Acute, or Chronic, or Acute on Chronic? @ -Acute Uncomplicated (without systemic symptoms) or Complicated (systemic symptoms)? @ -Complicated Side effects of treatment? @ -None Exacerbation, Progression, or Severe Exacerbation] @ -No Poses a threat to life or bodily function? @ -Yes this can be a precursor to an TN and lead to heart damage and endorgan dysfunction - Lab Data Result diagrams: 03/06/25 08:35 03/06/25 08:35 Lab Results 03/06/25 03/06/25 03/06/25 Range/Units 08:35 08:35 08:35 WBC 7.11 (4.50-10.00) 10*3/uL RBC 4.89 (4.40-5.60) 10*6/uL Hgb 9.5 L (13.0-17.0) g/dL Hct 34.2 L (39.6-50.0) % MCV 69.9 L (80.0-97.0) fL MCH 19.4 L (27.0-32.0) pg MCHC 27.8 L (32.0-37.0) g/dL Plt Count 196 (140-440) 10*3/uL MPV 9.8 (9.5-12.2) fL Immature Gran % (Auto) 0.3 % Neutrophils % 72.8 % Lymphocytes % 13.1 % Monocytes % 12.1 % Eosinophils % 1.0 % Basophils % 0.7 % Immature Gran # 0.02 (0.00-0.04) 10*3/uL Neutrophils # 5.18 (1.80-7.70) 10*3/uL Lymphocytes # 0.93 (0.90-5.00) 10*3/uL Monocytes # 0.86 (0.20-1.00) 10*3/uL Eosinophils # 0.07 (0.04-0.35) 10*3/uL Basophils # 0.05 (0.00-0.10) 10*3/uL Immature Plt Fraction 2.6 (1.1-6.1) % PT 13.3 H (10.0-12.5) sec INR 1.2 H (<1.2) APTT 30.0 (22.0-30.0) sec Sodium 138 (137-145) mmol/L Potassium 3.6 (3.5-5.1) mmol/L Chloride 86 L (98-107) mmol/L Carbon Dioxide 42 H* (22-30) mmol/L Anion Gap 10 mmol/L BUN 57 H (9-20) mg/dL Creatinine 1.36 H (0.66-1.25) mg/dL Est GFR (CKD-EPI)AfAm 62 (>60 ml/min/1.73 sqM) Est GFR (CKD-EPI)NonAf 54 (>60 ml/min/1.73 sqM) Glucose 139 H (74-99) mg/dL Plasma Lactic Acid Cong (0.7-2.0) mmol/L Calcium 9.1 (8.4-10.2) mg/dL Magnesium 1.6 (1.6-2.3) mg/dL Total Bilirubin 1.7 H (0.2-1.3) mg/dL AST 52 (17-59) U/L ALT 31 (4-49) U/L Alkaline Phosphatase 221 H (38-126) U/L Troponin I (0.000-0.034) ng/mL NT-Pro-B Natriuret Pep 4740 pg/mL Total Protein 7.2 (6.3-8.2) g/dL Albumin 3.7 (3.5-5.0) g/dL Urine Color Urine Appearance (Clear) Urine pH (5.0-8.0) Ur Specific [place] (1.001-1.035) Urine Protein (Negative) Urine Glucose (UA) (Negative) Urine Ketones (Negative) Urine Blood (Negative) Urine Nitrite (Negative) Urine Bilirubin (Negative) Urine Urobilinogen (<2.0) mg/dL Ur Leukocyte Esterase (Negative) Urine RBC (0-5) /hpf Urine WBC (0-5) /hpf Ur Squamous Epith Cells (0-4) /hpf 03/06/25 03/06/25 03/06/25 Range/Units 08:35 08:35 08:40 WBC (4.50-10.00) 10*3/uL RBC (4.40-5.60) 10*6/uL Hgb (13.0-17.0) g/dL Hct (39.6-50.0) % MCV (80.0-97.0) fL MCH (27.0-32.0) pg MCHC (32.0-37.0) g/dL Plt Count (140-440) 10*3/uL MPV (9.5-12.2) fL Immature Gran % (Auto) % Neutrophils % % Lymphocytes % % Monocytes % % Eosinophils % % Basophils % % Immature Gran # (0.00-0.04) 10*3/uL Neutrophils # (1.80-7.70) 10*3/uL Lymphocytes # (0.90-5.00) 10*3/uL Monocytes # (0.20-1.00) 10*3/uL Eosinophils # (0.04-0.35) 10*3/uL Basophils # (0.00-0.10) 10*3/uL Immature Plt Fraction (1.1-6.1) % PT (10.0-12.5) sec INR (<1.2) APTT (22.0-30.0) sec Sodium (137-145) mmol/L Potassium (3.5-5.1) mmol/L Chloride (98-107) mmol/L Carbon Dioxide (22-30) mmol/L Anion Gap mmol/L BUN (9-20) mg/dL Creatinine (0.66-1.25) mg/dL Est GFR (CKD-EPI)AfAm (>60 ml/min/1.73 sqM) Est GFR (CKD-EPI)NonAf (>60 ml/min/1.73 sqM) Glucose (74-99) mg/dL Plasma Lactic Acid Cong 1.8 (0.7-2.0) mmol/L Calcium (8.4-10.2) mg/dL Magnesium (1.6-2.3) mg/dL Total Bilirubin (0.2-1.3) mg/dL AST (17-59) U/L ALT (4-49) U/L Alkaline Phosphatase (38-126) U/L Troponin I 0.083 H* (0.000-0.034) ng/mL NT-Pro-B Natriuret Pep pg/mL Total Protein (6.3-8.2) g/dL Albumin (3.5-5.0) g/dL Urine Color Light Yellow Urine Appearance Clear (Clear) Urine pH 5.5 (5.0-8.0) Ur Specific [place] 1.013 (1.001-1.035) Urine Protein Trace H (Negative) Urine Glucose (UA) 4+ H (Negative) Urine Ketones Negative (Negative) Urine Blood Small H (Negative) Urine Nitrite Negative (Negative) Urine Bilirubin Negative (Negative) Urine Urobilinogen <2.0 (<2.0) mg/dL Ur Leukocyte Esterase Negative (Negative) Urine RBC 1 (0-5) /hpf Urine WBC 10 H (0-5) /hpf Ur Squamous Epith Cells <1 (0-4) /hpf Disposition Clinical Impression: Elevated troponin, Pulmonary edema, LEO (acute kidney injury) Disposition: ADMITTED IP TO THIS HOSP Referrals: Jeanie Alfredo DO [Primary Care Provider] - 1-2 days Time of Disposition: 10:47
[2025-03-06 09:04] LABS: INR 1.2 (<1.2); Prothrombin Time 13.3 sec (10.0-12.5)
[2025-03-06 09:08] LABS: ALT 31 U/L (4-49); African American GFR (CKD) 62 (>60 ml/min/1.73 sqM); Albumin 3.7 g/dL (3.5-5.0); Blood Urea Nitrogen 57 mg/dL (9-20); Calcium 9.1 mg/dL (8.4-10.2); Chloride 86 mmol/L (98-107); Glucose 139 mg/dL (74-99); Non-African American GFR(CKD) 54 (>60 ml/min/1.73 sqM); Sodium 138 mmol/L (137-145); Total Bilirubin 1.7 mg/dL (0.2-1.3); Total Protein 7.2 g/dL (6.3-8.2)
--- NOTE | 2025-03-06 09:10 | XR ---
EXAMINATION TYPE: XR chest 2V DATE OF EXAM: 03/06/2025 9:03 AM COMPARISON: 03/04/2025 CLINICAL INDICATION: Male, 65 years old with history of Weakness, , TECHNIQUE: Frontal and lateral views FINDINGS: Heart mildly enlarged. Interstitial/vascular prominence remains. Median sternotomy wires. Large patie nt body habitus further limiting the AP exam. Undergoing moderate right pleural effusion. IMPRESSION: 1. AP exam further limited by body habitus. Mild cardiomegaly and suspected ongoing pulmonary vascula r congestion. 2. Ongoing moderate right pleural effusion with adjacent atelectasis and/or consolidation. [facility], , 03/06/2025 9:08 AM
[2025-03-06 09:15] LABS: Anion Gap 10 mmol/L
[2025-03-06 09:17] LABS: NT-Pro-B-Type Natriuretic Pept 4740 pg/mL
[2025-03-06 09:23] LABS: AST 52 U/L (17-59); Alkaline Phosphatase 221 U/L (38-126); Carbon Dioxide 42 mmol/L (22-30); Magnesium 1.6 mg/dL (1.6-2.3)
[2025-03-06 09:24] LABS: Potassium 3.6 mmol/L (3.5-5.1)
[2025-03-06 09:53] LABS: Appearance,Urine Clear (Clear); Bilirubin,Urine Negative (Negative); Blood,Urine Small (Negative); Color,Urine Light Yellow; Glucose,Urine (UA) 4+ (Negative); Ketones,Urine Negative (Negative); Leukocyte Esterase,Urine Negative (Negative); Nitrite,Urine Negative (Negative); PH, Urine 5.5 (5.0-8.0); Protein,Urine Trace (Negative); RBC,Urine 1 /hpf (0-5); Specific Gravity,Urine 1.013 (1.001-1.035); Squamous Epithelial Cell,Urine <1 /hpf (0-4); Urobilinogen,Urine <2.0 mg/dL (<2.0); WBC,Urine 10 /hpf (0-5)
[2025-03-06] MEDS: bisacodyL 5 MG TABLET.DR PO STA (11:46)
[2025-03-06] MEDS: METOPROLOL TARTRATE 50 MG TAB PO SCH (12:36)
--- NOTE | 2025-03-06 14:04 | P.CRDCN ---
History of Present Illness Consult date: 03/06/25 Reason for Consult (text): Acute pulmonary edema, elevated troponin History of present illness: This is a 65-year-old male with past medical history of coronary artery disease with previous CABG, congestive heart failure, hypertension, hyperlipidemia, diabetes, and atrial fibrillation. Patient follows in the office with Dr. Richards out of [facility]. Patient was hospitalized 02/26/16 and seen by cardiology for acute on chronic systolic heart failure and patient was insisting on going home although it was recommended that he stay longer. He states that once he got home his legs were very weak and he had constipation he had a fall at home. He denies chest pain no shortness of breath. No lightheadedness or dizziness. Patient returned to the emergency center and we have been asked to evaluate the patient for acute pulmonary edema and elevated troponins. Blood pressure 98/63, heart rate 67, pulse ox 96% on 4 L nasal cannula. Patient has been started on IV Lasix 40 mg every 8 hours. -EKG: Atrial fibrillation at 81 bpm. -Chest x-ray: Mild cardiomegaly. Suspected pulmonary vascular congestion. Ongoing moderate right pleural effusion with adjacent atelectasis and/or consolidation. -Laboratory studies: WBC 7.1, hemoglobin 9.5. INR 1.2. Sodium 130, potassium 3.6, CO2 42, BUN 57 creatinine 1.36. Troponin 0.083 and 0.066. Alkaline phosphatase 221. proBNP 4740. -Home cardiac medications: Eliquis 5 mg twice daily, aspirin 81 mg daily, Lipitor 80 mg at bedtime, Bumex 2 mg in the morning and 1 mg in the afternoon, l isinopril 10 mg daily, metolazone 5 mg daily, metoprolol tartrate 50 mg twice daily, spironolactone 25 mg daily. Patient is also on Jardiance and iron. -Echocardiogram performed 02/27/2025 reveals ejection fraction 40%, global hypokinesis, trace to mild MR, moderate to severe TR Review Of Systems: At the time of my exam: CONSTITUTIONAL: Denies fever or chills. HEENT: Denies blurred vision, vision changes, or eye pain. Denies hemoptysis CARDIOVASCULAR: Denies chest pain. Denies orthopnea. Denies PND. Denies palpitations RESPIRATORY: Denies shortness of breath. GASTROINTESTINAL: Denies abdominal pain. Denies nausea or vomiting. HEMATOLOGIC: Denies bleeding disorders. GENITOURINARY: Denies any blood in urine. SKIN: Denies puritis. Denies rash. Physical examination: Gen: This is a morbidly obese 65-year-old male in no acute respiratory distress. VS: reviewed HEENT: Head is atraumatic, normocephalic. Pupils equal, round. Sclerae is anicteric. NECK: Supple. No JVD. LUNGS: Clear to auscultation. No wheezes or rhonchi. No intercostal retractions. HEART: Irregular rate and rhythm. ABDOMEN: Soft No tenderness. EXTREMITIES: Bilateral lower extremity edema. No calf tenderness. NEUROLOGICAL: Patient is awake, alert and oriented x3. Assessment: Presents with lower extremity weakness, fall and constipation Acute kidney injury Elevated troponin Chronic heart failure with reduced EF Coronary artery disease with previous CABG Ischemic cardiomyopathy 40 to 45% Persistent atrial fibrillation Hypertension Hyperlipidemia Diabetes Obesity: BMI 48.7 Plan: Resume patient's home cardiac medications with the following changes Discontinue IV Lasix and resume patient on Bumex starting tomorrow Hold Aldactone and hold lisinopril No need to repeat echocardiogram BMP in the morning Further recommendations to follow based upon clinical course Thank you kindly for this consultation. Nurse practitioner note has been reviewed, I agree with documented findings and plan of care. Patient was seen and examined. Past Medical History Past Medical History: Atrial Fibrillation, Coronary Artery Disease (CAD), Cancer, Diabetes Mellitus, Hypertension, Myocardial Infarction ([place]), Prostate Disorder, Sleep Apnea/CPAP/BIPAP Additional Past Medical History / Comment(s): PROSTATE CANCER, uses CPAP, CHF Last Myocardial Infarction Date:: 2015 History of Any Multi-Drug Resistant Organisms: None Reported Past Surgical History: Appendectomy, Coronary Bypass/CABG, Heart Catheterization With Stent, Hernia Repair, Prostate Surgery Additional Past Surgical History / Comment(s): HEART CATHS X7 WITH TOTAL OF 7 STENTS, CABG OCT 2016, JAYLYN INGUINAL HERNIAS, UMBILICAL HERNIAS. Past Anesthesia/Blood Transfusion Reactions: No Reported Reaction Additional Past Anesthesia/Blood Transfusion Reaction / Comment(s): no blood transfusion Date of Last Stent Placement:: 2014 Past Psychological History: No Psychological Hx Reported Smoking Status: Former smoker Past Alcohol Use History: Rare Past Drug Use History: None Reported - Past Family History Mother Family Medical History: No Reported History Additional Family Medical History / Comment(s): Heart disease Father Family Medical History: Diabetes Mellitus Additional Family Medical History / Comment(s): Heart disease Medications and Allergies Home Medications Medication Instructions Recorded Confirmed Type Apixaban [Eliquis] 5 mg PO BID 10/23/18 03/06/25 History Aspirin [Adult Low Dose Aspirin EC] 81 mg PO DAILY 10/23/18 03/06/25 History Atorvastatin [Lipitor] 80 mg PO HS 10/23/18 03/06/25 History Empagliflozin [Jardiance] 25 mg PO DAILY 10/23/18 03/06/25 History Omeprazole [PriLOSEC] 20 mg PO DAILY PRN 10/23/18 03/06/25 History Insulin Aspart [NovoLOG Flexpen] 36 - 50 units SQ AC-TID 10/03/22 03/06/25 History Insulin Degludec [Tresiba 60 units SQ HS 10/03/22 03/06/25 History Flextouch U-200 Pen] Metoprolol Tartrate [Lopressor] 50 mg PO BID 10/03/22 03/06/25 History Multivitamins, Thera [Multivitamin 1 tab PO DAILY 04/24/23 03/06/25 History (formulary)] metFORMIN HCL [Glucophage] 1,000 mg PO BID 02/25/25 03/06/25 History Bumetanide [BUMEX] 2 mg PO DAILY #90 tab 03/05/25 03/06/25 Rx Collagenase [Santyl Ointment] 1 applic TOPICAL DAILY each 03/05/25 03/06/25 Rx Docusate [Colace] 100 mg PO BID PRN cap 03/05/25 03/06/25 Rx Ferrous Sulfate [Iron (65 MG 325 mg PO W/LUNCH #30 tab 03/05/25 03/06/25 Rx Elemental)] Spironolactone [Aldactone] 25 mg PO DAILY #30 tab 03/05/25 03/06/25 Rx Tamsulosin [Flomax] 0.4 mg PO PC-BRKFST #30 cap 03/05/25 03/06/25 Rx lisinopriL [Zestril] 10 mg PO DAILY #30 tab 03/05/25 03/06/25 Rx metOLazone [Zaroxolyn] 5 mg PO DAILY #30 tab 03/05/25 03/06/25 Rx Bumetanide [BUMEX] 1 mg PO DAILY@1600 03/06/25 03/06/25 History Vericiguat [Verquvo] 2.5 mg PO DIRECTED 03/06/25 03/06/25 History Allergies Allergy/AdvReac Type Severity Reaction Status Date / Time No Known Allergies Allergy Verified 03/06/25 09:14 Physical Exam Vitals: Vital Signs Temp Pulse Resp BP Pulse Ox 03/06/25 11:46 75 18 102/66 96 03/06/25 10:29 83 18 113/67 97 03/06/25 09:21 73 18 104/65 95 03/06/25 08:02 97.8 F 77 20 108/47 95 Intake and Output 03/05/25 03/06/25 03/06/25 22:59 06:59 14:59 Other: Weight 181.437 kg Results 03/06/25 08:35 03/06/25 08:35 Cardiac Enzymes 03/06/25 03/06/25 Range/Units 08:35 08:35 AST 52 (17-59) U/L Troponin I 0.083 H* (0.000-0.034) ng/mL Coagulation 03/06/25 Range/Units 08:35 PT 13.3 H (10.0-12.5) sec APTT 30.0 (22.0-30.0) sec CBC 03/06/25 Range/Units 08:35 WBC 7.11 (4.50-10.00) 10*3/uL RBC 4.89 (4.40-5.60) 10*6/uL Hgb 9.5 L (13.0-17.0) g/dL Hct 34.2 L (39.6-50.0) % Plt Count 196 (140-440) 10*3/uL Comprehensive Metabolic Panel 03/06/25 Range/Units 08:35 Sodium 138 (137-145) mmol/L Potassium 3.6 (3.5-5.1) mmol/L Chloride 86 L (98-107) mmol/L Carbon Dioxide 42 H* (22-30) mmol/L BUN 57 H (9-20) mg/dL Creatinine 1.36 H (0.66-1.25) mg/dL Glucose 139 H (74-99) mg/dL Calcium 9.1 (8.4-10.2) mg/dL AST 52 (17-59) U/L ALT 31 (4-49) U/L Alkaline Phosphatase 221 H (38-126) U/L Total Protein 7.2 (6.3-8.2) g/dL Albumin 3.7 (3.5-5.0) g/dL Current Medications Generic Name Dose Route Start Last Admin Trade Name Freq PRN Reason Stop Dose Admin Furosemide 40 mg 03/06/25 16:00 Furosemide 10 Mg/Ml 4 Ml Vial IV Q8HR JANIS Intake and Output 03/05/25 03/06/25 03/06/25 22:59 06:59 14:59 Other: Weight 181.437 kg Patient Weight 03/07/25 06:59 Weight 181.437 kg 03/06/25 08:35 03/06/25 08:35
[2025-03-06] MEDS ORDERED: FUROSEMIDE 10 MG/ML 4 ML VIAL IV SCH (16:00)
[2025-03-06] MEDS ORDERED: BUMETANIDE 1 MG TAB PO SCH (16:00)
[2025-03-06] MEDS ORDERED: PANTOPRAZOLE 40 MG TABLET PO PRN (16:54)
[2025-03-06] MEDS ORDERED: DEXTROSE 50% SYRINGE 50 ML IVP PRN ×2 (16:57)
[2025-03-06 17:33] LABS: Glucose,Whole Blood 172 mg/dL (70-110)
[2025-03-06] MEDS: INSULIN LISPRO (HumaLOG) 100 UNIT/ML 10 mL VL SQ SCH ×2 (17:36→17:51)
--- NOTE | 2025-03-06 19:12 | P.HPIM ---
History of Present Illness H&P Date: 03/06/25 Chief Complaint: Bilateral lower extremity weakness Patient is a 65-year-old male with a past medical history of hypertension, diabetes type 2 insulin-dependent, persistent atrial fibrillation on anticoagulation, coronary disease history of CABG, chronic CHF with reduced EF 40 to 45% and a prior history of smoking. Patient was discharged on hospital yesterday, he was treated for acute CHF exacerbation. Patient did not want to go to rehab at the time and wants to go home. He was discharged but upon reaching home he has been having generalized weakness and difficulty getting around also had a fall at home and was unable to get off the toilet. Patient currently does not think he can go back home and is not strong have.. Denied any complaints of fever or chills. Patient does have chronic lower extremity swelling. Otherwise denied any complaints of fever or chills. Patient states that his legs feels weak. No nausea vomiting abdominal pain or diarrhea. Chest x-ray showed limited by body habitus. Mild cardiomegaly and suspected ongoing pulmonary vascular congestion. Ongoing moderate right pleural effusion with adjacent atelectasis and/or consolidation. EKG showed atrial fibrillation with heart rate 81. Laboratory data showed WBC 7.1 hemoglobin 9.5 and platelets 196 sodium 138 potassium 3.6 chloride 86 bicarb is 42 BUN 57 creatinine 1.36 and blood sugar 139 total bili 1.7 troponin 0.083, 0.066 and 0.065 proBNP 4740 Urinalysis showed trace protein 4+ glucose and small blood and WBCs 10. Squamous epithelial cells less than 1 and leukocyte esterase negative. Baseline creatinine level 1.0 Review of Systems Constitutional: Patient denies any fever or chills . Generalized weakness and falls Abdomen: Patient denied nausea vomiting and diarrhea and abdominal pain. Cardiovascular: Patient denies any chest pain. Mild short of breath no palpitations. Leg swelling. Respiratory: patient denied any cough or sputum production. Mild shortness of breath Neurologic: Patient denied any numbness or tingling. no headache. Musculoskeletal: Patient denies any complaints of joint swelling or deformity. Skin: Negative Psychiatric: Negative Endocrine: No heat or cold intolerance. No recent weight gain. Genitourinary: No dysuria or hematuria. All other 14 point ROS negative except the above Past Medical History Past Medical History: Atrial Fibrillation, Coronary Artery Disease (CAD), Cancer, Diabetes Mellitus, Hypertension, Myocardial Infarction (MS), Prostate Disorder, Sleep Apnea/CPAP/BIPAP Additional Past Medical History / Comment(s): PROSTATE CANCER, uses CPAP, CHF Last Myocardial Infarction Date:: 2015 History of Any Multi-Drug Resistant Organisms: None Reported Past Surgical History: Appendectomy, Coronary Bypass/CABG, Heart Catheterization With Stent, Hernia Repair, Prostate Surgery Additional Past Surgical History / Comment(s): HEART CATHS X7 WITH TOTAL OF 7 STENTS, CABG OCT 2016, JAYLYN INGUINAL HERNIAS, UMBILICAL HERNIAS. Past Anesthesia/Blood Transfusion Reactions: No Reported Reaction Additional Past Anesthesia/Blood Transfusion Reaction / Comment(s): no blood transfusion Date of Last Stent Placement:: 2014 Past Psychological History: No Psychological Hx Reported Smoking Status: Former smoker Past Alcohol Use History: Rare Additional Past Alcohol Use History / Comment(s): Smoked 3 PPD. quit 30 years Past Drug Use History: None Reported - Past Family History Mother Family Medical History: No Reported History Additional Family Medical History / Comment(s): Heart disease Father Family Medical History: Diabetes Mellitus Additional Family Medical History / Comment(s): Heart disease Medications and Allergies Home Medications Medication Instructions Recorded Confirmed Type Apixaban [Eliquis] 5 mg PO BID 10/23/18 03/06/25 History Aspirin [Adult Low Dose Aspirin EC] 81 mg PO DAILY 10/23/18 03/06/25 History Atorvastatin [Lipitor] 80 mg PO HS 10/23/18 03/06/25 History Empagliflozin [Jardiance] 25 mg PO DAILY 10/23/18 03/06/25 History Omeprazole [PriLOSEC] 20 mg PO DAILY PRN 10/23/18 03/06/25 History Insulin Aspart [NovoLOG Flexpen] 36 - 50 units SQ AC-TID 10/03/22 03/06/25 History Insulin Degludec [Tresiba 60 units SQ HS 10/03/22 03/06/25 History Flextouch U-200 Pen] Metoprolol Tartrate [Lopressor] 50 mg PO BID 10/03/22 03/06/25 History Multivitamins, Thera [Multivitamin 1 tab PO DAILY 04/24/23 03/06/25 History (formulary)] metFORMIN HCL [Glucophage] 1,000 mg PO BID 02/25/25 03/06/25 History Bumetanide [BUMEX] 2 mg PO DAILY #90 tab 03/05/25 03/06/25 Rx Collagenase [Santyl Ointment] 1 applic TOPICAL DAILY each 03/05/25 03/06/25 Rx Docusate [Colace] 100 mg PO BID PRN cap 03/05/25 03/06/25 Rx Ferrous Sulfate [Iron (65 MG 325 mg PO W/LUNCH #30 tab 03/05/25 03/06/25 Rx Elemental)] Spironolactone [Aldactone] 25 mg PO DAILY #30 tab 03/05/25 03/06/25 Rx Tamsulosin [Flomax] 0.4 mg PO PC-BRKFST #30 cap 03/05/25 03/06/25 Rx lisinopriL [Zestril] 10 mg PO DAILY #30 tab 03/05/25 03/06/25 Rx metOLazone [Zaroxolyn] 5 mg PO DAILY #30 tab 03/05/25 03/06/25 Rx Bumetanide [BUMEX] 1 mg PO DAILY@1600 03/06/25 03/06/25 History Vericiguat [Verquvo] 2.5 mg PO DIRECTED 03/06/25 03/06/25 History Allergies Allergy/AdvReac Type Severity Reaction Status Date / Time No Known Allergies Allergy Verified 03/06/25 09:14 Physical Exam Vitals: Vital Signs Temp Pulse Pulse Resp BP BP Pulse Ox 03/06/25 14:42 98.0 F 77 17 100/62 98 03/06/25 13:39 97.9 F 67 20 98/63 96 03/06/25 12:30 82 18 114/67 95 03/06/25 11:46 75 18 102/66 96 03/06/25 10:29 83 18 113/67 97 03/06/25 09:21 73 18 104/65 95 03/06/25 08:02 97.8 F 77 20 108/47 95 Intake and Output 03/06/25 03/06/25 03/06/25 06:59 14:59 22:59 Other: Voiding Method Bedside Commode Urinal # Bowel Movements 1 Weight 181.437 kg PHYSICAL EXAMINATION: Patient is lying in the bed, no acute distress, awake alert and oriented. Morbidly obese.. HEENT: Normocephalic. Neck is supple. Pupils reactive. Nostrils clear. Oral cav ity is moist. Neck reveals no JVD, carotid bruits, or thyromegaly. CHEST EXAMINATION: Trachea is central. Symmetrical expansion. Bibasilar diminished sounds. No wheezing. Nonlabored breathing.. CARDIAC: Normal S1, S2 with no gallops. No murmurs ABDOMEN: Soft. Bowel sounds normal. No organomegaly. No abdominal bruits. Extremities: Bilateral lower extremity swelling and left lower extremity redness extending from ankle above noted.. No clubbing or cyanosis Neurologically awake, alert, oriented x3 with well-coordinated movements. No focal deficits noted Skin: No rash or skin lesions. Psychiatric: Coperative. Nonsuicidal Musculoskeletal: No joint swelling or deformity. Results CBC & Chem 7: 03/06/25 08:35 03/06/25 08:35 Labs: Abnormal Lab Results - Last 24 Hours (Table) 03/06/25 03/06/25 03/06/25 Range/Units 08:35 08:35 08:35 Hgb 9.5 L (13.0-17.0) g/dL Hct 34.2 L (39.6-50.0) % MCV 69.9 L (80.0-97.0) fL MCH 19.4 L (27.0-32.0) pg MCHC 27.8 L (32.0-37.0) g/dL PT 13.3 H (10.0-12.5) sec INR 1.2 H (<1.2) Chloride 86 L (98-107) mmol/L Carbon Dioxide 42 H* (22-30) mmol/L BUN 57 H (9-20) mg/dL Creatinine 1.36 H (0.66-1.25) mg/dL Glucose 139 H (74-99) mg/dL POC Glucose (mg/dL) (70-110) mg/dL Total Bilirubin 1.7 H (0.2-1.3) mg/dL Alkaline Phosphatase 221 H (38-126) U/L Troponin I (0.000-0.034) ng/mL Urine Protein (Negative) Urine Glucose (UA) (Negative) Urine Blood (Negative) Urine WBC (0-5) /hpf 03/06/25 03/06/25 03/06/25 Range/Units 08:35 08:40 11:17 Hgb (13.0-17.0) g/dL Hct (39.6-50.0) % MCV (80.0-97.0) fL MCH (27.0-32.0) pg MCHC (32.0-37.0) g/dL PT (10.0-12.5) sec INR (<1.2) Chloride (98-107) mmol/L Carbon Dioxide (22-30) mmol/L BUN (9-20) mg/dL Creatinine (0.66-1.25) mg/dL Glucose (74-99) mg/dL POC Glucose (mg/dL) (70-110) mg/dL Total Bilirubin (0.2-1.3) mg/dL Alkaline Phosphatase (38-126) U/L Troponin I 0.083 H* 0.066 H* (0.000-0.034) ng/mL Urine Protein Trace H (Negative) Urine Glucose (UA) 4+ H (Negative) Urine Blood Small H (Negative) Urine WBC 10 H (0-5) /hpf 03/06/25 03/06/25 Range/Units 15:31 17:09 Hgb (13.0-17.0) g/dL Hct (39.6-50.0) % MCV (80.0-97.0) fL MCH (27.0-32.0) pg MCHC (32.0-37.0) g/dL PT (10.0-12.5) sec INR (<1.2) Chloride (98-107) mmol/L Carbon Dioxide (22-30) mmol/L BUN (9-20) mg/dL Creatinine (0.66-1.25) mg/dL Glucose (74-99) mg/dL POC Glucose (mg/dL) 172 H (70-110) mg/dL Total Bilirubin (0.2-1.3) mg/dL Alkaline Phosphatase (38-126) U/L Troponin I 0.065 H* (0.000-0.034) ng/mL Urine Protein (Negative) Urine Glucose (UA) (Negative) Urine Blood (Negative) Urine WBC (0-5) /hpf Thrombosis Risk Factor Assmnt - DVT/VTE Prophylaxis DVT/VTE Prophylaxis: Pharmacologic Prophylaxis ordered - Choose All That Apply Any of the Below Risk Factors Present?: Yes Each Factor Represents 1 point: Obesity (BMI >25) Each Risk Factor Represents 2 Points: Age 61-74 years Thrombosis Risk Factor Assessment Total Risk Factor Score: 3 Thrombosis Risk Factor Assessment Level: Moderate Risk Assessment and Plan Assessment: Bilateral lower extremity weakness and fall. Acute kidney injury likely prerenal. Creatinine 1.36. Baseline 1.0 Elevated troponin level possible demand ischemia. Left lower extremity redness with possible cellulitis Chronic CHF with systolic dysfunction ejection fraction 40 to 45% Ischemic cardiomyopathy Persistent atrial fibrillation anticoagulation Diabetes type 2 insulin-dependent Hypertension Hyperlipidemia Morbid obesity BMI 48.7 GI prophylaxis and DVT prophylaxis Plan: Patient will begin on telemonitoring. Patient was given a dose of IV Lasix in the ER. Patient will be continued on Bumex starting tomorrow as per cardiology recommendations. Aldactone and lisinopril on hold due to LEO Will be started on antibiotics cefazolin. Continue with insulin regimen and sliding scale. PT OT will be consulted. Continue with home medications and follow-up closely. Time with Patient: Greater than 30
[2025-03-06 20:05] LABS: Glucose,Whole Blood 160 mg/dL (70-110)
[2025-03-06] MEDS: INSULIN GLARGINE (LANTUS) 100 UNIT/ML SYR SQ SCH (21:35)
[2025-03-06] MEDS: ATORVASTATIN 80 MG TAB PO SCH (21:35)
[2025-03-06] MEDS: APIXABAN 5 MG TAB PO SCH (21:35)
[2025-03-06] MEDS: ceFAZolin 2 GM in DEXTROSE 5% IN WATER 50 ML IVPB SCH (21:37)
[2025-03-07 03:20] LABS: Glucose,Whole Blood 64 mg/dL (70-110)
[2025-03-07 03:57] LABS: Glucose,Whole Blood 104 mg/dL (70-110)
[2025-03-07 08:18] LABS: Basophils # (A) 0.03 X 10*3/uL (0.00-0.10); Basophils % (A) 0.4 %; Eosinophils % (A) 2.9 %; HCT 31.4 % (39.6-50.0); HGB 8.3 g/dL (13.0-17.0); Lymphocytes # (A) 1.22 X 10*3/uL (0.90-5.00); Lymphocytes % (A) 17.6 %; MCH 19.4 pg (27.0-32.0); MCHC 26.4 g/dL (32.0-37.0); MCV 73.4 FL (80.0-97.0); Mean Platelet Volume 9.7 FL (9.5-12.2); Monocytes # (A) 0.99 X 10*3/uL (0.20-1.00); Monocytes % (A) 14.2 %; NRBC Per 100 WBC 0 X 10*3/uL (0.00-0.01); Neutrophils # (A) 4.47 X 10*3/uL (1.80-7.70); Neutrophils % (A) 64.3 %; Platelet Count 212 X 10*3/uL (140-440); RBC 4.28 X 10*6/uL (4.40-5.60); RDW 24.2 % (11.5-14.5); WBC 6.95 X 10*3/uL (4.50-10.00)
[2025-03-07] MEDS: TAMSULOSIN 0.4 MG CAP.ER.24H PO SCH (08:41)
[2025-03-07] MEDS: DAPAGLIFLOZIN PROPANEDIOL 10 MG TABLET PO SCH (08:43)
[2025-03-07] MEDS: BUMETANIDE 1 MG TAB PO SCH ×2 (08:43→18:10)
[2025-03-07] MEDS: ASPIRIN 81 MG PO SCH (08:43)
[2025-03-07] MEDS: metOLazone 5 MG TAB PO SCH (08:44)
[2025-03-07 08:57] LABS: BUN/Creat Ratio 27.12 Ratio (12.00-20.00); Blood Urea Nitrogen 43.4 mg/dL (9.0-27.0); Calcium 8.6 mg/dL (8.7-10.3); Carbon Dioxide 39.3 mmol/L (21.6-31.8); Chloride 91 mmol/L (96-109); Glucose 92 mg/dL (70-110); Potassium 3.3 mmol/L (3.5-5.5); Sodium 141 mmol/L (135-145)
[2025-03-07] MEDS: SODIUM FERRIC GLUCONAT-SUCROSE 125 MG in SODIUM CHLORIDE 0.9% 100 ML IVPB ONE ×2 (09:48→20:54)
[2025-03-07] MEDS: acetaZOLAMIDE 250 MG TAB PO SCH (09:49)
--- NOTE | 2025-03-07 10:19 | P.PN ---
Subjective Progress Note Date: 03/07/25 Reason for Consult (text): Acute pulmonary edema, elevated troponin History of present illness: This is a 65-year-old male with past medical history of coronary artery disease with previous CABG, congestive heart failure, hypertension, hyperlipidemia, di abetes, and atrial fibrillation. Patient follows in the office with Dr. Richards out of [facility]. Patient was hospitalized 02/26/16 and seen by cardiology for acute on chronic systolic heart failure and patient was insisting on going home although it was recommended that he stay longer. He states that once he got home his legs were very weak and he had constipation he had a fall at home. He denies chest pain no shortness of breath. No lightheadedness or dizziness. Patient returned to the emergency center and we have been asked to evaluate the patient for acute pulmonary edema and elevated troponins. Blood pressure 98/63, heart rate 67, pulse ox 96% on 4 L nasal cannula. Patient has been started on IV Lasix 40 mg every 8 hours. -EKG: Atrial fibrillation at 81 bpm. -Chest x-ray: Mild cardiomegaly. Suspected pulmonary vascular congestion. Ongoing moderate right pleural effusion with adjacent atelectasis and/or consolidation. -Laboratory studies: WBC 7.1, hemoglobin 9.5. INR 1.2. Sodium 130, potassium 3.6, CO2 42, BUN 57 creatinine 1.36. Troponin 0.083 and 0.066. Alkaline phosphatase 221. proBNP 4740. -Home cardiac medications: Eliquis 5 mg twice daily, aspirin 81 mg daily, Lipitor 80 mg at bedtime, Bumex 2 mg in the morning and 1 mg in the afternoon, lisinopril 10 mg daily, metolazone 5 mg daily, metoprolol tartrate 50 mg twice daily, spironolactone 25 mg daily. Patient is also on Jardiance and iron. -Echocardiogram performed 02/27/2025 reveals ejection fraction 40%, global hypokinesis, trace to mild MR, moderate to severe TR 03/07 Patient seen and examined. Patient states constipation is improved after medications given last night. No shortness of breath. No chest pain or chest pressure. Iron levels are low and patient will be ordered 1 dose of IV iron infusion. Repeat lab work reveals worsening renal function with BUN 43 creatinine 1.6. Potassium 3.3, CO2 39, hemoglobin 8.3. Physical examination: Gen: This is a morbidly obese 65-year-old male in no acute respiratory distress. VS: reviewed HEENT: Head is atraumatic, normocephalic. Pupils equal, round. Sclerae is anicteric. NECK: Supple. No JVD. LUNGS: Clear to auscultation. No wheezes or rhonchi. No intercostal retractions. HEART: Irregular rate and rhythm. ABDOMEN: Soft No tenderness. EXTREMITIES: Bilateral lower extremity edema. No calf tenderness. NEUROLOGICAL: Patient is awake, alert and oriented x3. Assessment: Presents with lower extremity weakness, fall and constipation Acute kidney injury Elevated troponin Chronic heart failure with reduced EF Coronary artery disease with previous CABG Ischemic cardiomyopathy 40 to 45% Persistent atrial fibrillation Hypertension Hyperlipidemia Diabetes Obesity: BMI 48.7 Plan: Continue patient's home cardiac medications with the following changes Hold Aldactone and hold lisinopril Replace potassium 1 dose of IV iron Diamox 250 mg twice daily x 2 doses and then discontinue No need to repeat echocardiogram BMP in the morning Further recommendations to follow based upon clinical course Nurse practitioner note has been reviewed, I agree with documented findings and plan of care. Patient was seen and examined. Objective - Vital Signs Vital signs: Vital Signs Temp 97.5 F L 03/07/25 07:00 Pulse 96 03/07/25 07:00 Resp 17 03/07/25 07:00 BP 129/64 03/07/25 07:00 Pulse Ox 96 03/07/25 07:00 FiO2 Intake & Output 03/06/25 03/07/25 03/07/25 18:59 06:59 18:59 Weight 181.437 kg Other: Voiding Method Bedside Commode Bedside Commode Urinal # Voids 2 # Bowel Movements 1 1 - Labs CBC & Chem 7: 03/07/25 04:10 03/07/25 04:10 Labs: Abnormal Lab Results - Last 24 Hours (Table) 03/06/25 03/06/25 03/06/25 Range/Units 08:35 08:35 08:35 RBC (4.40-5.60) X 10*6/uL Hgb 9.5 L (13.0-17.0) g/dL Hct 34.2 L (39.6-50.0) % MCV 69.9 L (80.0-97.0) fL MCH 19.4 L (27.0-32.0) pg MCHC 27.8 L (32.0-37.0) g/dL RDW (11.5-14.5) % PT 13.3 H (10.0-12.5) sec INR 1.2 H (<1.2) Chloride 86 L (98-107) mmol/L Carbon Dioxide 42 H* (22-30) mmol/L BUN 57 H (9-20) mg/dL Creatinine 1.36 H (0.66-1.25) mg/dL Glucose 139 H (74-99) mg/dL POC Glucose (mg/dL) (70-110) mg/dL Total Bilirubin 1.7 H (0.2-1.3) mg/dL Alkaline Phosphatase 221 H (38-126) U/L Troponin I (0.000-0.034) ng/mL Urine Protein (Negative) Urine Glucose (UA) (Negative) Urine Blood (Negative) Urine WBC (0-5) /hpf 03/06/25 03/06/25 03/06/25 Range/Units 08:35 08:40 11:17 RBC (4.40-5.60) X 10*6/uL Hgb (13.0-17.0) g/dL Hct (39.6-50.0) % MCV (80.0-97.0) fL MCH (27.0-32.0) pg MCHC (32.0-37.0) g/dL RDW (11.5-14.5) % PT (10.0-12.5) sec INR (<1.2) Chloride (98-107) mmol/L Carbon Dioxide (22-30) mmol/L BUN (9-20) mg/dL Creatinine (0.66-1.25) mg/dL Glucose (74-99) mg/dL POC Glucose (mg/dL) (70-110) mg/dL Total Bilirubin (0.2-1.3) mg/dL Alkaline Phosphatase (38-126) U/L Troponin I 0.083 H* 0.066 H* (0.000-0.034) ng/mL Urine Protein Trace H (Negative) Urine Glucose (UA) 4+ H (Negative) Urine Blood Small H (Negative) Urine WBC 10 H (0-5) /hpf 03/06/25 03/06/25 03/06/25 Range/Units 15:31 17:09 20:04 RBC (4.40-5.60) X 10*6/uL Hgb (13.0-17.0) g/dL Hct (39.6-50.0) % MCV (80.0-97.0) fL MCH (27.0-32.0) pg MCHC (32.0-37.0) g/dL RDW (11.5-14.5) % PT (10.0-12.5) sec INR (<1.2) Chloride (98-107) mmol/L Carbon Dioxide (22-30) mmol/L BUN (9-20) mg/dL Creatinine (0.66-1.25) mg/dL Glucose (74-99) mg/dL POC Glucose (mg/dL) 172 H 160 H (70-110) mg/dL Total Bilirubin (0.2-1.3) mg/dL Alkaline Phosphatase (38-126) U/L Troponin I 0.065 H* (0.000-0.034) ng/mL Urine Protein (Negative) Urine Glucose (UA) (Negative) Urine Blood (Negative) Urine WBC (0-5) /hpf 03/07/25 03/07/25 Range/Units 03:17 04:10 RBC 4.28 L (4.40-5.60) X 10*6/uL Hgb 8.3 L (13.0-17.0) g/dL Hct 31.4 L (39.6-50.0) % MCV 73.4 L (80.0-97.0) fL MCH 19.4 L (27.0-32.0) pg MCHC 26.4 L (32.0-37.0) g/dL RDW 24.2 H (11.5-14.5) % PT (10.0-12.5) sec INR (<1.2) Chloride (98-107) mmol/L Carbon Dioxide (22-30) mmol/L BUN (9-20) mg/dL Creatinine (0.66-1.25) mg/dL Glucose (74-99) mg/dL POC Glucose (mg/dL) 64 L (70-110) mg/dL Total Bilirubin (0.2-1.3) mg/dL Alkaline Phosphatase (38-126) U/L Troponin I (0.000-0.034) ng/mL Urine Protein (Negative) Urine Glucose (UA) (Negative) Urine Blood (Negative) Urine WBC (0-5) /hpf
[2025-03-07 12:09] VITALS: BMI 48.6
[2025-03-07 12:41] LABS: Glucose,Whole Blood 214 mg/dL (70-110)
[2025-03-07 13:42] LABS: Glucose,Whole Blood 114 mg/dL (70-110)
[2025-03-07 17:31] LABS: Glucose,Whole Blood 184 mg/dL (70-110)
[2025-03-07] MEDS: POTASSIUM CHLORIDE ER 20 MEQ TAB.ER PO STA (18:09)
[2025-03-07 19:47] LABS: Glucose,Whole Blood 234 mg/dL (70-110)
[2025-03-08 05:50] LABS: Glucose,Whole Blood 114 mg/dL (70-110)
--- NOTE | 2025-03-08 11:08 | P.PN ---
Subjective Progress Note Date: 03/08/25 Reason for Consult (text): Acute pulmonary edema, elevated troponin History of present illness: This is a 65-year-old male with past medical history of coronary artery disease with previous CABG, congestive heart failure, hypertension, hyperlipidemia, di abetes, and atrial fibrillation. Patient follows in the office with Dr. Rihcards out of [facility]. Patient was hospitalized 02/26/16 and seen by cardiology for acute on chronic systolic heart failure and patient was insisting on going home although it was recommended that he stay longer. He states that once he got home his legs were very weak and he had constipation he had a fall at home. He denies chest pain no shortness of breath. No lightheadedness or dizziness. Patient returned to the emergency center and we have been asked to evaluate the patient for acute pulmonary edema and elevated troponins. Blood pressure 98/63, heart rate 67, pulse ox 96% on 4 L nasal cannula. Patient has been started on IV Lasix 40 mg every 8 hours. -EKG: Atrial fibrillation at 81 bpm. -Chest x-ray: Mild cardiomegaly. Suspected pulmonary vascular congestion. Ongoing moderate right pleural effusion with adjacent atelectasis and/or consolidation. -Laboratory studies: WBC 7.1, hemoglobin 9.5. INR 1.2. Sodium 130, potassium 3.6, CO2 42, BUN 57 creatinine 1.36. Troponin 0.083 and 0.066. Alkaline phosphatase 221. proBNP 4740. -Home cardiac medications: Eliquis 5 mg twice daily, aspirin 81 mg daily, Lipitor 80 mg at bedtime, Bumex 2 mg in the morning and 1 mg in the afternoon, lisinopril 10 mg daily, metolazone 5 mg daily, metoprolol tartrate 50 mg twice daily, spironolactone 25 mg daily. Patient is also on Jardiance and iron. -Echocardiogram performed 02/27/2025 reveals ejection fraction 40%, global hypokinesis, trace to mild MR, moderate to severe TR 03/07 Patient seen and examined. Patient states constipation is improved after medications given last night. No shortness of breath. No chest pain or chest pressure. Iron levels are low and patient will be ordered 1 dose of IV iron infusion. Repeat lab work reveals worsening renal function with BUN 43 creatinine 1.6. Potassium 3.3, CO2 39, hemoglobin 8.3. 03/08 Patient seen and examined. Patient denies chest pain, chest pressure, shortness of breath. He still has weakness. Blood pressure readings have been on the low side. Blood pressure 96/56, heart rate 60s and 70s, pulse ox 97% on 4 L nasal cannula. Yesterday, patient was ordered for Diamox for 2 doses and then discontinued. Also patient received 1 dose of IV iron. We have kept Aldactone and lisinopril on hold due to acute kidney injury. Laboratory studies are not reported at the time of this dictation. Patient is waiting for insurance authorization for subacute rehab. Physical examination: Gen: This is a morbidly obese 65-year-old male in no acute respiratory distress. VS: reviewed HEENT: Head is atraumatic, normocephalic. Pupils equal, round. Sclerae is anicteric. NECK: Supple. No JVD. LUNGS: Clear to auscultation. No wheezes or rhonchi. No intercostal retractions. HEART: Irregular rate and rhythm. ABDOMEN: Soft No tenderness. EXTREMITIES: Bilateral lower extremity edema. No calf tenderness. NEUROLOGICAL: Patient is awake, alert and oriented x3. Assessment: Presents with lower extremity weakness, fall and constipation Acute kidney injury Elevated troponin Chronic heart failure with reduced EF Coronary artery disease with previous CABG Ischemic cardiomyopathy 40 to 45% Persistent atrial fibrillation Hypertension Hyperlipidemia Diabetes Obesity: BMI 48.7 Plan: Continue patient's home cardiac medications with the following changes Hold Aldactone and hold lisinopril Decrease metoprolol to tartrate to 25 mg twice daily Discontinue aspirin due to anemia No need to repeat echocardiogram BMP in the morning At the time of discharge, patient will follow-up with his primary vp training and recommend discussing Watchman procedure. Nurse practitioner note has been reviewed, I agree with documented findings and plan of care. Patient was seen and examined. Objective - Vital Signs Vital signs: Vital Signs Temp 97.6 F 03/08/25 07:21 Pulse 60 03/08/25 08:19 Resp 18 03/08/25 07:21 BP 96/56 03/08/25 08:19 Pulse Ox 97 03/08/25 07:21 FiO2 Intake & Output 03/07/25 03/08/25 03/08/25 18:59 06:59 18:59 Output Total 1950 Balance -1950 Weight 181.437 kg Output: Urine 1950 Other: Voiding Method Bedside Commode Bedside Commode # Bowel Movements 1 - Labs CBC & Chem 7: 03/07/25 04:10 03/07/25 04:10 Labs: Abnormal Lab Results - Last 24 Hours (Table) 03/07/25 03/07/25 03/07/25 Range/Units 04:10 04:10 06:07 Potassium 3.3 L (3.5-5.5) mmol/L Chloride 91 L (96-109) mmol/L Carbon Dioxide 39.3 H (21.6-31.8) mmol/L BUN 43.4 H (9.0-27.0) mg/dL Creatinine 1.6 H (0.6-1.5) mg/dL Est GFR (CKD-EPI) 47 L (>=60) BUN/Creatinine Ratio 27.12 H (12.00-20.00) Ratio POC Glucose (mg/dL) 114 H (70-110) mg/dL Hemoglobin A1c 7.3 H (<=6.0) % Calcium 8.6 L (8.7-10.3) mg/dL 03/07/25 03/07/25 03/07/25 Range/Units 12:39 17:28 19:44 Potassium (3.5-5.5) mmol/L Chloride (96-109) mmol/L Carbon Dioxide (21.6-31.8) mmol/L BUN (9.0-27.0) mg/dL Creatinine (0.6-1.5) mg/dL Est GFR (CKD-EPI) (>=60) BUN/Creatinine Ratio (12.00-20.00) Ratio POC Glucose (mg/dL) 214 H 184 H 234 H (70-110) mg/dL Hemoglobin A1c (<=6.0) % Calcium (8.7-10.3) mg/dL 03/08/25 Range/Units 05:48 Potassium (3.5-5.5) mmol/L Chloride (96-109) mmol/L Carbon Dioxide (21.6-31.8) mmol/L BUN (9.0-27.0) mg/dL Creatinine (0.6-1.5) mg/dL Est GFR (CKD-EPI) (>=60) BUN/Creatinine Ratio (12.00-20.00) Ratio POC Glucose (mg/dL) 114 H (70-110) mg/dL Hemoglobin A1c (<=6.0) % Calcium (8.7-10.3) mg/dL
[2025-03-08 11:19] LABS: Blood Urea Nitrogen 50.4 mg/dL (9.0-27.0); Calcium 8.5 mg/dL (8.7-10.3); Carbon Dioxide 36.8 mmol/L (21.6-31.8); Chloride 93 mmol/L (96-109); Glucose 116 mg/dL (70-110); Potassium 3.4 mmol/L (3.5-5.5); Sodium 143 mmol/L (135-145)
[2025-03-08 12:49] LABS: Glucose,Whole Blood 182 mg/dL (70-110)
[2025-03-08] MEDS: FERROUS SULFATE 325 MG TAB PO SCH (13:18)
[2025-03-08] MEDS: DOCUSATE 100 MG CAP PO PRN (13:18)
[2025-03-08] MEDS: METOPROLOL TARTRATE 25 MG TAB PO SCH (13:19)
[2025-03-08 17:26] LABS: Glucose,Whole Blood 227 mg/dL (70-110)
[2025-03-08 20:30] LABS: Glucose,Whole Blood 229 mg/dL (70-110)
--- NOTE | 2025-03-08 21:52 | P.PN ---
Subjective Progress Note Date: 03/07/25 Patient is a 65-year-old male with a past medical history of hypertension, diabetes type 2 insulin-dependent, persistent atrial fibrillation on anticoagulation, coronary disease history of CABG, chronic CHF with reduced EF 40 to 45% and a prior history of smoking. Patient was discharged on hospital yesterday, he was treated for acute CHF exacerbation. Patient did not want to go to rehab at the time and wants to go home. He was discharged but upon reaching home he has been having generalized weakness and difficulty getting around also had a fall at home and was unable to get off the toilet. Patient currently does not think he can go back home and is not strong have.. Denied any complaints of fever or chills. Patient does have chronic lower extremity swelling. Otherwise denied any complaints of fever or chills. Patient states that his legs feels weak. No nausea vomiting abdominal pain or diarrhea. Chest x-ray showed limited by body habitus. Mild cardiomegaly and suspected ongoing pulmonary vascular congestion. Ongoing moderate right pleural effusion with adjacent atelectasis and/or consolidation. EKG showed atrial fibrillation with heart rate 81. Laboratory data showed WBC 7.1 hemoglobin 9.5 and platelets 196 sodium 138 potassium 3.6 chloride 86 bicarb is 42 BUN 57 creatinine 1.36 and blood sugar 139 total bili 1.7 troponin 0.083, 0.066 and 0.065 proBNP 4740 Urinalysis showed trace protein 4+ glucose and small blood and WBCs 10. Squamous epithelial cells less than 1 and leukocyte esterase negative. Baseline creatinine level 1.0 03/07/2025 Patient is sitting in chair. Awake alert and oriented. No complaints of chest pain or shortness of breath. Patient is being cannula Bumex and anticoagulation with Eliquis. Continue with cefazolin for left lower extremity redness and cellulitis. Improving redness. Patient has been afebrile. Lab data showed WBC 6.9 hemoglobin 8.3 and platelets 212. Patient is iron deficient. Sodium 141 potassium 3.3 chloride 91 bicarb is 39.3 BUN 43.4 and creatinine 1.6 and blood sugar 92 and A1c 7.3. Current medications reviewed. Objective - Vital Signs Vital signs: Vital Signs Temp 98.2 F 03/07/25 19:00 Pulse 73 03/07/25 19:00 Resp 20 03/07/25 19:00 BP 104/61 03/07/25 19:00 Pulse Ox 95 03/07/25 19:00 FiO2 Intake & Output 03/07/25 03/07/25 03/08/25 06:59 18:59 06:59 Weight 181.437 kg Other: Voiding Method Bedside Commode Bedside Commode # Voids 2 # Bowel Movements 1 1 - Exam PHYSICAL EXAMINATION: Patient is lying in the bed, no acute distress, awake alert and oriented. Morbidly obese.. HEENT: Normocephalic. Neck is supple. Pupils reactive. Nostrils clear. Oral cavity is moist. Neck reveals no JVD, carotid bruits, or thyromegaly. CHEST EXAMINATION: Trachea is central. Symmetrical expansion. Bibasilar diminished sounds. No wheezing. Nonlabored breathing.. CARDIAC: Normal S1, S2 with no gallops. No murmurs ABDOMEN: Soft. Bowel sounds normal. No organomegaly. No abdominal bruits. Extremities: Bilateral lower extremity swelling and left lower extremity redness extending from ankle above noted.. No clubbing or cyanosis Neurologically awake, alert, oriented x3 with well-coordinated movements. No focal deficits noted Skin: No rash or skin lesions. Psychiatric: Coperative. Nonsuicidal Musculoskeletal: No joint swelling or deformity. - Labs CBC & Chem 7: 03/07/25 04:10 03/08/25 03:21 Labs: Abnormal Lab Results - Last 24 Hours (Table) 03/07/25 03/07/25 03/07/25 Range/Units 03:17 04:10 04:10 RBC (4.40-5.60) X 10*6/uL Hgb (13.0-17.0) g/dL Hct (39.6-50.0) % MCV (80.0-97.0) FL MCH (27.0-32.0) pg MCHC (32.0-37.0) g/dL RDW (11.5-14.5) % Potassium 3.3 L (3.5-5.5) mmol/L Chloride 91 L (96-109) mmol/L Carbon Dioxide 39.3 H (21.6-31.8) mmol/L BUN 43.4 H (9.0-27.0) mg/dL Creatinine 1.6 H (0.6-1.5) mg/dL Est GFR (CKD-EPI) 47 L (>=60) BUN/Creatinine Ratio 27.12 H (12.00-20.00) Ratio POC Glucose (mg/dL) 64 L (70-110) mg/dL Hemoglobin A1c 7.3 H (<=6.0) % Calcium 8.6 L (8.7-10.3) mg/dL 03/07/25 03/07/25 03/07/25 Range/Units 04:10 06:07 12:39 RBC 4.28 L (4.40-5.60) X 10*6/uL Hgb 8.3 L (13.0-17.0) g/dL Hct 31.4 L (39.6-50.0) % MCV 73.4 L (80.0-97.0) FL MCH 19.4 L (27.0-32.0) pg MCHC 26.4 L (32.0-37.0) g/dL RDW 24.2 H (11.5-14.5) % Potassium (3.5-5.5) mmol/L Chloride (96-109) mmol/L Carbon Dioxide (21.6-31.8) mmol/L BUN (9.0-27.0) mg/dL Creatinine (0.6-1.5) mg/dL Est GFR (CKD-EPI) (>=60) BUN/Creatinine Ratio (12.00-20.00) Ratio POC Glucose (mg/dL) 114 H 214 H (70-110) mg/dL Hemoglobin A1c (<=6.0) % Calcium (8.7-10.3) mg/dL 03/07/25 03/07/25 Range/Units 17:28 19:44 RBC (4.40-5.60) X 10*6/uL Hgb (13.0-17.0) g/dL Hct (39.6-50.0) % MCV (80.0-97.0) FL MCH (27.0-32.0) pg MCHC (32.0-37.0) g/dL RDW (11.5-14.5) % Potassium (3.5-5.5) mmol/L Chloride (96-109) mmol/L Carbon Dioxide (21.6-31.8) mmol/L BUN (9.0-27.0) mg/dL Creatinine (0.6-1.5) mg/dL Est GFR (CKD-EPI) (>=60) BUN/Creatinine Ratio (12.00-20.00) Ratio POC Glucose (mg/dL) 184 H 234 H (70-110) mg/dL Hemoglobin A1c (<=6.0) % Calcium (8.7-10.3) mg/dL Assessment and Plan Assessment: Bilateral lower extremity weakness and fall. Acute kidney injury likely prerenal. Creatinine 1.36. Baseline 1.0 Elevated troponin level possible demand ischemia. Microcytic iron deficiency anemia Left lower extremity redness with possible cellulitis Chronic CHF with systolic dysfunction ejection fraction 40 to 45% Ischemic cardiomyopathy Persistent atrial fibrillation anticoagulation Diabetes type 2 insulin-dependent Hypertension Hyperlipidemia Morbid obesity BMI 48.7 GI prophylaxis and DVT prophylaxis Plan: Patient will begin on telemonitoring. Patient was given a dose of IV Lasix in the ER. Patient will be continued on Bumex starting tomorrow as per cardiology recommendations. Aldactone and lisinopril on hold due to LEO Will be started on antibiotics cefazolin. Continue with iron supplementation. Continue with insulin regimen and sliding scale. PT OT will be consulted. Continue with home medications and follow-up closely. Time with Patient: Greater than 30
--- NOTE | 2025-03-08 21:56 | P.PN ---
Subjective Progress Note Date: 03/08/25 Patient is a 65-year-old male with a past medical history of hypertension, diabetes type 2 insulin-dependent, persistent atrial fibrillation on anticoagulation, coronary disease history of CABG, chronic CHF with reduced EF 40 to 45% and a prior history of smoking. Patient was discharged on hospital yesterday, he was treated for acute CHF exacerbation. Patient did not want to go to rehab at the time and wants to go home. He was discharged but upon reaching home he has been having generalized weakness and difficulty getting around also had a fall at home and was unable to get off the toilet. Patient currently does not think he can go back home and is not strong have.. Denied any complaints of fever or chills. Patient does have chronic lower extremity swelling. Otherwise denied any complaints of fever or chills. Patient states that his legs feels weak. No nausea vomiting abdominal pain or diarrhea. Chest x-ray showed limited by body habitus. Mild cardiomegaly and suspected ongoing pulmonary vascular congestion. Ongoing moderate right pleural effusion with adjacent atelectasis and/or consolidation. EKG showed atrial fibrillation with heart rate 81. Laboratory data showed WBC 7.1 hemoglobin 9.5 and platelets 196 sodium 138 potassium 3.6 chloride 86 bicarb is 42 BUN 57 creatinine 1.36 and blood sugar 139 total bili 1.7 troponin 0.083, 0.066 and 0.065 proBNP 4740 Urinalysis showed trace protein 4+ glucose and small blood and WBCs 10. Squamous epithelial cells less than 1 and leukocyte esterase negative. Baseline creatinine level 1.0 03/07/2025 Patient is sitting in chair. Awake alert and oriented. No complaints of chest pain or shortness of breath. Patient is being cannula Bumex and anticoagulation with Eliquis. Continue with cefazolin for left lower extremity redness and cellulitis. Improving redness. Patient has been afebrile. Lab data showed WBC 6.9 hemoglobin 8.3 and platelets 212. Patient is iron deficient. Sodium 141 potassium 3.3 chloride 91 bicarb is 39.3 BUN 43.4 and creatinine 1.6 and blood sugar 92 and A1c 7.3. 03/08/2025 Patient is sitting in the chair. Awake alert and oriented. Bilateral lower EXTR swelling is stable. No complaints of chest pain or shortness of breath. Blood pressure 101/56 with pulse 67. Patient is on 4 L oxygen via nasal cannula. Laboratory shows sodium 143 potassium 3.4 chloride 93 bicarb is 36.8 BUN 50.4 and creatinine 1.6. Calcium 8.5. Patient is being continued on IV iron supplementation. On anticoagulation with Eliquis 2.5 mg twice daily. Current medications reviewed. Objective - Vital Signs Vital signs: Vital Signs Temp 97.8 F 03/08/25 19:32 Pulse 71 03/08/25 19:32 Resp 18 03/08/25 19:32 BP 123/86 03/08/25 19:32 Pulse Ox 100 03/08/25 19:32 FiO2 Intake & Output 03/08/25 03/08/25 03/09/25 06:59 18:59 06:59 Intake Total 236 Output Total 19490 Balance -1949 Intake: Oral 236 Output: Urine 1949 2949 Other: Voiding Method Bedside Commode Bedside Commode # Voids 1 - Exam PHYSICAL EXAMINATION: Patient is lying in the bed, no acute distress, awake alert and oriented. Morbidly obese.. HEENT: Normocephalic. Neck is supple. Pupils reactive. Nostrils clear. Oral cavity is moist. Neck reveals no JVD, carotid bruits, or thyromegaly. CHEST EXAMINATION: Trachea is central. Symmetrical expansion. Bibasilar diminished sounds. No wheezing. Nonlabored breathing.. CARDIAC: Normal S1, S2 with no gallops. No murmurs ABDOMEN: Soft. Bowel sounds normal. No organomegaly. No abdominal bruits. Extremities: Bilateral lower extremity swelling swelling and dry skin noted. Right great toe wound is bandaged... No clubbing or cyanosis Neurologically awake, alert, oriented x3 with well-coordinated movements. No focal deficits noted Skin: No rash or skin lesions. Psychiatric: Coperative. Nonsuicidal Musculoskeletal: No joint swelling or deformity. - Labs CBC & Chem 7: 03/07/25 04:10 03/08/25 03:21 Labs: Abnormal Lab Results - Last 24 Hours (Table) 03/08/25 03/08/25 03/08/25 Range/Units 03:21 05:48 12:47 Potassium 3.4 L (3.5-5.5) mmol/L Chloride 93 L (96-109) mmol/L Carbon Dioxide 36.8 H (21.6-31.8) mmol/L Anion Gap 13.20 H (4.00-12.00) mmol/L BUN 50.4 H (9.0-27.0) mg/dL Creatinine 1.6 H (0.6-1.5) mg/dL Est GFR (CKD-EPI) 47 L (>=60) BUN/Creatinine Ratio 31.50 H (12.00-20.00) Ratio Glucose 116 H (70-110) mg/dL POC Glucose (mg/dL) 114 H 182 H (70-110) mg/dL Calcium 8.5 L (8.7-10.3) mg/dL 03/08/25 03/08/25 Range/Units 17:25 20:29 Potassium (3.5-5.5) mmol/L Chloride (96-109) mmol/L Carbon Dioxide (21.6-31.8) mmol/L Anion Gap (4.00-12.00) mmol/L BUN (9.0-27.0) mg/dL Creatinine (0.6-1.5) mg/dL Est GFR (CKD-EPI) (>=60) BUN/Creatinine Ratio (12.00-20.00) Ratio Glucose (70-110) mg/dL POC Glucose (mg/dL) 227 H 229 H (70-110) mg/dL Calcium (8.7-10.3) mg/dL Assessment and Plan Assessment: Bilateral lower extremity weakness and fall. Acute kidney injury likely prerenal. Creatinine 1.36. Baseline 1.0 Elevated troponin level possible demand ischemia. Microcytic iron deficiency anemia Left lower extremity redness with possible cellulitis Chronic CHF with systolic dysfunction ejection fraction 40 to 45% Ischemic cardiomyopathy Persistent atrial fibrillation anticoagulation Diabetes type 2 insulin-dependent Hypertension Hyperlipidemia Morbid obesity BMI 48.7 Right great toe diabetic wound GI prophylaxis and DVT prophylaxis Plan: Patient will begin on telemonitoring. Patient was given a dose of IV Lasix in the ER. Patient will be continued on Bumex starting tomorrow as per cardiology recommendations. Aldactone and lisinopril on hold due to LEO Continue on antibiotics cefazolin. Continue with iron supplementation. Wound care consult for dressing changes. Continue with insulin regimen and sliding scale. PT OT will be consulted. Continue with home medications and follow-up closely. Time with Patient: Greater than 30
[2025-03-08] MEDS: POTASSIUM CHLORIDE ER 20 MEQ TAB.ER PO STA (22:04)
[2025-03-09 05:39] LABS: Glucose,Whole Blood 79 mg/dL (70-110)
[2025-03-09 09:35] LABS: Basophils # (A) 0.06 X 10*3/uL (0.00-0.10); Basophils % (A) 1.1 %; Eosinophils % (A) 3.5 %; HCT 31.4 % (39.6-50.0); HGB 8.5 g/dL (13.0-17.0); Lymphocytes # (A) 1.18 X 10*3/uL (0.90-5.00); Lymphocytes % (A) 20.8 %; MCH 19.7 pg (27.0-32.0); MCHC 27.1 g/dL (32.0-37.0); MCV 72.7 FL (80.0-97.0); Monocytes # (A) 1.01 X 10*3/uL (0.20-1.00); Monocytes % (A) 17.8 %; NRBC Per 100 WBC 0 X 10*3/uL (0.00-0.01); Neutrophils # (A) 3.19 X 10*3/uL (1.80-7.70); Neutrophils % (A) 56.4 %; Platelet Count 196 X 10*3/uL (140-440); RBC 4.32 X 10*6/uL (4.40-5.60); RDW 24.6 % (11.5-14.5); WBC 5.66 X 10*3/uL (4.50-10.00)
[2025-03-09 10:15] LABS: BUN/Creat Ratio 34.54 Ratio (12.00-20.00); Blood Urea Nitrogen 44.9 mg/dL (9.0-27.0); Calcium 8.5 mg/dL (8.7-10.3); Carbon Dioxide 36.2 mmol/L (21.6-31.8); Chloride 92 mmol/L (96-109); Glucose 93 mg/dL (70-110); Potassium 3.3 mmol/L (3.5-5.5); Sodium 141 mmol/L (135-145)
--- NOTE | 2025-03-09 10:32 | P.PN ---
Subjective Progress Note Date: 03/09/25 Reason for Consult (text): Acute pulmonary edema, elevated troponin History of present illness: This is a 65-year-old male with past medical history of coronary artery disease with previous CABG, congestive heart failure, hypertension, hyperlipidemia, di abetes, and atrial fibrillation. Patient follows in the office with Dr. Richards out of [facility]. Patient was hospitalized 02/26/16 and seen by cardiology for acute on chronic systolic heart failure and patient was insisting on going home although it was recommended that he stay longer. He states that once he got home his legs were very weak and he had constipation he had a fall at home. He denies chest pain no shortness of breath. No lightheadedness or dizziness. Patient returned to the emergency center and we have been asked to evaluate the patient for acute pulmonary edema and elevated troponins. Blood pressure 98/63, heart rate 67, pulse ox 96% on 4 L nasal cannula. Patient has been started on IV Lasix 40 mg every 8 hours. -EKG: Atrial fibrillation at 81 bpm. -Chest x-ray: Mild cardiomegaly. Suspected pulmonary vascular congestion. Ongoing moderate right pleural effusion with adjacent atelectasis and/or consolidation. -Laboratory studies: WBC 7.1, hemoglobin 9.5. INR 1.2. Sodium 130, potassium 3.6, CO2 42, BUN 57 creatinine 1.36. Troponin 0.083 and 0.066. Alkaline phosphatase 221. proBNP 4740. -Home cardiac medications: Eliquis 5 mg twice daily, aspirin 81 mg daily, Lipitor 80 mg at bedtime, Bumex 2 mg in the morning and 1 mg in the afternoon, lisinopril 10 mg daily, metolazone 5 mg daily, metoprolol tartrate 50 mg twice daily, spironolactone 25 mg daily. Patient is also on Jardiance and iron. -Echocardiogram performed 02/27/2025 reveals ejection fraction 40%, global hypokinesis, trace to mild MR, moderate to severe TR 03/07 Patient seen and examined. Patient states constipation is improved after medications given last night. No shortness of breath. No chest pain or chest pressure. Iron levels are low and patient will be ordered 1 dose of IV iron infusion. Repeat lab work reveals worsening renal function with BUN 43 creatinine 1.6. Potassium 3.3, CO2 39, hemoglobin 8.3. 03/08 Patient seen and examined. Patient denies chest pain, chest pressure, shortness of breath. He still has weakness. Blood pressure readings have been on the low side. Blood pressure 96/56, heart rate 60s and 70s, pulse ox 97% on 4 L nasal cannula. Yesterday, patient was ordered for Diamox for 2 doses and then discontinued. Also patient received 1 dose of IV iron. We have kept Aldactone and lisinopril on hold due to acute kidney injury. Laboratory studies are not reported at the time of this dictation. Patient is waiting for insurance authorization for subacute rehab. 03/09 Patient seen and examined. Yesterday, we continue to hold Aldactone and li sinopril and decrease metoprolol tartrate to 25 mg. We discontinued metolazone and aspirin yesterday as well. Blood pressures started increasing overnight to 154/74 this morning, heart rate is in the 70s, pulse ox 90% on 4 L nasal cannula. Patient states that his breathing is okay. No chest pain. He states he has not been allowed to walk due to fall risk. Repeat blood work reveals hemoglobin 8.5, BUN 44 creatinine 1.3. Physical examination: Gen: This is a morbidly obese 65-year-old male in no acute respiratory distress. VS: reviewed HEENT: Head is atraumatic, normocephalic. Pupils equal, round. Sclerae is anicteric. NECK: Supple. No JVD. LUNGS: Clear to auscultation. No wheezes or rhonchi. No intercostal retractions. HEART: Irregular rate and rhythm. ABDOMEN: Soft No tenderness. EXTREMITIES: Bilateral lower extremity edema. No calf tenderness. NEUROLOGICAL: Patient is awake, alert and oriented x3. Assessment: Presents with lower extremity weakness, fall and constipation Acute kidney injury, improved Elevated troponin secondary to LEO Chronic heart failure with reduced EF Coronary artery disease with previous CABG Ischemic cardiomyopathy 40 to 45% Persistent atrial fibrillation Hypertension Hyperlipidemia Diabetes Obesity: BMI 48.7 Plan: Continue patient's home cardiac medications with the following changes Hold Aldactone and hold lisinopril Discontinue metolazone at discharge Decrease metoprolol to tartrate to 25 mg twice daily Discontinue aspirin due to anemia No need to repeat echocardiogram BMP in the morning No medication changes made today. At the time of discharge, patient will follow-up with his primary information delivery analyst and recommend discussing Watchman procedure. Nurse practitioner note has been reviewed, I agree with documented findings and plan of care. Patient was seen and examined. Objective - Vital Signs Vital signs: Vital Signs Temp 98.0 F 03/09/25 01:42 Pulse 72 03/09/25 01:42 Resp 18 03/09/25 01:42 BP 154/74 03/09/25 01:42 Pulse Ox 98 03/09/25 01:42 FiO2 Intake & Output 03/08/25 03/09/25 03/09/25 18:59 06:59 18:59 Intake Total 236 Output Total 2950 500 Balance -4534 -500 Intake: Oral 236 Output: Urine 2950 500 Other: Voiding Method Bedside Commode Bedside Commode # Voids 1 1 - Labs CBC & Chem 7: 03/09/25 04:07 03/09/25 04:07 Labs: Abnormal Lab Results - Last 24 Hours (Table) 03/08/25 03/08/25 03/08/25 Range/Units 03:21 12:47 17:25 Potassium 3.4 L (3.5-5.5) mmol/L Chloride 93 L (96-109) mmol/L Carbon Dioxide 36.8 H (21.6-31.8) mmol/L Anion Gap 13.20 H (4.00-12.00) mmol/L BUN 50.4 H (9.0-27.0) mg/dL Creatinine 1.6 H (0.6-1.5) mg/dL Est GFR (CKD-EPI) 47 L (>=60) BUN/Creatinine Ratio 31.50 H (12.00-20.00) Ratio Glucose 116 H (70-110) mg/dL POC Glucose (mg/dL) 182 H 227 H (70-110) mg/dL Calcium 8.5 L (8.7-10.3) mg/dL 03/08/25 Range/Units 20:29 Potassium (3.5-5.5) mmol/L Chloride (96-109) mmol/L Carbon Dioxide (21.6-31.8) mmol/L Anion Gap (4.00-12.00) mmol/L BUN (9.0-27.0) mg/dL Creatinine (0.6-1.5) mg/dL Est GFR (CKD-EPI) (>=60) BUN/Creatinine Ratio (12.00-20.00) Ratio Glucose (70-110) mg/dL POC Glucose (mg/dL) 229 H (70-110) mg/dL Calcium (8.7-10.3) mg/dL
[2025-03-09 12:49] LABS: Glucose,Whole Blood 162 mg/dL (70-110)
[2025-03-09] MEDS: POTASSIUM CHLORIDE ER 20 MEQ TAB.ER PO STA (12:58)
[2025-03-09 17:52] LABS: Glucose,Whole Blood 255 mg/dL (70-110)
[2025-03-09 19:54] LABS: Glucose,Whole Blood 379 mg/dL (70-110)
[2025-03-09] MEDS: POTASSIUM CHLORIDE ER 20 MEQ TAB.ER PO SCH (20:33)
[2025-03-10 01:38] LABS: Glucose,Whole Blood 63 mg/dL (70-110)
[2025-03-10 02:04] LABS: Glucose,Whole Blood 88 mg/dL (70-110)
[2025-03-10 04:41] LABS: Glucose,Whole Blood 57 mg/dL (70-110)
[2025-03-10 05:06] LABS: Glucose,Whole Blood 65 mg/dL (70-110)
[2025-03-10 05:13] LABS: Glucose,Whole Blood 89 mg/dL (70-110)
[2025-03-10 09:02] LABS: Basophils # (A) 0.03 X 10*3/uL (0.00-0.10); Basophils % (A) 0.5 %; Eosinophils # (A) 0.18 X 10*3/uL (0.04-0.35); Eosinophils % (A) 3.1 %; HCT 31.6 % (39.6-50.0); HGB 8.5 g/dL (13.0-17.0); Lymphocytes # (A) 1.29 X 10*3/uL (0.90-5.00); Lymphocytes % (A) 22.5 %; MCH 19.7 pg (27.0-32.0); MCHC 26.9 g/dL (32.0-37.0); MCV 73.1 FL (80.0-97.0); Monocytes # (A) 0.99 X 10*3/uL (0.20-1.00); Monocytes % (A) 17.2 %; NRBC Per 100 WBC 0 X 10*3/uL (0.00-0.01); Neutrophils # (A) 3.23 X 10*3/uL (1.80-7.70); Neutrophils % (A) 56.4 %; Platelet Count 200 X 10*3/uL (140-440); RBC 4.32 X 10*6/uL (4.40-5.60); RDW 25.3 % (11.5-14.5); WBC 5.74 X 10*3/uL (4.50-10.00)
[2025-03-10 09:09] LABS: BUN/Creat Ratio 31.08 Ratio (12.00-20.00); Blood Urea Nitrogen 37.3 mg/dL (9.0-27.0); Calcium 8.8 mg/dL (8.7-10.3); Carbon Dioxide 40.8 mmol/L (21.6-31.8); Chloride 92 mmol/L (96-109); Glucose 44 mg/dL (70-110); Potassium 3.4 mmol/L (3.5-5.5); Sodium 142 mmol/L (135-145)
[2025-03-10] MEDS: SPIRONOLACTONE 25 MG TAB PO SCH (09:19)
[2025-03-10 12:07] LABS: Glucose,Whole Blood 204 mg/dL (70-110)
--- NOTE | 2025-03-10 12:49 | P.PN ---
Subjective HISTORY OF PRESENT ILLNESS: This is a 65-year-old male with past medical history of coronary artery disease with previous CABG, congestive heart failure, hypertension, hyperlipidemia, diabetes, and atrial fibrillation. Patient follows in the office with Dr. Richards out of [facility]. Patient was hospitalized 02/26/16 and seen by cardiology for acute on chronic systolic heart failure and patient was insisting on going home although it was recommended that he stay longer. He states that once he got home his legs were very weak and he had constipation he had a fall at home. He denies chest pain no shortness of breath. No lightheadedness or dizziness. Patient returned to the emergency center and we have been asked to evaluate the patient for acute pulmonary edema and elevated troponins. Blood pressure 98/63, heart rate 67, pulse ox 96% on 4 L nasal cannula. Patient has been started on IV Lasix 40 mg every 8 hours. -EKG: Atrial fibrillation at 81 bpm. -Chest x-ray: Mild cardiomegaly. Suspected pulmonary vascular congestion. Ongoing moderate right pleural effusion with adjacent atelectasis and/or consolidation. -Laboratory studies: WBC 7.1, hemoglobin 9.5. INR 1.2. Sodium 130, potassium 3.6, CO2 42, BUN 57 creatinine 1.36. Troponin 0.083 and 0.066. Alkaline phosphatase 221. proBNP 4740. -Home cardiac medications: Eliquis 5 mg twice daily, aspirin 81 mg daily, Lipitor 80 mg at bedtime, Bumex 2 mg in the morning and 1 mg in the afternoon, lisinopril 10 mg daily, metolazone 5 mg daily, metoprolol tartrate 50 mg twice daily, spironolactone 25 mg daily. Patient is also on Jardiance and iron. -Echocardiogram performed 02/27/2025 reveals ejection fraction 40%, global hypokinesis, trace to mild MR, moderate to severe TR 03/07 Patient seen and examined. Patient states constipation is improved after medications given last night. No shortness of breath. No chest pain or chest pressure. Iron levels are low and patient will be ordered 1 dose of IV iron infusion. Repeat lab work reveals worsening renal function with BUN 43 creatinine 1.6. Potassium 3.3, CO2 39, hemoglobin 8.3. 03/08 Patient seen and examined. Patient denies chest pain, chest pressure, shortness of breath. He still has weakness. Blood pressure readings have been on the low side. Blood pressure 96/56, heart rate 60s and 70s, pulse ox 97% on 4 L nasal cannula. Yesterday, patient was ordered for Diamox for 2 doses and then discont inued. Also patient received 1 dose of IV iron. We have kept Aldactone and lisinopril on hold due to acute kidney injury. Laboratory studies are not reported at the time of this dictation. Patient is waiting for insurance authorization for subacute rehab. 03/09 Patient seen and examined. Yesterday, we continue to hold Aldactone and lisinopril and decrease metoprolol tartrate to 25 mg. We discontinued metolazone and aspirin yesterday as well. Blood pressures started increasing overnight to 154/74 this morning, heart rate is in the 70s, pulse ox 90% on 4 L nasal cannula. Patient states that his breathing is okay. No chest pain. He states he has not been allowed to walk due to fall risk. Repeat blood work reveals hemoglobin 8.5, BUN 44 creatinine 1.3. 03/10/2025 Patient examined this morning at the bedside. Patient currently denies chest pain or pressure. He denies shortness of breath. He states he is feeling well this morning. Vital signs are stable. BUN 37. Creatinine 1.2. PHYSICAL EXAM: VITAL SIGNS: Reviewed. GENERAL: Well-developed in no acute distress. NECK: Supple. No JVD or thyromegaly LUNGS: Respirations even and unlabored. Lungs essentially clear to auscultation bilaterally. HEART: Regular rate and rhythm. S1 and S2 heard. EXTREMITIES: Normal range of motion. No clubbing or cyanosis. Peripheral pulses intact. No lower extremity edema ASSESSMENT: Lower extremity weakness, fall and constipation Acute kidney injury, improved Elevated troponin secondary to LEO Chronic heart failure with reduced EF Coronary artery disease with previous CABG Ischemic cardiomyopathy 40 to 45% Persistent atrial fibrillation Hypertension Hyperlipidemia Diabetes Obesity: BMI 48.7 PLAN: Metolazone discontinued. Do not resume upon discharge Lisinopril remains on hold Resume Aldactone 12.5 mg daily Continue to monitor kidney function Consider Watchman device if patient continues to have issues with anemia. Aspirin has been discontinued. Continue Eliquis. Patient is currently stable for discharge from a cardiac standpoint Patient to follow-up postdischarge with his primary passport support associate in [facility] Nurse practitioner note has been reviewed by physician. Signing provider agrees with the documented findings, assessment, and plan of care documented by BUDGET ENGINEER as a scribe. Objective - Vital Signs Vital signs: Vital Signs Temp 98.2 F 03/10/25 07:00 Pulse 69 03/10/25 07:00 Resp 16 03/10/25 07:00 BP 147/52 03/10/25 07:00 Pulse Ox 96 03/10/25 08:13 FiO2 Intake & Output 03/09/25 03/10/25 03/10/25 18:59 06:59 18:59 Intake Total 480 Output Total 1100 2700 1100 Balance -620 -2700 -1100 Intake: Oral 480 Output: Urine 1100 2700 1100 Other: Voiding Method Bedside Commode Urinal - Labs CBC & Chem 7: 03/10/25 03:53 03/10/25 03:53 Labs: Abnormal Lab Results - Last 24 Hours (Table) 03/09/25 03/09/25 03/09/25 Range/Units 12:48 17:41 19:50 RBC (4.40-5.60) X 10*6/uL Hgb (13.0-17.0) g/dL Hct (39.6-50.0) % MCV (80.0-97.0) FL MCH (27.0-32.0) pg MCHC (32.0-37.0) g/dL RDW (11.5-14.5) % Potassium (3.5-5.5) mmol/L Chloride (96-109) mmol/L Carbon Dioxide (21.6-31.8) mmol/L BUN (9.0-27.0) mg/dL BUN/Creatinine Ratio (12.00-20.00) Ratio Glucose (70-110) mg/dL POC Glucose (mg/dL) 162 H 255 H 379 H (70-110) mg/dL 03/10/25 03/10/25 03/10/25 Range/Units 01:36 03:53 03:53 RBC 4.32 L (4.40-5.60) X 10*6/uL Hgb 8.5 L (13.0-17.0) g/dL Hct 31.6 L (39.6-50.0) % MCV 73.1 L (80.0-97.0) FL MCH 19.7 L (27.0-32.0) pg MCHC 26.9 L (32.0-37.0) g/dL RDW 25.3 H (11.5-14.5) % Potassium 3.4 L (3.5-5.5) mmol/L Chloride 92 L (96-109) mmol/L Carbon Dioxide 40.8 A* (21.6-31.8) mmol/L BUN 37.3 H (9.0-27.0) mg/dL BUN/Creatinine Ratio 31.08 H (12.00-20.00) Ratio Glucose 44 A* (70-110) mg/dL POC Glucose (mg/dL) 63 L (70-110) mg/dL 03/10/25 03/10/25 03/10/25 Range/Units 04:39 04:54 12:05 RBC (4.40-5.60) X 10*6/uL Hgb (13.0-17.0) g/dL Hct (39.6-50.0) % MCV (80.0-97.0) FL MCH (27.0-32.0) pg MCHC (32.0-37.0) g/dL RDW (11.5-14.5) % Potassium (3.5-5.5) mmol/L Chloride (96-109) mmol/L Carbon Dioxide (21.6-31.8) mmol/L BUN (9.0-27.0) mg/dL BUN/Creatinine Ratio (12.00-20.00) Ratio Glucose (70-110) mg/dL POC Glucose (mg/dL) 57 L 65 L 204 H (70-110) mg/dL
[2025-03-10 17:20] LABS: Glucose,Whole Blood 183 mg/dL (70-110)
[2025-03-10] MEDS: ceFAZolin 2 GM in DEXTROSE 5% IN WATER 50 ML IVPB SCH (18:18)
[2025-03-10 20:14] LABS: Glucose,Whole Blood 357 mg/dL (70-110)
[2025-03-10 22:53] VITALS: RESP 18
--- NOTE | 2025-03-10 23:31 | P.PN ---
Subjective Progress Note Date: 03/09/25 Patient is a 65-year-old male with a past medical history of hypertension, diabetes type 2 insulin-dependent, persistent atrial fibrillation on anticoagulation, coronary disease history of CABG, chronic CHF with reduced EF 40 to 45% and a prior history of smoking. Patient was discharged on hospital yesterday, he was treated for acute CHF exacerbation. Patient did not want to go to rehab at the time and wants to go home. He was discharged but upon reaching home he has been having generalized weakness and difficulty getting around also had a fall at home and was unable to get off the toilet. Patient currently does not think he can go back home and is not strong have.. Denied any complaints of fever or chills. Patient does have chronic lower extremity swelling. Otherwise denied any complaints of fever or chills. Patient states that his legs feels weak. No nausea vomiting abdominal pain or diarrhea. Chest x-ray showed limited by body habitus. Mild cardiomegaly and suspected ongoing pulmonary vascular congestion. Ongoing moderate right pleural effusion with adjacent atelectasis and/or consolidation. EKG showed atrial fibrillation with heart rate 81. Laboratory data showed WBC 7.1 hemoglobin 9.5 and platelets 196 sodium 138 potassium 3.6 chloride 86 bicarb is 42 BUN 57 creatinine 1.36 and blood sugar 139 total bili 1.7 troponin 0.083, 0.066 and 0.065 proBNP 4740 Urinalysis showed trace protein 4+ glucose and small blood and WBCs 10. Squamous epithelial cells less than 1 and leukocyte esterase negative. Baseline creatinine level 1.0 03/07/2025 Patient is sitting in chair. Awake alert and oriented. No complaints of chest pain or shortness of breath. Patient is being cannula Bumex and anticoagulation with Eliquis. Continue with cefazolin for left lower extremity redness and cellulitis. Improving redness. Patient has been afebrile. Lab data showed WBC 6.9 hemoglobin 8.3 and platelets 212. Patient is iron deficient. Sodium 141 potassium 3.3 chloride 91 bicarb is 39.3 BUN 43.4 and creatinine 1.6 and blood sugar 92 and A1c 7.3. 03/08/2025 Patient is sitting in the chair. Awake alert and oriented. Bilateral lower EXTR swelling is stable. No complaints of chest pain or shortness of breath. Blood pressure 101/56 with pulse 67. Patient is on 4 L oxygen via nasal cannula. Laboratory shows sodium 143 potassium 3.4 chloride 93 bicarb is 36.8 BUN 50.4 and creatinine 1.6. Calcium 8.5. Patient is being continued on IV iron supplementation. On anticoagulation with Eliquis 2.5 mg twice daily. 03/09/2025 Patient is sitting up. Awake alert and oriented. No complaints of chest pain or shortness of breath. Leg swelling is much improved. Blood pressure is better today. Laboratory pressure WBC 5.6 hemoglobin 8.1 platelets 196 sodium 141 potassium 3.3 chloride 92 bicarb is 36.2 BUN 44.9 creatinine 1.3 and blood sugar 93. Patient is on Bumex 2 mg daily and 1 mg at 4 PM. On anticoagulation with Eliquis. Patient is on insulin regimen and titrate dose as needed. Cardiology on board. Current medications reviewed. Objective - Vital Signs Vital signs: Vital Signs Temp 97.7 F 03/09/25 07:00 Pulse 85 03/09/25 07:00 Resp 18 03/09/25 07:00 BP 118/73 03/09/25 07:00 Pulse Ox 100 03/09/25 07:00 FiO2 Intake & Output 03/08/25 03/09/25 03/09/25 18:59 06:59 18:59 Intake Total 236 Output Total 2950 1300 Balance -2714 -1300 Intake: Oral 236 Output: Urine 2950 1300 Other: Voiding Method Bedside Commode Bedside Commode # Voids 1 1 - Exam PHYSICAL EXAMINATION: Patient is lying in the bed, no acute distress, awake alert and oriented. Morbidly obese.. HEENT: Normocephalic. Neck is supple. Pupils reactive. Nostrils clear. Oral cavity is moist. Neck reveals no JVD, carotid bruits, or thyromegaly. CHEST EXAMINATION: Trachea is central. Symmetrical expansion. Bibasilar diminished sounds. No wheezing. Nonlabored breathing.. CARDIAC: Normal S1, S2 with no gallops. No murmurs ABDOMEN: Soft. Bowel sounds normal. No organomegaly. No abdominal bruits. Extremities: Bilateral lower extremity swelling swelling and dry skin noted. Right great toe wound is bandaged... No clubbing or cyanosis Neurologically awake, alert, oriented x3 with well-coordinated movements. No focal deficits noted Skin: No rash or skin lesions. Psychiatric: Coperative. Nonsuicidal Musculoskeletal: No joint swelling or deformity. - Labs CBC & Chem 7: 03/10/25 03:53 03/10/25 03:53 Labs: Abnormal Lab Results - Last 24 Hours (Table) 03/08/25 03/08/25 03/08/25 Range/Units 12:47 17:25 20:29 RBC (4.40-5.60) X 10*6/uL Hgb (13.0-17.0) g/dL Hct (39.6-50.0) % MCV (80.0-97.0) FL MCH (27.0-32.0) pg MCHC (32.0-37.0) g/dL RDW (11.5-14.5) % Monocytes # (0.20-1.00) X 10*3/uL Potassium (3.5-5.5) mmol/L Chloride (96-109) mmol/L Carbon Dioxide (21.6-31.8) mmol/L Anion Gap (4.00-12.00) mmol/L BUN (9.0-27.0) mg/dL BUN/Creatinine Ratio (12.00-20.00) Ratio POC Glucose (mg/dL) 182 H 227 H 229 H (70-110) mg/dL Calcium (8.7-10.3) mg/dL 03/09/25 03/09/25 Range/Units 04:07 04:07 RBC 4.32 L (4.40-5.60) X 10*6/uL Hgb 8.5 L (13.0-17.0) g/dL Hct 31.4 L (39.6-50.0) % MCV 72.7 L (80.0-97.0) FL MCH 19.7 L (27.0-32.0) pg MCHC 27.1 L (32.0-37.0) g/dL RDW 24.6 H (11.5-14.5) % Monocytes # 1.01 H (0.20-1.00) X 10*3/uL Potassium 3.3 L (3.5-5.5) mmol/L Chloride 92 L (96-109) mmol/L Carbon Dioxide 36.2 H (21.6-31.8) mmol/L Anion Gap 12.80 H (4.00-12.00) mmol/L BUN 44.9 H (9.0-27.0) mg/dL BUN/Creatinine Ratio 34.54 H (12.00-20.00) Ratio POC Glucose (mg/dL) (70-110) mg/dL Calcium 8.5 L (8.7-10.3) mg/dL Assessment and Plan Assessment: Bilateral lower extremity weakness and fall. Acute kidney injury likely prerenal. Creatinine 1.36. Baseline 1.0 Elevated troponin level possible demand ischemia. Microcytic iron deficiency anemia Left lower extremity redness with possible cellulitis Chronic CHF with systolic dysfunction ejection fraction 40 to 45% Ischemic cardiomyopathy Persistent atrial fibrillation anticoagulation Diabetes type 2 insulin-dependent Hypertension Hyperlipidemia Morbid obesity BMI 48.7 Right great toe diabetic wound GI prophylaxis and DVT prophylaxis Plan: Patient will begin on telemonitoring. Patient was given a dose of IV Lasix in the ER. Patient will be continued on Bumex 2 mg daily and 1 mg at 4 PM. Aldactone and lisinopril on hold due to LEO. Metoprolol dose decreased to 25 mg twice daily. Continue on antibiotics cefazolin. Continue with iron supplementation. Wound care consult for dressing changes. Continue with insulin regimen and sliding scale. PT OT will be consulted. Continue with home medications and follow-up closely. Time with Patient: Greater than 30
--- NOTE | 2025-03-10 23:33 | P.PN ---
Subjective Progress Note Date: 03/10/25 Patient is a 65-year-old male with a past medical history of hypertension, diabetes type 2 insulin-dependent, persistent atrial fibrillation on anticoagulation, coronary disease history of CABG, chronic CHF with reduced EF 40 to 45% and a prior history of smoking. Patient was discharged on hospital yesterday, he was treated for acute CHF exacerbation. Patient did not want to go to rehab at the time and wants to go home. He was discharged but upon reaching home he has been having generalized weakness and difficulty getting around also had a fall at home and was unable to get off the toilet. Patient currently does not think he can go back home and is not strong have.. Denied any complaints of fever or chills. Patient does have chronic lower extremity swelling. Otherwise denied any complaints of fever or chills. Patient states that his legs feels weak. No nausea vomiting abdominal pain or diarrhea. Chest x-ray showed limited by body habitus. Mild cardiomegaly and suspected ongoing pulmonary vascular congestion. Ongoing moderate right pleural effusion with adjacent atelectasis and/or consolidation. EKG showed atrial fibrillation with heart rate 81. Laboratory data showed WBC 7.1 hemoglobin 9.5 and platelets 196 sodium 138 potassium 3.6 chloride 86 bicarb is 42 BUN 57 creatinine 1.36 and blood sugar 139 total bili 1.7 troponin 0.083, 0.066 and 0.065 proBNP 4740 Urinalysis showed trace protein 4+ glucose and small blood and WBCs 10. Squamous epithelial cells less than 1 and leukocyte esterase negative. Baseline creatinine level 1.0 03/07/2025 Patient is sitting in chair. Awake alert and oriented. No complaints of chest pain or shortness of breath. Patient is being cannula Bumex and anticoagulation with Eliquis. Continue with cefazolin for left lower extremity redness and cellulitis. Improving redness. Patient has been afebrile. Lab data showed WBC 6.9 hemoglobin 8.3 and platelets 212. Patient is iron deficient. Sodium 141 potassium 3.3 chloride 91 bicarb is 39.3 BUN 43.4 and creatinine 1.6 and blood sugar 92 and A1c 7.3. 03/08/2025 Patient is sitting in the chair. Awake alert and oriented. Bilateral lower EXTR swelling is stable. No complaints of chest pain or shortness of breath. Blood pressure 101/56 with pulse 67. Patient is on 4 L oxygen via nasal cannula. Laboratory shows sodium 143 potassium 3.4 chloride 93 bicarb is 36.8 BUN 50.4 and creatinine 1.6. Calcium 8.5. Patient is being continued on IV iron supplementation. On anticoagulation with Eliquis 2.5 mg twice daily. 03/09/2025 Patient is sitting up. Awake alert and oriented. No complaints of chest pain or shortness of breath. Leg swelling is much improved. Blood pressure is better today. Laboratory pressure WBC 5.6 hemoglobin 8.1 platelets 196 sodium 141 potassium 3.3 chloride 92 bicarb is 36.2 BUN 44.9 creatinine 1.3 and blood sugar 93. Patient is on Bumex 2 mg daily and 1 mg at 4 PM. On anticoagulation with Eliquis. Patient is on insulin regimen and titrate dose as needed. Cardiology on board. 03/10/2025 Patient is sitting in the chair. Awake alert and oriented. Denied any complaints of chest pain or shortness of breath. No nausea or vomiting. No other acute overnight issues. Patient on 4 L oxygen via nasal cannula. Blood pressure 147/52 and pulse 69 respirations 16 pulse ox 90% on 4 L via nasal cannula. Patient was started back on spironolactone 12.5 mg daily. Patient is also on Bumex. Cardiology on board. Patient had a hypoglycemic episode with blood sugar 44 today. Sliding scale changed to low-dose. Continue with insulin regimen and titrate dose as needed. Current medications reviewed. Objective - Vital Signs Vital signs: Vital Signs Temp 97.9 F 03/10/25 19:02 Pulse 67 03/10/25 19:02 Resp 18 03/10/25 19:02 BP 113/67 03/10/25 19:02 Pulse Ox 100 03/10/25 19:02 FiO2 Intake & Output 03/10/25 03/10/25 03/11/25 06:59 18:59 06:59 Intake Total 118 Output Total 2700 1999 Balance -2699 Intake: Oral 118 Output: Urine 2699 Other: Voiding Method Urinal Urinal - Exam PHYSICAL EXAMINATION: Patient is lying in the bed, no acute distress, awake alert and oriented. Morbidly obese.. HEENT: Normocephalic. Neck is supple. Pupils reactive. Nostrils clear. Oral cavity is moist. Neck reveals no JVD, carotid bruits, or thyromegaly. CHEST EXAMINATION: Trachea is central. Symmetrical expansion. Bibasilar diminished sounds. No wheezing. Nonlabored breathing.. CARDIAC: Normal S1, S2 with no gallops. No murmurs ABDOMEN: Soft. Bowel sounds normal. No organomegaly. No abdominal bruits. Extremities: Bilateral lower extremity swelling swelling and dry skin noted. Right great toe wound is bandaged... No clubbing or cyanosis Neurologically awake, alert, oriented x3 with well-coordinated movements. No focal deficits noted Skin: No rash or skin lesions. Psychiatric: Coperative. Nonsuicidal Musculoskeletal: No joint swelling or deformity. - Labs CBC & Chem 7: 03/10/25 03:53 03/10/25 03:53 Labs: Abnormal Lab Results - Last 24 Hours (Table) 03/10/25 03/10/25 03/10/25 Range/Units 01:36 03:53 03:53 RBC 4.32 L (4.40-5.60) X 10*6/uL Hgb 8.5 L (13.0-17.0) g/dL Hct 31.6 L (39.6-50.0) % MCV 73.1 L (80.0-97.0) FL MCH 19.7 L (27.0-32.0) pg MCHC 26.9 L (32.0-37.0) g/dL RDW 25.3 H (11.5-14.5) % Potassium 3.4 L (3.5-5.5) mmol/L Chloride 92 L (96-109) mmol/L Carbon Dioxide 40.8 A* (21.6-31.8) mmol/L BUN 37.3 H (9.0-27.0) mg/dL BUN/Creatinine Ratio 31.08 H (12.00-20.00) Ratio Glucose 44 A* (70-110) mg/dL POC Glucose (mg/dL) 63 L (70-110) mg/dL 03/10/25 03/10/25 03/10/25 Range/Units 04:39 04:54 12:05 RBC (4.40-5.60) X 10*6/uL Hgb (13.0-17.0) g/dL Hct (39.6-50.0) % MCV (80.0-97.0) FL MCH (27.0-32.0) pg MCHC (32.0-37.0) g/dL RDW (11.5-14.5) % Potassium (3.5-5.5) mmol/L Chloride (96-109) mmol/L Carbon Dioxide (21.6-31.8) mmol/L BUN (9.0-27.0) mg/dL BUN/Creatinine Ratio (12.00-20.00) Ratio Glucose (70-110) mg/dL POC Glucose (mg/dL) 57 L 65 L 204 H (70-110) mg/dL 03/10/25 03/10/25 Range/Units 17:19 20:12 RBC (4.40-5.60) X 10*6/uL Hgb (13.0-17.0) g/dL Hct (39.6-50.0) % MCV (80.0-97.0) FL MCH (27.0-32.0) pg MCHC (32.0-37.0) g/dL RDW (11.5-14.5) % Potassium (3.5-5.5) mmol/L Chloride (96-109) mmol/L Carbon Dioxide (21.6-31.8) mmol/L BUN (9.0-27.0) mg/dL BUN/Creatinine Ratio (12.00-20.00) Ratio Glucose (70-110) mg/dL POC Glucose (mg/dL) 183 H 357 H (70-110) mg/dL Assessment and Plan Assessment: Bilateral lower extremity weakness and fall. Acute kidney injury likely prerenal. Creatinine 1.36 on admission. Baseline 1.0 Elevated troponin level possible demand ischemia. Microcytic iron deficiency anemia Left lower extremity redness with possible cellulitis Chronic CHF with systolic dysfunction ejection fraction 40 to 45% Ischemic cardiomyopathy Persistent atrial fibrillation anticoagulation Diabetes type 2 insulin-dependent Hypertension Hyperlipidemia Morbid obesity BMI 48.7 Right great toe diabetic wound GI prophylaxis and DVT prophylaxis Plan: Patient will begin on telemonitoring. Patient was given a dose of IV Lasix in the ER. Patient will be continued on Bumex 2 mg daily and 1 mg at 4 PM. Started back on Aldactone. Lisinopril on hold due to LEO. Metoprolol dose decreased to 25 mg twice daily. Continue on antibiotics cefazolin. Continue with iron supplementation. Wound care consult for dressing changes. Continue with insulin regimen and sliding scale. PT OT will be consulted. Patient may need rehab transfer. Continue with home medications and follow-up closely. Time with Patient: Greater than 30
[2025-03-11 06:19] LABS: Glucose,Whole Blood 136 mg/dL (70-110)
[2025-03-11 09:05] LABS: BUN/Creat Ratio 27.92 Ratio (12.00-20.00); Blood Urea Nitrogen 33.5 mg/dL (9.0-27.0); Calcium 8.6 mg/dL (8.7-10.3); Carbon Dioxide 38.4 mmol/L (21.6-31.8); Chloride 92 mmol/L (96-109); Glucose 145 mg/dL (70-110); Potassium 3.3 mmol/L (3.5-5.5); Sodium 141 mmol/L (135-145)
[2025-03-11 09:06] LABS: NT-Pro-B-Type Natriuretic Pept 2490 pg/mL (0-125)
--- NOTE | 2025-03-11 12:17 | P.PN ---
Subjective HISTORY OF PRESENT ILLNESS: This is a 65-year-old male with past medical history of coronary artery disease with previous CABG, congestive heart failure, hypertension, hyperlipidemia, diabetes, and atrial fibrillation. Patient follows in the office with Dr. Richards out of [facility]. Patient was hospitalized 02/26/16 and seen by cardiology for acute on chronic systolic heart failure and patient was insisting on going home although it was recommended that he stay longer. He states that once he got home his legs were very weak and he had constipation he had a fall at home. He denies chest pain no shortness of breath. No lightheadedness or dizziness. Patient returned to the emergency center and we have been asked to evaluate the patient for acute pulmonary edema and elevated troponins. Blood pressure 98/63, heart rate 67, pulse ox 96% on 4 L nasal cannula. Patient has been started on IV Lasix 40 mg every 8 hours. -EKG: Atrial fibrillation at 81 bpm. -Chest x-ray: Mild cardiomegaly. Suspected pulmonary vascular congestion. Ongoing moderate right pleural effusion with adjacent atelectasis and/or consolidation. -Laboratory studies: WBC 7.1, hemoglobin 9.5. INR 1.2. Sodium 130, potassium 3.6, CO2 42, BUN 57 creatinine 1.36. Troponin 0.083 and 0.066. Alkaline phosphatase 221. proBNP 4740. -Home cardiac medications: Eliquis 5 mg twice daily, aspirin 81 mg daily, Lipitor 80 mg at bedtime, Bumex 2 mg in the morning and 1 mg in the afternoon, lisinopril 10 mg daily, metolazone 5 mg daily, metoprolol tartrate 50 mg twice daily, spironolactone 25 mg daily. Patient is also on Jardiance and iron. -Echocardiogram performed 02/27/2025 reveals ejection fraction 40%, global hypokinesis, trace to mild MR, moderate to severe TR 03/07 Patient seen and examined. Patient states constipation is improved after medications given last night. No shortness of breath. No chest pain or chest pressure. Iron levels are low and patient will be ordered 1 dose of IV iron infusion. Repeat lab work reveals worsening renal function with BUN 43 creatinine 1.6. Potassium 3.3, CO2 39, hemoglobin 8.3. 03/08 Patient seen and examined. Patient denies chest pain, chest pressure, shortness of breath. He still has weakness. Blood pressure readings have been on the low side. Blood pressure 96/56, heart rate 60s and 70s, pulse ox 97% on 4 L nasal cannula. Yesterday, patient was ordered for Diamox for 2 doses and then discont inued. Also patient received 1 dose of IV iron. We have kept Aldactone and lisinopril on hold due to acute kidney injury. Laboratory studies are not reported at the time of this dictation. Patient is waiting for insurance authorization for subacute rehab. 03/09 Patient seen and examined. Yesterday, we continue to hold Aldactone and lisinopril and decrease metoprolol tartrate to 25 mg. We discontinued metolazone and aspirin yesterday as well. Blood pressures started increasing overnight to 154/74 this morning, heart rate is in the 70s, pulse ox 90% on 4 L nasal cannula. Patient states that his breathing is okay. No chest pain. He states he has not been allowed to walk due to fall risk. Repeat blood work reveals hemoglobin 8.5, BUN 44 creatinine 1.3. 03/10/2025 Patient examined this morning at the bedside. Patient currently denies chest pain or pressure. He denies shortness of breath. He states he is feeling well this morning. Vital signs are stable. BUN 37. Creatinine 1.2. 03/11/2025 Patient examined this morning at the bedside. Patient is currently sitting up in the chair. Patient currently denies chest pain or pressure. He denies shortness of breath. Patient remains on oral diuretics. Vital signs are stable. PHYSICAL EXAM: VITAL SIGNS: Reviewed. GENERAL: Well-developed in no acute distress. NECK: Supple. No JVD or thyromegaly LUNGS: Respirations even and unlabored. Lungs essentially clear to auscultation bilaterally. HEART: Regular rate and rhythm. S1 and S2 heard. Systolic murmur noted. EXTREMITIES: Normal range of motion. No clubbing or cyanosis. Peripheral pulses intact. Trace bilateral lower extremity edema. ASSESSMENT: Lower extremity weakness, fall and constipation Acute kidney injury, improved Elevated troponin secondary to LEO Chronic heart failure with reduced EF Coronary artery disease with previous CABG Ischemic cardiomyopathy 40 to 45% Persistent atrial fibrillation Hypertension Hyperlipidemia Diabetes Obesity: BMI 48.7 PLAN: Metolazone discontinued. Do not resume upon discharge Lisinopril remains on hold Continue additional cardiac medications including Eliquis, Lipitor, Bumex, Farxiga, metoprolol, and Aldactone Consider Watchman device if patient continues to have issues with anemia. Aspirin has been discontinued. Continue Eliquis. 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 Please reconsult if needed. Nurse practitioner note has been reviewed by physician. Signing provider agrees with the documented findings, assessment, and plan of care documented by HAND BANDER as a scribe. Objective - Vital Signs Vital signs: Vital Signs Temp 98.1 F 03/11/25 07:15 Pulse 74 03/11/25 07:15 Resp 18 03/11/25 07:15 BP 108/67 03/11/25 07:15 Pulse Ox 96 03/11/25 07:15 FiO2 Intake & Output 03/10/25 03/11/25 03/11/25 18:59 06:59 18:59 Intake Total 118 240 Output Total 1999 2500 Balance -1882 -2500 240 Intake: Oral 118 240 Output: Urine 1999 2500 Other: Voiding Method Urinal - Labs CBC & Chem 7: 03/10/25 03:53 03/11/25 05:31 Labs: Abnormal Lab Results - Last 24 Hours (Table) 03/10/25 03/10/25 03/11/25 Range/Units 17:19 20:12 05:31 Potassium 3.3 L (3.5-5.5) mmol/L Chloride 92 L (96-109) mmol/L Carbon Dioxide 38.4 H (21.6-31.8) mmol/L BUN 33.5 H (9.0-27.0) mg/dL BUN/Creatinine Ratio 27.92 H (12.00-20.00) Ratio Glucose 145 H (70-110) mg/dL POC Glucose (mg/dL) 183 H 357 H (70-110) mg/dL Calcium 8.6 L (8.7-10.3) mg/dL NT-Pro-B Natriuret Pep 2490 H (0-125) pg/mL 03/11/25 Range/Units 06:18 Potassium (3.5-5.5) mmol/L Chloride (96-109) mmol/L Carbon Dioxide (21.6-31.8) mmol/L BUN (9.0-27.0) mg/dL BUN/Creatinine Ratio (12.00-20.00) Ratio Glucose (70-110) mg/dL POC Glucose (mg/dL) 136 H (70-110) mg/dL Calcium (8.7-10.3) mg/dL NT-Pro-B Natriuret Pep (0-125) pg/mL
[2025-03-11 12:48] LABS: Glucose,Whole Blood 197 mg/dL (70-110)
[2025-03-11 14:09] VITALS: BP 93/53; PULSE 66; TEMP 97.8
[2025-03-11] MEDS: POTASSIUM CHLORIDE ER 20 MEQ TAB.ER PO STA (14:44)
--- NOTE | 2025-03-17 12:28 | CDI ---
Documentation Clarification Form Date: 03/14/2025 03:57:00 PM From: Willow Jimenez RN, CCDS Email: [email or web address] Admit Date: 03/06/2025 10:50:00 AM Patient Name: Luis Alfredo Steinberg Visit Number: [id number] Discharge Date: 03/11/2025 03:57:00 PM ATTENTION: The Clinical Documentation Specialists (CDI) and [facility] Coding Staff appreciate your assistance in clarifying documentation. Please respond to the clarification below the line at the bottom and electronically sign. The CDI & [facility] Coding staff will review the response and follow-up if needed. Please note: Queries are made part of the Legal Health Record. If you have any questions, please contact the author of this message via ITS. Doctor Darcie Wood The patient has chronic CHF with systolic dysfunction. Additional clarification is requested. History/Risk Factors: CHF, DM, bypass surgery and HLD. From the 03/06 H&P: "Patient was discharged from hospital yesterday. He was treated for acute CHF exacerbation. Patient did not want to go to rehab at the time and wanted to go home. He was discharged but upon reaching home he has been having generalized weakness and difficulty getting around. Also had a fall at home and was unable to get off the toilet." Clinical Indicators: 03/06-03/11 BNP: [id number] 03/06 Chest X Ray: Mild cardiomegaly and suspected ongoing pulmonary vascular congestion. Ongoing moderate right pleural effusion with adjacent atelectasis and/or consolidation. 03/06 H&P: "Chronic CHF with systolic dysfunction ejection fraction 40 to 45%. Ischemic cardiomyopathy." 03/06 Cardiology consult: "Patient was hospitalized 02/26/16 and seen by Cardiology for acute on chronic systolic heart failure and patient was insisting on going home although it was recommended that he stay longer. Echocardiogram performed 02/27/2025 reveals ejection fraction 40%, global hypokinesis, trace to mild MR, moderate to severe TR. No need to repeat echocardiogram. Bilateral lower extremity edema." Treatment: IV Lasix 40mg x1 on 03/06; Bumex 2mg po daily 03/07-03/11; Bumex 1mg po daily at 1600 03/07-03/10; Metolazone 5mg po daily 03/07-03/08; Spironolactone 12.5mg po daily 03/10-03/11 In your professional opinion, can you please clarify the CHF if known? [ ] Acute Systolic Heart Failure (reduced EF) [ ] Chronic Systolic Heart Failure (reduced EF) [ x ] Acute on Chronic Systolic Heart Failure (reduced EF) [ ] Other, please specify [ ] Unable to determine MTDD
== END 2025-03-11 15:57 | disposition home health service (06) | DRG 682 ==
LOC: EC 07:57 → 6NMEDSUR 10:49 → OBSVTOIN 10:50 → 6NMEDSUR 13:30
PROVIDERS: ADMIT Internal Medicine; ATTEND Internal Medicine
DX: N17.9 Acute kidney failure, unspecified (principal); I50.23 Acute on chronic systolic (congestive) heart failure; L03.116 Cellulitis of left lower limb; I11.0 Hypertensive heart disease with heart failure; I25.5 Ischemic cardiomyopathy; E66.01 Morbid (severe) obesity due to excess calories; D50.9 Iron deficiency anemia, unspecified; E11.649 Type 2 diabetes mellitus with hypoglycemia without coma; I48.19 Other persistent atrial fibrillation; Z68.42 Body mass index [BMI] 45.0-49.9, adult; Z79.4 Long term (current) use of insulin; E78.00 Pure hypercholesterolemia, unspecified; R79.89 Other specified abnormal findings of blood chemistry; K59.00 Constipation, unspecified; I25.2 Old myocardial infarction; I25.10 Atherosclerotic heart disease of native coronary artery without angina pectoris; Z79.01 Long term (current) use of anticoagulants; Z79.82 Long term (current) use of aspirin; Z79.84 Long term (current) use of oral hypoglycemic drugs; Z79.899 Other long term (current) drug therapy; Z85.46 Personal history of malignant neoplasm of prostate; Z87.891 Personal history of nicotine dependence; Z95.1 Presence of aortocoronary bypass graft; G47.30 Sleep apnea, unspecified
CPT/HCPCS: 36415; 71046; 80048; 80053; 81001; 83036; 83605; 83735; 83880; 84484; 85025; 85610; 85730; 93005; 94760; 96374; 99285

== ENCOUNTER 2025-04-29 18:03 | Emergency (ER) | payer MEDICARE ==
[2025-04-29 19:19] LABS: VBG PH 7.39 (7.31-7.41)
[2025-04-29 19:40] LABS: INR 1.2 (<1.2); Partial Thromboplastin Time 20.4 sec (22.0-30.0); Prothrombin Time 12.5 sec (10.0-12.5)
--- NOTE | 2025-04-29 19:40 | ED ---
General Adult HPI - General Chief complaint: Dizziness Stated complaint: dizziness Time Seen by Provider: 04/29/25 18:48 Source: patient, EMS, RN notes reviewed, old records reviewed Mode of arrival: EMS Limitations: no limitations - History of Present Illness Initial comments: 65-year-old male history of CAD, CHF, currently on Eliquis presents for eval uation of lightheadedness, blurred vision, and increased dyspnea. Patient wears 4 L of oxygen at baseline. He has reported increased lower extremity edema. He denies focal numbness or weakness. Patient is scheduled for echo to reassess cardiac function as he did have a reduced EF recently. Patient does feel somewhat dizzy at the time my evaluation and states that he has been very tired over the past several weeks. - Related Data Home Medications Medication Instructions Recorded Confirmed Apixaban [Eliquis] 5 mg PO BID 10/23/18 03/06/25 Atorvastatin [Lipitor] 80 mg PO HS 10/23/18 03/06/25 Empagliflozin [Jardiance] 25 mg PO DAILY 10/23/18 03/06/25 Omeprazole [PriLOSEC] 20 mg PO DAILY PRN 10/23/18 03/06/25 Insulin Degludec [Tresiba 60 units SQ HS 10/03/22 03/06/25 Flextouch U-200 Pen] Multivitamins, Thera [Multivitamin 1 tab PO DAILY 04/24/23 03/06/25 (formulary)] metFORMIN HCL [Glucophage] 1,000 mg PO BID 02/25/25 03/06/25 Bumetanide [BUMEX] 1 mg PO DAILY@1600 03/06/25 03/06/25 Vericiguat [Verquvo] 2.5 mg PO DIRECTED 03/06/25 03/06/25 Previous Rx's Medication Instructions Recorded Bumetanide [BUMEX] 2 mg PO DAILY #90 tab 03/05/25 Collagenase [Santyl Ointment] 1 applic TOPICAL DAILY each 03/05/25 Docusate [Colace] 100 mg PO BID PRN cap 03/05/25 Ferrous Sulfate [Iron (65 MG 325 mg PO W/LUNCH #30 tab 03/05/25 Elemental)] Tamsulosin [Flomax] 0.4 mg PO PC-BRKFST #30 cap 03/05/25 Insulin Aspart [NovoLOG Flexpen] 4 units SQ AC-TID #0 03/11/25 Metoprolol Tartrate [Lopressor] 25 mg PO BID #60 tab 03/11/25 Spironolactone [Aldactone] 12.5 mg PO DAILY #30 tab 03/11/25 Allergies Allergy/AdvReac Type Severity Reaction Status Date / Time No Known Allergies Allergy Verified 04/29/25 18:25 Review of Systems ROS Statement: Those systems with pertinent positive or pertinent negative responses have been documented in the HPI. ROS Other: All systems not noted in ROS Statement are negative. Past Medical History Past Medical History: Atrial Fibrillation, Coronary Artery Disease (CAD), Cancer, Diabetes Mellitus, Hypertension, Myocardial Infarction (NV), Prostate Disorder, Sleep Apnea/CPAP/BIPAP Additional Past Medical History / Comment(s): PROSTATE CANCER, uses CPAP, CHF Last Myocardial Infarction Date:: 2015 History of Any Multi-Drug Resistant Organisms: None Reported Past Surgical History: Appendectomy, Coronary Bypass/CABG, Heart Catheterization With Stent, Hernia Repair, Prostate Surgery Additional Past Surgical History / Comment(s): HEART CATHS X7 WITH TOTAL OF 7 STENTS, CABG OCT 2016, JAYLYN INGUINAL HERNIAS, UMBILICAL HERNIAS. Past Anesthesia/Blood Transfusion Reactions: No Reported Reaction Additional Past Anesthesia/Blood Transfusion Reaction / Comment(s): no blood transfusion Date of Last Stent Placement:: 2014 Past Psychological History: No Psychological Hx Reported Smoking Status: Former smoker Past Alcohol Use History: Rare Past Drug Use History: None Reported - Past Family History Mother Family Medical History: No Reported History Additional Family Medical History / Comment(s): Heart disease Father Family Medical History: Diabetes Mellitus Additional Family Medical History / Comment(s): Heart disease General Exam Limitations: no limitations General appearance: alert, in no apparent distress Head exam: Present: atraumatic, normocephalic Eye exam: Present: normal appearance, PERRL ENT exam: Present: normal exam, normal oropharynx Neck exam: Present: normal inspection. Absent: tenderness, meningismus Respiratory exam: Present: rales, decreased breath sounds. Absent: respiratory distress, wheezes Cardiovascular Exam: Present: regular rate, irregular rhythm GI/Abdominal exam: Present: soft. Absent: distended, tenderness, guarding Extremities exam: Present: pedal edema Neurological exam: Present: alert, oriented X3, CN II-XII intact, other (No ataxia no nystagmus). Absent: motor sensory deficit Psychiatric exam: Present: normal affect, normal mood Skin exam: Present: warm, dry, intact Course Vital Signs 04/29/25 18:21 Temperature 97.6 F Pulse Rate 68 Respiratory 18 Rate Blood Pressure 134/85 O2 Sat by Pulse 96 Oximetry - Reevaluation(s) Reevaluation #1: 04/29/25 20:46 Patient reevaluated, resting comfortably, symptoms resolved. Medical Decision Making - Medical Decision Making Was pt. sent in by a medical professional or institution (, PA, CLINICAL PROJECT COORDINATOR, urgent care, hospital, or longterm...) When possible be specific @ -No Did you speak to anyone other than the patient for history (EMS, parent, family, police, friend...)? What history was obtained from this source @ -No Did you review nursing and triage notes (agree or disagree)? Why? @ -I reviewed and agree with nursing and triage notes Were old charts reviewed (outside hosp., previous admission, EMS record, old EKG, old radiological studies, urgent care reports/EKG's, longterm records)? Report findings @ -No old charts were reviewed Differential Dizziness: Benign paroxysmal positional Vertigo, Meniere's disease, otitis media, acoustic neuroma, vertebrobasilar insufficiency, cerebellar stroke, encephalitis, hypovolemic, arrhythmia, coronary artery syndrome, anemia, this is not meant to be an all-inclusive list Differential Dyspnea: Coronary syndrome, arrhythmia, tamponade, asthma, COPD, pulmonary embolism, pneumonia, pneumothorax, pulmonary effusion, anaphylaxis, diabetic ketoacidosis, flailed chest, pulmonary contusion, diaphragmatic rupture, anemia, neuromuscular, this is not meant to be an all-inclusive list. EKG interpreted by me (3pts min.). @ -EKG: Atrial fibrillation right bundle branch block, rate of 78, QRS duration 201, QTc 540 X-rays interpreted by me (1pt min.). @ -Chest x-ray negative for consolidated pneumonia, possible retrocardiac pneumonia, patient has no cough, no fever, no leukocytosis. CT interpreted by me (1pt min.). @ -CT brain negative for intracranial hemorrhage or mass effect. U/S interpreted by me (1pt. min.). @ -None done What testing was considered but not performed or refused? (CT, X-rays, U/S, labs)? Why? @ -None What meds were considered but not given or refused? Why? @ -None Did you discuss the management of the patient with other professionals (professionals i.e. , PA, CLINICAL PROJECT COORDINATOR, lab, RT, psych nurse, drug abuse social worker, band salvager, teacher, corrections officer, director case management)? Give summary @ -No Was smoking cessation discussed for >3mins.? @ -No Was critical care preformed (if so, how long)? @ -No Were there social determinants of health that impacted care today? How? (Homelessness, low income, unemployed, alcoholism, drug addiction, transportation, low edu. Level, literacy, decrease access to med. care, correction, rehab)? @ -No Was there de-escalation of care discussed even if they declined (Discuss DNR or withdrawal of care, Hospice)? DNR status @ -No What co-morbidities impacted this encounter? (DM, HTN, Smoking, COPD, CAD, Cancer, CVA, ARF, Chemo, Hep., AIDS, mental health diagnosis, sleep apnea, morbid obesity)? @Atrial fibrillation, hypertension, CAD, CHF Was patient admitted / discharged? Hospital course, mention meds given and route, prescriptions, significant lab abnormalities, going to OR and other pertinent info. @ -65-year-old male with an episode of dizziness, chronic dyspnea with oxygen dependent CHF. Patient has a normal white blood cell count, he is anemic which is stable from prior. Normal electrolytes. Negative troponin. He has an elevated BNP. Patient reevaluated in the emergency department and symptoms have resolved. He has no further complaints stating he feels quite well. Patient offered observation but declined states he will go home and return as needed. Undiagnosed new problem with uncertain prognosis? @ -No Drug Therapy requiring intensive monitoring for toxicity (Heparin, Nitro, Insulin, Cardizem)? @ -No Were any procedures done? @ -No Diagnosis/symptom? @ -[Dizziness Acute, or Chronic, or Acute on Chronic? @ -Acute, resolved Uncomplicated (without systemic symptoms) or Complicated (systemic symptoms)? @ -[default Side effects of treatment? @ -No Exacerbation, Progression, or Severe Exacerbation? @ -No Poses a threat to life or bodily function? How? (Chest pain, USA, NV, pneumonia, PE, COPD, DKA, ARF, appy, cholecystitis, CVA, Diverticulitis, Homicidal, Suicidal, threat to staff... and all critical care pts) @ -[Low risk at this time - Lab Data Result diagrams: 04/29/25 19:37 04/29/25 19:08 Lab Results 04/29/25 04/29/25 04/29/25 Range/Units 19:08 19:08 19:08 WBC (4.50-10.00) 10*3/uL RBC (4.40-5.60) 10*6/uL Hgb (13.0-17.0) g/dL Hct (39.6-50.0) % MCV (80.0-97.0) fL MCH (27.0-32.0) pg MCHC (32.0-37.0) g/dL RDW (11.5-14.5) % Plt Count (140-440) 10*3/uL MPV (9.5-12.2) fL Immature Gran % (Auto) % Neutrophils % % Lymphocytes % % Monocytes % % Eosinophils % % Basophils % % Immature Gran # (0.00-0.04) 10*3/uL Neutrophils # (1.80-7.70) 10*3/uL Lymphocytes # (0.90-5.00) 10*3/uL Monocytes # (0.20-1.00) 10*3/uL Eosinophils # (0.04-0.35) 10*3/uL Basophils # (0.00-0.10) 10*3/uL Manual Slide Review Large Platelets Polychromasia PT 12.5 (10.0-12.5) sec INR 1.2 H (<1.2) APTT 20.4 L (22.0-30.0) sec VBG pH (7.31-7.41) VBG pCO2 (37-51) mmHg VBG HCO3 (24-28) mmol/L Sodium 138 (137-145) mmol/L Potassium 5.0 (3.5-5.1) mmol/L Chloride 97 L (98-107) mmol/L Carbon Dioxide 30 (22-30) mmol/L Anion Gap 11 mmol/L BUN 50 H (9-20) mg/dL Creatinine 0.96 (0.66-1.25) mg/dL Est GFR (CKD-EPI)AfAm >90 (>60 ml/min/1.73 sqM) Est GFR (CKD-EPI)NonAf 82 (>60 ml/min/1.73 sqM) Glucose 128 H (74-99) mg/dL Calcium 9.3 (8.4-10.2) mg/dL Magnesium 2.0 (1.6-2.3) mg/dL Total Bilirubin 1.3 (0.2-1.3) mg/dL AST 65 H (17-59) U/L ALT 37 (4-49) U/L Alkaline Phosphatase 182 H (38-126) U/L Troponin I 0.015 (0.000-0.034) ng/mL NT-Pro-B Natriuret Pep 2780 pg/mL Total Protein 8.1 (6.3-8.2) g/dL Albumin 4.4 (3.5-5.0) g/dL 04/29/25 04/29/25 Range/Units 19:08 19:37 WBC 9.19 (4.50-10.00) 10*3/uL RBC 4.09 L (4.40-5.60) 10*6/uL Hgb 10.5 L (13.0-17.0) g/dL Hct 34.7 L (39.6-50.0) % MCV 84.8 D (80.0-97.0) fL MCH 25.7 L (27.0-32.0) pg MCHC 30.3 L (32.0-37.0) g/dL RDW 26.2 H (11.5-14.5) % Plt Count 217 (140-440) 10*3/uL MPV 9.3 L (9.5-12.2) fL Immature Gran % (Auto) 0.3 % Neutrophils % 75.3 % Lymphocytes % 10.9 % Monocytes % 12.1 % Eosinophils % 1.0 % Basophils % 0.4 % Immature Gran # 0.03 (0.00-0.04) 10*3/uL Neutrophils # 6.92 (1.80-7.70) 10*3/uL Lymphocytes # 1.00 (0.90-5.00) 10*3/uL Monocytes # 1.11 H (0.20-1.00) 10*3/uL Eosinophils # 0.09 (0.04-0.35) 10*3/uL Basophils # 0.04 (0.00-0.10) 10*3/uL Manual Slide Review Performed Large Platelets Present Polychromasia Present PT (10.0-12.5) sec INR (<1.2) APTT (22.0-30.0) sec VBG pH 7.39 (7.31-7.41) VBG pCO2 51 (37-51) mmHg VBG HCO3 31 H (24-28) mmol/L Sodium (137-145) mmol/L Potassium (3.5-5.1) mmol/L Chloride (98-107) mmol/L Carbon Dioxide (22-30) mmol/L Anion Gap mmol/L BUN (9-20) mg/dL Creatinine (0.66-1.25) mg/dL Est GFR (CKD-EPI)AfAm (>60 ml/min/1.73 sqM) Est GFR (CKD-EPI)NonAf (>60 ml/min/1.73 sqM) Glucose (74-99) mg/dL Calcium (8.4-10.2) mg/dL Magnesium (1.6-2.3) mg/dL Total Bilirubin (0.2-1.3) mg/dL AST (17-59) U/L ALT (4-49) U/L Alkaline Phosphatase (38-126) U/L Troponin I (0.000-0.034) ng/mL NT-Pro-B Natriuret Pep pg/mL Total Protein (6.3-8.2) g/dL Albumin (3.5-5.0) g/dL Disposition Clinical Impression: Dizziness Disposition: HOME SELF-CARE Condition: Fair Instructions (If sedation given, give patient instructions): Dizziness (ED) Is patient prescribed a controlled substance at d/c from ED?: No Referrals: Jeanie Alfredo DO [Primary Care Provider] - 1-2 days Time of Disposition: 20:49
[2025-04-29 19:43] LABS: Basophils # (A) 0.04 10*3/uL (0.00-0.10); Basophils % (A) 0.4 %; Eosinophils # (A) 0.09 10*3/uL (0.04-0.35); HCT 34.7 % (39.6-50.0); HGB 10.5 g/dL (13.0-17.0); Lymphocytes % (A) 10.9 %; MCH 25.7 pg (27.0-32.0); MCHC 30.3 g/dL (32.0-37.0); Mean Platelet Volume 9.3 fL (9.5-12.2); Monocytes # (A) 1.11 10*3/uL (0.20-1.00); Monocytes % (A) 12.1 %; Neutrophils # (A) 6.92 10*3/uL (1.80-7.70); Neutrophils % (A) 75.3 %; Platelet Count 217 10*3/uL (140-440); RBC 4.09 10*6/uL (4.40-5.60); WBC 9.19 10*3/uL (4.50-10.00)
[2025-04-29 19:52] LABS: ALT 37 U/L (4-49); African American GFR (CKD) >90 (>60 ml/min/1.73 sqM); Albumin 4.4 g/dL (3.5-5.0); Anion Gap 11 mmol/L; Blood Urea Nitrogen 50 mg/dL (9-20); Calcium 9.3 mg/dL (8.4-10.2); Carbon Dioxide 30 mmol/L (22-30); Chloride 97 mmol/L (98-107); Glucose 128 mg/dL (74-99); Non-African American GFR(CKD) 82 (>60 ml/min/1.73 sqM); Sodium 138 mmol/L (137-145); Total Bilirubin 1.3 mg/dL (0.2-1.3); Total Protein 8.1 g/dL (6.3-8.2)
[2025-04-29 19:54] LABS: AST 65 U/L (17-59); Alkaline Phosphatase 182 U/L (38-126)
[2025-04-29 19:56] LABS: MCV 84.8 fL (80.0-97.0); RDW 26.2 % (11.5-14.5)
[2025-04-29 20:01] LABS: NT-Pro-B-Type Natriuretic Pept 2780 pg/mL
[2025-04-29 20:24] LABS: Large Platelets Present; Polychromasia Present
--- NOTE | 2025-04-29 20:34 | XR ---
EXAMINATION TYPE: XR chest 2V DATE OF EXAM: 04/29/2025 8:17 PM COMPARISON: 03/06/2025 CLINICAL INDICATION: Male, 65 years old with history of difficulty breathing, TECHNIQUE: XR chest 2V view(s) obtained. FINDINGS: The heart size is prominent. Sternotomy wires are in the midline. The pulmonary vasculature is normal. Retrocardiac infiltrate is present. IMPRESSION: 1. Clinical correlation for a retrocardiac infiltrate. Correlate for pneumonia. Follow-up is recommen ded [facility], , 04/29/2025 8:31 PM
--- NOTE | 2025-04-29 20:34 | CT ---
EXAMINATION TYPE: CT brain wo con DATE OF EXAM: 04/29/2025 8:30 PM COMPARISON: None. CLINICAL INDICATION: Male, 65 years old with history of dizziness, DIZZINESS TECHNIQUE: CT of the brain is performed utilizing 3 mm thick sections through the posterior fossa and 3 mm thick sections through the remaining calvarium. Study is performed within 24 hours of arrival to the hospital. Contrast used: mL of , (none if empty) CT DLP: 1215.4 mGycm, Automated exposure control for dose reduction was used. FINDINGS: No abnormal hyperdensity is present to suggest an acute intracranial hemorrhage. No mass lesion is evident. No acute infarcts are evident. Ventricles and sulci are appropriate for the patient age. Paranasal sinuses and mastoid air cells within the [id number] are clear. IMPRESSION: 1. No acute intracranial process. Follow up MRI can be performed as clinically indicated. [facility], , 04/29/2025 8:32 PM
[2025-04-29 22:05] VITALS: RESP 20
[2025-04-29 23:30] VITALS: BP 124/76; PULSE 74; TEMP 97.8
== END 2025-04-29 23:30 | disposition home or self-care (01) ==
LOC: EC 18:03
DX: R42 Dizziness and giddiness (principal); I11.0 Hypertensive heart disease with heart failure; I50.9 Heart failure, unspecified; I25.10 Atherosclerotic heart disease of native coronary artery without angina pectoris; I48.91 Unspecified atrial fibrillation; Z87.891 Personal history of nicotine dependence; Z79.01 Long term (current) use of anticoagulants
CPT/HCPCS: 36415; 70450; 71046; 80053; 82803; 83735; 83880; 84484; 85025; 85610; 85730; 93005; 99285

== ENCOUNTER 2025-04-30 18:26 | Observation (INO) | payer MEDICARE ==
[2025-04-30 19:14] LABS: Basophils # (A) 0.05 10*3/uL (0.00-0.10); Basophils % (A) 0.7 %; Eosinophils # (A) 0.12 10*3/uL (0.04-0.35); Eosinophils % (A) 1.7 %; HCT 33.8 % (39.6-50.0); HGB 10.3 g/dL (13.0-17.0); Lymphocytes # (A) 0.94 10*3/uL (0.90-5.00); Lymphocytes % (A) 13.5 %; MCH 25.9 pg (27.0-32.0); MCHC 30.5 g/dL (32.0-37.0); MCV 85.1 fL (80.0-97.0); Mean Platelet Volume 9.6 fL (9.5-12.2); Monocytes # (A) 0.88 10*3/uL (0.20-1.00); Monocytes % (A) 12.6 %; Neutrophils # (A) 4.95 10*3/uL (1.80-7.70); Neutrophils % (A) 71.2 %; Platelet Count 218 10*3/uL (140-440); RBC 3.97 10*6/uL (4.40-5.60); WBC 6.96 10*3/uL (4.50-10.00)
[2025-04-30 19:37] LABS: INR 1.1 (<1.2); Prothrombin Time 12.3 sec (10.0-12.5)
[2025-04-30 19:39] LABS: ALT 32 U/L (4-49); AST 33 U/L (17-59); African American GFR (CKD) 88 (>60 ml/min/1.73 sqM); Albumin 4.2 g/dL (3.5-5.0); Alkaline Phosphatase 183 U/L (38-126); Anion Gap 9 mmol/L; Blood Urea Nitrogen 45 mg/dL (9-20); Calcium 9.2 mg/dL (8.4-10.2); Carbon Dioxide 29 mmol/L (22-30); Chloride 100 mmol/L (98-107); Glucose 74 mg/dL (74-99); Non-African American GFR(CKD) 76 (>60 ml/min/1.73 sqM); Potassium 3.7 mmol/L (3.5-5.1); Sodium 138 mmol/L (137-145); Total Bilirubin 1.1 mg/dL (0.2-1.3); Total Protein 7.5 g/dL (6.3-8.2)
[2025-04-30] MEDS: MECLIZINE 25 MG TAB PO STA (19:39)
[2025-04-30] MEDS: ONDANSETRON 4 MG/2 ML VIAL IVP STA (19:40)
[2025-04-30 19:47] LABS: NT-Pro-B-Type Natriuretic Pept 3130 pg/mL
--- NOTE | 2025-04-30 20:39 | ED ---
General Adult HPI - General Chief complaint: Nausea/Vomiting/Diarrhea Stated complaint: dizziness Time Seen by Provider: 04/30/25 18:35 Source: patient, EMS, RN notes reviewed, old records reviewed Mode of arrival: EMS Limitations: no limitations - History of Present Illness Initial comments: This is a 65-year-old male who presents to the emergency department stating he was here yesterday because he was extremely dizzy anytime he moves his head or stood up everything started to move around and spin and he felt as though he fell over. Patient came to the emergency department a CAT scan and lab work and was feeling better so he went home. Patient states today the symptoms started back up and he is extremely dizzy and nauseous and vomiting. Patient also has noticed he is getting more edematous. - Related Data Home Medications Medication Instructions Recorded Confirmed Apixaban [Eliquis] 5 mg PO BID 10/23/18 03/06/25 Atorvastatin [Lipitor] 80 mg PO HS 10/23/18 03/06/25 Empagliflozin [Jardiance] 25 mg PO DAILY 10/23/18 03/06/25 Omeprazole [PriLOSEC] 20 mg PO DAILY PRN 10/23/18 03/06/25 Insulin Degludec [Tresiba 60 units SQ HS 10/03/22 03/06/25 Flextouch U-200 Pen] Multivitamins, Thera [Multivitamin 1 tab PO DAILY 04/24/23 03/06/25 (formulary)] metFORMIN HCL [Glucophage] 1,000 mg PO BID 02/25/25 03/06/25 Bumetanide [BUMEX] 1 mg PO DAILY@1600 03/06/25 03/06/25 Vericiguat [Verquvo] 2.5 mg PO DIRECTED 03/06/25 03/06/25 Previous Rx's Medication Instructions Recorded Bumetanide [BUMEX] 2 mg PO DAILY #90 tab 03/05/25 Collagenase [Santyl Ointment] 1 applic TOPICAL DAILY each 03/05/25 Docusate [Colace] 100 mg PO BID PRN cap 03/05/25 Ferrous Sulfate [Iron (65 MG 325 mg PO W/LUNCH #30 tab 03/05/25 Elemental)] Tamsulosin [Flomax] 0.4 mg PO PC-BRKFST #30 cap 03/05/25 Insulin Aspart [NovoLOG Flexpen] 4 units SQ AC-TID #0 03/11/25 Metoprolol Tartrate [Lopressor] 25 mg PO BID #60 tab 03/11/25 Spironolactone [Aldactone] 12.5 mg PO DAILY #30 tab 03/11/25 Allergies Allergy/AdvReac Type Severity Reaction Status Date / Time No Known Allergies Allergy Verified 04/30/25 18:36 Review of Systems ROS Statement: Those systems with pertinent positive or pertinent negative responses have been documented in the HPI. ROS Other: All systems not noted in ROS Statement are negative. Past Medical History Past Medical History: Atrial Fibrillation, Coronary Artery Disease (CAD), Cancer, Diabetes Mellitus, Hypertension, Myocardial Infarction ([place]), Prostate Disorder, Sleep Apnea/CPAP/BIPAP Additional Past Medical History / Comment(s): PROSTATE CANCER, uses CPAP, CHF Last Myocardial Infarction Date:: 2015 History of Any Multi-Drug Resistant Organisms: None Reported Past Surgical History: Appendectomy, Coronary Bypass/CABG, Heart Catheterization With Stent, Hernia Repair, Prostate Surgery Additional Past Surgical History / Comment(s): HEART CATHS X7 WITH TOTAL OF 7 STENTS, CABG OCT 2016, JAYLYN INGUINAL HERNIAS, UMBILICAL HERNIAS. Past Anesthesia/Blood Transfusion Reactions: No Reported Reaction Additional Past Anesthesia/Blood Transfusion Reaction / Comment(s): no blood transfusion Date of Last Stent Placement:: 2014 Past Psychological History: No Psychological Hx Reported Smoking Status: Former smoker Past Alcohol Use History: Rare Past Drug Use History: None Reported - Past Family History Mother Family Medical History: No Reported History Additional Family Medical History / Comment(s): Heart disease Father Family Medical History: Diabetes Mellitus Additional Family Medical History / Comment(s): Heart disease General Exam - General Exam Comments Initial Comments: GENERAL: Patient is well-developed and well-nourished. Patient is nontoxic and well- hydrated and is in mild distress. ENT: Neck is soft and supple. No significant lymphadenopathy is noted. Oropharynx is clear. Moist mucous membranes. Neck has full range of motion without eliciting any pain. EYES: The sclera were anicteric and conjunctiva were pink and moist. Extraocular movements were intact and pupils were equal round and reactive to light. Eyelids were unremarkable. PULMONARY: Patient has crackles at the bases CARDIOVASCULAR: There is a regular rate and rhythm without any murmurs gallops or rubs. ABDOMEN: Soft and nontender with normal bowel sounds. SKIN: Skin is clear with no lesions or rashes and otherwise unremarkable. NEUROLOGIC: Patient is alert and oriented x3. Cranial nerves II through XII are grossly intact. Motor and sensory are also intact. Normal speech, volume and content. Symmetrical smile. Cerebellar testing is normal bilaterally MUSCULOSKELETAL: Normal extremities with adequate strength and full range of motion. 2+ edema LYMPHATICS: No significant lymphadenopathy is noted PSYCHIATRIC: Normal psychiatric evaluation. Limitations: no limitations Course Vital Signs 04/30/25 18:31 Temperature 98.2 F Pulse Rate 67 Respiratory 17 Rate Blood Pressure 107/68 O2 Sat by Pulse 91 L Oximetry Medical Decision Making - Medical Decision Making EKG is interpreted by myself. EKG shows atrial fibrillation with a right bundle branch block at a rate of 69 bpm QRS is 200 QT interval is 489 QTc is 519. Patient's EKG shows no ST segment elevation or depression Was pt. sent in by a medical professional or institution (, PA, METAL TUBE CUTTER, urgent care, hospital, or residential...) When possible be specific @ -No Did you speak to anyone other than the patient for history (EMS, parent, family, police, friend...)? What history was obtained from this source @ -No Did you review nursing and triage notes (agree or disagree)? Why? @ -I reviewed and agree with nursing and triage notes Were old charts reviewed (outside hosp., previous admission, EMS record, old EKG, old radiological studies, urgent care reports/EKG's, residential records)? Report findings @ -No old charts were reviewed Differential Diagnosis? @ -Chest pain, altered mental status, abdominal pain women, abdominal pain men, vaginal bleeding, weakness, fever, dyspnea, syncope, headache, dizziness, GI bleed, back pain, seizure, CVA, palpatations, mental health, musculoskeletal EKG interpreted by me (3pts min.). @ -As above X-rays interpreted by me (1pt min.). @ -Chest x-ray shows pulmonary edema CT interpreted by me (1pt min.). @ -CT angiogram shows no acute abnormality U/S interpreted by me (1pt. min.). @ -None done What testing was considered but not performed or refused? (CT, X-rays, U/S, labs)? Why? @ -None What meds were considered but not given or refused? Why? @ -None Did you discuss the management of the patient with other professionals (professionals i.e. , PA, METAL TUBE CUTTER, lab, RT, psych nurse, social work nurse, tire specialist, teacher, chief clinical officer, pillowcase cleaner)? Give summary @ -I spoke with [facility] hospitalist agreed to admit the patient admit the patient recommending orders Was smoking cessation discussed for >3mins.? @ -No Was critical care preformed (if so, how long)? @ -No Were there social determinants of health that impacted care today? How? (Homelessness, low income, unemployed, alcoholism, drug addiction, transportation, low edu. Level, literacy, decrease access to med. care, snf, rehab)? @ -No Was there de-escalation of care discussed even if they declined (Discuss DNR or withdrawal of care, Hospice)? DNR status @ -No What co-morbidities impacted this encounter? (DM, HTN, Smoking, COPD, CAD, Cancer, CVA, ARF, Chemo, Hep., AIDS, mental health diagnosis, sleep apnea, morbid obesity)? @ -None Was patient admitted / discharged? Hospital course, mention meds given and route, prescriptions, significant lab abnormalities, going to OR and other pertinent info. @ -Patient had Lasix and Nitropaste given secondary to the acute pulmonary edema. Patient also had vertigo patient was given Antivert and Zofran and was feeling better he also will be admitted to Dr. Martins and a cardiology consult will be placed Undiagnosed new problem with uncertain prognosis? @ -No Drug Therapy requiring intensive monitoring for toxicity (Heparin, Nitro, Insulin, Cardizem)? @ -No Were any procedures done? @ -No Diagnosis/symptom? @ -Acute pulmonary edema Acute, or Chronic, or Acute on Chronic? @ -Acute Uncomplicated (without systemic symptoms) or Complicated (systemic symptoms)? @ -Complicated Side effects of treatment? @ -No Exacerbation, Progression, or Severe Exacerbation? @ -No Poses a threat to life or bodily function? How? (Chest pain, USA, SD, pneumonia, PE, COPD, DKA, ARF, appy, cholecystitis, CVA, Diverticulitis, Homicidal, Suicidal, threat to staff... and all critical care pts) @ -Yes this can lead to hypoxia and endorgan dysfunction Diagnosis/symptom? @ -Vertigo Acute, or Chronic, or Acute on Chronic? @ -Acute Uncomplicated (without systemic symptoms) or Complicated (systemic symptoms)? @ -Complicated Side effects of treatment? @ -None Exacerbation, Progression, or Severe Exacerbation] @ -No Poses a threat to life or bodily function? @ -No - Lab Data Result diagrams: 04/30/25 19:03 04/30/25 19:03 Lab Results 04/30/25 04/30/25 04/30/25 Range/Units 19:03 19:03 19:03 WBC 6.96 (4.50-10.00) 10*3/uL RBC 3.97 L (4.40-5.60) 10*6/uL Hgb 10.3 L (13.0-17.0) g/dL Hct 33.8 L (39.6-50.0) % MCV 85.1 (80.0-97.0) fL MCH 25.9 L (27.0-32.0) pg MCHC 30.5 L (32.0-37.0) g/dL RDW 26.0 H (11.5-14.5) % Plt Count 218 (140-440) 10*3/uL MPV 9.6 (9.5-12.2) fL Immature Gran % (Auto) 0.3 % Neutrophils % 71.2 % Lymphocytes % 13.5 % Monocytes % 12.6 % Eosinophils % 1.7 % Basophils % 0.7 % Immature Gran # 0.02 (0.00-0.04) 10*3/uL Neutrophils # 4.95 (1.80-7.70) 10*3/uL Lymphocytes # 0.94 (0.90-5.00) 10*3/uL Monocytes # 0.88 (0.20-1.00) 10*3/uL Eosinophils # 0.12 (0.04-0.35) 10*3/uL Basophils # 0.05 (0.00-0.10) 10*3/uL PT 12.3 (10.0-12.5) sec INR 1.1 (<1.2) APTT 26.0 (22.0-30.0) sec Sodium 138 (137-145) mmol/L Potassium 3.7 (3.5-5.1) mmol/L Chloride 100 (98-107) mmol/L Carbon Dioxide 29 (22-30) mmol/L Anion Gap 9 mmol/L BUN 45 H (9-20) mg/dL Creatinine 1.02 (0.66-1.25) mg/dL Est GFR (CKD-EPI)AfAm 88 (>60 ml/min/1.73 sqM) Est GFR (CKD-EPI)NonAf 76 (>60 ml/min/1.73 sqM) Glucose 74 (74-99) mg/dL Calcium 9.2 (8.4-10.2) mg/dL Magnesium 2.0 (1.6-2.3) mg/dL Total Bilirubin 1.1 (0.2-1.3) mg/dL AST 33 (17-59) U/L ALT 32 (4-49) U/L Alkaline Phosphatase 183 H (38-126) U/L Troponin I (0.000-0.034) ng/mL NT-Pro-B Natriuret Pep 3130 pg/mL Total Protein 7.5 (6.3-8.2) g/dL Albumin 4.2 (3.5-5.0) g/dL 04/30/25 Range/Units 19:03 WBC (4.50-10.00) 10*3/uL RBC (4.40-5.60) 10*6/uL Hgb (13.0-17.0) g/dL Hct (39.6-50.0) % MCV (80.0-97.0) fL MCH (27.0-32.0) pg MCHC (32.0-37.0) g/dL RDW (11.5-14.5) % Plt Count (140-440) 10*3/uL MPV (9.5-12.2) fL Immature Gran % (Auto) % Neutrophils % % Lymphocytes % % Monocytes % % Eosinophils % % Basophils % % Immature Gran # (0.00-0.04) 10*3/uL Neutrophils # (1.80-7.70) 10*3/uL Lymphocytes # (0.90-5.00) 10*3/uL Monocytes # (0.20-1.00) 10*3/uL Eosinophils # (0.04-0.35) 10*3/uL Basophils # (0.00-0.10) 10*3/uL PT (10.0-12.5) sec INR (<1.2) APTT (22.0-30.0) sec Sodium (137-145) mmol/L Potassium (3.5-5.1) mmol/L Chloride (98-107) mmol/L Carbon Dioxide (22-30) mmol/L Anion Gap mmol/L BUN (9-20) mg/dL Creatinine (0.66-1.25) mg/dL Est GFR (CKD-EPI)AfAm (>60 ml/min/1.73 sqM) Est GFR (CKD-EPI)NonAf (>60 ml/min/1.73 sqM) Glucose (74-99) mg/dL Calcium (8.4-10.2) mg/dL Magnesium (1.6-2.3) mg/dL Total Bilirubin (0.2-1.3) mg/dL AST (17-59) U/L ALT (4-49) U/L Alkaline Phosphatase (38-126) U/L Troponin I 0.016 (0.000-0.034) ng/mL NT-Pro-B Natriuret Pep pg/mL Total Protein (6.3-8.2) g/dL Albumin (3.5-5.0) g/dL Disposition Clinical Impression: Vertigo, Acute pulmonary edema Disposition: ADMITTED IP TO THIS HOSP Referrals: Jeanie Alfredo DO [Primary Care Provider] - 1-2 days Time of Disposition: 20:39
[2025-04-30] MEDS ORDERED: MECLIZINE 25 MG TAB PO PRN (20:51)
--- NOTE | 2025-04-30 21:33 | CT ---
EXAMINATION TYPE: CT angio head neck CT DLP: 2521.4 mGycm, Automated exposure control for dose reduction was used. DATE OF EXAM: 04/30/2025 8:30 PM COMPARISON: CT head 04/29/2025. CLINICAL INDICATION:Male, 65 years old with history of Dizziness, vomiting; PHH, dizziness TECHNIQUE: Axially acquired helical CT angiogram of the head and neck was obtained with contrast. Axi al images are supplemented with 3D reconstructions and MIP images which were post-processed at an in dependent workstation. NASCET criteria used. Contrast used:65 ml mL of Isovue 370 with IV Contrast, Oral contrast used: None. FINDINGS: CTA HEAD: No evidence of acute intracranial hemorrhage, mass effect, or midline shift. The ventricles, sulci, a nd cisterns are unremarkable. The visualized portions of the internal carotid arteries, middle cerebral arteries, anterior cerebral arteries, and posterior cerebral arteries are patent. The basilar and vertebral arteries are patent. CTA NECK: Right Carotid System: The common carotid artery and external carotid artery are patent. There are moderate atherosclerotic calcifications at the carotid bifurcation which demonstrates no evidence of hemodynamically significa nt stenosis. The remaining portions of the internal carotid artery demonstrate normal size without si gnificant narrowing. Left Carotid System: The common carotid artery and external carotid artery are patent. There are moderate atherosclerotic calcifications at the carotid bifurcation which demonstrates no evidence of hemodynamically significa nt stenosis. The remaining portions of the internal carotid artery demonstrate normal size without si gnificant narrowing. Vertebral arteries are patent without evidence hemodynamically significant stenosis. The left vertebr al artery is slightly diminutive compared to the right. There is a three-vessel aortic arch. The origins of the great vessels are patent. No evidence of hemo dynamically significant stenosis. Upper thorax: Trace right pleural effusion with associated atelectasis. There is mild cylindrical bronchiectasis in the right upper lobe. Mediastinal lymph nodes are seen with the largest in the right paratracheal sp shahbaz measuring up to 10.9 mm. IMPRESSION: 1. No evidence of dissection of the cervical internal carotid arteries or vertebral arteries or any e vidence of significant stenosis at the carotid bifurcations. 2. No evidence of intracranial high-grade stenosis or intracranial aneurysm. 3. Trace left pleural effusion. 4. Mediastinal lymphadenopathy may be reactive. [facility], , 04/30/2025 9:31 PM
[2025-04-30] MEDS: FUROSEMIDE 10 MG/ML 4 ML VIAL IV SCH (21:41)
[2025-04-30 22:17] LABS: Glucose,Whole Blood 96 mg/dL (70-110)
--- NOTE | 2025-04-30 22:47 | XR ---
EXAMINATION TYPE: XR chest 2V DATE OF EXAM: 04/30/2025 7:15 PM CLINICAL INDICATION:Male, 65 years old with history of Chest Pain; [facility] COMPARISON: Chest radiograph 04/29/2025 TECHNIQUE: XR chest 2V Frontal view of the chest. FINDINGS: Low lung volumes are present limiting evaluation. Cardiomediastinal silhouette is enlarged and simila r to the radiograph in reference. Bilateral pleural effusions are suggested. No pneumothorax is seen. Sternotomy wires are present. No acute osseous abnormalities. IMPRESSION: Cardiomegaly and mild pulmonary vascular congestion with bilateral pleural effusion suggested. Correl ate with BNP for congestive heart failure. [facility], , 04/30/2025 10:45 PM
[2025-05-01] MEDS: NITROGLYCERIN OINT 1 INCH/GM PACKET TOPICAL SCH (01:16)
[2025-05-01 09:27] LABS: Glucose,Whole Blood 109 mg/dL (70-110)
[2025-05-01 10:43] LABS: African American GFR (CKD) 79 (>60 ml/min/1.73 sqM); Anion Gap 8 mmol/L; Blood Urea Nitrogen 38 mg/dL (9-20); Calcium 9.1 mg/dL (8.4-10.2); Carbon Dioxide 36 mmol/L (22-30); Chloride 96 mmol/L (98-107); Glucose 144 mg/dL (74-99); Non-African American GFR(CKD) 69 (>60 ml/min/1.73 sqM); Potassium 3.8 mmol/L (3.5-5.1); Sodium 140 mmol/L (137-145)
[2025-05-01 11:20] LABS: Glucose,Whole Blood 155 mg/dL (70-110)
--- NOTE | 2025-05-01 11:24 | P.CRDCN ---
History of Present Illness History of present illness: HISTORY OF PRESENT ILLNESS: This is a 65-year-old male with a past medical history significant for coronary artery disease with previous CABG, congestive heart failure, hypertension, hype rlipidemia, diabetes, and atrial fibrillation. Patient follows with a Dr. [facility] [place]. We have been asked to see the patient in consultation for acute pulmonary edema. Patient examined at the bedside in the emergency room. Patient presented to the hospital with a chief complaint of nausea and dizziness. Patient denied having any chest pain or shortness of breath. Bedside telemetry reveals atrial fibrillation with controlled ventricular rate DIAGNOSTICS: - EKG reveals atrial fibrillation with right bundle branch block. Rate controlled. - Chest xray cardiomegaly and mild pulmonary vascular congestion with bilateral pleural effusions. - Laboratory data: WBC 6.96. Hemoglobin 10.3. Platelet count 218. Sodium 140. Potassium 3.8. BUN 38. Creatinine 1.11. Troponin 0.016. proBNP 3130. - Current home cardiac medications include Aldactone 12.5 mg daily, metoprolol tartrate 25 mg twice a day, Jardiance 25 mg daily, Bumex 2 mg in the morning and 1 mg in the afternoon, Lipitor 80 mg at night, Eliquis 5 mg twice a day. - Most recent echocardiogram obtained in February 2025 revealing ejection fraction 40%, global left ventricular hypokinesis, severe pulmonary hypertension, moderate to severe tricuspid regurgitation, trace to mild mitral regurgitation - Cardiac catheterization history: Unknown REVIEW OF SYSTEMS: At the time of my exam: CONSTITUTIONAL: Denies fever or chills. HEENT: Denies blurred vision, vision changes, or eye pain. Denies hemoptysis CARDIOVASCULAR: Denies chest pain. Denies orthopnea. Denies PND. Denies palpitations RESPIRATORY: Denies shortness of breath. GASTROINTESTINAL: Denies abdominal pain. Denies nausea or vomiting. HEMATOLOGIC: Denies bleeding disorders. GENITOURINARY: Denies any blood in urine. SKIN: Denies pruitis. Denies rash. PHYSICAL EXAM: VITAL SIGNS: Reviewed. GENERAL: Well-developed in no acute distress. HEENT: Head is normocephalic. Pupils are equal, round. Sclerae anicteric. Mucous membranes of the mouth are moist. Neck supple. No JVD or thyromegaly LUNGS: Respirations even and unlabored. Lungs essentially clear to auscultation bilaterally. HEART: Irregular rate and rhythm. S1 and S2 heard. ABDOMEN: Soft. Nondistended. Nontender. EXTREMITIES: Normal range of motion. No clubbing or cyanosis. Peripheral pulses intact. No lower extremity edema NEUROLOGIC: Awake and alert. Oriented x 3. ASSESSMENT: Nausea Dizziness, suspect benign positional vertigo Acute on chronic heart failure with reduced EF, currently euvolemic Coronary artery disease with previous CABG Ischemic cardiomyopathy, 40 to 45% Persistent atrial fibrillation with controlled ventricular rate Severe pulmonary pretension Moderate to severe tricuspid regurgitation Hypertension Hyperlipidemia Diabetes Obesity: BMI 43.8 PLAN: No need to repeat echocardiogram as this was performed in February 2025 Discontinue IV diuretics. Resume home dose of Bumex Continue additional cardiac medications including Eliquis, Lipitor, Jardiance, and Aldactone Consult neurology for further evaluation of dizziness Patient is stable for discharge from a cardiac standpoint Patient to follow-up postdischarge with his primary [facility] w[facility] in [place] Nurse practitioner note has been reviewed by physician. Signing provider agrees with the documented findings, assessment, and plan of care documented by [facility] as a scribe. Past Medical History Past Medical History: Atrial Fibrillation, Coronary Artery Disease (CAD), Cancer, Diabetes Mellitus, Hypertension, Myocardial Infarction ([place]), Prostate Disorder, Sleep Apnea/CPAP/BIPAP Additional Past Medical History / Comment(s): PROSTATE CANCER, uses CPAP, CHF Last Myocardial Infarction Date:: 2015 History of Any Multi-Drug Resistant Organisms: None Reported Past Surgical History: Appendectomy, Coronary Bypass/CABG, Heart Catheterization With Stent, Hernia Repair, Prostate Surgery Additional Past Surgical History / Comment(s): HEART CATHS X7 WITH TOTAL OF 7 STENTS, CABG OCT 2016, JAYLYN INGUINAL HERNIAS, UMBILICAL HERNIAS. Past Anesthesia/Blood Transfusion Reactions: No Reported Reaction Additional Past Anesthesia/Blood Transfusion Reaction / Comment(s): no blood transfusion Date of Last Stent Placement:: 2014 Past Psychological History: No Psychological Hx Reported Smoking Status: Former smoker Past Alcohol Use History: Rare Past Drug Use History: None Reported - Past Family History Mother Family Medical History: No Reported History Additional Family Medical History / Comment(s): Heart disease Father Family Medical History: Diabetes Mellitus Additional Family Medical History / Comment(s): Heart disease Medications and Allergies Home Medications Medication Instructions Recorded Confirmed Type Apixaban [Eliquis] 5 mg PO BID 10/23/18 05/01/25 History Atorvastatin [Lipitor] 80 mg PO HS 10/23/18 05/01/25 History Empagliflozin [Jardiance] 25 mg PO DAILY 10/23/18 05/01/25 History Insulin Degludec [Tresiba 60 units SQ HS 10/03/22 05/01/25 History Flextouch U-200 Pen] Multivitamins, Thera [Multivitamin 1 tab PO DAILY 04/24/23 05/01/25 History (formulary)] metFORMIN HCL [Glucophage] 1,000 mg PO BID 02/25/25 05/01/25 History Bumetanide [BUMEX] 2 mg PO DAILY #90 tab 03/05/25 05/01/25 Rx Ferrous Sulfate [Iron (65 MG 325 mg PO W/LUNCH #30 tab 03/05/25 05/01/25 Rx Elemental)] Tamsulosin [Flomax] 0.4 mg PO PC-BRKFST #30 cap 03/05/25 05/01/25 Rx Bumetanide [BUMEX] 1 mg PO DAILY@1600 03/06/25 05/01/25 History Metoprolol Tartrate [Lopressor] 25 mg PO BID #60 tab 03/11/25 05/01/25 Rx Spironolactone [Aldactone] 12.5 mg PO DAILY #30 tab 03/11/25 05/01/25 Rx Insulin Aspart [NovoLOG Flexpen] See Protocol SQ TID-W/MEALS 05/01/25 05/01/25 History Allergies Allergy/AdvReac Type Severity Reaction Status Date / Time No Known Allergies Allergy Verified 05/01/25 10:31 Physical Exam Vitals: Vital Signs Temp Pulse Pulse Resp BP BP Pulse Ox 05/01/25 08:15 98.3 F 74 20 123/77 93 L 05/01/25 07:07 98.3 F 05/01/25 05:53 71 18 118/81 98 05/01/25 05:05 75 19 120/77 98 05/01/25 01:19 82 20 115/82 99 05/01/25 00:24 71 20 104/51 96 04/30/25 22:07 85 18 106/66 93 L 04/30/25 18:31 98.2 F 67 17 107/68 91 L Intake and Output 04/30/25 05/01/25 05/01/25 22:59 06:59 14:59 Output Total 1000 1275 Balance -1000 -1275 Output: Urine 1000 1275 Other: # Voids 4 2 Weight 163.293 kg Results 04/30/25 19:03 05/01/25 10:06 Cardiac Enzymes 04/30/25 04/30/25 Range/Units 19:03 19:03 AST 33 (17-59) U/L Troponin I 0.016 (0.000-0.034) ng/mL Coagulation 04/30/25 Range/Units 19:03 PT 12.3 (10.0-12.5) sec APTT 26.0 (22.0-30.0) sec CBC 04/30/25 Range/Units 19:03 WBC 6.96 (4.50-10.00) 10*3/uL RBC 3.97 L (4.40-5.60) 10*6/uL Hgb 10.3 L (13.0-17.0) g/dL Hct 33.8 L (39.6-50.0) % Plt Count 218 (140-440) 10*3/uL Comprehensive Metabolic Panel 04/30/25 Range/Units 19:03 Sodium 138 (137-145) mmol/L Potassium 3.7 (3.5-5.1) mmol/L Chloride 100 (98-107) mmol/L Carbon Dioxide 29 (22-30) mmol/L BUN 45 H (9-20) mg/dL Creatinine 1.02 (0.66-1.25) mg/dL Glucose 74 (74-99) mg/dL Calcium 9.2 (8.4-10.2) mg/dL AST 33 (17-59) U/L ALT 32 (4-49) U/L Alkaline Phosphatase 183 H (38-126) U/L Total Protein 7.5 (6.3-8.2) g/dL Albumin 4.2 (3.5-5.0) g/dL Current Medications Generic Name Dose Route Start Last Admin Trade Name Freq PRN Reason Stop Dose Admin Furosemide 40 mg 04/30/25 21:00 05/01/25 05:58 Furosemide 10 Mg/Ml 4 Ml Vial IV 40 mg Q8H JANIS Administration Meclizine HCl 25 mg 04/30/25 20:51 Meclizine 25 Mg Tab PO TID PRN Vertigo Nitroglycerin 1 inch 05/01/25 00:00 05/01/25 06:44 Nitroglycerin Oint 1 Inch/Gm Packet TOPICAL 05/02/25 00:00 1 inch Q6HR JANIS Administration Intake and Output 04/30/25 05/01/25 05/01/25 22:59 06:59 14:59 Output Total 1000 1275 Balance -1000 -1275 Output: Urine 1000 1275 Other: # Voids 4 2 Weight 163.293 kg 04/30/25 19:03 04/30/25 19:03
[2025-05-01] MEDS: APIXABAN 5 MG TAB PO SCH (12:14)
[2025-05-01] MEDS: METOPROLOL TARTRATE 25 MG TAB PO SCH (12:14)
[2025-05-01] MEDS: SPIRONOLACTONE 25 MG TAB PO SCH (12:15)
[2025-05-01] MEDS: DAPAGLIFLOZIN PROPANEDIOL 10 MG TABLET PO SCH (12:15)
[2025-05-01 13:10] VITALS: RESP 18
--- NOTE | 2025-05-01 15:03 | P.HPIM ---
History of Present Illness H&P Date: 05/01/25 This is a pleasant 65-year-old male with medical history significant for atrial fibrillation, coronary artery disease, prior CABG and stenting, diabetes mellitus type 2, hypertension, sleep apnea with CPAP use, congestive heart failure. Patient comes into the hospital with complaints of dizziness and vertigo he was seen in the ER and discharged home and then comes back with the same symptoms as well as nausea vomiting. The dizziness came about while he was sitting down and spontaneously resolved. He also states that he feels edematous. He is chronically on oxygen has been at 4L however family at he bedside states his home RN put him down to 2L and felt patient may have been hypoxic. He was 9 1% on 2L of oxygen when he got to the ER. Brain CT angiography reveals no evidence of dissection of the cervical internal carotid arteries or vertebral arteries there is no evidence of significant stenosis of the carotid bifurcations. There is no evidence of intracranial high-grade stenosis or intr acranial aneurysm. There is trace left pleural effusion. There is mediastinal lymphadenopathy which may be reactive. Had a chest x-ray which reveals cardiomegaly and mild pulmonary vascular congestion with bilateral pleural effusions suggested. Correlate with BNP for congestive heart failure. P atient's proBNP was mildly elevated at 3130. Negative troponin level. BUN of 45 creatinine 1.02. His hemoglobin is 10.3. Patient is requiring 3 to 4 L of oxygen via nasal cannula. He has been afebrile. He was admitted to the hospital with a consult placed to cardiology services. He was started on IV Lasix. REVIEW OF SYSTEMS: CONSTITUTIONAL: No fever, no malaise, no fatigue. HEENT: No recent visual problems or hearing problems. Denied any sore throat. CARDIOVASCULAR: No chest pain, orthopnea, PND, no palpitations, no syncope. PULMONARY: No shortness of breath, no cough, no hemoptysis. GASTROINTESTINAL: No diarrhea, no nausea, no vomiting, no abdominal pain. NEUROLOGICAL: No headaches, no weakness, no numbness. HEMATOLOGICAL: Denies any bleeding or petechiae. GENITOURINARY: Denies any burning micturition, frequency, or urgency. MUSCULOSKELETAL/RHEUMATOLOGICAL: Denies any joint pain, swelling, or any muscle pain. ENDOCRINE: Denies any polyuria or polydipsia. The rest of the 14-point review of systems is negative. PHYSICAL EXAMINATION: GENERAL: The patient is alert and oriented x3, not in any acute distress. Well developed, well nourished. Obese. On 4L of oxygen via nasal cannula. HEENT: Pupils are round and equally reacting to light. EOMI. No scleral icterus. No conjunctival pallor. Normocephalic, atraumatic. No pharyngeal erythema. No thyromegaly. CARDIOVASCULAR: S1 and S2 present. No murmurs, rubs, or gallops. PULMONARY: Faint bibasilar crackles. ABDOMEN: Soft, nontender, nondistended, normoactive bowel sounds. No palpable organomegaly. MUSCULOSKELETAL: No joint swelling or deformity. EXTREMITIES: No cyanosis, clubbing, or pedal edema. Moderate lower extremity peripheral edema NEUROLOGICAL: Gross neurological examination did not reveal any focal deficits. SKIN: No rashes. Assessment Dizziness, likely BPV however need to rule out TIA Acute on chronic systolic congestive heart failure EF of 40% Severe pulmonary hypertension moderate to severe tricuspid regurgitation Ischemic cardiomyopathy EF 40-45% Acute hypoxemic respiratory failure secondary to above Persistent atrial fibrillation with CVR History of coronary artery disease with prior CABG and stenting Diabetes mellitus type 2 Hypertension Hyperlipidemia Obesity GI prophylaxis Plan Patient has been diuresed and transitioned to oral bumex Continue all other cardiac medications Continue meclizine prn Check orthostatic vitals Neurology consultation Cardiology has cleared the patient for DC home if he is cleared by neurology he can discharge home later this evening Monitor electrolytes and renal function The impression and plan of care has been dictated by Prerna Arredondo Nurse Practitioner as directed. Dr. Melodie MD I have performed a history and physical examination and medical decision making of this patient, discussed the same with the dictator, and agree with the dictators assessment and plan as written, documented as a scribe. Based on total visit time, I have performed more than 50% of this visit. Past Medical History Past Medical History: Atrial Fibrillation, Coronary Artery Disease (CAD), Cancer, Diabetes Mellitus, Hypertension, Myocardial Infarction ([place]), Prostate Disorder, Sleep Apnea/CPAP/BIPAP Additional Past Medical History / Comment(s): PROSTATE CANCER, uses CPAP, CHF Last Myocardial Infarction Date:: 2015 History of Any Multi-Drug Resistant Organisms: None Reported Past Surgical History: Appendectomy, Coronary Bypass/CABG, Heart Catheterization With Stent, Hernia Repair, Prostate Surgery Additional Past Surgical History / Comment(s): HEART CATHS X7 WITH TOTAL OF 7 STENTS, CABG OCT 2016, JAYLYN INGUINAL HERNIAS, UMBILICAL HERNIAS. Past Anesthesia/Blood Transfusion Reactions: No Reported Reaction Additional Past Anesthesia/Blood Transfusion Reaction / Comment(s): no blood transfusion Date of Last Stent Placement:: 2014 Past Psychological History: No Psychological Hx Reported Smoking Status: Former smoker Past Alcohol Use History: Rare Past Drug Use History: None Reported - Past Family History Mother Family Medical History: No Reported History Additional Family Medical History / Comment(s): Heart disease Father Family Medical History: Diabetes Mellitus Additional Family Medical History / Comment(s): Heart disease Medications and Allergies Home Medications Medication Instructions Recorded Confirmed Type Apixaban [Eliquis] 5 mg PO BID 10/23/18 05/01/25 History Atorvastatin [Lipitor] 80 mg PO HS 10/23/18 05/01/25 History Empagliflozin [Jardiance] 25 mg PO DAILY 10/23/18 05/01/25 History Insulin Degludec [Tresiba 60 units SQ HS 10/03/22 05/01/25 History Flextouch U-200 Pen] Multivitamins, Thera [Multivitamin 1 tab PO DAILY 04/24/23 05/01/25 History (formulary)] metFORMIN HCL [Glucophage] 1,000 mg PO BID 02/25/25 05/01/25 History Bumetanide [BUMEX] 2 mg PO DAILY #90 tab 03/05/25 05/01/25 Rx Ferrous Sulfate [Iron (65 MG 325 mg PO W/LUNCH #30 tab 03/05/25 05/01/25 Rx Elemental)] Tamsulosin [Flomax] 0.4 mg PO PC-BRKFST #30 cap 03/05/25 05/01/25 Rx Bumetanide [BUMEX] 1 mg PO DAILY@1600 03/06/25 05/01/25 History Metoprolol Tartrate [Lopressor] 25 mg PO BID #60 tab 03/11/25 05/01/25 Rx Spironolactone [Aldactone] 12.5 mg PO DAILY #30 tab 03/11/25 05/01/25 Rx Insulin Aspart [NovoLOG Flexpen] See Protocol SQ TID-W/MEALS 05/01/25 05/01/25 History Allergies Allergy/AdvReac Type Severity Reaction Status Date / Time No Known Allergies Allergy Verified 05/01/25 10:31 Physical Exam Vitals: Vital Signs Temp Pulse Pulse Resp BP BP Pulse Ox 05/01/25 08:15 98.3 F 74 20 123/77 93 L 05/01/25 07:07 98.3 F 05/01/25 05:53 71 18 118/81 98 05/01/25 05:05 75 19 120/77 98 05/01/25 01:19 82 20 115/82 99 05/01/25 00:24 71 20 104/51 96 04/30/25 22:07 85 18 106/66 93 L 04/30/25 18:31 98.2 F 67 17 107/68 91 L Intake and Output 04/30/25 05/01/25 05/01/25 22:59 06:59 14:59 Output Total 1000 1275 Balance -1000 -1275 Output: Urine 1000 1275 Other: # Voids 4 2 Weight 163.293 kg Results CBC & Chem 7: 04/30/25 19:03 05/01/25 10:06 Labs: Abnormal Lab Results - Last 24 Hours (Table) 04/30/25 04/30/25 Range/Units 19:03 19:03 RBC 3.97 L (4.40-5.60) 10*6/uL Hgb 10.3 L (13.0-17.0) g/dL Hct 33.8 L (39.6-50.0) % MCH 25.9 L (27.0-32.0) pg MCHC 30.5 L (32.0-37.0) g/dL RDW 26.0 H (11.5-14.5) % BUN 45 H (9-20) mg/dL Alkaline Phosphatase 183 H (38-126) U/L Assessment and Plan Time with Patient: Less than 30
[2025-05-01] MEDS: BUMETANIDE 1 MG TAB PO SCH (16:39)
[2025-05-01 17:10] LABS: Glucose,Whole Blood 204 mg/dL (70-110)
--- NOTE | 2025-05-01 18:01 | P.CNNES ---
History of Present Illness Consult date: 05/01/25 Requesting physician: Adrienne Ibrahim Reason for Consult: Dizziness History of Present Illness: Patient is a 65-year-old right-handed male, with history of diabetes, hypertension, CAD, COPD, came to the hospital by ambulance yesterday at 6:26 PM for recurrent episodes of vertigo. Patient states that he came initially to the hospital day before yesterday on Monday, for vertigo, dizziness, spinning nausea, could not stand up. He was just doing stuff around the house when symptoms started. The dizziness lasted for about 3 hours and went away. He was observed in the ER and released home, on the same day. However the dizziness occurred again yesterday on Monday, while he was helping his nephew helping cut the grass, therefore he came back to the ER by ambulance. Again, the episode lasted for 3-1/2 hours and then went away by 10:30 PM. At present he has no symptoms. He denied any slurred speech, facial droop, or any other focal symptoms. Patient denies any recent upper respiratory infection. He denies any pressure, pop or pain in the ear. He does have chronic hearing loss particularl y the right. Uses hearing aids for the last 1 year. He admits to having a lot of stress. The dizziness is time lasted continuously for 3 hours as mentioned above. Patient's son has noticed that while he is in the hospital he is receiving oxygen 4 L/min. However when he goes home, he was using oxygen at 2 L/min. He was wondering if he needs continuous higher oxygen concentration. Also he has noticed that he is more comfortable when he is using 4 L of oxygen, but appears short of breath when he is does any activity with being on 2 L of oxygen. Patient denies any previous history of vertigo. No history of falls or head injury. As per EMS flowsheet when they arrived patient was sitting in his chair with family at side. Patient's family mentioned that he was seen at [facility] last night for dizziness and was released home and now today the dizziness has increased and is nauseated and vomiting. The nausea and vomiting started about 3 hours prior. They turned his oxygen up to 4 L/min and after he started vomiting. EMS crew noted patient incontinent of urine with strong smell. Patient was alert and orient x 4. EKG revealed atrial fibrillation with no ST elevation. Patient's vitals at the scene was blood pressure 104/72, heart rate 71, saturation 98%, blood sugar 126. EKG showed atrial fibrillation with aberrant conduction. Chest x-ray showed cardiomegaly and mild pulmonary vascular congestion with bilateral pleural effusion suggested. Patient's home medications include Eliquis 5 mg twice daily, Lipitor 80 mg, Jardiance, insulin, multivitamin, metformin, Bumex, Flomax, iron, metoprolol, Aldactone and insulin. Orthostatics were checked and supine blood pressure 115/50, sitting was 136/59 and standing 138/49. Patient's blood test shows normal WBC hemoglobin 10.3, platelets 218. PT PTT normal, CMP normal. Troponin negative. Patient has history of diabetes, hypertension, CAD, quadruple bypass with stents. He has history of smoking heavily about 2 to 3 pack/day for 20 years, quit 30 years ago. He used to be on Coumadin for atrial fibrillation for a long time. After he underwent bypass surgery in 2015, he was started on Eliquis and has been on it. He is compliant with does not miss a dose. Review of Systems All pertinent positive and negative review of systems mentioned in the HPI, otherwise unremarkable. Past Medical History Past Medical History: Atrial Fibrillation, Coronary Artery Disease (CAD), Cancer, Diabetes Mellitus, Hypertension, Myocardial Infarction ([place]), Prostate Disorder, Sleep Apnea/CPAP/BIPAP Additional Past Medical History / Comment(s): PROSTATE CANCER, uses CPAP, CHF Last Myocardial Infarction Date:: 2015 History of Any Multi-Drug Resistant Organisms: None Reported Past Surgical History: Appendectomy, Coronary Bypass/CABG, Heart Catheterization With Stent, Hernia Repair, Prostate Surgery Additional Past Surgical History / Comment(s): HEART CATHS X7 WITH TOTAL OF 7 STENTS, CABG OCT 2016, JAYLYN INGUINAL HERNIAS, UMBILICAL HERNIAS. Past Anesthesia/Blood Transfusion Reactions: No Reported Reaction Additional Past Anesthesia/Blood Transfusion Reaction / Comment(s): no blood transfusion Date of Last Stent Placement:: 2014 Past Psychological History: No Psychological Hx Reported Smoking Status: Former smoker Past Alcohol Use History: Rare Past Drug Use History: None Reported - Past Family History Mother Family Medical History: No Reported History Additional Family Medical History / Comment(s): Heart disease Father Family Medical History: Diabetes Mellitus Additional Family Medical History / Comment(s): Heart disease Medications and Allergies Home Medications Medication Instructions Recorded Confirmed Type Apixaban [Eliquis] 5 mg PO BID 10/23/18 05/01/25 History Atorvastatin [Lipitor] 80 mg PO HS 10/23/18 05/01/25 History Empagliflozin [Jardiance] 25 mg PO DAILY 10/23/18 05/01/25 History Insulin Degludec [Tresiba 60 units SQ HS 10/03/22 05/01/25 History Flextouch U-200 Pen] Multivitamins, Thera [Multivitamin 1 tab PO DAILY 04/24/23 05/01/25 History (formulary)] metFORMIN HCL [Glucophage] 1,000 mg PO BID 02/25/25 05/01/25 History Bumetanide [BUMEX] 2 mg PO DAILY #90 tab 03/05/25 05/01/25 Rx Ferrous Sulfate [Iron (65 MG 325 mg PO W/LUNCH #30 tab 03/05/25 05/01/25 Rx Elemental)] Tamsulosin [Flomax] 0.4 mg PO PC-BRKFST #30 cap 03/05/25 05/01/25 Rx Bumetanide [BUMEX] 1 mg PO DAILY@1600 03/06/25 05/01/25 History Metoprolol Tartrate [Lopressor] 25 mg PO BID #60 tab 03/11/25 05/01/25 Rx Spironolactone [Aldactone] 12.5 mg PO DAILY #30 tab 03/11/25 05/01/25 Rx Insulin Aspart [NovoLOG Flexpen] See Protocol SQ TID-W/MEALS 05/01/25 05/01/25 History Meclizine [Antivert] 25 mg PO TID PRN #20 tab 05/01/25 Rx Allergies Allergy/AdvReac Type Severity Reaction Status Date / Time No Known Allergies Allergy Verified 05/01/25 10:31 Physical Examination - Vital Signs Vital Signs: Vital Signs Temp Pulse Pulse Resp BP BP BP 05/01/25 16:42 98 F 81 18 05/01/25 15:09 81 136/59 138/49 05/01/25 12:14 98.1 F 73 18 05/01/25 08:15 98.3 F 74 05/01/25 07:07 98.3 F 05/01/25 05:53 71 18 118/81 05/01/25 05:05 75 19 120/77 05/01/25 01:19 82 20 115/82 05/01/25 00:24 71 20 104/51 04/30/25 22:07 85 18 106/66 04/30/25 18:31 98.2 F 67 17 107/68 BP Pulse Ox 05/01/25 16:42 133/88 100 05/01/25 15:09 115/50 05/01/25 12:14 126/63 98 05/01/25 08:15 123/77 93 L 05/01/25 07:07 05/01/25 05:53 98 05/01/25 05:05 98 05/01/25 01:19 99 05/01/25 00:24 96 04/30/25 22:07 93 L 04/30/25 18:31 91 L Intake and Output 05/01/25 05/01/25 05/01/25 06:59 14:59 22:59 Output Total 1275 950 Balance -1275 -950 Output: Urine 1275 950 Other: # Voids 2 # Bowel Movements 0 Patient is an elderly male, very pleasant, in no acute distress. He is using oxygen by nasal cannula. Patient is alert awake oriented to time place and person. Speech and language functions are normal. Patient can name and repeat very well. No aphasia or dysarthria. Attention, concentration and fund of knowledge is adequate. On cranial nerve examination, pupils are equal, round and reacting to light, visual stone are full on confrontation, with no neglect on double simultaneous stimulation. Extraocular muscles are intact with no nystagmus. Face is symmetr ic, tongue protrudes to the midline. Palatal elevation and sensation normal, hearing is decreased bilaterally, particularly on the right and shoulder shrug normal, facial sensation normal. On muscle strength testing, there is no pronator drift and the strength is normal in arms and legs distally and proximally. Deep tendon reflexes are symmetric 1 at the biceps and brachioradialis, trace at the knees and plantars are downgoing. Sensory to touch is equal with no neglect on double simultaneous stimulation. Cerebellar function showed no ataxia for [id number] testing. No dysdiadochokinesia on either side. No ataxia for [id number] testing on either side. Tone and bulk of muscles normal. Gait deferred.. On general examination, there is no carotid bruit or murmur, S1-S2 audible. Chest is clear on consultation. Abdomen is soft nontender. No organomegaly, bowel sounds present. Peripheral pulses could not be felt. He has at least moderate peripheral edema. Results - Laboratory Findings CBC and BMP: 04/30/25 19:03 05/01/25 10:06 Abnormal Lab Findings: Abnormal Labs 04/30/25 04/30/25 05/01/25 19:03 19:03 10:06 RBC 3.97 L Hgb 10.3 L Hct 33.8 L MCH 25.9 L MCHC 30.5 L RDW 26.0 H Chloride 96 L Carbon Dioxide 36 H BUN 45 H 38 H Glucose 144 H POC Glucose (mg/dL) Alkaline Phosphatase 183 H 05/01/25 11:18 RBC Hgb Hct MCH MCHC RDW Chloride Carbon Dioxide BUN Glucose POC Glucose (mg/dL) 155 H Alkaline Phosphatase Assessment and Plan Assessment: * Recurrent episodes of vertigo x 2, each lasted for about 3 hours. Exact cause is uncertain. Patient denies any recent upper respiratory infection. Differential diagnosis is between peripheral vestibular dysfunction from underlying hearing loss, versus TIA. * Chronic atrial fibrillation, on Eliquis. * Hypertension * Diabetes * Hyperlipidemia * Coronary artery disease with stents * Ex tobacco use * COPD Plan: * Patient's episodes of vertigo is of unclear cause. TIA is in the differential, but patient is on Eliquis. CTA showed no significant atherosclerotic vascular disease. * Continue Eliquis 5 mg twice daily. * CTA of head and neck showed no evidence of dissection of the cervical internal carotid arteries or vertebral arteries or any evidence of significant stenosis at the carotid bifurcations. No evidence of intracranial high-grade stenosis or intracranial aneurysm. Trace left pleural effusion. Mediastinal lymphadenopathy may be reactive. We will defer to IM to address pulmonary findings. On my review, the visualized paranasal sinuses are clear. External auditory canals are clear bilaterally. * 2D echo on 02/25/2025 revealed LVEF 40%. Severely increased left ventricular diastolic volume. Severely increased left ventricular systolic volume. Global left ventricular hypokinesia. D-shaped septum. Dilated right ventricle. Severely increased left and right atrial size. Moderate to severe TR. * Hemoglobin A1c 7.3. Recommend optimize control of diabetes to target A1c <7.0. * lipid panel with cholesterol 108, LDL 50, HDL 36, triglycerides 108. Continue Lipitor 80 mg daily. * B12 1318, folate 14.70. * Orthostatics negative. * Recommend patient follow-up with ENT specialist to rule out peripheral vascular dysfunction. * Patient's son also concerned that symptoms occur when oxygen is decreased to 2 L/min instead of 4 L. Maybe he needs higher oxygen. We will defer to IM/pulmonary. * Neurologically clear for discharge. * Thank you for the consult.
[2025-05-01 19:59] VITALS: BP 124/87; PULSE 64; TEMP 98.1
[2025-05-01] MEDS ORDERED: ATORVASTATIN 80 MG TAB PO SCH (21:00)
[2025-05-02] MEDS ORDERED: BUMETANIDE 1 MG TAB PO SCH (09:00)
--- NOTE | 2025-05-03 19:32 | P.DS ---
Providers Date of admission: 04/30/25 20:52 Attending physician: Lonnie Martins Consults: 04/30/25 20:48 Consult Physician Routine Consulting Provider: [facility] Consult Reason/Comments: Acute pulmonary edema Do you want consulting provider notified?: Yes 05/01/25 09:17 Consult Physician Routine Consulting Provider: Christo Field Consult Reason/Comments: dizziness Do you want consulting provider notified?: Yes Primary care physician: Jeanie Alfredo Hospital Course: Final Diagnosis Dizziness, likely BPV Acute on chronic systolic congestive heart failure EF of 40% Severe pulmonary hypertension moderate to severe tricuspid regurgitation Ischemic cardiomyopathy EF 40-45% Acute hypoxemic respiratory failure secondary to above Persistent atrial fibrillation with CVR History of coronary artery disease with prior CABG and stenting Diabetes mellitus type 2 Hypertension Hyperlipidemia Morbid Obesity GI prophylaxis Discharge Disposition Patient is stable for discharge home. Continue same home medications. Continue meclizine PRN. Follow up with ENT specialist. Follow up with drying supervisor. Continue oxygen via nasal cannula at 4L on discharge. Total time taken in discharge planning greater than 35 minutes. Hospital Course This is a pleasant 65-year-old male with medical history significant for atrial fibrillation, coronary artery disease, prior CABG and stenting, diabetes mellitu s type 2, hypertension, sleep apnea with CPAP use, congestive heart failure. Patient comes into the hospital with complaints of dizziness and vertigo he was seen in the ER and discharged home and then comes back with the same symptoms as well as nausea vomiting. The dizziness came about while he was sitting down and spontaneously resolved. He also states that he feels edematous. He is chronically on oxygen has been at 4L however family at he bedside states his home RN put him down to 2L and felt patient may have been hypoxic. He was 91% on 2L of oxygen when he got to the ER. Brain CT angiography reveals no evidence of dissection of the cervical internal carotid arteries or vertebral arteries there is no evidence of significant stenosis of the carotid bifurcations. There is no evidence of intracranial high-grade stenosis or intracranial aneurysm. There is trace left pleural effusion. There is mediastinal lymphadenopathy which may be reactive. Had a chest x-ray which reveals cardiomegaly and mild pulmonary vascular congestion with bilateral pleural effusions suggested. Correlate with BNP for congestive heart failure. Patient's proBNP was mildly elevated at 3130. Negative troponin level. BUN of 45 creatinine 1.02. His hemoglobin is 10.3. Patient is requiring 3 to 4 L of oxygen via nasal cannula. He has been afebrile. He was admitted to the hospital with a consult placed to cardiology services. He was given a dose of IV lasix and resumed back on home dose of oral bumex. Orthostatic vitals were negative. Neurology recommending to follow up with ENT for the recurrent episodes of dizziness. He has been up ambulating with no further instances of dizziness. Reports no chest pain. No new shortness of breath. Oxygen saturations of 95% on 4L of oxygen via nasal cannula. Please see medication reconciliation for a list of current medications. Thank you for allowing us to participate in the care of this patient. The impression and plan of care has been dictated by Prerna Arredondo, Nurse Practitioner as directed. Dr. Melodie MD I have performed a history and physical examination and medical decision making of this patient, discussed the same with the dictator, and agree with the dictators assessment and plan as written, documented as a scribe. Based on total visit time, I have performed more than 50% of this visit. Patient Condition at Discharge: Fair Plan - Discharge Summary New Discharge Prescriptions: New Meclizine [Antivert] 25 mg PO TID PRN #20 tab PRN Reason: Vertigo Continue Apixaban [Eliquis] 5 mg PO BID Atorvastatin [Lipitor] 80 mg PO HS Empagliflozin [Jardiance] 25 mg PO DAILY Multivitamins, Thera [Multivitamin (formulary)] 1 tab PO DAILY metFORMIN HCL [Glucophage] 1,000 mg PO BID Bumetanide [BUMEX] 2 mg PO DAILY #90 tab Tamsulosin [Flomax] 0.4 mg PO PC-BRKFST #30 cap Bumetanide [BUMEX] 1 mg PO DAILY@1600 Metoprolol Tartrate [Lopressor] 25 mg PO BID #60 tab Insulin Aspart [NovoLOG Flexpen] See Protocol SQ TID-W/MEALS Insulin Degludec [Tresiba Flextouch U-200 Pen] 60 units SQ HS Ferrous Sulfate [Iron (65 MG Elemental)] 325 mg PO W/LUNCH #30 tab Spironolactone [Aldactone] 12.5 mg PO DAILY #30 tab Discharge Medication List Apixaban [Eliquis] 5 mg PO BID 10/23/18 [History] Atorvastatin [Lipitor] 80 mg PO HS 10/23/18 [History] Empagliflozin [Jardiance] 25 mg PO DAILY 10/23/18 [History] Insulin Degludec [Tresiba Flextouch U-200 Pen] 60 units SQ HS 10/03/22 [History] Multivitamins, Thera [Multivitamin (formulary)] 1 tab PO DAILY 04/24/23 [History] metFORMIN HCL [Glucophage] 1,000 mg PO BID 02/25/25 [History] Bumetanide [BUMEX] 2 mg PO DAILY #90 tab 03/05/25 [Rx] Ferrous Sulfate [Iron (65 MG Elemental)] 325 mg PO W/LUNCH #30 tab 03/05/25 [Rx] Tamsulosin [Flomax] 0.4 mg PO PC-BRKFST #30 cap 03/05/25 [Rx] Bumetanide [BUMEX] 1 mg PO DAILY@1600 03/06/25 [History] Metoprolol Tartrate [Lopressor] 25 mg PO BID #60 tab 03/11/25 [Rx] Spironolactone [Aldactone] 12.5 mg PO DAILY #30 tab 03/11/25 [Rx] Insulin Aspart [NovoLOG Flexpen] See Protocol SQ TID-W/MEALS 05/01/25 [History] Meclizine [Antivert] 25 mg PO TID PRN #20 tab 05/01/25 [Rx] Follow up Appointment(s)/Referral(s): Dane Rey MD [STAFF PHYSICIAN] - 1 Week Jeanie Alfredo DO [Primary Care Provider] - 1-2 days Doug Chaudhry DO [REFERRING] - 1 Week Ambulatory/Diagnostic Orders: Basic Metabolic Panel [LAB.AMB] Time Frame: 3 Days, Location: None Selected Activity/Diet/Wound Care/Special Instructions: Follow up with your security patrol officer out of [place] Continue oral bumex Continue meclizine as needed for vertigo. Follow up with ENT, Dr. Chaudhry for weakness and vertigo per Dr. Tim, Neurology. Continue oxygen support using 4L and follow up with your Mid Level Business Analyst. Discharge Disposition: HOME SELF-CARE
== END 2025-05-01 20:04 | disposition home or self-care (01) ==
LOC: EC 18:26 → 3SCARD 20:52
PROVIDERS: ADMIT Hospitalist; ATTEND Hospitalist
DX: R42 Dizziness and giddiness (principal); I48.19 Other persistent atrial fibrillation; I25.10 Atherosclerotic heart disease of native coronary artery without angina pectoris; E11.9 Type 2 diabetes mellitus without complications; G47.30 Sleep apnea, unspecified; I11.0 Hypertensive heart disease with heart failure; I50.23 Acute on chronic systolic (congestive) heart failure; J44.9 Chronic obstructive pulmonary disease, unspecified; E78.5 Hyperlipidemia, unspecified; I25.2 Old myocardial infarction; I25.5 Ischemic cardiomyopathy; I07.1 Rheumatic tricuspid insufficiency; I27.20 Pulmonary hypertension, unspecified; J96.01 Acute respiratory failure with hypoxia; E66.01 Morbid (severe) obesity due to excess calories; Z68.41 Body mass index [BMI] 40.0-44.9, adult; Z85.46 Personal history of malignant neoplasm of prostate; Z87.891 Personal history of nicotine dependence; Z95.5 Presence of coronary angioplasty implant and graft; Z79.01 Long term (current) use of anticoagulants; Z79.4 Long term (current) use of insulin; Z79.84 Long term (current) use of oral hypoglycemic drugs; Z79.899 Other long term (current) drug therapy
CPT/HCPCS: 96376; 96374; 96375; 99285; 36415; 93005; 83880; 80053; 80048; 83735; 84484; 85025; 85610; 85730; 71046; 70496; 70498; G0378 ×2; J2405; Q9967; J1938 ×2

== ENCOUNTER 2025-05-15 12:28 | Observation (INO) | payer MEDICARE ==
[2025-05-15 12:41] VITALS: TEMP 97.8
--- NOTE | 2025-05-15 12:59 | ED ---
General Adult HPI - General Source: patient, EMS, RN notes reviewed Mode of arrival: EMS Limitations: no limitations <Donya Infante - Last Filed: 05/15/25 12:57> <Abena Kumar - Last Filed: 05/15/25 18:40> - General Chief complaint: Altered Mental Status Stated complaint: Weakness,N/V Time Seen by Provider: 05/15/25 12:57 - History of Present Illness Initial comments: Quick [id number] male presenting for nausea/vomiting x 3 hours with associated dizziness. Patient does state he has a history of vertigo. He was admitted to the hospital earlier this month for pulmonary edema and vertigo. Denies chest pain, shortness of breath. He does take Eliquis. Past medical history includes atrial fibrillation, CAD, type 2 diabetes, hypertension, and congestive heart failure (Donya Infante) 65-year-old male with past medical history of A-fib on Eliquis, congestive heart failure on Bumex who presents to the emergency department after he had an unresponsive episode at home. Son is at bedside and helps provide history. States that the homecare nurse was at the house today. The patient awoke and was having vertigo. Patient states he was having hard time opening his eyes because of the room spinning. Son states that this was not the case. He was extremely hard to arouse. They state that this lasted for approximately 10 minutes until EMS got there. At that time the patient was alert and oriented. Patient admits to nausea with vomiting. Denies any chest pain or shortness of breath. Patient was previously seen for this issue and they diagnosed him with vertigo. Son does not believe that vertigo could make the patient go completely unresponsive. (Abena Kumar) - Related Data Home Medications Medication Instructions Recorded Confirmed Apixaban [Eliquis] 5 mg PO BID 10/23/18 05/15/25 Atorvastatin [Lipitor] 80 mg PO HS 10/23/18 05/15/25 Empagliflozin [Jardiance] 25 mg PO DAILY 10/23/18 05/15/25 Insulin Degludec [Tresiba 60 units SQ HS 10/03/22 05/15/25 Flextouch U-200 Pen] Multivitamins, Thera [Multivitamin 1 tab PO DAILY 04/24/23 05/15/25 (formulary)] metFORMIN HCL [Glucophage] 1,000 mg PO BID 02/25/25 05/15/25 Bumetanide [BUMEX] 1 mg PO DAILY@1600 03/06/25 05/15/25 Insulin Aspart [NovoLOG Flexpen] See Protocol SQ TID-W/MEALS 05/01/25 05/15/25 Escitalopram [Lexapro] 10 mg PO DAILY 05/15/25 05/15/25 Omeprazole 20 mg PO DAILY 05/15/25 05/15/25 Spironolactone [Aldactone] 25 mg PO DAILY 05/15/25 05/15/25 Previous Rx's Medication Instructions Recorded Bumetanide [BUMEX] 2 mg PO DAILY #90 tab 03/05/25 Ferrous Sulfate [Iron (65 MG 325 mg PO W/LUNCH #30 tab 03/05/25 Elemental)] Tamsulosin [Flomax] 0.4 mg PO PC-BRKFST #30 cap 03/05/25 Metoprolol Tartrate [Lopressor] 25 mg PO BID #60 tab 03/11/25 Meclizine [Antivert] 25 mg PO TID PRN #20 tab 05/01/25 Allergies Allergy/AdvReac Type Severity Reaction Status Date / Time No Known Allergies Allergy Verified 05/15/25 16:56 Review of Systems ROS Other: All systems not noted in ROS Statement are negative. <Donya Infante - Last Filed: 05/15/25 12:57> ROS Other: All systems not noted in ROS Statement are negative. <Abena Kumar - Last Filed: 05/15/25 18:40> ROS Statement: Those systems with pertinent positive or pertinent negative responses have been documented in the HPI. Past Medical History Past Medical History: Atrial Fibrillation, Coronary Artery Disease (CAD), Can cer, Diabetes Mellitus, Hypertension, Myocardial Infarction ([place]), Prostate Disorder, Sleep Apnea/CPAP/BIPAP Additional Past Medical History / Comment(s): PROSTATE CANCER, uses CPAP, CHF Last Myocardial Infarction Date:: 2015 History of Any Multi-Drug Resistant Organisms: None Reported Past Surgical History: Appendectomy, Coronary Bypass/CABG, Heart Catheterization With Stent, Hernia Repair, Prostate Surgery Additional Past Surgical History / Comment(s): HEART CATHS X7 WITH TOTAL OF 7 STENTS, CABG OCT 2016, JAYLYN INGUINAL HERNIAS, UMBILICAL HERNIAS. Past Anesthesia/Blood Transfusion Reactions: No Reported Reaction Additional Past Anesthesia/Blood Transfusion Reaction / Comment(s): no blood transfusion Date of Last Stent Placement:: 2014 Past Psychological History: No Psychological Hx Reported Smoking Status: Former smoker Past Alcohol Use History: Rare Past Drug Use History: None Reported - Past Family History Mother Family Medical History: No Reported History Additional Family Medical History / Comment(s): Heart disease Father Family Medical History: Diabetes Mellitus Additional Family Medical History / Comment(s): Heart disease <Donya Infante - Last Filed: 05/15/25 12:57> General Exam Limitations: no limitations <Donya Infante - Last Filed: 05/15/25 12:57> - General Exam Comments Initial Comments: Visual Physical Exam Vital signs reviewed General: Well-appearing, nontoxic, no acute distress. Head: Normocephalic, atraumatic Eyes: PERRLA, EOMI ENT: Airway patent Chest: Nonlabored breathing Skin: No visual rash, normal skin tone Neuro: Alert and oriented 3 Musculoskeletal: No gross abnormalities (Donya Infante) Course Vital Signs 05/15/25 05/15/25 05/15/25 12:37 15:21 15:49 Temperature 97.8 F Pulse Rate 71 68 Pulse Rate [ 79 Pilot Submersible ] Respiratory 16 18 Rate Blood Pressure 105/70 106/64 O2 Sat by Pulse 99 99 Oximetry 05/15/25 17:23 Temperature Pulse Rate 83 Pulse Rate [ Pilot Submersible ] Respiratory 18 Rate Blood Pressure 112/79 O2 Sat by Pulse 96 Oximetry Medical Decision Making <Donya Infante - Last Filed: 05/15/25 12:57> - Lab Data Result diagrams: 05/15/25 13:09 05/15/25 13:09 <Abena Kumar - Last Filed: 05/15/25 18:40> - Medical Decision Making I completed the quick note portion of this chart signed Donya Infante PA-C (Donya Infante) - Lab Data Lab Results 05/15/25 05/15/25 05/15/25 Range/Units 13:09 13:09 13:09 WBC 6.65 (4.50-10.00) 10*3/uL RBC 4.02 L (4.40-5.60) 10*6/uL Hgb 10.6 L (13.0-17.0) g/dL Hct 34.5 L (39.6-50.0) % MCV 85.8 (80.0-97.0) fL MCH 26.4 L (27.0-32.0) pg MCHC 30.7 L (32.0-37.0) g/dL Plt Count 177 (140-440) 10*3/uL MPV 9.4 L (9.5-12.2) fL Immature Gran % (Auto) 0.3 % Neutrophils % 71.4 % Lymphocytes % 12.9 % Monocytes % 12.5 % Eosinophils % 2.3 % Basophils % 0.6 % Immature Gran # 0.02 (0.00-0.04) 10*3/uL Neutrophils # 4.75 (1.80-7.70) 10*3/uL Lymphocytes # 0.86 L (0.90-5.00) 10*3/uL Monocytes # 0.83 (0.20-1.00) 10*3/uL Eosinophils # 0.15 (0.04-0.35) 10*3/uL Basophils # 0.04 (0.00-0.10) 10*3/uL PT 12.7 H (10.0-12.5) sec INR 1.2 H (<1.2) APTT 27.5 (22.0-30.0) sec Sodium 139 (137-145) mmol/L Potassium 4.3 (3.5-5.1) mmol/L Chloride 98 (98-107) mmol/L Carbon Dioxide 36 H (22-30) mmol/L Anion Gap 5 mmol/L BUN 36 H (9-20) mg/dL Creatinine 1.02 (0.66-1.25) mg/dL Est GFR (CKD-EPI)AfAm 88 (>60 ml/min/1.73 sqM) Est GFR (CKD-EPI)NonAf 76 (>60 ml/min/1.73 sqM) Glucose 152 H (74-99) mg/dL Plasma Lactic Acid Cong (0.7-2.0) mmol/L Calcium 9.1 (8.4-10.2) mg/dL Magnesium 2.0 (1.6-2.3) mg/dL Total Bilirubin 1.1 (0.2-1.3) mg/dL AST 28 (17-59) U/L ALT 27 (4-49) U/L Alkaline Phosphatase 196 H (38-126) U/L Troponin I (0.000-0.034) ng/mL NT-Pro-B Natriuret Pep pg/mL Total Protein 7.4 (6.3-8.2) g/dL Albumin 4.1 (3.5-5.0) g/dL Influenza Type A (PCR) (Not Detectd) Influenza Type B (PCR) (Not Detectd) RSV (PCR) (Not Detectd) SARS-CoV-2 (PCR) (Not Detectd) 05/15/25 05/15/25 05/15/25 Range/Units 13:09 13:09 13:09 WBC (4.50-10.00) 10*3/uL RBC (4.40-5.60) 10*6/uL Hgb (13.0-17.0) g/dL Hct (39.6-50.0) % MCV (80.0-97.0) fL MCH (27.0-32.0) pg MCHC (32.0-37.0) g/dL Plt Count (140-440) 10*3/uL MPV (9.5-12.2) fL Immature Gran % (Auto) % Neutrophils % % Lymphocytes % % Monocytes % % Eosinophils % % Basophils % % Immature Gran # (0.00-0.04) 10*3/uL Neutrophils # (1.80-7.70) 10*3/uL Lymphocytes # (0.90-5.00) 10*3/uL Monocytes # (0.20-1.00) 10*3/uL Eosinophils # (0.04-0.35) 10*3/uL Basophils # (0.00-0.10) 10*3/uL PT (10.0-12.5) sec INR (<1.2) APTT (22.0-30.0) sec Sodium (137-145) mmol/L Potassium (3.5-5.1) mmol/L Chloride (98-107) mmol/L Carbon Dioxide (22-30) mmol/L Anion Gap mmol/L BUN (9-20) mg/dL Creatinine (0.66-1.25) mg/dL Est GFR (CKD-EPI)AfAm (>60 ml/min/1.73 sqM) Est GFR (CKD-EPI)NonAf (>60 ml/min/1.73 sqM) Glucose (74-99) mg/dL Plasma Lactic Acid Cong 1.0 (0.7-2.0) mmol/L Calcium (8.4-10.2) mg/dL Magnesium (1.6-2.3) mg/dL Total Bilirubin (0.2-1.3) mg/dL AST (17-59) U/L ALT (4-49) U/L Alkaline Phosphatase (38-126) U/L Troponin I 0.012 (0.000-0.034) ng/mL NT-Pro-B Natriuret Pep pg/mL Total Protein (6.3-8.2) g/dL Albumin (3.5-5.0) g/dL Influenza Type A (PCR) Not Detected (Not Detectd) Influenza Type B (PCR) Not Detected (Not Detectd) RSV (PCR) Not Detected (Not Detectd) SARS-CoV-2 (PCR) Not Detected (Not Detectd) 05/15/25 Range/Units 13:09 WBC (4.50-10.00) 10*3/uL RBC (4.40-5.60) 10*6/uL Hgb (13.0-17.0) g/dL Hct (39.6-50.0) % MCV (80.0-97.0) fL MCH (27.0-32.0) pg MCHC (32.0-37.0) g/dL Plt Count (140-440) 10*3/uL MPV (9.5-12.2) fL Immature Gran % (Auto) % Neutrophils % % Lymphocytes % % Monocytes % % Eosinophils % % Basophils % % Immature Gran # (0.00-0.04) 10*3/uL Neutrophils # (1.80-7.70) 10*3/uL Lymphocytes # (0.90-5.00) 10*3/uL Monocytes # (0.20-1.00) 10*3/uL Eosinophils # (0.04-0.35) 10*3/uL Basophils # (0.00-0.10) 10*3/uL PT (10.0-12.5) sec INR (<1.2) APTT (22.0-30.0) sec Sodium (137-145) mmol/L Potassium (3.5-5.1) mmol/L Chloride (98-107) mmol/L Carbon Dioxide (22-30) mmol/L Anion Gap mmol/L BUN (9-20) mg/dL Creatinine (0.66-1.25) mg/dL Est GFR (CKD-EPI)AfAm (>60 ml/min/1.73 sqM) Est GFR (CKD-EPI)NonAf (>60 ml/min/1.73 sqM) Glucose (74-99) mg/dL Plasma Lactic Acid Cong (0.7-2.0) mmol/L Calcium (8.4-10.2) mg/dL Magnesium (1.6-2.3) mg/dL Total Bilirubin (0.2-1.3) mg/dL AST (17-59) U/L ALT (4-49) U/L Alkaline Phosphatase (38-126) U/L Troponin I (0.000-0.034) ng/mL NT-Pro-B Natriuret Pep 2110 pg/mL Total Protein (6.3-8.2) g/dL Albumin (3.5-5.0) g/dL Influenza Type A (PCR) (Not Detectd) Influenza Type B (PCR) (Not Detectd) RSV (PCR) (Not Detectd) SARS-CoV-2 (PCR) (Not Detectd) Disposition <Donya Infante - Last Filed: 05/15/25 12:57> Is patient prescribed a controlled substance at d/c from ED?: No Time of Disposition: 18:17 Decision to Admit Reason: Admit from EC Decision Date: 05/15/25 Decision Time: 18:17 <Abena Kumar - Last Filed: 05/15/25 18:40> Clinical Impression: Encephalopathy acute, Vertigo, Congestive heart failure Disposition: ADMITTED IP TO THIS [facility] Condition: Stable Referrals: Jeanie Alfredo DO [Primary Care Provider] - 1-2 days
[2025-05-15 13:34] LABS: WBC 6.65 10*3/uL (4.50-10.00)
[2025-05-15 13:35] LABS: Basophils # (A) 0.04 10*3/uL (0.00-0.10); Basophils % (A) 0.6 %; Eosinophils # (A) 0.15 10*3/uL (0.04-0.35); Eosinophils % (A) 2.3 %; HCT 34.5 % (39.6-50.0); HGB 10.6 g/dL (13.0-17.0); Lymphocytes # (A) 0.86 10*3/uL (0.90-5.00); Lymphocytes % (A) 12.9 %; MCH 26.4 pg (27.0-32.0); MCHC 30.7 g/dL (32.0-37.0); MCV 85.8 fL (80.0-97.0); Mean Platelet Volume 9.4 fL (9.5-12.2); Monocytes # (A) 0.83 10*3/uL (0.20-1.00); Monocytes % (A) 12.5 %; Neutrophils # (A) 4.75 10*3/uL (1.80-7.70); Neutrophils % (A) 71.4 %; Platelet Count 177 10*3/uL (140-440); RBC 4.02 10*6/uL (4.40-5.60); RDW 21.7 % (11.5-14.5)
--- NOTE | 2025-05-15 13:46 | XR ---
EXAMINATION TYPE: XR chest 2V DATE OF EXAM: 05/15/2025 1:28 PM COMPARISON: 04/30/2025 CLINICAL INDICATION: Male, 65 years old with history of dizziness, , TECHNIQUE: AP and lateral views FINDINGS: Heart moderately enlarged. Low lung volumes. Diffuse interstitial densities. No quentin consolidation. Overall relatively similar prior. Median sternotomy wires not well-seen due to underpenetration. IMPRESSION: Cardiomegaly with prominent hypoventilatory changes. Given the interstitial prominence, correlate for CHF with pulmonary vascular congestion. [facility], , 05/15/2025 1:43 PM
--- NOTE | 2025-05-15 13:50 | CT ---
EXAMINATION TYPE: CT brain wo con CT DLP: 1274.4 mGycm, Automated exposure control for dose reduction was used. DATE OF EXAM: 05/15/2025 1:38 PM COMPARISON: CT brain 04/29/2025, CTA head and neck 04/30/2025 CLINICAL INDICATION:Male, 65 years old with history of dizziness x 3 hours, Dizziness x 3 hours TECHNIQUE: Brain: Multiple axial CT images of the brain were obtained without IV contrast. . Coronal and sagitta l reformats reviewed. FINDINGS: Brain: Extra-axial spaces: No abnormal extra-axial fluid collections. Ventricular system: Within normal limits Cerebral parenchyma: No acute intraparenchymal hemorrhage or mass effect. The morillo-white junction is well differentiated. Cerebellum: Unremarkable. Mass effect: No evidence of midline shift. Intracranial vasculature: unremarkable Soft tissues: Normal. Calvarium/osseous structures: No depressed skull fracture. Paranasal sinuses and mastoid air cells: Mild scattered paranasal sinus disease. Visualized orbits: Orbital contents are intact. IMPRESSION: No acute intracranial process. [facility], , 05/15/2025 1:47 PM
[2025-05-15 13:54] LABS: ALT 27 U/L (4-49); AST 28 U/L (17-59); African American GFR (CKD) 88 (>60 ml/min/1.73 sqM); Albumin 4.1 g/dL (3.5-5.0); Alkaline Phosphatase 196 U/L (38-126); Anion Gap 5 mmol/L; Blood Urea Nitrogen 36 mg/dL (9-20); Calcium 9.1 mg/dL (8.4-10.2); Carbon Dioxide 36 mmol/L (22-30); Chloride 98 mmol/L (98-107); Glucose 152 mg/dL (74-99); Non-African American GFR(CKD) 76 (>60 ml/min/1.73 sqM); Potassium 4.3 mmol/L (3.5-5.1); Sodium 139 mmol/L (137-145); Total Bilirubin 1.1 mg/dL (0.2-1.3); Total Protein 7.4 g/dL (6.3-8.2)
[2025-05-15 13:57] LABS: INR 1.2 (<1.2); Partial Thromboplastin Time 27.5 sec (22.0-30.0); Prothrombin Time 12.7 sec (10.0-12.5)
[2025-05-15 14:12] LABS: Influenza A Not Detected (Not Detectd); Influenza B Not Detected (Not Detectd); RSV Not Detected (Not Detectd)
[2025-05-15] MEDS ORDERED: NALOXONE 0.4 MG/ML 1 ML VIAL IV PRN (18:18)
[2025-05-15] MEDS ORDERED: ONDANSETRON 4 MG/2 ML VIAL IVP PRN (18:33)
[2025-05-15 23:27] VITALS: RESP 18
[2025-05-16 09:03] LABS: African American GFR (CKD) 90 (>60 ml/min/1.73 sqM); Anion Gap 8 mmol/L; Blood Urea Nitrogen 32 mg/dL (9-20); Calcium 9.5 mg/dL (8.4-10.2); Carbon Dioxide 35 mmol/L (22-30); Chloride 95 mmol/L (98-107); Glucose 125 mg/dL (74-99); Non-African American GFR(CKD) 78 (>60 ml/min/1.73 sqM); Potassium 4.5 mmol/L (3.5-5.1); Sodium 138 mmol/L (137-145)
[2025-05-16] MEDS ORDERED: MECLIZINE 25 MG TAB PO PRN (10:04)
--- NOTE | 2025-05-16 10:14 | P.HPIM ---
History of Present Illness Patient pleasant 65-year-old male came in with complaints of vertigo. Patient was sent in by the home care nurse as he is having vertigo and was also difficult to arouse. Patient's vertigo completely resolved the patient is alert oriented x 3 at this time able to provide good history to me. Patient was admitted in the hospital 3 weeks ago he was diagnosed with peripheral vertigo vestibular dysfunction/benign positional vertigo. Was discharged on meclizine was advised to see ENT. Patient still was unable to get any appointment yet with the ENT specialist. Patient has this occasional dizziness episodes. Those episodes completely resolved at this time. Patient does have history of sleep apnea uses BiPAP machine at settings of 4 and 8. Patient does have history of congestive heart failure EF of around 40 to 45% presently not in acute exacerbation uses 2 mg twice a day of Bumex. REVIEW OF SYSTEMS: All other systems are negative except those mentioned in the HPI PHYSICAL EXAMINATION: GENERAL: The patient is alert and oriented x3, not in any acute distress. Well developed, well nourished. Obese HEENT: Pupils are round and equally reacting to light. EOMI. No scleral icterus. No conjunctival pallor. Normocephalic, atraumatic. No pharyngeal erythema. No thyromegaly. CARDIOVASCULAR: S1 and S2 present. No murmurs, rubs, or gallops. PULMONARY: Chest is clear to auscultation, no wheezing or crackles. ABDOMEN: Soft, nontender, nondistended, normoactive bowel sounds. No palpable organomegaly. MUSCULOSKELETAL: No joint swelling or deformity. EXTREMITIES: No cyanosis, clubbing, or pedal edema. NEUROLOGICAL: Gross neurological examination did not reveal any focal deficits. SKIN: No rashes. Assessment and plan --Vertigo peripheral vertigo symptoms resolved at this time patient will follow- up with neurology and ENT as an outpatient - Drowsiness and sleepiness: Patient is alert oriented at this time but I do have concern of CO2 retention will obtain ABG if ABG is within normal limits patient will be discharged today otherwise will consult pulmonary and possibly may need changes in the BiPAP settings - Construct failure chronic systolic function, ischemic cardiomyopathy EF of around 40% not in acute exacerbation at this time - Type 2 diabetes mellitus - Hypertension - Benign prostatic hypertrophy - Chronic hypoxic and hypercapnic respiratory failure secondary to sleep apnea uses CPAP machine at home - Paroxysmal atrial fibrillation on anticoagulation with Eliquis which was resumed -Coronary disease with history of CABG and stents in the past For above-mentioned chronic medical problems patient will be resumed on appropriate home medications DVT prophylaxis: On Eliquis Past Medical History Past Medical History: Atrial Fibrillation, Coronary Artery Disease (CAD), Cancer, Diabetes Mellitus, Hypertension, Myocardial Infarction ([place]), Prostate Disorder, Sleep Apnea/CPAP/BIPAP Additional Past Medical History / Comment(s): PROSTATE CANCER, uses CPAP, CHF Last Myocardial Infarction Date:: 2015 History of Any Multi-Drug Resistant Organisms: None Reported Past Surgical History: Appendectomy, Coronary Bypass/CABG, Heart Catheterization With Stent, Hernia Repair, Prostate Surgery Additional Past Surgical History / Comment(s): HEART CATHS X7 WITH TOTAL OF 7 STENTS, CABG OCT 2016, JAYLYN INGUINAL HERNIAS, UMBILICAL HERNIAS. Past Anesthesia/Blood Transfusion Reactions: No Reported Reaction Additional Past Anesthesia/Blood Transfusion Reaction / Comment(s): no blood transfusion Date of Last Stent Placement:: 2014 Past Psychological History: No Psychological Hx Reported Smoking Status: Former smoker Past Alcohol Use History: Rare Past Drug Use History: None Reported - Past Family History Mother Family Medical History: No Reported History Additional Family Medical History / Comment(s): Heart disease Father Family Medical History: Diabetes Mellitus Additional Family Medical History / Comment(s): Heart disease Medications and Allergies Home Medications Medication Instructions Recorded Confirmed Type Apixaban [Eliquis] 5 mg PO BID 10/23/18 05/15/25 History Atorvastatin [Lipitor] 80 mg PO HS 10/23/18 05/15/25 History Empagliflozin [Jardiance] 25 mg PO DAILY 10/23/18 05/15/25 History Insulin Degludec [Tresiba 60 units SQ HS 10/03/22 05/15/25 History Flextouch U-200 Pen] Multivitamins, Thera [Multivitamin 1 tab PO DAILY 04/24/23 05/15/25 History (formulary)] metFORMIN HCL [Glucophage] 1,000 mg PO BID 02/25/25 05/15/25 History Bumetanide [BUMEX] 2 mg PO DAILY #90 tab 03/05/25 05/15/25 Rx Ferrous Sulfate [Iron (65 MG 325 mg PO W/LUNCH #30 tab 03/05/25 05/15/25 Rx Elemental)] Tamsulosin [Flomax] 0.4 mg PO PC-BRKFST #30 cap 03/05/25 05/15/25 Rx Bumetanide [BUMEX] 1 mg PO DAILY@1600 03/06/25 05/15/25 History Metoprolol Tartrate [Lopressor] 25 mg PO BID #60 tab 03/11/25 05/15/25 Rx Insulin Aspart [NovoLOG Flexpen] See Protocol SQ TID-W/MEALS 05/01/25 05/15/25 History Meclizine [Antivert] 25 mg PO TID PRN #20 tab 05/01/25 05/15/25 Rx Escitalopram [Lexapro] 10 mg PO DAILY 05/15/25 05/15/25 History Omeprazole 20 mg PO DAILY 05/15/25 05/15/25 History Spironolactone [Aldactone] 25 mg PO DAILY 05/15/25 05/15/25 History Allergies Allergy/AdvReac Type Severity Reaction Status Date / Time No Known Allergies Allergy Verified 05/15/25 16:56 Physical Exam Vitals: Vital Signs Temp Pulse Pulse Resp BP Pulse Ox 05/16/25 08:59 68 18 126/77 94 L 05/16/25 06:19 78 18 118/70 96 05/16/25 02:00 87 18 123/73 95 05/15/25 23:25 84 18 124/76 97 05/15/25 18:59 77 20 106/79 96 05/15/25 17:23 83 18 112/79 96 05/15/25 15:49 79 05/15/25 15:21 68 18 106/64 99 05/15/25 12:37 97.8 F 71 16 105/70 99 Results CBC & Chem 7: 05/15/25 13:09 05/16/25 08:06 Labs: Abnormal Lab Results - Last 24 Hours (Table) 05/15/25 05/15/25 05/15/25 Range/Units 13:09 13:09 13:09 RBC 4.02 L (4.40-5.60) 10*6/uL Hgb 10.6 L (13.0-17.0) g/dL Hct 34.5 L (39.6-50.0) % MCH 26.4 L (27.0-32.0) pg MCHC 30.7 L (32.0-37.0) g/dL MPV 9.4 L (9.5-12.2) fL Lymphocytes # 0.86 L (0.90-5.00) 10*3/uL PT 12.7 H (10.0-12.5) sec INR 1.2 H (<1.2) Chloride (98-107) mmol/L Carbon Dioxide 36 H (22-30) mmol/L BUN 36 H (9-20) mg/dL Glucose 152 H (74-99) mg/dL Alkaline Phosphatase 196 H (38-126) U/L / Range/Units 08:06 RBC (4.40-5.60) 10*6/uL Hgb (13.0-17.0) g/dL Hct (39.6-50.0) % MCH (27.0-32.0) pg MCHC (32.0-37.0) g/dL MPV (9.5-12.2) fL Lymphocytes # (0.90-5.00) 10*3/uL PT (10.0-12.5) sec INR (<1.2) Chloride 95 L (98-107) mmol/L Carbon Dioxide 35 H (22-30) mmol/L BUN 32 H (9-20) mg/dL Glucose 125 H (74-99) mg/dL Alkaline Phosphatase (38-126) U/L
[2025-05-16 10:21] LABS: HCT 35.8 % (39.6-50.0); HGB 10.2 g/dL (13.0-17.0); MCH 25.1 pg (27.0-32.0); MCHC 28.5 g/dL (32.0-37.0); MCV 88.2 FL (80.0-97.0); Mean Platelet Volume 9.4 FL (9.5-12.2); NRBC Per 100 WBC 0 X 10*3/uL (0.00-0.01); Platelet Count 195 X 10*3/uL (140-440); RBC 4.06 X 10*6/uL (4.40-5.60); RDW 21.7 % (11.5-14.5); WBC 6.32 X 10*3/uL (4.50-10.00)
[2025-05-16 10:22] LABS: Basophils # (A) 0.04 X 10*3/uL (0.00-0.10); Basophils % (A) 0.6 %; Eosinophils # (A) 0.19 X 10*3/uL (0.04-0.35); Lymphocytes # (A) 1.15 X 10*3/uL (0.90-5.00); Lymphocytes % (A) 18.2 %; Monocytes # (A) 0.86 X 10*3/uL (0.20-1.00); Monocytes % (A) 13.6 %; Neutrophils # (A) 4.06 X 10*3/uL (1.80-7.70); Neutrophils % (A) 64.3 %
[2025-05-16 10:41] LABS: ABG Base Excess 9.8 mmol/L; ABG HCO3 36 mmol/L (21-25); ABG Oxygen Saturation 47.6 % (94-97); ABG PCO2 59 mmHg (35-45); ABG TCO2 38 mmol/L (19-24); Allen Test Performed? Yes
[2025-05-16] MEDS: BUMETANIDE 1 MG TAB PO SCH (10:44)
[2025-05-16] MEDS: APIXABAN 5 MG TAB PO SCH (10:44)
[2025-05-16] MEDS: ESCITALOPRAM 10 MG TAB PO SCH (10:45)
[2025-05-16] MEDS: METOPROLOL TARTRATE 25 MG TAB PO SCH (10:45)
[2025-05-16] MEDS: TAMSULOSIN 0.4 MG CAP.ER.24H PO SCH (10:45)
[2025-05-16] MEDS: PANTOPRAZOLE 40 MG TABLET PO SCH (10:45)
[2025-05-16] MEDS: SPIRONOLACTONE 25 MG TAB PO SCH (10:45)
[2025-05-16 10:53] LABS: ABG PO2 <30 mmHg (83-108)
[2025-05-16 11:04] LABS: Glucose,Whole Blood 151 mg/dL (70-110)
[2025-05-16] MEDS: INSULIN LISPRO (HumaLOG) 100 UNIT/ML 10 mL VL SQ SCH (11:06)
--- NOTE | 2025-05-16 11:22 | P.DS ---
Providers Date of admission: 05/15/25 18:38 Attending physician: Lonnie Martins Consults: 05/15/25 18:33 Consult Physician Urgent Consulting Provider: Luis Antonio Tim Consult Reason/Comments: unresponsive episode Do you want consulting provider notified?: Yes Primary care physician: Jeanie Dawsonarlo [facility] Course: Patient pleasant 65-year-old male came in with complaints of vertigo. Patient was sent in by the home care nurse as he is having vertigo and was also difficult to arouse. Patient's vertigo completely resolved the patient is alert oriented x 3 at this time able to provide good history to me. Patient was admitted in the hospital 3 weeks ago he was diagnosed with peripheral vertigo vestibular dysfunction/benign positional vertigo. Was discharged on meclizine was advised to see ENT. Patient still was unable to get any appointment yet with the ENT specialist. Patient has this occasional dizziness episodes. Those episodes completely resolved at this time. Patient does have history of sleep apnea uses BiPAP machine at settings of 4 and 8. Patient does have history of congestive heart failure EF of around 40 to 45% presently not in acute exacerbation uses 2 mg twice a day of Bumex. I reviewed the ABG patient pH is 7.4 pCO2 is 59. Patient is a chronic CO2 retainer and is expected pCO2 is around that.. Patient has bicarbonate of 32. Patient is alert oriented x 3 will be discharged today PHYSICAL EXAMINATION: GENERAL: The patient is alert and oriented x3, not in any acute distress. Well developed, well nourished. Obese HEENT: Pupils are round and equally reacting to light. EOMI. No scleral icterus. No conjunctival pallor. Normocephalic, atraumatic. No pharyngeal erythema. No thyromegaly. CARDIOVASCULAR: S1 and S2 present. No murmurs, rubs, or gallops. PULMONARY: Chest is clear to auscultation, no wheezing or crackles. ABDOMEN: Soft, nontender, nondistended, normoactive bowel sounds. No palpable organomegaly. MUSCULOSKELETAL: No joint swelling or deformity. EXTREMITIES: No cyanosis, clubbing, or pedal edema. NEUROLOGICAL: Gross neurological examination did not reveal any focal deficits. SKIN: No rashes. Assessment and plan --Vertigo peripheral vertigo symptoms resolved at this time patient will follow- up with neurology and ENT as an outpatient - Drowsiness and sleepiness: Patient is alert oriented at this time but I do have concern of CO2 retention will obtain ABG if ABG is within normal limits patient will be discharged today otherwise will consult pulmonary and possibly may need changes in the BiPAP settings - Construct failure chronic systolic function, ischemic cardiomyopathy EF of around 40% not in acute exacerbation at this time - Type 2 diabetes mellitus - Hypertension - Benign prostatic hypertrophy - Chronic hypoxic and hypercapnic respiratory failure secondary to sleep apnea uses CPAP machine at home - Paroxysmal atrial fibrillation on anticoagulation with Eliquis which was resumed -Coronary disease with history of CABG and stents in the past I did not see the consult physician Patient Condition at Discharge: Stable Plan - Discharge Summary New Discharge Prescriptions: New Bumetanide [BUMEX] 2 mg PO BID@0900,1600 tab Continue Apixaban [Eliquis] 5 mg PO BID Atorvastatin [Lipitor] 80 mg PO HS Empagliflozin [Jardiance] 25 mg PO DAILY Multivitamins, Thera [Multivitamin (formulary)] 1 tab PO DAILY metFORMIN HCL [Glucophage] 1,000 mg PO BID Tamsulosin [Flomax] 0.4 mg PO PC-BRKFST #30 cap Metoprolol Tartrate [Lopressor] 25 mg PO BID #60 tab Insulin Aspart [NovoLOG Flexpen] See Protocol SQ TID-W/MEALS Spironolactone [Aldactone] 25 mg PO DAILY Insulin Degludec [Tresiba Flextouch U-200 Pen] 60 units SQ HS Ferrous Sulfate [Iron (65 MG Elemental)] 325 mg PO W/LUNCH #30 tab Meclizine [Antivert] 25 mg PO TID PRN #20 tab PRN Reason: Vertigo Escitalopram [Lexapro] 10 mg PO DAILY Omeprazole 20 mg PO DAILY Discontinued Bumetanide [BUMEX] 2 mg PO DAILY #90 tab Bumetanide [BUMEX] 1 mg PO DAILY@1600 Discharge Medication List Apixaban [Eliquis] 5 mg PO BID 10/23/18 [History] Atorvastatin [Lipitor] 80 mg PO HS 10/23/18 [History] Empagliflozin [Jardiance] 25 mg PO DAILY 10/23/18 [History] Insulin Degludec [Tresiba Flextouch U-200 Pen] 60 units SQ HS 10/03/22 [History] Multivitamins, Thera [Multivitamin (formulary)] 1 tab PO DAILY 04/24/23 [History] metFORMIN HCL [Glucophage] 1,000 mg PO BID 02/25/25 [History] Ferrous Sulfate [Iron (65 MG Elemental)] 325 mg PO W/LUNCH #30 tab 03/05/25 [Rx] Tamsulosin [Flomax] 0.4 mg PO PC-BRKFST #30 cap 03/05/25 [Rx] Metoprolol Tartrate [Lopressor] 25 mg PO BID #60 tab 03/11/25 [Rx] Insulin Aspart [NovoLOG Flexpen] See Protocol SQ TID-W/MEALS 05/01/25 [History] Meclizine [Antivert] 25 mg PO TID PRN #20 tab 05/01/25 [Rx] Escitalopram [Lexapro] 10 mg PO DAILY 05/15/25 [History] Omeprazole 20 mg PO DAILY 05/15/25 [History] Spironolactone [Aldactone] 25 mg PO DAILY 05/15/25 [History] Bumetanide [BUMEX] 2 mg PO BID@0900,1600 tab 05/16/25 [Rx] Follow up Appointment(s)/Referral(s): Jeanie Alfredo DO [Primary Care Provider] - 3 Days Discharge Disposition: HOME SELF-CARE
[2025-05-16 13:09] VITALS: BP 103/66; PULSE 82
--- NOTE | 2025-05-16 15:31 | P.CNNES ---
History of Present Illness Consult date: 05/16/25 Requesting physician: Abena Kumar Reason for Consult: unresponsive episode History of Present Illness: Patient is a 65-year-old right-handed male with history of diabetes, hypertension, CAD, COPD, recently seen in hospital consultation on 05/01/2025 for episodic vertigo. He came to the hospital yesterday at 12:28 PM with similar complaints. Please refer to my note from 05/01/2025 for details. Patient states that since discharge from the hospital he was doing well. Yesterday he had an episode of vertigo again. He states that he got up after taking a nap when he sat on the edge of the bed and became dizzy. Everything was spinning, he could not walk. He is sat in the chair and the spinning started again. He started throwing up. He took meclizine but symptoms did not improve, therefore he came to the ER. Patient denies any headache any visual disturbance. Denies any slurred speech, facial droop or any focal neurological symptoms. He denies any tinnitus, although does use hearing aids. Patient states that episode lasted for about 3 hours and then went away. At present he feels fine again. This is the third episode, having 2 other episodes in the past as mentioned in my previous note. On the last admission it was concerned by family members that he probably was not using oxygen 4 L by nasal cannula therefore triggered those episodes. However this time he was using oxygen 4 L by nasal cannula and still had this episode. Patient had negative orthostatics checked last admission. He is on Eliquis. Patient's vitals on arrival was blood pressure 105/70, pulse rate 71 temperature 97.8. Blood test showed normal WBC hemoglobin 10.6, platelets are 177. INR 1.2. pH is 7.4, [id number], PO2 <30, saturation 47%. Basic metabolic panel, hepatic panel are normal troponin negative. Influenza, RSV and coronavirus PCR negative. CT head showed no acute intracranial process. I personally reviewed CT head, agree with the findings. Visualized paranasal sinuses and external auditory canals are clear. Chest x-ray showed cardiomegaly with prominent hypoventilatory change. Given the interstitial prominence, correlate for CHF with pulmonary vascular congestion. Patient has history of diabetes, hypertension, CAD, quadruple bypass with stents. He has history of smoking heavily about 2 to 3 pack/day for 20 years, quit 30 years ago. He used to be on Coumadin for atrial fibrillation for a long time. After he underwent bypass surgery in 2016, he was started on Eliquis and has been on it. He is compliant with does not miss a dose. Review of Systems All pertinent positive and negative review of systems mentioned in the HPI, otherwise unremarkable. Past Medical History Past Medical History: Atrial Fibrillation, Coronary Artery Disease (CAD), Cancer, Diabetes Mellitus, Hypertension, Myocardial Infarction ([place]), Prostate Disorder, Sleep Apnea/CPAP/BIPAP Additional Past Medical History / Comment(s): PROSTATE CANCER, uses CPAP, CHF Last Myocardial Infarction Date:: 2015 History of Any Multi-Drug Resistant Organisms: None Reported Past Surgical History: Appendectomy, Coronary Bypass/CABG, Heart Catheterization With Stent, Hernia Repair, Prostate Surgery Additional Past Surgical History / Comment(s): HEART CATHS X7 WITH TOTAL OF 7 STENTS, CABG OCT 2016, JAYLYN INGUINAL HERNIAS, UMBILICAL HERNIAS. Past Anesthesia/Blood Transfusion Reactions: No Reported Reaction Additional Past Anesthesia/Blood Transfusion Reaction / Comment(s): no blood transfusion Date of Last Stent Placement:: 2014 Past Psychological History: No Psychological Hx Reported Smoking Status: Former smoker Past Alcohol Use History: Rare Past Drug Use History: None Reported - Past Family History Mother Family Medical History: No Reported History Additional Family Medical History / Comment(s): Heart disease Father Family Medical History: Diabetes Mellitus Additional Family Medical History / Comment(s): Heart disease Medications and Allergies Home Medications Medication Instructions Recorded Confirmed Type Apixaban [Eliquis] 5 mg PO BID 10/23/18 05/15/25 History Atorvastatin [Lipitor] 80 mg PO HS 10/23/18 05/15/25 History Empagliflozin [Jardiance] 25 mg PO DAILY 10/23/18 05/15/25 History Insulin Degludec [Tresiba 60 units SQ HS 10/03/22 05/15/25 History Flextouch U-200 Pen] Multivitamins, Thera [Multivitamin 1 tab PO DAILY 04/24/23 05/15/25 History (formulary)] metFORMIN HCL [Glucophage] 1,000 mg PO BID 02/25/25 05/15/25 History Ferrous Sulfate [Iron (65 MG 325 mg PO W/LUNCH #30 tab 03/05/25 05/15/25 Rx Elemental)] Tamsulosin [Flomax] 0.4 mg PO PC-BRKFST #30 cap 03/05/25 05/15/25 Rx Metoprolol Tartrate [Lopressor] 25 mg PO BID #60 tab 03/11/25 05/15/25 Rx Insulin Aspart [NovoLOG Flexpen] See Protocol SQ TID-W/MEALS 05/01/25 05/15/25 History Meclizine [Antivert] 25 mg PO TID PRN #20 tab 05/01/25 05/15/25 Rx Escitalopram [Lexapro] 10 mg PO DAILY 05/15/25 05/15/25 History Omeprazole 20 mg PO DAILY 05/15/25 05/15/25 History Spironolactone [Aldactone] 25 mg PO DAILY 05/15/25 05/15/25 History Bumetanide [BUMEX] 2 mg PO BID@0900,1600 tab 05/16/25 Rx Allergies Allergy/AdvReac Type Severity Reaction Status Date / Time No Known Allergies Allergy Verified 05/15/25 16:56 Physical Examination - Vital Signs Vital Signs: Vital Signs Temp Pulse Pulse Resp BP Pulse Ox 05/16/25 10:56 94 L 05/16/25 10:52 75 18 121/74 93 L 05/16/25 08:59 68 18 126/77 94 L 05/16/25 06:19 78 18 118/70 96 05/16/25 02:00 87 18 123/73 95 05/15/25 23:25 84 18 124/76 97 05/15/25 18:59 77 20 106/79 96 05/15/25 17:23 83 18 112/79 96 05/15/25 15:49 79 05/15/25 15:21 68 18 106/64 99 05/15/25 12:37 97.8 F 71 16 105/70 99 Patient is an elderly male, very pleasant, in no acute distress. He is using oxygen by nasal cannula. Patient is alert awake oriented to time place and person. Speech and language functions are normal. Patient can name and repeat very well. No aphasia or dysarthria. Attention, concentration and fund of knowledge is adequate. On cranial nerve examination, pupils are equal, round and reacting to light, visual stone are full on confrontation, with no neglect on double simultaneous stimulation. Extraocular muscles are intact with very slight nystagmus looking to the left. Face is symmetric, tongue protrudes to the midline. Palatal elevation and sensation normal, hearing is decreased bilaterally, particularly on the right and shoulder shrug normal, facial sensation normal. On muscle strength testing, there is no pronator drift and the strength is normal in arms and legs distally and proximally. Deep tendon reflexes are symmetric 1 at the biceps and brachioradialis, trace at the knees and plantars are downgoing. Sensory to touch is equal with no neglect on double simultaneous stimulation. Cerebellar function showed no ataxia for [id number] testing. No dysdiadochokinesia on either side. No ataxia for [id number] testing on either side. Tone and bulk of muscles normal. Gait deferred.. On general examination, there is no carotid bruit or murmur, S1-S2 audible. Chest is clear on consultation. Abdomen is soft nontender. No organomegaly, bowel sounds present. Peripheral pulses could not be felt. He has at least moderate peripheral edema. Results - Laboratory Findings CBC and BMP: 05/16/25 08:06 05/16/25 08:06 Abnormal Lab Findings: Abnormal Labs 05/15/25 05/15/25 05/15/25 13:09 13:09 13:09 RBC 4.02 L Hgb 10.6 L Hct 34.5 L MCH 26.4 L MCHC 30.7 L RDW MPV 9.4 L Lymphocytes # 0.86 L PT 12.7 H INR 1.2 H ABG pCO2 ABG pO2 ABG HCO3 ABG Total CO2 ABG O2 Saturation Hemoglobin Chloride Carbon Dioxide 36 H BUN 36 H Glucose 152 H POC Glucose (mg/dL) Alkaline Phosphatase 196 H 05/16/25 05/16/25 05/16/25 08:06 08:06 10:35 RBC 4.06 L Hgb 10.2 L Hct 35.8 L MCH 25.1 L MCHC 28.5 L RDW 21.7 H MPV 9.4 L Lymphocytes # PT INR ABG pCO2 59 H ABG pO2 <30 L* ABG HCO3 36 H ABG Total CO2 38 H ABG O2 Saturation 47.6 L Hemoglobin 10.4 L Chloride 95 L Carbon Dioxide 35 H BUN 32 H Glucose 125 H POC Glucose (mg/dL) Alkaline Phosphatase 05/16/25 11:03 RBC Hgb Hct MCH MCHC RDW MPV Lymphocytes # PT INR ABG pCO2 ABG pO2 ABG HCO3 ABG Total CO2 ABG O2 Saturation Hemoglobin Chloride Carbon Dioxide BUN Glucose POC Glucose (mg/dL) 151 H Alkaline Phosphatase Assessment and Plan Assessment: * Recurrent episodes of vertigo x 3, each lasted for about 3 hours. Exact cause is uncertain. Patient denies any recent upper respiratory infection. Differential diagnosis is between peripheral vestibular dysfunction from underlying hearing loss, versus TIA (less likely). * Chronic atrial fibrillation, on Eliquis. * Hypertension * Diabetes * Hyperlipidemia * Coronary artery disease with stents * Ex tobacco use * Obesity * CHF * COPD Plan: * Patient's episodes of vertigo is of unclear cause. TIA is in the differential, but patient is on Eliquis. CTA showed no significant atherosclerotic vascular disease. * Continue Eliquis 5 mg twice daily. * Recommend patient follow-up with ENT specialist to rule out peripheral vascular dysfunction. Patient was given referral to Dr. Painter (Doug), although the ENT specialist is Dr. Sixto Perez. He was given referral for the correct transcription, to rule out Mnire's disease. * Patient may need MRI of the brain and internal auditory canal with and without contrast. This can be performed as an outpatient. Primary already has discharged the patient. * CTA of head and neck 04/30/2025 showed no evidence of dissection of the cervical internal carotid arteries or vertebral arteries or any evidence of significant stenosis at the carotid bifurcations. No evidence of intracranial high-grade stenosis or intracranial aneurysm. Trace left pleural effusion. Mediastinal lymphadenopathy may be reactive. We will defer to IM to address pulmonary findings. On my review, the visualized paranasal sinuses are clear. External auditory canals are clear bilaterally. * 2D echo on 02/25/2025 revealed LVEF 40%. Severely increased left ventricular diastolic volume. Severely increased left ventricular systolic volume. Global left ventricular hypokinesia. D-shaped septum. Dilated right ventricl e. Severely increased left and right atrial size. Moderate to severe TR. Patient had another echo performed outpatient results of which are not available. * Hemoglobin A1c 7.3. Recommend optimize control of diabetes to target A1c <7.0. * lipid panel with cholesterol 108, LDL 50, HDL 36, triglycerides 108. Continue Lipitor 80 mg daily. * B12 1318, folate 14.70. * Orthostatics checked last admission was negative. * Regarding abnormal ABG findings, pulmonary/cardiac causes, will defer to internal medicine. * Neurologically clear for discharge. * Thank you for the consult. Addendum: I spoke to patient's son on the phone after he has been discharged and informed about above recommendations. Patient had a quite abnormal echo performed previously. Patient's son mentioned that patient had 2D echo with contrast performed at his cardiology office on 05/12/2025, the results they have not followed up yet. I suggested patien's to have patient follow-up with bad credit collector as soon as possible. He may need KATHRYN. Recommend adding aspirin 81 mg daily to the regimen. Apparently patient was taking aspirin in the past, but stopped taking it middle of February 2025 after he was admitted for CHF. Apparently since then patient has been having these episodes of vertigo. Patient's son Luis Alfredo Steinberg mentioned that he will relay this message to his dad and will have patient start taking aspirin 81 mg daily from today along with his Eliquis. Subsequently I spoke to patient as well on the phone, and instructed him to start taking aspirin 81 mg daily along with his Eliquis. They will follow-up with bad credit collector next week.
[2025-05-16] MEDS ORDERED: ATORVASTATIN 80 MG TAB PO SCH (21:00)
[2025-05-16] MEDS ORDERED: INSULIN GLARGINE (LANTUS) 100 UNIT/ML SYR SQ SCH (21:00)
[2025-05-16] MEDS ORDERED: metFORMIN 500 MG TAB PO SCH (21:00)
[2025-05-17] MEDS ORDERED: DAPAGLIFLOZIN PROPANEDIOL 10 MG TABLET PO SCH (09:00)
== END 2025-05-16 13:09 | disposition home or self-care (01) ==
LOC: EC 12:28 → 6NMEDSUR 18:38
PROVIDERS: ADMIT Hospitalist; ATTEND Hospitalist
DX: H81.10 Benign paroxysmal vertigo, unspecified ear (principal); H81.399 Other peripheral vertigo, unspecified ear; G93.40 Encephalopathy, unspecified; I48.20 Chronic atrial fibrillation, unspecified; I11.0 Hypertensive heart disease with heart failure; I50.22 Chronic systolic (congestive) heart failure; E11.9 Type 2 diabetes mellitus without complications; E66.9 Obesity, unspecified; E78.5 Hyperlipidemia, unspecified; G47.30 Sleep apnea, unspecified; I25.2 Old myocardial infarction; I25.10 Atherosclerotic heart disease of native coronary artery without angina pectoris; I25.5 Ischemic cardiomyopathy; I48.0 Paroxysmal atrial fibrillation; J44.9 Chronic obstructive pulmonary disease, unspecified; J96.11 Chronic respiratory failure with hypoxia; J96.12 Chronic respiratory failure with hypercapnia; N40.0 Benign prostatic hyperplasia without lower urinary tract symptoms; Z79.01 Long term (current) use of anticoagulants; Z79.4 Long term (current) use of insulin; Z79.84 Long term (current) use of oral hypoglycemic drugs; Z79.899 Other long term (current) drug therapy; Z85.46 Personal history of malignant neoplasm of prostate; Z87.891 Personal history of nicotine dependence; Z95.1 Presence of aortocoronary bypass graft; Z95.5 Presence of coronary angioplasty implant and graft
CPT/HCPCS: 99285; 36415; 36600; 93005; 83880; 80053; 80048; 82805; 83605; 83735; 84484; 85025 ×2; 85610; 85730; 87636; 71046; 70450; G0378 ×2

== ENCOUNTER 2025-05-22 19:50 | Inpatient (IN) | payer MEDICARE ==
[2025-05-22 20:13] LABS: Glucose,Whole Blood 89 mg/dL (70-110)
[2025-05-22 20:32] LABS: Basophils # (A) 0.03 10*3/uL (0.00-0.10); Basophils % (A) 0.4 %; Eosinophils # (A) 0.18 10*3/uL (0.04-0.35); Eosinophils % (A) 2.5 %; HCT 35.6 % (39.6-50.0); HGB 11.0 g/dL (13.0-17.0); Lymphocytes # (A) 1.25 10*3/uL (0.90-5.00); Lymphocytes % (A) 17.5 %; MCH 26.2 pg (27.0-32.0); MCHC 30.9 g/dL (32.0-37.0); MCV 84.8 fL (80.0-97.0); Monocytes # (A) 0.89 10*3/uL (0.20-1.00); Monocytes % (A) 12.4 %; Neutrophils # (A) 4.77 10*3/uL (1.80-7.70); Neutrophils % (A) 66.8 %; Platelet Count 196 10*3/uL (140-440); RBC 4.20 10*6/uL (4.40-5.60); RDW 20.4 % (11.5-14.5); WBC 7.15 10*3/uL (4.50-10.00)
[2025-05-22] MEDS: ONDANSETRON 4 MG/2 ML VIAL IVP STA (20:32)
[2025-05-22 20:44] LABS: Bilirubin,Urine Negative (Negative); Blood,Urine Negative (Negative); Color,Urine Colorless; Glucose,Urine (UA) 4+ (Negative); Ketones,Urine Negative (Negative); Leukocyte Esterase,Urine Negative (Negative); Nitrite,Urine Negative (Negative); PH, Urine 7.0 (5.0-8.0); Protein,Urine Negative (Negative); Specific Gravity,Urine 1.005 (1.001-1.035); Urobilinogen,Urine <2.0 mg/dL (<2.0)
[2025-05-22 20:53] LABS: ALT 33 U/L (4-49); AST 40 U/L (17-59); African American GFR (CKD) 79 (>60 ml/min/1.73 sqM); Albumin 4.3 g/dL (3.5-5.0); Alkaline Phosphatase 211 U/L (38-126); Anion Gap 16 mmol/L; Blood Urea Nitrogen 37 mg/dL (9-20); Calcium 9.2 mg/dL (8.4-10.2); Carbon Dioxide 30 mmol/L (22-30); Chloride 95 mmol/L (98-107); Glucose 95 mg/dL (74-99); Non-African American GFR(CKD) 69 (>60 ml/min/1.73 sqM); Potassium 3.6 mmol/L (3.5-5.1); Sodium 141 mmol/L (137-145); Total Protein 7.8 g/dL (6.3-8.2)
[2025-05-22 21:11] LABS: Barbiturate Screen,Urine Not Detected (NotDetected); Benzodiazepines Screen,Urine Not Detected (NotDetected); Opiate Screen,Urine Not Detected (NotDetected); Oxycodone Screen, Urine Not Detected (NotDetected); Phencyclidine Screen,Urine Not Detected (NotDetected); Tricyclic Antidepressant,Urine Not Detected (NotDetected); Urn Cannabinoid Scrn Not Detected (NotDetected)
--- NOTE | 2025-05-22 23:07 | ED ---
General Adult HPI - General Chief complaint: Dizziness Stated complaint: N/V Time Seen by Provider: 05/22/25 19:57 Source: EMS Mode of arrival: EMS Limitations: no limitations - History of Present Illness Initial comments: 65-year-old male presents to the emergency department for altered mental status. Sons are at bedside and help provide history. States that they were at home and went on a [id number] ride. The patient then got off and was feeling extremely dizzy. Family at bedside states that the patient was minimally responsive to them. He began having nausea, vomiting and shortness of breath. Patient typically wears 4 L home O2. Patient was extremely diaphoretic. They called EMS. Patient was transported to the hospital which took approximately 1 hour and patient continued to feel nauseated, diaphoretic and vomited. Patient has been seen in the emergency department several times for the same complaint. He states that the last time he was hospitalized there was concern that the patient was having mini strokes. I did want the patient to follow-up with ENT however he has yet to get a follow-up appointment. Sons at bedside are concerned as they do work long hours and typically the patient is at home by himself when he has these episodes. Patient denies any chest pain. No fevers. No other alleviating, precipitating modifying factors - Related Data Home Medications Medication Instructions Recorded Confirmed Apixaban [Eliquis] 5 mg PO BID 10/23/18 05/15/25 Atorvastatin [Lipitor] 80 mg PO HS 10/23/18 05/15/25 Empagliflozin [Jardiance] 25 mg PO DAILY 10/23/18 05/15/25 Insulin Degludec [Tresiba 60 units SQ HS 10/03/22 05/15/25 Flextouch U-200 Pen] Multivitamins, Thera [Multivitamin 1 tab PO DAILY 04/24/23 05/15/25 (formulary)] metFORMIN HCL [Glucophage] 1,000 mg PO BID 02/25/25 05/15/25 Insulin Aspart [NovoLOG Flexpen] See Protocol SQ TID-W/MEALS 05/01/25 05/15/25 Escitalopram [Lexapro] 10 mg PO DAILY 05/15/25 05/15/25 Omeprazole 20 mg PO DAILY 05/15/25 05/15/25 Spironolactone [Aldactone] 25 mg PO DAILY 05/15/25 05/15/25 Previous Rx's Medication Instructions Recorded Ferrous Sulfate [Iron (65 MG 325 mg PO W/LUNCH #30 tab 03/05/25 Elemental)] Tamsulosin [Flomax] 0.4 mg PO PC-BRKFST #30 cap 03/05/25 Metoprolol Tartrate [Lopressor] 25 mg PO BID #60 tab 03/11/25 Meclizine [Antivert] 25 mg PO TID PRN #20 tab 05/01/25 Bumetanide [BUMEX] 2 mg PO BID@0900,1600 tab 05/16/25 Allergies Allergy/AdvReac Type Severity Reaction Status Date / Time No Known Allergies Allergy Verified 05/22/25 19:56 Review of Systems ROS Statement: Those systems with pertinent positive or pertinent negative responses have been documented in the HPI. ROS Other: All systems not noted in ROS Statement are negative. Past Medical History Past Medical History: Atrial Fibrillation, Coronary Artery Disease (CAD), Cancer, Diabetes Mellitus, Hypertension, Myocardial Infarction ([place]), Prostate Disorder, Sleep Apnea/CPAP/BIPAP Additional Past Medical History / Comment(s): PROSTATE CANCER, uses CPAP, CHF Last Myocardial Infarction Date:: 2015 History of Any Multi-Drug Resistant Organisms: None Reported Past Surgical History: Appendectomy, Coronary Bypass/CABG, Heart Catheterization With Stent, Hernia Repair, Prostate Surgery Additional Past Surgical History / Comment(s): HEART CATHS X7 WITH TOTAL OF 7 STENTS, CABG OCT 2016, JAYLYN INGUINAL HERNIAS, UMBILICAL HERNIAS. Past Anesthesia/Blood Transfusion Reactions: No Reported Reaction Additional Past Anesthesia/Blood Transfusion Reaction / Comment(s): no blood transfusion Date of Last Stent Placement:: 2014 Past Psychological History: No Psychological Hx Reported Smoking Status: Former smoker Past Alcohol Use History: Rare Past Drug Use History: None Reported - Past Family History Mother Family Medical History: No Reported History Additional Family Medical History / Comment(s): Heart disease Father Family Medical History: Diabetes Mellitus Additional Family Medical History / Comment(s): Heart disease General Exam Limitations: altered mental status General appearance: lethargic, other (Nauseated, diaphoretic) Head exam: Present: atraumatic, normocephalic, normal inspection Eye exam: Present: PERRL, EOMI, nystagmus (Vertical). Absent: scleral icterus, conjunctival injection, periorbital swelling ENT exam: Present: normal exam, mucous membranes moist Respiratory exam: Present: normal lung sounds bilaterally. Absent: respiratory distress, wheezes, rales, rhonchi, stridor Cardiovascular Exam: Present: regular rate, normal rhythm, normal heart sounds. Absent: systolic murmur, diastolic murmur, rubs, gallop, clicks GI/Abdominal exam: Present: soft, normal bowel sounds. Absent: distended, tenderness, guarding, rebound, rigid Neurological exam: Present: altered Psychiatric exam: Present: flat affect Course Vital Signs 05/22/25 05/22/25 05/22/25 19:54 19:55 20:04 Temperature 98.1 F Pulse Rate 75 Respiratory 20 26 H Rate Blood Pressure 130/69 O2 Sat by Pulse 78 L 98 Oximetry 05/22/25 05/22/25 05/22/25 20:05 20:08 22:06 Temperature Pulse Rate 65 Respiratory 18 Rate Blood Pressure 125/81 116/72 O2 Sat by Pulse 97 96 Oximetry 05/22/25 23:18 Temperature Pulse Rate 66 Respiratory 18 Rate Blood Pressure 118/74 O2 Sat by Pulse 97 Oximetry Medical Decision Making - Medical Decision Making Was pt. sent in by a medical professional or institution (, PA, TANK CAR LOADER, urgent care, hospital, or shelter...) When possible be specific @ -No Did you speak to anyone other than the patient for history (EMS, parent, family, police, friend...)? What history was obtained from this source @ -I spoke with sons for history Did you review nursing and triage notes (agree or disagree)? Why? @ -I reviewed and agree with nursing and triage notes Were old charts reviewed (outside hosp., previous admission, EMS record, old E KG, old radiological studies, urgent care reports/EKG's, shelter records)? Report findings @ -I reviewed discharge summary from May 16 where neurology thought that the patient might be having mini strokes Differential Diagnosis (chest pain, altered mental status, abdominal pain women, abdominal pain men, vaginal bleeding, weakness, fever, dyspnea, syncope, headache, dizziness, GI bleed, back pain, seizure, CVA, palpatations, mental health, musculoskeletal)? @ -Differential Dizziness: Benign paroxysmal positional Vertigo, Meniere's disease, otitis media, acoustic neuroma, vertebrobasilar insufficiency, cerebellar stroke, encephalitis, hypovolemic, arrhythmia, coronary artery syndrome, anemia, this is not meant to be an all-inclusive list EKG interpreted by me (3pts min.). @ -Yes and demonstrates A-fib with a rate of 67. QRS 197. QTc of 539. Right bundle branch block. No acute ST segment elevation X-rays interpreted by me (1pt min.). @ -Yes which demonstrates no acute process CT interpreted by me (1pt min.). @ -None done U/S interpreted by me (1pt. min.). @ -None done What testing was considered but not performed or refused? (CT, X-rays, U/S, labs)? Why? @ -None What meds were considered but not given or refused? Why? @ -None Did you discuss the management of the patient with other professionals (professionals i.e. , PA, T[employer] CAR LOADER, lab, RT, psych nurse, protective services social worker, migration specialist, teacher, mortgage loan officer, heel caser)? Give summary @ -Spoke with Yemi from [facility] for admission Was smoking cessation discussed for >3mins.? @ -No Was critical care preformed (if so, how long)? @ -No Were there social determinants of health that impacted care today? How? (Homelessness, low income, unemployed, alcoholism, drug addiction, transportation, low edu. Level, literacy, decrease access to med. care, penitentiary, rehab)? @ -No Was there de-escalation of care discussed even if they declined (Discuss DNR or withdrawal of care, Hospice)? DNR status @ -No What co-morbidities impacted this encounter? (DM, HTN, Smoking, COPD, CAD, Cancer, CVA, ARF, Chemo, Hep., AIDS, mental health diagnosis, sleep apnea, morbid obesity)? @ -CHF Was patient admitted / discharged? Hospital course, mention meds given and route, prescriptions, significant lab abnormalities, going to OR and other pertinent info. @ -On arrival patient seen and evaluated in trauma 2. He is diaphoretic, nauseated and hypoxic. He is placed on 6 L of oxygen. He is placed to continuous pulse ox and cardiac monitoring. Patient cannot open his eyes due to the vertical nystagmus. He is given a dose of Valium and Zofran. Laboratory studies are conducted. He does have improvement in his mentation. I recomm ended admission as patient continues to have symptoms with altered mental status. Spoke with Yemi from [facility] for the admission Undiagnosed new problem with uncertain prognosis? @ -Yes Drug Therapy requiring intensive monitoring for toxicity (Heparin, Nitro, Insulin, Cardizem)? @ -No Were any procedures done? @ -No Diagnosis/symptom? @ -Acute encephalopathy, acute vertigo, nausea and vomiting, acute respiratory insufficiency on chronic respiratory failure Acute, or Chronic, or Acute on Chronic? @ -Acute Uncomplicated (without systemic symptoms) or Complicated (systemic symptoms)? @ -Complicated Side effects of treatment? @ -No Exacerbation, Progression, or Severe Exacerbation? @ -No Poses a threat to life or bodily function? How? (Chest pain, [place], [place], pneumonia, PE, COPD, DKA, ARF, appy, cholecystitis, CVA, Diverticulitis, Homicidal, Suicidal, threat to staff... and all critical care pts) @ -No - Lab Data Result diagrams: 05/22/25 20:25 05/22/25 20:25 Lab Results 05/22/25 05/22/25 05/22/25 Range/Units 20:11 20:25 20:25 WBC 7.15 (4.50-10.00) 10*3/uL RBC 4.20 L (4.40-5.60) 10*6/uL Hgb 11.0 L (13.0-17.0) g/dL Hct 35.6 L (39.6-50.0) % MCV 84.8 (80.0-97.0) fL MCH 26.2 L (27.0-32.0) pg MCHC 30.9 L (32.0-37.0) g/dL Plt Count 196 (140-440) 10*3/uL MPV 9.0 L (9.5-12.2) fL Immature Gran % (Auto) 0.4 % Neutrophils % 66.8 % Lymphocytes % 17.5 % Monocytes % 12.4 % Eosinophils % 2.5 % Basophils % 0.4 % Immature Gran # 0.03 (0.00-0.04) 10*3/uL Neutrophils # 4.77 (1.80-7.70) 10*3/uL Lymphocytes # 1.25 (0.90-5.00) 10*3/uL Monocytes # 0.89 (0.20-1.00) 10*3/uL Eosinophils # 0.18 (0.04-0.35) 10*3/uL Basophils # 0.03 (0.00-0.10) 10*3/uL Sodium 141 (137-145) mmol/L Potassium 3.6 (3.5-5.1) mmol/L Chloride 95 L (98-107) mmol/L Carbon Dioxide 30 (22-30) mmol/L Anion Gap 16 mmol/L BUN 37 H (9-20) mg/dL Creatinine 1.11 (0.66-1.25) mg/dL Est GFR (CKD-EPI)AfAm 79 (>60 ml/min/1.73 sqM) Est GFR (CKD-EPI)NonAf 69 (>60 ml/min/1.73 sqM) Glucose 95 (74-99) mg/dL POC Glucose (mg/dL) 89 (70-110) mg/dL POC Glu Sheetmetal Worker ID Roberto Whitehead Lactic Ac Sepsis Rflx Plasma Lactic Acid Cong (0.7-2.0) mmol/L Calcium 9.2 (8.4-10.2) mg/dL Total Bilirubin 1.1 (0.2-1.3) mg/dL AST 40 (17-59) U/L ALT 33 (4-49) U/L Alkaline Phosphatase 211 H (38-126) U/L Troponin I (0.000-0.034) ng/mL Total Protein 7.8 (6.3-8.2) g/dL Albumin 4.3 (3.5-5.0) g/dL Urine Color Urine Appearance (Clear) Urine pH (5.0-8.0) Ur Specific Donald (1.001-1.035) Urine Protein (Negative) Urine Glucose (UA) (Negative) Urine Ketones (Negative) Urine Blood (Negative) Urine Nitrite (Negative) Urine Bilirubin (Negative) Urine Urobilinogen (<2.0) mg/dL Ur Leukocyte Esterase (Negative) Urine Opiates Screen (NotDetected) Ur Oxycodone Screen (NotDetected) Urine Methadone Screen (NotDetected) Ur Barbiturates Screen (NotDetected) U Tricyclic Antidepress (NotDetected) Ur Phencyclidine Scrn (NotDetected) Ur Amphetamines Screen (NotDetected) U Methamphetamines Scrn (NotDetected) U Benzodiazepines Scrn (NotDetected) Urine Cocaine Screen (NotDetected) U Marijuana (THC) Screen (NotDetected) Serum Alcohol <10 mg/dL 05/22/25 05/22/25 05/22/25 Range/Units 20:25 20:25 20:34 WBC (4.50-10.00) 10*3/uL RBC (4.40-5.60) 10*6/uL Hgb (13.0-17.0) g/dL Hct (39.6-50.0) % MCV (80.0-97.0) fL MCH (27.0-32.0) pg MCHC (32.0-37.0) g/dL Plt Count (140-440) 10*3/uL MPV (9.5-12.2) fL Immature Gran % (Auto) % Neutrophils % % Lymphocytes % % Monocytes % % Eosinophils % % Basophils % % Immature Gran # (0.00-0.04) 10*3/uL Neutrophils # (1.80-7.70) 10*3/uL Lymphocytes # (0.90-5.00) 10*3/uL Monocytes # (0.20-1.00) 10*3/uL Eosinophils # (0.04-0.35) 10*3/uL Basophils # (0.00-0.10) 10*3/uL Sodium (137-145) mmol/L Potassium (3.5-5.1) mmol/L Chloride (98-107) mmol/L Carbon Dioxide (22-30) mmol/L Anion Gap mmol/L BUN (9-20) mg/dL Creatinine (0.66-1.25) mg/dL Est GFR (CKD-EPI)AfAm (>60 ml/min/1.73 sqM) Est GFR (CKD-EPI)NonAf (>60 ml/min/1.73 sqM) Glucose (74-99) mg/dL POC Glucose (mg/dL) (70-110) mg/dL POC Glu Sheetmetal Worker ID Lactic Ac Sepsis Rflx Plasma Lactic Acid Cong 2.5 H* (0.7-2.0) mmol/L Calcium (8.4-10.2) mg/dL Total Bilirubin (0.2-1.3) mg/dL AST (17-59) U/L ALT (4-49) U/L Alkaline Phosphatase (38-126) U/L Troponin I <0.012 (0.000-0.034) ng/mL Total Protein (6.3-8.2) g/dL Albumin (3.5-5.0) g/dL Urine Color Colorless Urine Appearance Clear (Clear) Urine pH 7.0 (5.0-8.0) Ur Specific Donald 1.005 (1.001-1.035) Urine Protein Negative (Negative) Urine Glucose (UA) 4+ H (Negative) Urine Ketones Negative (Negative) Urine Blood Negative (Negative) Urine Nitrite Negative (Negative) Urine Bilirubin Negative (Negative) Urine Urobilinogen <2.0 (<2.0) mg/dL Ur Leukocyte Esterase Negative (Negative) Urine Opiates Screen Not Detected (NotDetected) Ur Oxycodone Screen Not Detected (NotDetected) Urine Methadone Screen Not Detected (NotDetected) Ur Barbiturates Screen Not Detected (NotDetected) U Tricyclic Antidepress Not Detected (NotDetected) Ur Phencyclidine Scrn Not Detected (NotDetected) Ur Amphetamines Screen Not Detected (NotDetected) U Methamphetamines Scrn Not Detected (NotDetected) U Benzodiazepines Scrn Not Detected (NotDetected) Urine Cocaine Screen Not Detected (NotDetected) U Marijuana (THC) Screen Not Detected (NotDetected) Serum Alcohol mg/dL 05/22/25 Range/Units 21:03 WBC (4.50-10.00) 10*3/uL RBC (4.40-5.60) 10*6/uL Hgb (13.0-17.0) g/dL Hct (39.6-50.0) % MCV (80.0-97.0) fL MCH (27.0-32.0) pg MCHC (32.0-37.0) g/dL Plt Count (140-440) 10*3/uL MPV (9.5-12.2) fL Immature Gran % (Auto) % Neutrophils % % Lymphocytes % % Monocytes % % Eosinophils % % Basophils % % Immature Gran # (0.00-0.04) 10*3/uL Neutrophils # (1.80-7.70) 10*3/uL Lymphocytes # (0.90-5.00) 10*3/uL Monocytes # (0.20-1.00) 10*3/uL Eosinophils # (0.04-0.35) 10*3/uL Basophils # (0.00-0.10) 10*3/uL Sodium (137-145) mmol/L Potassium (3.5-5.1) mmol/L Chloride (98-107) mmol/L Carbon Dioxide (22-30) mmol/L Anion Gap mmol/L BUN (9-20) mg/dL Creatinine (0.66-1.25) mg/dL Est GFR (CKD-EPI)AfAm (>60 ml/min/1.73 sqM) Est GFR (CKD-EPI)NonAf (>60 ml/min/1.73 sqM) Glucose (74-99) mg/dL POC Glucose (mg/dL) (70-110) mg/dL POC Glu Sheetmetal Worker ID Lactic Ac Sepsis Rflx Y Plasma Lactic Acid Cong (0.7-2.0) mmol/L Calcium (8.4-10.2) mg/dL Total Bilirubin (0.2-1.3) mg/dL AST (17-59) U/L ALT (4-49) U/L Alkaline Phosphatase (38-126) U/L Troponin I (0.000-0.034) ng/mL Total Protein (6.3-8.2) g/dL Albumin (3.5-5.0) g/dL Urine Color Urine Appearance (Clear) Urine pH (5.0-8.0) Ur Specific Donald (1.001-1.035) Urine Protein (Negative) Urine Glucose (UA) (Negative) Urine Ketones (Negative) Urine Blood (Negative) Urine Nitrite (Negative) Urine Bilirubin (Negative) Urine Urobilinogen (<2.0) mg/dL Ur Leukocyte Esterase (Negative) Urine Opiates Screen (NotDetected) Ur Oxycodone Screen (NotDetected) Urine Methadone Screen (NotDetected) Ur Barbiturates Screen (NotDetected) U Tricyclic Antidepress (NotDetected) Ur Phencyclidine Scrn (NotDetected) Ur Amphetamines Screen (NotDetected) U Methamphetamines Scrn (NotDetected) U Benzodiazepines Scrn (NotDetected) Urine Cocaine Screen (NotDetected) U Marijuana (THC) Screen (NotDetected) Serum Alcohol mg/dL Disposition Clinical Impression: Vertigo, Encephalopathy acute Disposition: ADMITTED IP TO THIS HOSP Condition: Stable Is patient prescribed a controlled substance at d/c from ED?: No Time of Disposition: 23:07 Decision to Admit Reason: Admit from EC Decision Date: 05/22/25 Decision Time: 23:07
[2025-05-22] MEDS ORDERED: NALOXONE 0.4 MG/ML 1 ML VIAL IV PRN (23:09)
--- NOTE | 2025-05-23 03:29 | XR ---
EXAM: XR Chest, 2 Views CLINICAL HISTORY: Cough /Pain TECHNIQUE: Frontal and lateral views of the chest. COMPARISON: Chest radiograph 05/15/2025 FINDINGS: Lungs: Bilateral airspace opacities may represent pulmonary edema and/or atypical infection. Pleural space: Small bilateral pleural effusions. No pneumothorax. Heart: Cardiomegaly. Mediastinum: Unremarkable. Normal mediastinal contour. Bones/joints: Degenerative changes of the spine are noted. No acute fracture. IMPRESSION: 1. Bilateral airspace opacities may represent pulmonary edema and/or atypical infection. 2. Cardiomegaly. 3. Small bilateral pleural effusions.
[2025-05-23 05:51] LABS: Glucose,Whole Blood 60 mg/dL (70-110)
[2025-05-23 06:28] LABS: Basophils # (A) 0.04 10*3/uL (0.00-0.10); Basophils % (A) 0.6 %; Eosinophils # (A) 0.15 10*3/uL (0.04-0.35); Eosinophils % (A) 2.4 %; HCT 36.2 % (39.6-50.0); HGB 10.6 g/dL (13.0-17.0); Lymphocytes # (A) 1.12 10*3/uL (0.90-5.00); Lymphocytes % (A) 17.6 %; MCH 25.5 pg (27.0-32.0); MCHC 29.3 g/dL (32.0-37.0); MCV 87.2 fL (80.0-97.0); Monocytes # (A) 0.69 10*3/uL (0.20-1.00); Monocytes % (A) 10.8 %; Neutrophils # (A) 4.35 10*3/uL (1.80-7.70); Neutrophils % (A) 68.3 %; Platelet Count 178 10*3/uL (140-440); RBC 4.15 10*6/uL (4.40-5.60); RDW 20.4 % (11.5-14.5); WBC 6.37 10*3/uL (4.50-10.00)
[2025-05-23 06:43] LABS: African American GFR (CKD) 83 (>60 ml/min/1.73 sqM); Anion Gap 11 mmol/L; Blood Urea Nitrogen 34 mg/dL (9-20); Calcium 9.1 mg/dL (8.4-10.2); Carbon Dioxide 35 mmol/L (22-30); Chloride 95 mmol/L (98-107); Glucose 56 mg/dL (74-99); Non-African American GFR(CKD) 72 (>60 ml/min/1.73 sqM); Potassium 3.7 mmol/L (3.5-5.1); Sodium 141 mmol/L (137-145)
[2025-05-23 09:19] LABS: Glucose,Whole Blood 113 mg/dL (70-110)
--- NOTE | 2025-05-23 11:25 | CT ---
EXAMINATION TYPE: CT brain wo con DATE OF EXAM: 05/23/2025 10:33 AM COMPARISON: 05/15/2025.. CLINICAL INDICATION: Male, 65 years old with history of confusion with nausea and vomiting, confusion with nausea and vomiting TECHNIQUE: Brain: Axial CT images of the brain were obtained with coronal and sagittal reformats created and rev iewed. Contrast used: None. Oral contrast used: None. CT DLP: 1170.4 mGycm, Automated exposure control for dose reduction was used. FINDINGS: Brain: Extra-axial spaces: No abnormal extra-axial fluid collections. Ventricular system: Dilatation in proportion to cerebral atrophy. Cerebral parenchyma: Cerebral atrophy. No acute intraparenchymal hemorrhage or mass effect. The morillo -white junction is well differentiated. Scattered hypoattenuating areas are seen within the white mat ter. Cerebellum: Unremarkable. Mass effect: No evidence of midline shift. Intracranial vasculature: Atherosclerotic calcifications of the intracranial vessels. Soft tissues: Normal. Calvarium/osseous structures: No depressed skull fracture. Paranasal sinuses and mastoid air cells: Mild scattered paranasal sinus disease. Visualized orbits: Orbital contents are intact. IMPRESSION: 1. No acute intracranial process. 2. Nonspecific white matter changes, likely secondary to chronic small vessel ischemic disease. [facility], , 05/23/2025 11:22 AM
[2025-05-23 12:30] LABS: Glucose,Whole Blood 88 mg/dL (70-110)
--- NOTE | 2025-05-23 14:17 | P.CNNES ---
<Chetan Plata - Last Filed: 05/23/25 15:32> History of Present Illness Consult date: 05/23/25 Requesting physician: Abena uKmar Reason for Consult: Acute encephalopathy, acute n/v History of Present Illness: Patient is a 65-year-old male with atrial fibrillation, CAD s/p prior stenting and CABG, diabetes mellitus, hypertension, LELA on CPAP presented to the ED with altered mental status. Reportedly the patient went on her side and when he got off he started feeling extremely dizzy and he was minimally responsive to the family. He then started having nausea, vomiting, shortness of breath and diaphoresis. The patient uses 4 L of oxygen at home. The patient was then brought into the hospital. The patient has been to the ED several times in the past for the same complaints. Patient stated that the last time he was hospitalized there was a concern for him having mini strokes. In the past the patient was advised to follow-up with the ENT but he has not been able to set up an appointment yet. Patient seen today under neurological consultation. Patient was evaluated by neurology on 05/16/2025 for recurrent episodes of vertigo where the exact cause was uncertain. Labs obtained at the time showed echo (02/25/2025 )with LVEF 40% with severely increased left ventricular diastolic volume and severely increased left ventricular systolic volume and global left ventricular hypokinesia with a D-shaped septum and dilated ventricle along with severely increased left and right atrial size and A1c was 7.3 and he was recommended to optimize control of diabetes target A1c less than 7. Lipid panel showed cholesterol 108, LDL 50, HDL 36, triglycerides 108. Vitamin B12 was 138 and folate was 14.7. Brain CT obtained on 05/15/2025 showed no acute intracranial process. CT angiography obtained on 04/30/2025 no evidence of dissection of cervical internal carotid arteries or vertebral arteries or any evidence of significant stenosis of the carotid bifurcation, no evidence of intracranial high-grade stenosis or intracranial rhythm. TIA was a concern but the patient is on Eliquis and the CTA showed no significant atherosclerotic vascular disease. At the time he was recommended to follow-up with ENT to rule out peripheral vascular dysfunction and he was given referral to rule out Mnire's disease. Patient was then advised to have an MRI of the brain internal auditory canal with and without contrast on outpatient basis. Vital signs, SpO2 98% on 6 L oxygen via nasal cannula Hemoglobin 10.6, lactic acid 2.5 on admission trended down to 1.1, ALP 211 UA shows 4+ glucose Past Medical History Past Medical History: Atrial Fibrillation, Coronary Artery Disease (CAD), Cancer, Diabetes Mellitus, Hypertension, Myocardial Infarction ([place]), Prostate Disorder, Sleep Apnea/CPAP/BIPAP Additional Past Medical History / Comment(s): PROSTATE CANCER, uses CPAP, CHF Last Myocardial Infarction Date:: 2015 History of Any Multi-Drug Resistant Organisms: None Reported Past Surgical History: Appendectomy, Coronary Bypass/CABG, Heart Catheterization With Stent, Hernia Repair, Prostate Surgery Additional Past Surgical History / Comment(s): HEART CATHS X7 WITH TOTAL OF 7 STENTS, CABG OCT 2016, JAYLYN INGUINAL HERNIAS, UMBILICAL HERNIAS. Past Anesthesia/Blood Transfusion Reactions: No Reported Reaction Additional Past Anesthesia/Blood Transfusion Reaction / Comment(s): no blood transfusion Date of Last Stent Placement:: 2014 Past Psychological History: No Psychological Hx Reported Smoking Status: Former smoker Past Alcohol Use History: Rare Additional Past Alcohol Use History / Comment(s): Smoked 3 PPD. quit 30 years Past Drug Use History: None Reported - Past Family History Mother Family Medical History: No Reported History Additional Family Medical History / Comment(s): Heart disease Father Family Medical History: Diabetes Mellitus Additional Family Medical History / Comment(s): Heart disease Medications and Allergies Home Medications Medication Instructions Recorded Confirmed Type Apixaban [Eliquis] 5 mg PO BID 10/23/18 05/23/25 History Atorvastatin [Lipitor] 80 mg PO HS 10/23/18 05/23/25 History Empagliflozin [Jardiance] 25 mg PO DAILY 10/23/18 05/23/25 History Insulin Degludec [Tresiba 60 units SQ HS 10/03/22 05/23/25 History Flextouch U-200 Pen] Multivitamins, Thera [Multivitamin 1 tab PO DAILY 04/24/23 05/23/25 History (formulary)] metFORMIN HCL [Glucophage] 1,000 mg PO BID 02/25/25 05/23/25 History Ferrous Sulfate [Iron (65 MG 325 mg PO W/LUNCH #30 tab 03/05/25 05/23/25 Rx Elemental)] Tamsulosin [Flomax] 0.4 mg PO PC-BRKFST #30 cap 03/05/25 05/23/25 Rx Metoprolol Tartrate [Lopressor] 25 mg PO BID #60 tab 03/11/25 05/23/25 Rx Insulin Aspart [NovoLOG Flexpen] See Protocol SQ TID-W/MEALS 05/01/25 05/23/25 History Meclizine [Antivert] 25 mg PO TID PRN #20 tab 05/01/25 05/23/25 Rx Escitalopram [Lexapro] 10 mg PO DAILY 05/15/25 05/23/25 History Omeprazole 20 mg PO DAILY 05/15/25 05/23/25 History Spironolactone [Aldactone] 25 mg PO DAILY 05/15/25 05/23/25 History Bumetanide [BUMEX] 2 mg PO BID@0900,1600 tab 05/16/25 05/23/25 Rx Aspirin [Adult Low Dose Aspirin EC] 81 mg PO 05/23/25 History Losartan [Cozaar] 25 mg PO DIRECTED 05/23/25 05/23/25 History Allergies Allergy/AdvReac Type Severity Reaction Status Date / Time No Known Allergies Allergy Verified 05/23/25 10:23 Physical Examination - Vital Signs Vital Signs: Vital Signs Temp Pulse Pulse Resp BP BP Pulse Ox 05/23/25 07:12 97.8 F 72 19 120/70 98 05/23/25 05:23 97.6 F 51 L 20 123/73 96 05/23/25 03:49 66 18 109/80 97 05/23/25 00:49 70 16 111/75 95 05/22/25 23:18 66 18 118/74 97 05/22/25 22:06 65 18 116/72 96 05/22/25 20:08 125/81 05/22/25 20:05 97 05/22/25 20:04 98 05/22/25 19:55 26 H 05/22/25 19:54 98.1 F 75 20 130/69 78 L Intake and Output 05/22/25 05/23/25 05/23/25 22:59 06:59 14:59 Other: # Voids 1 Weight 164.654 kg 164.654 kg General: no distress, lying in bed Neuro: Patient is awake alert and oriented x 3. Extraocular movements intact no nystagmus, face is symmetric, facial sensation normal. On muscle strength testing, there is 4/5 in all 4 extremities Deep tendon reflexes are symmetric 1 at the biceps, brachioradialis, knees and plantars indeterminate Sensory to touch is equal Cerebellar function showed no ataxia for [id number] testing, no dysdiadochokinesia Results - Laboratory Findings CBC and BMP: 05/23/25 06:00 05/23/25 06:00 Abnormal Lab Findings: Abnormal Labs 05/22/25 05/22/25 05/22/25 20:25 20:25 20:25 RBC 4.20 L Hgb 11.0 L Hct 35.6 L MCH 26.2 L MCHC 30.9 L MPV 9.0 L Chloride 95 L Carbon Dioxide BUN 37 H Glucose POC Glucose (mg/dL) Plasma Lactic Acid Cong 2.5 H* Alkaline Phosphatase 211 H Urine Glucose (UA) 05/22/25 05/23/25 05/23/25 20:34 05:50 06:00 RBC 4.15 L Hgb 10.6 L Hct 36.2 L MCH 25.5 L MCHC 29.3 L MPV 9.1 L Chloride Carbon Dioxide BUN Glucose POC Glucose (mg/dL) 60 L Plasma Lactic Acid Cong Alkaline Phosphatase Urine Glucose (UA) 4+ H 05/23/25 05/23/25 06:00 09:17 RBC Hgb Hct MCH MCHC MPV Chloride 95 L Carbon Dioxide 35 H BUN 34 H Glucose 56 L POC Glucose (mg/dL) 113 H Plasma Lactic Acid Cong Alkaline Phosphatase Urine Glucose (UA) Assessment and Plan Assessment: Acute encephalopathy TIA was a concern at previous visit but the patient is on Eliquis and the CTA showed no significant atherosclerotic vascular disease. Recurrent Vertigo Atrial fibrillation CAD s/p prior stent and CABG Hypertension Diabetes mellitus LELA on CPAP Plan: Brain CT obtained on 05/15/2025 showed no acute intracranial process. Echo (02/25/2025 )with LVEF 40% with severely increased left ventricular diastolic volume and severely increased left ventricular systolic volume and global left ventricular hypokinesia with a D-shaped septum and dilated ventricle along with severely increased left and right atrial size CT angiography obtained on 04/30/2025 no evidence of dissection of cervical internal carotid arteries or vertebral arteries or any evidence of significant stenosis of the carotid bifurcation, no evidence of intracranial high-grade stenosis or intracranial rhythm. A1c was 7.20 February 2025 and he was recommended to optimize control of diabetes target A1c less than 7 Lipid panel showed cholesterol 108, LDL 50, HDL 36, triglycerides 108. Vitamin B12 was 138 and folate was 14.7. Obtain MRI brain with and without contrast, gadolinium and orthostatic vitals DVT prophylaxis: Eliquis 5 mg p.o. daily Dictation was produced using [employer] dictation software. please excuse any grammatical, word or spelling errors. Chetan Plata MD PGY-2 IM <Christo Field - Last Filed: 05/23/25 17:37> Physical Examination - Vital Signs Vital Signs: Vital Signs Temp Pulse Pulse Pulse Pulse Pulse Resp 05/23/25 14:20 65 75 73 05/23/25 14:15 16 05/23/25 14:08 97.8 F 70 16 05/23/25 07:12 97.8 F 72 19 05/23/25 05:23 97.6 F 51 L 20 05/23/25 03:49 66 18 05/23/25 00:49 70 16 05/22/25 23:18 66 18 05/22/25 22:06 65 18 05/22/25 20:08 05/22/25 20:05 05/22/25 20:04 05/22/25 19:55 26 H 05/22/25 19:54 98.1 F 75 20 BP BP BP BP BP Pulse Ox 05/23/25 14:20 118/72 96/59 106/68 05/23/25 14:15 96 05/23/25 14:08 115/71 100 05/23/25 07:12 120/70 98 05/23/25 05:23 123/73 96 05/23/25 03:49 109/80 97 05/23/25 00:49 111/75 95 05/22/25 23:18 118/74 97 05/22/25 22:06 116/72 96 05/22/25 20:08 125/81 05/22/25 20:05 97 05/22/25 20:04 98 05/22/25 19:55 05/22/25 19:54 130/69 78 L Intake and Output 05/23/25 05/23/25 05/23/25 06:59 14:59 22:59 Other: # Voids 1 4 Weight 164.654 kg Results - Laboratory Findings CBC and BMP: 05/23/25 06:00 05/23/25 06:00 Abnormal Lab Findings: Abnormal Labs 05/22/25 05/22/25 05/22/25 20:25 20:25 20:25 RBC 4.20 L Hgb 11.0 L Hct 35.6 L MCH 26.2 L MCHC 30.9 L MPV 9.0 L D-Dimer Chloride 95 L Carbon Dioxide BUN 37 H Glucose POC Glucose (mg/dL) Plasma Lactic Acid Cong 2.5 H* Alkaline Phosphatase 211 H Urine Glucose (UA) 05/22/25 05/23/25 05/23/25 20:34 05:50 06:00 RBC 4.15 L Hgb 10.6 L Hct 36.2 L MCH 25.5 L MCHC 29.3 L MPV 9.1 L D-Dimer Chloride Carbon Dioxide BUN Glucose POC Glucose (mg/dL) 60 L Plasma Lactic Acid Cong Alkaline Phosphatase Urine Glucose (UA) 4+ H 05/23/25 05/23/25 05/23/25 06:00 09:17 10:47 RBC Hgb Hct MCH MCHC MPV D-Dimer 0.70 H Chloride 95 L Carbon Dioxide 35 H BUN 34 H Glucose 56 L POC Glucose (mg/dL) 113 H Plasma Lactic Acid Cong Alkaline Phosphatase Urine Glucose (UA) Assessment and Plan Assessment: This is a 65-year-old gentleman with dizziness that is recurrent and it seems that the patient had episodes of confusion. He also had nausea and vomiting ep isode. He currently feels he is doing drastically better today. Denies any focal weakness or any further nausea vomiting or dizziness. In the past he was evaluated by my colleague Dr. Tim and there was concern for TIA and he asked the patient to resume aspirin. Patient feels currently that he is doing better. Recurrent dizziness with episode of confusion of unknown etiology: Rule out TIA versus peripheral causes leading to the patient recurrent dizziness. Also rule out seizure because of frequent episodes. History of atrial fibrillation on Eliquis History of coronary artery disease status post stent and CABG Hypertension Diabetes Obstructive sleep apnea on CPAP Plan: MRI of the brain with and without to rule out any acute or subacute process or any mass causing patient recurrent symptoms He is on his home dose of Eliquis 5 mg twice daily for atrial fibrillation. He is resumed on ASA 81mg daily since patient states he was notified by Dr. Tim on recent visit to resume on it for similar presentation. I ordered a routine EEG because of his recurrent episodes to rule out any discharges. EEG will be completed this Monday A.M. I examined the patient and reviewed the labs and imaging I agree with the residents assessment and plan. Dr. Wynn will resume neurology service tomorrow A.M. and then Dr. Tim will resume this Monday A.M. Time with Patient: Greater than 30
[2025-05-23] MEDS: LOSARTAN 25 MG TAB PO SCH (16:06)
[2025-05-23] MEDS: FUROSEMIDE 10 MG/ML 4 ML VIAL IV SCH (16:06)
[2025-05-23 17:32] LABS: Glucose,Whole Blood 190 mg/dL (70-110)
[2025-05-23 20:40] LABS: Glucose,Whole Blood 225 mg/dL (70-110)
[2025-05-23] MEDS: INSULIN GLARGINE (LANTUS) 100 UNIT/ML SYR SQ SCH (21:32)
[2025-05-23] MEDS: APIXABAN 5 MG TAB PO SCH (21:32)
[2025-05-23] MEDS: METOPROLOL TARTRATE 25 MG TAB PO SCH (21:32)
[2025-05-23] MEDS: ATORVASTATIN 80 MG TAB PO SCH (21:32)
--- NOTE | 2025-05-23 22:09 | HP ---
HISTORY AND PHYSICAL CHIEF COMPLAINT: Dizziness and change in mental status. HISTORY OF PRESENT ILLNESS: This is a 65-year-old gentleman with a past medical history of multiple medical problems including history of atrial fibrillation, CAD, diabetes type 2, CAD stent, was admitted with dizziness and confusion. The patient has some nausea, vomiting, and some shortness of breath. The patient was on home O2. EMS was called and the patient vomited. The patient was taken to [facility] for further evaluation and treatment. The patient had history of TIAs. The patient also has some cellulitis of the left leg also. The patient has no shortness of breath. PAST MEDICAL HISTORY: Reviewed, include CAD, atrial fibrillation, rest of his chart is also reviewed. HOME MEDICATIONS: Reviewed include Glucophage. Dose and rest of medications reviewed. ALLERGIES: None. FAMILY HISTORY: History of heart disease and strokes in family. SOCIAL HISTORY: Smoking. REVIEW OF SYSTEMS: Review of systems could not be taken as the patient is confused. PHYSICAL EXAMINATION: VITAL SIGNS: Pulse 72, blood pressure 120/70, respirations 19. HEENT: Conjunctivae normal. NECK: No jugular venous distention. RESPIRATIONS: Breath sounds diminished at the bases, few scattered rhonchi. ABDOMEN: Soft, no stroke. LABORATORY DATA: Reviewed. ASSESSMENT: D-dimer is elevated. The CT brain had nonspecific white matter changes and chest x-ray, which I reviewed personally showed possible bibasilar pneumonia versus fluid overload. ASSESSMENT: 1. Change in mental status, acute metabolic encephalopathy, rule out sepsis. 2. Rule out bilateral pneumonia. 3. Elevated D-dimer rule out pulmonary embolism. 4. History atrial fibrillation. 5. History of coronary artery disease. 6. Diabetes mellitus, type 2. 7. Hypertension. 8. History of myocardial infarction. 9. Sleep apnea. 10.History of coronary artery disease stent. RECOMMENDATION: This 65-year-old gentleman, presented with multiple complex medical issues. The patient was recently admitted to [facility] and was admitted with vertigo. Currently, the patient had some mental status changes and shortness of breath. The chest x-ray does show some abnormality. The exact etiology is uncertain at this time. I recommend CT angio of chest and diuretics as well as empiric antibiotics, also continue to monitor. A 2D echo done in February showed ejection fraction of about 40% and severe pulmonary hypertension. I would also recommend pulmonary consultation also for shortness of breath. Home medications will be continued. Prognosis extremely guarded because of multiple complex medical issues. Further recommendations to follow. MMODL / IJN: [id number] /
[2025-05-24 00:31] LABS: Basophils # (A) 0.04 10*3/uL (0.00-0.10); Basophils % (A) 0.6 %; Eosinophils # (A) 0.20 10*3/uL (0.04-0.35); Eosinophils % (A) 3.1 %; HCT 34.0 % (39.6-50.0); HGB 9.9 g/dL (13.0-17.0); Lymphocytes # (A) 1.24 10*3/uL (0.90-5.00); Lymphocytes % (A) 19.5 %; MCH 25.1 pg (27.0-32.0); MCHC 29.1 g/dL (32.0-37.0); MCV 86.1 fL (80.0-97.0); Monocytes # (A) 0.80 10*3/uL (0.20-1.00); Monocytes % (A) 12.6 %; Neutrophils # (A) 4.06 10*3/uL (1.80-7.70); Neutrophils % (A) 64.0 %; Platelet Count 171 10*3/uL (140-440); RBC 3.95 10*6/uL (4.40-5.60); RDW 20.1 % (11.5-14.5); WBC 6.35 10*3/uL (4.50-10.00)
[2025-05-24 01:06] LABS: African American GFR (CKD) 83 (>60 ml/min/1.73 sqM); Anion Gap 10 mmol/L; Blood Urea Nitrogen 32 mg/dL (9-20); Calcium 9.1 mg/dL (8.4-10.2); Carbon Dioxide 34 mmol/L (22-30); Chloride 94 mmol/L (98-107); Glucose 168 mg/dL (74-99); Non-African American GFR(CKD) 72 (>60 ml/min/1.73 sqM); Potassium 4.1 mmol/L (3.5-5.1); Sodium 138 mmol/L (137-145)
[2025-05-24 05:52] LABS: Glucose,Whole Blood 134 mg/dL (70-110)
[2025-05-24] MEDS: PANTOPRAZOLE 40 MG TABLET PO SCH (06:30)
[2025-05-24] MEDS: TAMSULOSIN 0.4 MG CAP.ER.24H PO SCH (08:00)
[2025-05-24] MEDS: DAPAGLIFLOZIN PROPANEDIOL 10 MG TABLET PO SCH (08:00)
[2025-05-24] MEDS: MULTIVITAMINS, THERA 1 EACH TAB PO SCH (08:00)
[2025-05-24] MEDS: ESCITALOPRAM 10 MG TAB PO SCH (08:00)
[2025-05-24] MEDS: ASPIRIN 81 MG PO SCH (08:00)
[2025-05-24] MEDS: SPIRONOLACTONE 25 MG TAB PO SCH (08:00)
--- NOTE | 2025-05-24 08:02 | XR ---
EXAMINATION TYPE: XR chest 1V portable DATE OF EXAM: 05/24/2025 6:27 AM COMPARISON: Chest radiographs from 05/22/2025. CLINICAL INDICATION: Male, 65 years old with history of chf; [facility] TECHNIQUE: XR chest 1V portable Frontal view of the chest. FINDINGS: Lungs/Pleura: No evidence of focal consolidation or pneumothorax. Blunting of the costophrenic angles is present. Pulmonary vascularity: Pulmonary vascular congestion. Heart/mediastinum: Cardiomediastinal silhouette is enlarged. Musculoskeletal: No acute osseous pathology. IMPRESSION: Cardiomegaly and mild pulmonary vascular congestion. Correlate with BNP for congestive heart failure. [facility], , 05/24/2025 8:00 AM
--- NOTE | 2025-05-24 10:27 | P.CNPUL ---
History of Present Illness Consult date: 05/24/25 Requesting physician: Lonnie Martins Reason for consult: dyspnea Chief complaint: Altered mental status, dizziness, shortness of breath History of present illness: This is a 65-year-old male patient with a known history of hyperlipidemia, diabetes mellitus, coronary artery disease with previous bypass grafting and previous stent placement, atrial fibrillation anticoagulated with Eliquis, former smoker who presented here to the emergency room 2 days ago with complaints of extreme dizziness, nausea, vomiting, shortness of breath. He normally wears oxygen at home at 4 L/min. Chest x-ray shows cardiomegaly with mild pulmonary vascular congestion. EKG reveals atrial fibrillation with controlled ventricular response. CT scan of the brain revealed no acute intracranial process. White count 6.3. Hemoglobin 9.9. Platelets 171. Sodium 138. Potassium 4.1. Bicarb 34. BUN 32. Creatinine 1.07. Glucose 168. proBNP 3270. Screen negative. Serum alcohol less than 10. He is seen today in consultation on the regular medical floor. He is currently up ambulating in his room. Awake and alert in no acute distress. Maintaining O2 saturations in the mid 90s on 5 L/min per nasal cannula. He has been afebrile. Hemodynamically stable. Denies any worsening shortness of breath, cough or congestion. No further dizziness. No nausea or vomiting. Review of Systems REVIEW OF SYSTEMS: CONSTITUTIONAL: Denies any recent significant weight loss or weight gain. EYES: Denies change in vision. EARS, NOSE, MOUTH, THROAT: Denies headaches, denies sore throat. CARDIOVASCULAR: Denies chest pain, palpitations or syncopal episodes. RESPIRATORY: Positive for shortness of breath, no cough, congestion or hemoptysis. GASTROINTESTINAL: Positive for nausea, vomiting. GENITOURINARY: Denies hematuria, denies infections. MUSKULOSKELETAL: Denies pain, denies swelling. INTEGUMENTARY: Denies rash, denies eczema. NEUROLOGICAL: Positive for dizziness. Denies recent memory loss, no recent seizure activity. PSYCHIATRIC: Denies anxiety, denies depression. HEMATOLOGIC/LYMPHATIC: Denies anemia, denies enlarged lymph nodes. Past Medical History Past Medical History: Atrial Fibrillation, Coronary Artery Disease (CAD), Cancer, Diabetes Mellitus, Hypertension, Myocardial Infarction ([place]), Prostate Disorder, Sleep Apnea/CPAP/BIPAP Additional Past Medical History / Comment(s): PROSTATE CANCER, uses CPAP, CHF Last Myocardial Infarction Date:: 2015 History of Any Multi-Drug Resistant Organisms: None Reported Past Surgical History: Appendectomy, Coronary Bypass/CABG, Heart Catheterization With Stent, Hernia Repair, Prostate Surgery Additional Past Surgical History / Comment(s): HEART CATHS X7 WITH TOTAL OF 7 STENTS, CABG OCT 2016, JAYLYN INGUINAL HERNIAS, UMBILICAL HERNIAS. Past Anesthesia/Blood Transfusion Reactions: No Reported Reaction Additional Past Anesthesia/Blood Transfusion Reaction / Comment(s): no blood transfusion Date of Last Stent Placement:: 2014 Past Psychological History: No Psychological Hx Reported Smoking Status: Former smoker Past Alcohol Use History: Rare Additional Past Alcohol Use History / Comment(s): Smoked 3 PPD. quit 30 years Past Drug Use History: None Reported - Past Family History Mother Family Medical History: No Reported History Additional Family Medical History / Comment(s): Heart disease Father Family Medical History: Diabetes Mellitus Additional Family Medical History / Comment(s): Heart disease Medications and Allergies Home Medications Medication Instructions Recorded Confirmed Type Apixaban [Eliquis] 5 mg PO BID 10/23/18 05/23/25 History Atorvastatin [Lipitor] 80 mg PO HS 10/23/18 05/23/25 History Empagliflozin [Jardiance] 25 mg PO DAILY 10/23/18 05/23/25 History Insulin Degludec [Tresiba 60 units SQ HS 10/03/22 05/23/25 History Flextouch U-200 Pen] Multivitamins, Thera [Multivitamin 1 tab PO DAILY 04/24/23 05/23/25 History (formulary)] metFORMIN HCL [Glucophage] 1,000 mg PO BID 02/25/25 05/23/25 History Ferrous Sulfate [Iron (65 MG 325 mg PO W/LUNCH #30 tab 03/05/25 05/23/25 Rx Elemental)] Tamsulosin [Flomax] 0.4 mg PO PC-BRKFST #30 cap 03/05/25 05/23/25 Rx Metoprolol Tartrate [Lopressor] 25 mg PO BID #60 tab 03/11/25 05/23/25 Rx Insulin Aspart [NovoLOG Flexpen] See Protocol SQ TID-W/MEALS 05/01/25 05/23/25 History Meclizine [Antivert] 25 mg PO TID PRN #20 tab 05/01/25 05/23/25 Rx Escitalopram [Lexapro] 10 mg PO DAILY 05/15/25 05/23/25 History Omeprazole 20 mg PO DAILY 05/15/25 05/23/25 History Spironolactone [Aldactone] 25 mg PO DAILY 05/15/25 05/23/25 History Bumetanide [BUMEX] 2 mg PO BID@0900,1600 tab 05/16/25 05/23/25 Rx Aspirin [Adult Low Dose Aspirin EC] 81 mg PO 05/23/25 History Losartan [Cozaar] 25 mg PO DIRECTED 05/23/25 05/23/25 History Allergies Allergy/AdvReac Type Severity Reaction Status Date / Time No Known Allergies Allergy Verified 05/23/25 10:23 Physical Exam Vitals: Vital Signs Temp Pulse Pulse Pulse Pulse Resp BP 05/24/25 07:00 98.0 F 62 16 05/24/25 01:40 97.6 F 63 17 05/23/25 19:20 97.7 F 66 17 05/23/25 14:20 65 75 73 118/72 05/23/25 14:15 16 05/23/25 14:08 97.8 F 70 16 BP BP BP BP Pulse Ox 05/24/25 07:00 101/69 95 05/24/25 01:40 102/65 95 05/23/25 19:20 119/68 97 05/23/25 14:20 96/59 106/68 05/23/25 14:15 96 05/23/25 14:08 115/71 100 Intake and Output 05/23/25 05/24/25 05/24/25 22:59 06:59 14:59 Output Total 400 300 Balance -400 -300 Output: Urine 400 300 Other: # Voids 4 GENERAL EXAM: Alert, active, 65-year-old male, on 5 L nasal cannula, comfortable in no apparent distress. HEAD: Normocephalic. EYES: Normal reaction of pupils, equal size. NOSE: Clear with pink turbinates. THROAT: No erythema or exudates. NECK: No masses, no JVD. CHEST: No chest wall deformity. LUNGS: Equal air entry with faint crackles in the posterior bases. CVS: S1 and S2 normal with no audible murmur, regular rhythm. ABDOMEN: No hepatosplenomegaly, normal bowel sounds, no guarding or rigidity. SPINE: No scoliosis or deformity SKIN: No rashes CENTRAL NERVOUS SYSTEM: No focal deficits, tone is normal in all 4 extremities. EXTREMITIES: There is 1+ peripheral edema. Changes of chronic venous stasis. No clubbing, no cyanosis. Peripheral pulses are intact. Results - Laboratory Findings CBC and BMP: 05/24/25 00:10 05/24/25 00:10 PT/INR, D-dimer D-Dimer 0.70 mg/L FEU (<0.60) H 05/23/25 10:47 Abnormal lab findings: Abnormal Labs 05/22/25 05/22/25 05/22/25 20:25 20:25 20:25 RBC 4.20 L Hgb 11.0 L Hct 35.6 L MCH 26.2 L MCHC 30.9 L RDW MPV 9.0 L D-Dimer Chloride 95 L Carbon Dioxide BUN 37 H Glucose POC Glucose (mg/dL) Plasma Lactic Acid Cong 2.5 H* Alkaline Phosphatase 211 H Urine Glucose (UA) 05/22/25 05/23/25 05/23/25 20:34 05:50 06:00 RBC 4.15 L Hgb 10.6 L Hct 36.2 L MCH 25.5 L MCHC 29.3 L RDW MPV 9.1 L D-Dimer Chloride Carbon Dioxide BUN Glucose POC Glucose (mg/dL) 60 L Plasma Lactic Acid Cong Alkaline Phosphatase Urine Glucose (UA) 4+ H 05/23/25 05/23/25 05/23/25 06:00 09:17 10:47 RBC Hgb Hct MCH MCHC RDW MPV D-Dimer 0.70 H Chloride 95 L Carbon Dioxide 35 H BUN 34 H Glucose 56 L POC Glucose (mg/dL) 113 H Plasma Lactic Acid Cong Alkaline Phosphatase Urine Glucose (UA) 05/23/25 05/23/25 05/24/25 17:30 20:38 00:10 RBC 3.95 L Hgb 9.9 L Hct 34.0 L MCH 25.1 L MCHC 29.1 L RDW 20.1 H MPV 8.8 L D-Dimer Chloride Carbon Dioxide BUN Glucose POC Glucose (mg/dL) 190 H 225 H Plasma Lactic Acid Cong Alkaline Phosphatase Urine Glucose (UA) 05/24/25 05/24/25 00:10 05:48 RBC Hgb Hct MCH MCHC RDW MPV D-Dimer Chloride 94 L Carbon Dioxide 34 H BUN 32 H Glucose 168 H POC Glucose (mg/dL) 134 H Plasma Lactic Acid Cong Alkaline Phosphatase Urine Glucose (UA) - Diagnostic Findings Chest x-ray: image reviewed Assessment and Plan Assessment: Altered mental status with dizziness, lightheadedness, nausea and vomiting of unclear etiology. CT scan of the brain revealed no acute process Acute on chronic hypoxemic respiratory failure secondary to an acute exacerbati on of chronic systolic congestive heart failure Severe pulmonary hypertension Morbid obesity Obstructive sleep apnea maintained on BiPAP Obesity/hypoventilation syndrome Chronic systolic congestive heart failure with an ejection fraction of 40% Coronary artery disease with previous stent placements and subsequent CABG in 2016 History of atrial fibrillation, anticoagulated with Eliquis Diabetes mellitus, type II Hypertension History of prostate cancer status post surgery Former smoker Gastroesophageal reflux disease Hyperlipidemia Plan: The patient was seen and evaluated Imaging labs and medications reviewed Currently stable on 5 L nasal cannula Continue IV diuretics Continue ceftriaxone Check a procalcitonin Anticoagulated with Eliquis Resume home medications Increase his activity as tolerated Titrate down the FiO2 as tolerated We will continue to follow and make further recommendations based on his clinical status I have personally seen and examined the patient, performed the documentation and the assessment and plan as written. Number of minutes spent on the visit: 20 Dictation was produced using [employer] dictation software. Please excuse any grammatical, word or spelling errors. Time with Patient: Greater than 30
[2025-05-24] MEDS: FERROUS SULFATE 325 MG TAB PO SCH (11:50)
[2025-05-24 12:17] LABS: Glucose,Whole Blood 202 mg/dL (70-110)
--- NOTE | 2025-05-24 12:17 | P.CRDCN ---
History of Present Illness Consult date: 05/24/25 Consult reason: shortness of breath Chief complaint: dizziness History of present illness: History of present illness: Patient is a pleasant 65-year-old male with significant past medical history of CAD with prior CABG, congestive heart failure, hypertension, hyperlipidemia, diabetes type 2, and persistent atrial fibrillation who presented with complaints of dizziness and vomiting and some confusion. He does follow with sing[facility] machine operator Dr. Santiago in [place]. He states he has been evaluated 4 times in the past few months for dizziness. The dizziness was so bad that he could not stand and was vomiting. His oxygen levels were decreased in the 70's. He denies having any shortness of breath, chest pain, palpitations. He is feeling somewhat better today. He states he will have a dizzy episode 1-2 times a week. Episodes last about 1-2 hours and then will resolve. This has been going on since February 2025. Troponin negative x 1, BNP 3270, creatinine 1.07, hemoglobin 9.9. He was evaluated by neurology and has an MRI of the brain pending. He states he has been compliant with his Eliquis, however, he had stopped his aspirin as directed during a previous admission. ECHO 02/2025 with EF 40%, severe pulmonary hypertension, mod-sev tricuspid regurgitation. REVIEW OF SYSTEMS: No fever or chills. No cough or expectoration. No diaphoresis. Patient denies headache, blurred vision, double vision. Patient denies any stomach discomfort. No nausea, vomiting. No hematochezia. No hematemesis. Denies any black stools or blood in his stools. Denies dysuria or hematuria. No muscle weakness or numbness. No chest pain or pressure. Reports dizziness. PHYSICAL EXAMINATION: This is a 65-year-old male in no apparent distress at the time of my examination. HEENT: Head is atraumatic, normocephalic. Pupils are equal, round. Sclerae anicteric. Conjunctivae are clear. Mucous membranes of the mouth are moist. Neck is supple. There is no jugular venous distention. No carotid bruit is heard. CHEST EXAMINATION: Lungs are diminished. On 4L NC O2. No chest wall tenderness is noted on palpation or with deep breathing. HEART EXAMINATION: Heart irregular rate and rhythm. S1, S2 heard. No murmurs, gallops or rub. ABDOMEN: Soft, nontender. Bowel sounds are heard. EXTREMITIES: 2+ peripheral pulses with 1+ peripheral edema and no calf tenderness noted. NEUROLOGIC EXAMINATION: Patient is awake, alert and oriented x3. IMPRESSION AND PLAN: CAD status post CABG Acute on chronic systolic heart failure, EF 40% from 02/2025 Hypertension Hyperlipidemia Diabetes type 2 Atrial fibrillation, persistent Dizziness Nausea Hypoxemia, intermittent Possible Eisenmenger syndrome Pulmonary hypertension, RVSP 58 PLAN: He has MRI brain pending per Neurology. Continue with heart failure regimen. Symptoms may be related to pulmonary hypertension or possible Eisenmenger syndrome. Would consider further evaluation with KATHRYN and right cath to eval if there is any shunting given concern for intermittent hypoxic episodes and pulmonary hypertension seen on ECHO. Further recommendations pending clinical course. I am dictating on behalf of Dr. Kishan Moffett's history/physical and assessment/plan. Past Medical History Past Medical History: Atrial Fibrillation, Coronary Artery Disease (CAD), Cancer, Diabetes Mellitus, Hypertension, Myocardial Infarction ([place]), Prostate Disorder, Sleep Apnea/CPAP/BIPAP Additional Past Medical History / Comment(s): PROSTATE CANCER, uses CPAP, CHF Last Myocardial Infarction Date:: 2015 History of Any Multi-Drug Resistant Organisms: None Reported Past Surgical History: Appendectomy, Coronary Bypass/CABG, Heart Catheterization With Stent, Hernia Repair, Prostate Surgery Additional Past Surgical History / Comment(s): HEART CATHS X7 WITH TOTAL OF 7 STENTS, CABG OCT 2016, JAYLYN INGUINAL HERNIAS, UMBILICAL HERNIAS. Past Anesthesia/Blood Transfusion Reactions: No Reported Reaction Additional Past Anesthesia/Blood Transfusion Reaction / Comment(s): no blood transfusion Date of Last Stent Placement:: 2014 Past Psychological History: No Psychological Hx Reported Smoking Status: Former smoker Past Alcohol Use History: Rare Additional Past Alcohol Use History / Comment(s): Smoked 3 PPD. quit 30 years Past Drug Use History: None Reported - Past Family History Mother Family Medical History: No Reported History Additional Family Medical History / Comment(s): Heart disease Father Family Medical History: Diabetes Mellitus Additional Family Medical History / Comment(s): Heart disease Medications and Allergies Home Medications Medication Instructions Recorded Confirmed Type Apixaban [Eliquis] 5 mg PO BID 10/23/18 05/23/25 History Atorvastatin [Lipitor] 80 mg PO HS 10/23/18 05/23/25 History Empagliflozin [Jardiance] 25 mg PO DAILY 10/23/18 05/23/25 History Insulin Degludec [Tresiba 60 units SQ HS 10/03/22 05/23/25 History Flextouch U-200 Pen] Multivitamins, Thera [Multivitamin 1 tab PO DAILY 04/24/23 05/23/25 History (formulary)] metFORMIN HCL [Glucophage] 1,000 mg PO BID 02/25/25 05/23/25 History Ferrous Sulfate [Iron (65 MG 325 mg PO W/LUNCH #30 tab 03/05/25 05/23/25 Rx Elemental)] Tamsulosin [Flomax] 0.4 mg PO PC-BRKFST #30 cap 03/05/25 05/23/25 Rx Metoprolol Tartrate [Lopressor] 25 mg PO BID #60 tab 03/11/25 05/23/25 Rx Insulin Aspart [NovoLOG Flexpen] See Protocol SQ TID-W/MEALS 05/01/25 05/23/25 History Meclizine [Antivert] 25 mg PO TID PRN #20 tab 05/01/25 05/23/25 Rx Escitalopram [Lexapro] 10 mg PO DAILY 05/15/25 05/23/25 History Omeprazole 20 mg PO DAILY 05/15/25 05/23/25 History Spironolactone [Aldactone] 25 mg PO DAILY 05/15/25 05/23/25 History Bumetanide [BUMEX] 2 mg PO BID@0900,1600 tab 05/16/25 05/23/25 Rx Aspirin [Adult Low Dose Aspirin EC] 81 mg PO 05/23/25 History Losartan [Cozaar] 25 mg PO DIRECTED 05/23/25 05/23/25 History Allergies Allergy/AdvReac Type Severity Reaction Status Date / Time No Known Allergies Allergy Verified 05/23/25 10:23 Physical Exam Vitals: Vital Signs Temp Pulse Pulse Pulse Pulse Resp BP 05/24/25 07:00 98.0 F 62 16 05/24/25 01:40 97.6 F 63 17 05/23/25 19:20 97.7 F 66 17 05/23/25 14:20 65 75 73 118/72 05/23/25 14:15 16 05/23/25 14:08 97.8 F 70 16 BP BP BP BP Pulse Ox 05/24/25 07:00 101/69 95 05/24/25 01:40 102/65 95 05/23/25 19:20 119/68 97 05/23/25 14:20 96/59 106/68 05/23/25 14:15 96 05/23/25 14:08 115/71 100 Intake and Output 05/23/25 05/24/25 05/24/25 22:59 06:59 14:59 Output Total 400 300 Balance -400 -300 Output: Urine 400 300 Other: # Voids 4 Results 05/24/25 00:10 05/24/25 00:10 CBC 05/24/25 Range/Units 00:10 WBC 6.35 (4.50-10.00) 10*3/uL RBC 3.95 L (4.40-5.60) 10*6/uL Hgb 9.9 L (13.0-17.0) g/dL Hct 34.0 L (39.6-50.0) % Plt Count 171 (140-440) 10*3/uL Comprehensive Metabolic Panel 05/24/25 Range/Units 00:10 Sodium 138 (137-145) mmol/L Potassium 4.1 (3.5-5.1) mmol/L Chloride 94 L (98-107) mmol/L Carbon Dioxide 34 H (22-30) mmol/L BUN 32 H (9-20) mg/dL Creatinine 1.07 (0.66-1.25) mg/dL Glucose 168 H (74-99) mg/dL Calcium 9.1 (8.4-10.2) mg/dL Current Medications Generic Name Dose Route Start Last Admin Trade Name Freq PRN Reason Stop Dose Admin Apixaban 5 mg 05/23/25 21:00 05/24/25 08:00 Apixaban 5 Mg Tab PO 5 mg BID JANIS Administration Protocol Aspirin 81 mg 05/24/25 09:00 05/24/25 08:00 Aspirin 81 Mg PO 81 mg DAILY JAINS Administration Atorvastatin Calcium 80 mg 05/23/25 21:00 05/23/25 21:32 Atorvastatin 80 Mg Tab PO 80 mg HS JANIS Administration Dapagliflozin 10 mg 05/24/25 09:00 05/24/25 08:00 Dapagliflozin Propanediol 10 Mg Tablet PO 10 mg DAILY JANIS Administration Escitalopram Oxalate 10 mg 05/24/25 09:00 05/24/25 08:00 Escitalopram 10 Mg Tab PO 10 mg DAILY JANIS Administration Ferrous Sulfate 325 mg 05/24/25 12:30 Ferrous Sulfate 325 Mg Tab PO W/LUNCH JANIS Furosemide 40 mg 05/23/25 16:00 05/24/25 08:00 Furosemide 10 Mg/Ml 4 Ml Vial IV 40 mg Q8HR JANIS Administration Ceftriaxone Sodium 1 gm/ 50 mls @ 100 mls/hr 05/23/25 14:00 05/24/25 08:00 Sodium Chloride IVPB 100 mls/hr Q24HR JANIS Administration Protocol Insulin Glargine 60 unit 05/23/25 21:00 05/23/25 21:32 Insulin Glargine (Lantus) 100 Unit/Ml Syr SQ 60 unit HS JANIS Administration Losartan Potassium 25 mg 05/23/25 14:00 05/24/25 08:04 Losartan 25 Mg Tab PO Not Given DAILY JANIS Meclizine HCl 25 mg 05/23/25 13:52 Meclizine 25 Mg Tab PO TID PRN Vertigo Metoprolol Tartrate 25 mg 05/23/25 21:00 05/24/25 08:00 Metoprolol Tartrate 25 Mg Tab PO 25 mg BID JANIS Administration Multivitamins 1 each 05/24/25 09:00 05/24/25 08:00 Multivitamins, Thera 1 Each Tab PO 1 each DAILY JANIS Administration Naloxone HCl 0.2 mg 05/22/25 23:09 Naloxone 0.4 Mg/Ml 1 Ml Vial IV Q2M PRN Opioid Reversal Ondansetron HCl 4 mg 05/22/25 23:09 Ondansetron 4 Mg/2 Ml Vial IVP Q8HR PRN Nausea And Vomiting Pantoprazole Sodium 40 mg 05/24/25 07:30 05/24/25 06:30 Pantoprazole 40 Mg Tablet PO 40 mg AC-BRKFST JANIS Administration Spironolactone 25 mg 05/24/25 09:00 05/24/25 08:00 Spironolactone 25 Mg Tab PO 25 mg DAILY JANIS Administration Tamsulosin HCl 0.4 mg 05/24/25 08:30 05/24/25 08:00 Tamsulosin 0.4 Mg Cap.Er.24h PO 0.4 mg PC-BRKFST JANIS Administration Intake and Output 05/23/25 05/24/25 05/24/25 22:59 06:59 14:59 Output Total 400 300 Balance -400 -300 Output: Urine 400 300 Other: # Voids 4 05/24/25 00:10 05/24/25 00:10
--- NOTE | 2025-05-24 14:37 | MR ---
EXAMINATION TYPE: MR brain wo/w con DATE OF EXAM: 05/24/2025 1:49 PM COMPARISON: CT November 13.. CLINICAL INDICATION: Male, 65 years old with history of altered mental status; PHH, Altered mental st atus, acute encephaolpathy. TECHNIQUE: Multi planar, multi sequence imaging was performed through the brain including: T1, T2, In version recovery, susceptibility weighted imaging and gradient echo imaging and Diffusion weighted im aging. The patient was then given intravenous contrast and multi planar, T1 fat-saturation images wer e obtained. IV Contrast: 15 mL Gadobutrol FINDINGS: The morillo-white junctions, ventricular system, basal cisterns appear unremarkable. Diffusion-weighted imaging shows no evidence of restricted diffusion to suggest acute/subacute infarct. Intracranial ar terial flow voids are maintained. Midline structures show no abnormality. Scattered foci of high T2 s ignal intensity are seen within the periventricular white matter. The susceptibility weighted images do not reveal any evidence for micro-hemorrhage. After administration of gadolinium, no abnormal enha ncement is seen. The bone marrow signal is within normal limits. Increased FLAIR signal within the left skull base in the petrous apex compatible with fluid in pneumatized petrous apex. Paranasal sinuses and mastoid air cells: No significant paranasal sinus disease. Visualized orbits: Orbital contents are intact. IMPRESSION: 1. No evidence of intracranial mass, acute/subacute infarct, or abnormal enhancement. 2. Nonspecific white matter changes, likely related to small vessel ischemic disease. [facility], , 05/24/2025 2:35 PM
[2025-05-24] MEDS ORDERED: DEXTROSE 50% SYRINGE 50 ML IVP PRN ×2 (15:50)
--- NOTE | 2025-05-24 16:02 | P.PN ---
Subjective Progress Note Date: 05/24/25 This is a 65-year-old male who comes in with complaints of dizziness and vertigo-like symptoms. He was recently worked up on 2 separate occasions for this. Neurology is following and patient is currently pending a brain MRI. He has not yet followed up with ENT on an outpatient basis as he had conflicting recommendations as to whether this was a vertigo or vestibular disease or not. He is on IV Lasix 40 mg every 8 hours as he appears volume overloaded with a known ejection fraction of 40%. Patient's proBNP was 3270 on admission. He is sitting up in the chair awake alert oriented he is not complaining of any significant shortness of breath or dizziness at this time. He is on oxygen chronically on an outpatient basis. Review of Systems Constitutional: Denied any fatigue denied any fever. Cardio vascular: denied any chest pain, palpitations Gastrointestinal: denied any nausea, vomiting, diarrhea Pulmonary: Denied any shortness of breath cough Neurologic denied any new focal deficits All inpatient medications were reviewed and appropriate changes in these medications as dictated in the interval history and assessment and plan. PHYSICAL EXAMINATION: GENERAL: The patient is alert and oriented x3, not in any acute distress. Well developed, well nourished. Obese HEENT: Pupils are round and equally reacting to light. EOMI. No scleral icterus. No conjunctival pallor. Normocephalic, atraumatic. No pharyngeal erythema. No thyromegaly. CARDIOVASCULAR: S1 and S2 present. No murmurs, rubs, or gallops. PULMONARY: Chest is clear to auscultation, no wheezing or crackles. ABDOMEN: Soft, nontender, nondistended, normoactive bowel sounds. No palpable organomegaly. MUSCULOSKELETAL: No joint swelling or deformity. EXTREMITIES: No cyanosis, clubbing, or pedal edema. NEUROLOGICAL: Gross neurological examination did not reveal any focal deficits. SKIN: No rashes. mild erythema of the left leg Assessment - Dizziness with vomiting; possibly BPV - Altered mental status/confusion could be because of the dizziness and hypoxia - Acute on chronic systolic congestive heart failure EF of 40% - Severe pulmonary hypertension moderate to severe tricuspid regurgitation - Ischemic cardiomyopathy EF 40-45% - Type 2 diabetes mellitus - Hypertension - Benign prostatic hypertrophy - Chronic hypoxic and hypercapnic respiratory failure secondary to sleep apnea uses CPAP machine at home - Persistent atrial fibrillation with CVR - History of coronary artery disease with prior CABG and stenting - Hyperlipidemia - Morbid Obesity GI prophylaxis DVT prophylaxis Full Code Plan Pending brain MRI Neurology following Pending cardiology consultation Pending pulmonology consultation Continue IV lasix 40 mg Q8h and strict intake and output monitoring Continue Farxiga Stop IV ceftriaxone, procalcitonin <0.20 Continue lantus at HS and add accuchecks ACHS and sliding scale insulin Pending EEG The impression and plan of care has been dictated by Prerna Arredondo, Nurse Practitioner as directed. Dr. Melodie MD I have performed a history and physical examination and medical decision making of this patient, discussed the same with the dictator, and agree with the dictators assessment and plan as written, documented as a scribe. Based on total visit time, I have performed more than 50% of this visit. Objective - Vital Signs Vital signs: Vital Signs Temp 98.0 F 05/24/25 07:00 Pulse 62 05/24/25 07:00 Resp 16 05/24/25 07:00 BP 101/69 05/24/25 07:00 Pulse Ox 95 05/24/25 07:00 FiO2 Intake & Output 05/23/25 05/24/25 05/24/25 18:59 06:59 18:59 Intake Total 480 Output Total 700 Balance -700 480 Intake: Oral 480 Output: Urine 700 Other: # Voids 4 - Labs CBC & Chem 7: 05/24/25 00:10 05/24/25 00:10 Labs: Abnormal Lab Results - Last 24 Hours (Table) 05/23/25 05/23/25 05/24/25 Range/Units 17:30 20:38 00:10 RBC 3.95 L (4.40-5.60) 10*6/uL Hgb 9.9 L (13.0-17.0) g/dL Hct 34.0 L (39.6-50.0) % MCH 25.1 L (27.0-32.0) pg MCHC 29.1 L (32.0-37.0) g/dL RDW 20.1 H (11.5-14.5) % MPV 8.8 L (9.5-12.2) fL Chloride (98-107) mmol/L Carbon Dioxide (22-30) mmol/L BUN (9-20) mg/dL Glucose (74-99) mg/dL POC Glucose (mg/dL) 190 H 225 H (70-110) mg/dL 05/24/25 05/24/25 05/24/25 Range/Units 00:10 05:48 12:15 RBC (4.40-5.60) 10*6/uL Hgb (13.0-17.0) g/dL Hct (39.6-50.0) % MCH (27.0-32.0) pg MCHC (32.0-37.0) g/dL RDW (11.5-14.5) % MPV (9.5-12.2) fL Chloride 94 L (98-107) mmol/L Carbon Dioxide 34 H (22-30) mmol/L BUN 32 H (9-20) mg/dL Glucose 168 H (74-99) mg/dL POC Glucose (mg/dL) 134 H 202 H (70-110) mg/dL Assessment and Plan Time with Patient: Less than 30
[2025-05-24 17:07] LABS: Glucose,Whole Blood 221 mg/dL (70-110)
[2025-05-24] MEDS: INSULIN LISPRO (HumaLOG) 100 UNIT/ML 10 mL VL SQ SCH (17:41)
[2025-05-24 20:21] LABS: Glucose,Whole Blood 187 mg/dL (70-110)
[2025-05-25 06:03] LABS: Glucose,Whole Blood 133 mg/dL (70-110)
--- NOTE | 2025-05-25 11:32 | P.PN ---
Subjective Progress Note Date: 05/25/25 This is a 65-year-old male patient with a known history of hyperlipidemia, diabetes mellitus, coronary artery disease with previous bypass grafting and previous stent placement, atrial fibrillation anticoagulated with Eliquis, former smoker who presented here to the emergency room 2 days ago with complain ts of extreme dizziness, nausea, vomiting, shortness of breath. He normally wears oxygen at home at 4 L/min. Chest x-ray shows cardiomegaly with mild pulmonary vascular congestion. EKG reveals atrial fibrillation with controlled ventricular response. CT scan of the brain revealed no acute intracranial process. White count 6.3. Hemoglobin 9.9. Platelets 171. Sodium 138. Potassium 4.1. Bicarb 34. BUN 32. Creatinine 1.07. Glucose 168. proBNP 3270. Screen negative. Serum alcohol less than 10. He is seen today in consultation on the regular medical floor. He is currently up ambulating in his room. Awake and alert in no acute distress. Maintaining O2 saturations in the mid 90s on 5 L/min per nasal cannula. He has been afebrile. Hemodynamically stable. Denies any worsening shortness of breath, cough or congestion. No further dizziness. No nausea or vomiting. The patient is seen today May 25, 2025 in follow-up on the regular medical floor. He is currently sitting up in a chair at the bedside. Awake and alert in no acute distress. Maintain O2 saturations in the 90s on 4 L/min per nasal cannula. He is afebrile. Hemodynamically stable. No further episodes of di zziness lightheadedness or shortness of breath. MRI of the brain revealed no evidence of intracranial mass, acute/subacute infarct or abnormal enhancement. Blood culture reveals no growth glucose 133. He remains on IV Lasix and Aldactone. Anticoagulated with Eliquis. Objective - Vital Signs Vital signs: Vital Signs Temp 97.8 F 05/25/25 07:38 Pulse 64 05/25/25 07:38 Resp 16 05/25/25 07:38 BP 127/85 05/25/25 07:38 Pulse Ox 100 05/25/25 07:38 FiO2 Intake & Output 05/24/25 05/25/25 05/25/25 18:59 06:59 18:59 Intake Total 1080 560 Balance 1080 560 Intake: Oral 1080 560 Other: # Voids 3 2 - Exam GENERAL EXAM: Alert, 65-year-old male, sitting up in a chair, on 4 L nasal cannula, comfortable in no apparent distress. HEAD: Normocephalic. EYES: Normal reaction of pupils, equal size. NOSE: Clear with pink turbinates. THROAT: No erythema or exudates. NECK: No masses, no JVD. CHEST: No chest wall deformity. LUNGS: Equal air entry with faint crackles in the posterior bases. CVS: S1 and S2 normal with no audible murmur, regular rhythm. ABDOMEN: No hepatosplenomegaly, normal bowel sounds, no guarding or rigidity. SPINE: No scoliosis or deformity SKIN: No rashes CENTRAL NERVOUS SYSTEM: No focal deficits, tone is normal in all 4 extremities. EXTREMITIES: There is 1+ peripheral edema. Changes of chronic venous stasis. No clubbing, no cyanosis. Peripheral pulses are intact. - Labs CBC & Chem 7: 05/24/25 00:10 05/24/25 00:10 Labs: Abnormal Lab Results - Last 24 Hours (Table) 05/24/25 05/24/25 05/24/25 Range/Units 00:10 12:15 17:06 POC Glucose (mg/dL) 202 H 221 H (70-110) mg/dL Hemoglobin A1c 7.1 H (<=6.0) % 05/24/25 05/25/25 Range/Units 20:19 06:02 POC Glucose (mg/dL) 187 H 133 H (70-110) mg/dL Hemoglobin A1c (<=6.0) % Microbiology - Last 24 Hours (Table) 05/23/25 15:07 Blood Culture - Preliminary Blood Assessment and Plan Assessment: Altered mental status with dizziness, lightheadedness, nausea and vomiting of unclear etiology. CT scan of the brain revealed no acute process. MRI of the brain revealed no acute intracranial process Acute on chronic hypoxemic respiratory failure secondary to an acute exacerbation of chronic systolic congestive heart failure Severe pulmonary hypertension Morbid obesity Obstructive sleep apnea maintained on BiPAP Obesity/hypoventilation syndrome Chronic systolic congestive heart failure with an ejection fraction of 40% Coronary artery disease with previous stent placements and subsequent CABG in 2016 History of atrial fibrillation, anticoagulated with Eliquis Diabetes mellitus, type II Hypertension History of prostate cancer status post surgery Former smoker Gastroesophageal reflux disease Hyperlipidemia Plan: The patient was seen and evaluated MRI of the brain and medications reviewed No acute intracranial process Currently stable on 4 L nasal cannula Continued on IV diuretics Procalcitonin negative x 2 Antibiotics were discontinued Anticoagulated with Eliquis Increase his activity as tolerated Titrate down the FiO2 as tolerated Once cleared by neurology/cardiology This patient was seen independently by the pulmonary nurse practitioner addressing pulmonary issues I have personally seen and examined the patient, performed the documentation and the assessment and plan as written. Number of minutes spent on the visit: 25 Dictation was produced using [employer] dictation software. Please excuse any grammatical, word or spelling errors.
[2025-05-25 12:13] LABS: Glucose,Whole Blood 167 mg/dL (70-110)
[2025-05-25] MEDS ORDERED: BENZOCAINE SPRAY 1 EACH MM PRN (13:27)
[2025-05-25] MEDS ORDERED: MIDAZOLAM 2 MG/2 ML VIAL IV PRN (13:27)
[2025-05-25] MEDS ORDERED: fentaNYL (PF) 50 MCG/ML 2 ML AMP IVP PRN (13:27)
--- NOTE | 2025-05-25 13:28 | P.PN ---
Subjective Progress Note Date: 05/25/25 Patient is a pleasant 65-year-old male with significant past medical history of CAD with prior CABG, congestive heart failure, hypertension, hyperlipidemia, diabetes type 2, and persistent atrial fibrillation who presented with complaints of dizziness and vomiting and some confusion. He does follow with certified juvenile probation officer Dr. Santiago in [place]. He states he has been evaluated 4 times in the past few months for dizziness. The dizziness was so bad that he could not stand and was vomiting. His oxygen levels were decreased in the 70's. He denies having any shortness of breath, chest pain, palpitations. He is feeling somewhat better today. He states he will have a dizzy episode 1-2 times a week. Episodes last about 1-2 hours and then will resolve. This has been going on since February 2025. Troponin negative x 1, BNP 3270, creatinine 1.07, hemoglobin 9.9. He was evaluated by neurology and has an MRI of the brain pending. He states he has been compliant with his Eliquis, however, he had st opped his aspirin as directed during a previous admission. ECHO 02/2025 with EF 40%, severe pulmonary hypertension, mod-sev tricuspid regurgitation. 05/25/25 MRI of the brain did not show any acute findings. He is sitting up in the bedside chair. No chest pain or pressure. No dizzy episodes. Shortness of breath is stable. He is on 6 L nasal cannula. PHYSICAL EXAMINATION: This is a 65-year-old male in no apparent distress at the time of my examination. HEENT: Head is atraumatic, normocephalic. Pupils are equal, round. Sclerae anicteric. Conjunctivae are clear. Mucous membranes of the mouth are moist. Neck is supple. There is no jugular venous distention. No carotid bruit is heard. CHEST EXAMINATION: Lungs are diminished. On 4L NC O2. No chest wall tenderness is noted on palpation or with deep breathing. HEART EXAMINATION: Heart irregular rate and rhythm. S1, S2 heard. No murmurs, g allops or rub. ABDOMEN: Soft, nontender. Bowel sounds are heard. EXTREMITIES: 2+ peripheral pulses with 1+ peripheral edema and no calf tenderness noted. NEUROLOGIC EXAMINATION: Patient is awake, alert and oriented x3. IMPRESSION AND PLAN: CAD status post CABG Acute on chronic systolic heart failure, EF 40% from 02/2025 Hypertension Hyperlipidemia Diabetes type 2 Atrial fibrillation, persistent Dizziness Nausea Hypoxemia, intermittent Possible Eisenmenger syndrome Pulmonary hypertension, RVSP 58 PLAN: He has been stable symptom hopson. Continue with heart failure regimen. Symptoms may be related to pulmonary hypertension or possible Eisenmenger syndrome. Would consider further evaluation with KATHRYN and right cath to eval if there is any shunting given concern for intermittent hypoxic episodes and pulmonary hypertension seen on ECHO. Will plan for KATHRYN tomorrow if scheduling allows. NPO after midnight. Further recommendations pending clinical course. I am dictating on behalf of Dr. Kishan Moffett's history/physical and assessment/plan. Objective - Vital Signs Vital signs: Vital Signs Temp 97.8 F 05/25/25 07:38 Pulse 64 05/25/25 07:38 Resp 16 05/25/25 07:38 BP 127/85 05/25/25 07:38 Pulse Ox 100 05/25/25 07:38 FiO2 Intake & Output 05/24/25 05/25/25 05/25/25 18:59 06:59 18:59 Intake Total 1080 560 Balance 1080 560 Intake: Oral 1080 560 Other: # Voids 3 2 - Labs CBC & Chem 7: 05/24/25 00:10 05/24/25 00:10 Labs: Abnormal Lab Results - Last 24 Hours (Table) 05/24/25 05/24/25 05/24/25 Range/Units 00:10 12:15 17:06 POC Glucose (mg/dL) 202 H 221 H (70-110) mg/dL Hemoglobin A1c 7.1 H (<=6.0) % 05/24/25 05/25/25 Range/Units 20:19 06:02 POC Glucose (mg/dL) 187 H 133 H (70-110) mg/dL Hemoglobin A1c (<=6.0) % Microbiology - Last 24 Hours (Table) 05/23/25 15:07 Blood Culture - Preliminary Blood
--- NOTE | 2025-05-25 15:58 | P.PN ---
Subjective Progress Note Date: 05/25/25 This is a 65-year-old male who comes in with complaints of dizziness and vertigo-like symptoms. He was recently worked up on 2 separate occasions for this. Neurology is following and patient is currently pending a brain MRI. He has not yet followed up with ENT on an outpatient basis as he had conflicting recommendations as to whether this was a vertigo or vestibular disease or not. He is on IV Lasix 40 mg every 8 hours as he appears volume overloaded with a known ejection fraction of 40%. Patient's proBNP was 3270 on admission. He is sitting up in the chair awake alert oriented he is not complaining of any significant shortness of breath or dizziness at this time. He is on oxygen chronically on an outpatient basis. 05/25/2025 Evaluated today in follow-up in the medical floor. He is currently sitting up in the chair. He is currently lying any further episodes of dizziness or vertigo while in the hospital. His brain MRI is negative for any acute stroke mass effect midline shift. He is currently pending EEG which is scheduled for May 26. Additionally cardiology is recommending KATHRYN right heart catheterization to evaluate for any shunting. Review of Systems Constitutional: Denied any fatigue denied any fever. Cardio vascular: denied any chest pain, palpitations Gastrointestinal: denied any nausea, vomiting, diarrhea Pulmonary: Denied any shortness of breath cough Neurologic denied any new focal deficits All inpatient medications were reviewed and appropriate changes in these medications as dictated in the interval history and assessment and plan. PHYSICAL EXAMINATION: GENERAL: The patient is alert and oriented x3, not in any acute distress. Well developed, well nourished. Obese HEENT: Pupils are round and equally reacting to light. EOMI. No scleral icterus. No conjunctival pallor. Normocephalic, atraumatic. No pharyngeal erythema. No thyromegaly. CARDIOVASCULAR: S1 and S2 present. No murmurs, rubs, or gallops. PULMONARY: Chest is clear to auscultation, no wheezing or crackles. ABDOMEN: Soft, nontender, nondistended, normoactive bowel sounds. No palpable organomegaly. MUSCULOSKELETAL: No joint swelling or deformity. EXTREMITIES: No cyanosis, clubbing, or pedal edema. NEUROLOGICAL: Gross neurological examination did not reveal any focal deficits. SKIN: No rashes. mild erythema of the left leg Assessment - Dizziness with vomiting; possibly BPV cardiology considering pulmonary hypertension versus possible Eisenmenger syndrome as the cause - Altered mental status/confusion could be because of the dizziness and hypoxia - Acute on chronic systolic congestive heart failure EF of 40% - Severe pulmonary hypertension moderate to severe tricuspid regurgitation - Ischemic cardiomyopathy EF 40-45% - Type 2 diabetes mellitus - Hypertension - Benign prostatic hypertrophy - Chronic hypoxic and hypercapnic respiratory failure secondary to sleep apnea uses CPAP machine at home - Persistent atrial fibrillation with CVR - History of coronary artery disease with prior CABG and stenting - Hyperlipidemia - Morbid Obesity GI prophylaxis DVT prophylaxis Full Code Plan Possible KATRHYN tomorrow Continue IV lasix 40 mg Q8h and strict intake and output monitoring Continue Farxiga Stop IV ceftriaxone, procalcitonin <0.20 Continue lantus at HS and add accuchecks ACHS and sliding scale insulin Pending EEG Patient is being followed by multiple consultations including neurology, cardiology, pulmonology Continue supplemental oxygen BMP in the a.m. The impression and plan of care has been dictated by Prerna Arredondo, Nurse Practitioner as directed. Dr. Melodie MD I have performed a history and physical examination and medical decision making of this patient, discussed the same with the dictator, and agree with the dictators assessment and plan as written, documented as a scribe. Based on total visit time, I have performed more than 50% of this visit. Objective - Vital Signs Vital signs: Vital Signs Temp 97.8 F 05/25/25 07:38 Pulse 64 05/25/25 07:38 Resp 16 05/25/25 07:38 BP 127/85 05/25/25 07:38 Pulse Ox 100 05/25/25 07:38 FiO2 Intake & Output 05/24/25 05/25/25 05/25/25 18:59 06:59 18:59 Intake Total 1080 560 Balance 1080 560 Intake: Oral 1080 560 Other: # Voids 3 2 - Labs CBC & Chem 7: 05/24/25 00:10 05/24/25 00:10 Labs: Abnormal Lab Results - Last 24 Hours (Table) 05/24/25 05/24/25 05/24/25 Range/Units 00:10 12:15 17:06 POC Glucose (mg/dL) 202 H 221 H (70-110) mg/dL Hemoglobin A1c 7.1 H (<=6.0) % 05/24/25 05/25/25 Range/Units 20:19 06:02 POC Glucose (mg/dL) 187 H 133 H (70-110) mg/dL Hemoglobin A1c (<=6.0) % Microbiology - Last 24 Hours (Table) 05/23/25 15:07 Blood Culture - Preliminary Blood
--- NOTE | 2025-05-25 16:04 | P.PN ---
Subjective Progress Note Date: 05/25/25 The patient is a 65-year-old male who is seen in neurologic follow-up, in cross coverage for Dr. Christo Field, in collaboration with Kierra Antoine, via teleneurology. Initial consultation was done by Dr. Field. For complete details regarding neurologic issues and history of chief complaint, please see Dr. Field's original consultation. The patient reports that he is feeling fine today. He is seated in the bedside chair. He denies any further episodes of vertigo. He says that he was able to get up into the chair and is walking to the bathroom, on his own. MRI of the brain was performed yesterday. There is no evidence of acute ischemia. These images were personally reviewed. The results were discussed with the patient. The patient is scheduled to have an EEG, tomorrow morning . Objective - Vital Signs Vital signs: Vital Signs Temp 97.8 F 05/25/25 07:38 Pulse 64 05/25/25 07:38 Resp 16 05/25/25 07:38 BP 127/85 05/25/25 07:38 Pulse Ox 100 05/25/25 12:24 FiO2 Intake & Output 05/24/25 05/25/25 05/25/25 18:59 06:59 18:59 Intake Total 1080 560 Balance 1080 560 Intake: Oral 1080 560 Other: # Voids 3 2 - Exam General: The patient is seated in the bedside chair. He is well-nourished, well-developed and in no acute distress. HEENT: Head is atraumatic, normocephalic. Fundus not visualized. There is no scleral icterus. Mucous membranes are moist. Neurological examination Mental status: The patient is awake, alert and oriented x 3. His speech is clear. There is no dysarthria or aphasia. Cranial nerves: 2-12 grossly intact - Labs CBC & Chem 7: 05/24/25 00:10 05/24/25 00:10 Labs: Abnormal Lab Results - Last 24 Hours (Table) 05/24/25 05/24/25 05/24/25 Range/Units 00:10 17:06 20:19 POC Glucose (mg/dL) 221 H 187 H (70-110) mg/dL Hemoglobin A1c 7.1 H (<=6.0) % 05/25/25 05/25/25 Range/Units 06:02 12:11 POC Glucose (mg/dL) 133 H 167 H (70-110) mg/dL Hemoglobin A1c (<=6.0) % Microbiology - Last 24 Hours (Table) 05/23/25 15:07 Blood Culture - Preliminary Blood Assessment and Plan Assessment: Acute encephalopathy TIA was a concern at previous visit but the patient is on Eliquis and the CTA showed no significant atherosclerotic vascular disease. Recurrent Vertigo-MRI negative for acute ischemia and mass Atrial fibrillation CAD s/p prior stent and CABG Hypertension Diabetes mellitus LELA on CPAP Plan: 1. Await EEG 2. Continue Eliquis for stroke prevention in the setting of atrial fibrillation Time with Patient: Less than 30 (25 minutes were spent caring for this patient today including, obtaining an interim history, examining the patient, reviewing imaging, labs, chart documentation and creating this note)
[2025-05-25 17:14] LABS: Glucose,Whole Blood 182 mg/dL (70-110)
[2025-05-25] MEDS: MECLIZINE 25 MG TAB PO PRN (19:59)
[2025-05-25 21:17] LABS: Glucose,Whole Blood 227 mg/dL (70-110)
[2025-05-25] MEDS: ONDANSETRON 4 MG/2 ML VIAL IVP PRN (21:42)
[2025-05-26 05:28] LABS: Glucose,Whole Blood 177 mg/dL (70-110)
[2025-05-26 08:25] LABS: Basophils # (A) 0.04 X 10*3/uL (0.00-0.10); Basophils % (A) 0.7 %; Eosinophils # (A) 0.14 X 10*3/uL (0.04-0.35); Eosinophils % (A) 2.5 %; HCT 34.7 % (39.6-50.0); HGB 10.2 g/dL (13.0-17.0); Immature Grans, Automated 0.40 %; Lymphocytes # (A) 1.00 X 10*3/uL (0.90-5.00); Lymphocytes % (A) 17.6 %; MCH 25.3 pg (27.0-32.0); MCHC 29.4 g/dL (32.0-37.0); MCV 86.1 FL (80.0-97.0); Monocytes # (A) 0.85 X 10*3/uL (0.20-1.00); Monocytes % (A) 14.9 %; NRBC Per 100 WBC 0 X 10*3/uL (0.00-0.01); Neutrophils # (A) 3.64 X 10*3/uL (1.80-7.70); Neutrophils % (A) 63.9 %; Platelet Count 170 X 10*3/uL (140-440); RBC 4.03 X 10*6/uL (4.40-5.60); RDW 19.7 % (11.5-14.5); WBC 5.69 X 10*3/uL (4.50-10.00)
[2025-05-26 08:33] LABS: Anion Gap 9.40 mmol/L (4.00-12.00); BUN/Creat Ratio 21.36 Ratio (12.00-20.00); Blood Urea Nitrogen 23.5 mg/dL (9.0-27.0); Calcium 8.7 mg/dL (8.7-10.3); Carbon Dioxide 32.6 mmol/L (21.6-31.8); Chloride 99 mmol/L (96-109); Glucose 134 mg/dL (70-110); Potassium 4.0 mmol/L (3.5-5.5); Sodium 141 mmol/L (135-145)
--- NOTE | 2025-05-26 11:23 | P.PN ---
Subjective Progress Note Date: 05/26/25 Patient is a pleasant 65-year-old male with significant past medical history of CAD with prior CABG, congestive heart failure, hypertension, hyperlipidemia, diabetes type 2, and persistent atrial fibrillation who presented with complaints of dizziness and vomiting and some confusion. He does follow with senior safety support manager Dr. Santiago in [place]. He states he has been evaluated 4 times in the past few months for dizziness. The dizziness was so bad that he could not stand and was vomiting. His oxygen levels were decreased in the 70's. He denies having any shortness of breath, chest pain, palpitations. He is feeling somewhat better today. He states he will have a dizzy episode 1-2 times a week. Episodes last about 1-2 hours and then will resolve. This has been going on since February 2025. Troponin negative x 1, BNP 3270, creatinine 1.07, hemoglobin 9.9. He was evaluated by neurology and has an MRI of the brain pending. He states he has been compliant with his Eliquis, however, he had s topped his aspirin as directed during a previous admission. ECHO 02/2025 with EF 40%, severe pulmonary hypertension, mod-sev tricuspid regurgitation. 05/25/25 MRI of the brain did not show any acute findings. He is sitting up in the bedside chair. No chest pain or pressure. No dizzy episodes. Shortness of breath is stable. He is on 6 L nasal cannula. 05/26/2025 Patient seen and examined. Patient is scheduled for KATHRYN and RHC today with Dr. Moffett. Blood pressure 108/63, heart rate 71, pulse ox 93% on 5 L nasal cannula. Repeat blood work reveals hemoglobin 10.2, creatinine 1.1. Patient is currently on IV Lasix 40 mg every 8 hours. PHYSICAL EXAMINATION: This is a 65-year-old male in no apparent distress at the time of my examination. HEENT: Head is atraumatic, normocephalic. Pupils are equal, round. Sclerae anicteric. Conjunctivae are clear. Mucous membranes of the mouth are moist. Neck is supple. There is no jugular venous distention. No carotid bruit is heard. CHEST EXAMINATION: Lungs are diminished. On 4L NC O2. No chest wall tenderness is noted on palpation or with deep breathing. HEART EXAMINATION: Heart irregular rate and rhythm. S1, S2 heard. No murmurs, gallops or rub. ABDOMEN: Soft, nontender. Bowel sounds are heard. EXTREMITIES: 2+ peripheral pulses with 1+ peripheral edema and no calf tenderness noted. NEUROLOGIC EXAMINATION: Patient is awake, alert and oriented x3. IMPRESSION AND PLAN: CAD status post CABG Acute on chronic systolic heart failure, EF 40% from 02/2025 Hypertension Hyperlipidemia Diabetes type 2 Atrial fibrillation, persistent Dizziness Nausea Hypoxemia, intermittent Possible Eisenmenger syndrome Pulmonary hypertension, RVSP 58 PLAN: He has been stable symptom hopson. Continue with heart failure regimen. Patient is currently on IV Lasix 40 mg every 8 hours Monitor MARTÍN, daily weights, electrolytes and renal function Symptoms may be related to pulmonary hypertension or possible Eisenmenger syndrome. Patient is scheduled for KATHRYN and right cath to eval if there is any shunting given concern for intermittent hypoxic episodes and pulmonary hypertension seen on ECHO. Continue n.p.o. Further recommendations as patient progresses Nurse practitioner note has been reviewed, I agree with documented findings and plan of care. Patient was seen and examined. Objective - Vital Signs Vital signs: Vital Signs Temp 97.9 F 05/26/25 06:53 Pulse 61 05/26/25 06:53 Resp 17 05/26/25 06:53 BP 108/63 05/26/25 06:53 Pulse Ox 93 L 05/26/25 06:53 FiO2 Intake & Output 05/25/25 05/26/25 05/26/25 18:59 06:59 18:59 Intake Total 1680 Output Total 300 Balance 1680 -300 Intake: Oral 1680 Output: Urine 300 Other: # Voids 3 1 - Labs CBC & Chem 7: 05/26/25 05:48 05/26/25 05:48 Labs: Abnormal Lab Results - Last 24 Hours (Table) 05/24/25 05/25/25 05/25/25 Range/Units 00:10 12:11 17:12 POC Glucose (mg/dL) 167 H 182 H (70-110) mg/dL Hemoglobin A1c 7.1 H (<=6.0) % 05/25/25 05/26/25 Range/Units 21:15 05:27 POC Glucose (mg/dL) 227 H 177 H (70-110) mg/dL Hemoglobin A1c (<=6.0) % Microbiology - Last 24 Hours (Table) 05/23/25 15:07 Blood Culture - Preliminary Blood
[2025-05-26] MEDS: SODIUM CHLORIDE 0.9% 1,000 ML IV SCH (11:45)
[2025-05-26] MEDS: fentaNYL (PF) 50 MCG/1 ML VIAL IVP ONE (12:14)
[2025-05-26] MEDS: BENZOCAINE SPRAY 1 EACH MM ONE (12:14)
[2025-05-26] MEDS: MIDAZOLAM HCL 10 MG/10 ML VIAL IVP ONE (12:14)
[2025-05-26] MEDS: SODIUM CHLORIDE 0.9% 1,000 ML IV ONE ×2 (12:16→12:32)
--- NOTE | 2025-05-26 12:30 | P.TEE ---
Description of Procedure(s): Procedure performed: Transesophageal Echocardiogram with color flow doppler, pulsed wave doppler and continuous wave doppler, moderate conscious sedation Moderate conscious sedation: Moderate conscious sedation was supplied with direct supervision of myself using Versed and Fentanyl. Complications: none Indications: Rule out shunt, pulmonary hypertension PROCEDURE: After the risks, benefits and alternatives of the above mentioned procedure was explained in detail with the patient, informed consent was obtained. Patient was brought to the lab in a fasting state. Patient was given IV Versed and Fentanyl for sedation. The throat was sprayed with Hurricane to anesthetize the throat. A lubricated Omni probe was then introduced into the esophagus and stomach and multiple views were obtained. 2D echo with color flow doppler, pulsed wave doppler and continuous wave doppler was utilized. Agitated saline bubbles were injected to assess for any intra-atrial shunt. The probe was then removed. Patient tolerated the procedure well. Patient was transferred to the post procedure area in stable and satisfactory condition. FINDINGS: 1. The aortic valve is tricuspid with normal function with trace aortic regurgitation. 2. The mitral valve appears be normal with moderate to severe secondary mi tral regurgitation. Systolic blunting however no systolic reversal of the left upper pulmonary vein consistent with more moderate mitral regurgitation. Pisa radius 0.9 cm with a Nyquist of 44. 3. Tricuspid valve appears to be normal with moderate to severe tricuspid regurgitation. RVSP 48 4. The interatrial septum is intact. No evidence of PFO. 5. Left atrial appendage has been ligated 6. Left ventricular ejection fraction 25 to 30% with global hypokinesis. There is septal bounce consistent with postoperative septum 7. Moderate to severe right ventricular dilation with RV to LV ratio of 1:1 8. Severe biatrial enlargement
--- NOTE | 2025-05-26 12:40 | P.PN ---
Subjective Progress Note Date: 05/26/25 This is a 65-year-old male patient with a known history of hyperlipidemia, diabetes mellitus, coronary artery disease with previous bypass grafting and previous stent placement, atrial fibrillation anticoagulated with Eliquis, former smoker who presented here to the emergency room 2 days ago with complain ts of extreme dizziness, nausea, vomiting, shortness of breath. He normally wears oxygen at home at 4 L/min. Chest x-ray shows cardiomegaly with mild pulmonary vascular congestion. EKG reveals atrial fibrillation with controlled ventricular response. CT scan of the brain revealed no acute intracranial process. White count 6.3. Hemoglobin 9.9. Platelets 171. Sodium 138. Potassium 4.1. Bicarb 34. BUN 32. Creatinine 1.07. Glucose 168. proBNP 3270. Screen negative. Serum alcohol less than 10. He is seen today in consultation on the regular medical floor. He is currently up ambulating in his room. Awake and alert in no acute distress. Maintaining O2 saturations in the mid 90s on 5 L/min per nasal cannula. He has been afebrile. Hemodynamically stable. Denies any worsening shortness of breath, cough or congestion. No further dizziness. No nausea or vomiting. The patient is seen today May 25, 2025 in follow-up on the regular medical floor. He is currently sitting up in a chair at the bedside. Awake and alert in no acute distress. Maintain O2 saturations in the 90s on 4 L/min per nasal cannula. He is afebrile. Hemodynamically stable. No further episodes of di zziness lightheadedness or shortness of breath. MRI of the brain revealed no evidence of intracranial mass, acute/subacute infarct or abnormal enhancement. Blood culture reveals no growth glucose 133. He remains on IV Lasix and Aldactone. Anticoagulated with Eliquis. The patient is seen today May 26, 2025 in follow-up on the regular medical floor. He is currently resting in bed. Awake and alert in no acute distress. About to undergo EEG testing. He is maintaining good O2 saturation in the mid 90s on 5 L/min per nasal cannula. Has been afebrile. Hemodynamically stable. He did undergo a KATHRYN that revealed no evidence of PFO. There was impaired left ventricular systolic function with an ejection fraction of 25 to 30% with global hypokinesia. Moderate to severe mitral regurgitation. Blood culture reveals no growth. White count 5.6. Hemoglobin 10.2. Platelets 170. Sodium 141. Potassium 4.0. Bicarb 33. BUN 24. Creatinine 1.1. Glucose 134. He remains anticoagulated with Eliquis. Continued on Lasix 40 mg IV every 8 hours and Aldactone. Objective - Vital Signs Vital signs: Vital Signs Temp 97.9 F 05/26/25 06:53 Pulse 61 05/26/25 06:53 Resp 17 05/26/25 09:00 BP 108/63 05/26/25 06:53 Pulse Ox 93 L 05/26/25 06:53 FiO2 Intake & Output 05/25/25 05/26/25 05/26/25 18:59 06:59 18:59 Intake Total 1680 50 Output Total 300 Balance 1680 -300 50 Intake: IV 50 Oral 1680 Output: Urine 300 Other: Voiding Method Toilet # Voids 3 1 - Exam GENERAL EXAM: Alert, pleasant 65-year-old male, resting in bed, on 5 L nasal cannula, comfortable in no apparent distress. HEAD: Normocephalic. EYES: Normal reaction of pupils, equal size. NOSE: Clear with pink turbinates. THROAT: No erythema or exudates. NECK: No masses, no JVD. CHEST: No chest wall deformity. LUNGS: Equal air entry with faint crackles in the posterior bases. CVS: S1 and S2 normal with no audible murmur, regular rhythm. ABDOMEN: No hepatosplenomegaly, normal bowel sounds, no guarding or rigidity. SPINE: No scoliosis or deformity SKIN: No rashes CENTRAL NERVOUS SYSTEM: No focal deficits, tone is normal in all 4 extremities. EXTREMITIES: There is 1+ peripheral edema. Changes of chronic venous stasis. No clubbing, no cyanosis. Peripheral pulses are intact. - Labs CBC & Chem 7: 05/26/25 05:48 05/26/25 05:48 Labs: Abnormal Lab Results - Last 24 Hours (Table) 05/25/25 05/25/25 05/26/25 Range/Units 17:12 21:15 05:27 RBC (4.40-5.60) X 10*6/uL Hgb (13.0-17.0) g/dL Hct (39.6-50.0) % MCH (27.0-32.0) pg MCHC (32.0-37.0) g/dL RDW (11.5-14.5) % Carbon Dioxide (21.6-31.8) mmol/L BUN/Creatinine Ratio (12.00-20.00) Ratio Glucose (70-110) mg/dL POC Glucose (mg/dL) 182 H 227 H 177 H (70-110) mg/dL 05/26/25 05/26/25 Range/Units 05:48 05:48 RBC 4.03 L (4.40-5.60) X 10*6/uL Hgb 10.2 L (13.0-17.0) g/dL Hct 34.7 L (39.6-50.0) % MCH 25.3 L (27.0-32.0) pg MCHC 29.4 L (32.0-37.0) g/dL RDW 19.7 H (11.5-14.5) % Carbon Dioxide 32.6 H (21.6-31.8) mmol/L BUN/Creatinine Ratio 21.36 H (12.00-20.00) Ratio Glucose 134 H (70-110) mg/dL POC Glucose (mg/dL) (70-110) mg/dL Microbiology - Last 24 Hours (Table) 05/23/25 15:07 Blood Culture - Preliminary Blood Assessment and Plan Assessment: Altered mental status with dizziness, lightheadedness, nausea and vomiting of unclear etiology. CT scan of the brain revealed no acute process. MRI of the brain revealed no acute intracranial process. KATHRYN revealed patent stent intra- atrial septum. Moderate to severe secondary mitral regurgitation. Left ventricular ejection fraction of 25 to 30% with global hypokinesia. Moderate to severe right ventricular dilatation Acute on chronic hypoxemic respiratory failure secondary to an acute exacerbation of chronic systolic congestive heart failure Severe pulmonary hypertension Morbid obesity Obstructive sleep apnea maintained on BiPAP Obesity/hypoventilation syndrome Chronic systolic congestive heart failure with an ejection fraction of 40% Coronary artery disease with previous stent placements and subsequent CABG in 2016 History of atrial fibrillation, anticoagulated with Eliquis Diabetes mellitus, type II Hypertension History of prostate cancer status post surgery Former smoker Gastroesophageal reflux disease Hyperlipidemia Plan: The patient was seen and evaluated Labs and medications reviewed KATHRYN results reviewed EEG results pending Remains on IV Lasix Currently stable on 5 L nasal cannula Anticoagulated with Eliquis Increase his activity as tolerated Titrate down the FiO2 as tolerated Once cleared by neurology/cardiology This patient was seen independently by the pulmonary nurse practitioner addressing pulmonary issues I have personally seen and examined the patient, performed the documentation and the assessment and plan as written. Number of minutes spent on the visit: 24 Dictation was produced using [employer] dictation software. Please excuse any grammatical, word or spelling errors.
--- NOTE | 2025-05-26 12:57 | P.PN ---
Subjective This is a 65-year-old male who comes in with complaints of dizziness and vertigo-like symptoms. He was recently worked up on 2 separate occasions for this. Neurology is following and patient is currently pending a brain MRI. He has not yet followed up with ENT on an outpatient basis as he had conflicting recommendations as to whether this was a vertigo or vestibular disease or not. He is on IV Lasix 40 mg every 8 hours as he appears volume overloaded with a known ejection fraction of 40%. Patient's proBNP was 3270 on admission. He is sitting up in the chair awake alert oriented he is not complaining of any significant shortness of breath or dizziness at this time. He is on oxygen chronically on an outpatient basis. 05/25/2025 Evaluated today in follow-up in the medical floor. He is currently sitting up in the chair. He is currently lying any further episodes of dizziness or vertigo while in the hospital. His brain MRI is negative for any acute stroke mass effect midline shift. He is currently pending EEG which is scheduled for May 26. Additionally cardiology is recommending KATHRYN right heart catheterization to evaluate for any shunting. 05/26 Patient admitted for CHF exacerbation, breathing improving, she states she is able to walk in the hallway with no exertional dyspnea however she still has 3+ bilateral pedal leg swelling. She is getting IV Lasix and she has good urine output however she drinks a lot of fluids patient was counseled about fluid restriction and patient states you are the first 1 to tell me that. Continue with IV Lasix 40 mg twice daily Monitor electrolytes and creatinine Possible discharge in 24 to 48 hours Once cleared by sales representative cash registers and echocardiogram is done as instructed Objective - Vital Signs Vital signs: Vital Signs Temp 97.9 F 05/26/25 06:53 Pulse 61 05/26/25 06:53 Resp 17 05/26/25 09:00 BP 108/63 05/26/25 06:53 Pulse Ox 93 L 05/26/25 06:53 FiO2 Intake & Output 05/25/25 05/26/25 05/26/25 18:59 06:59 18:59 Intake Total 1680 50 Output Total 300 Balance 1680 -300 50 Intake: IV 50 Oral 1680 Output: Urine 300 Other: Voiding Method Toilet # Voids 3 1 - Exam -GENERAL: The patient is alert and oriented x3, not in any acute distress. Well developed, well nourished. Obese HEENT: Pupils are round and equally reacting to light. EOMI. No scleral icterus. No conjunctival pallor. Normocephalic, atraumatic. No pharyngeal erythema. No thyromegaly. CARDIOVASCULAR: S1 and S2 present. No murmurs, rubs, or gallops. PULMONARY: Chest is clear to auscultation, no wheezing , no crackles. ABDOMEN: Soft, nontender, nondistended, normoactive bowel sounds. No palpable organomegaly. MUSCULOSKELETAL: No joint swelling or deformity. -EXTREMITIES: No cyanosis, clubbing, minimal Bilateral pitting leg edema. NEUROLOGICAL: Gross neurological examination did not reveal any focal deficits. SKIN: No rashes. no petechiae. - Labs CBC & Chem 7: 05/26/25 05:48 05/26/25 05:48 Labs: Abnormal Lab Results - Last 24 Hours (Table) 05/25/25 05/25/25 05/26/25 Range/Units 17:12 21:15 05:27 RBC (4.40-5.60) X 10*6/uL Hgb (13.0-17.0) g/dL Hct (39.6-50.0) % MCH (27.0-32.0) pg MCHC (32.0-37.0) g/dL RDW (11.5-14.5) % Carbon Dioxide (21.6-31.8) mmol/L BUN/Creatinine Ratio (12.00-20.00) Ratio Glucose (70-110) mg/dL POC Glucose (mg/dL) 182 H 227 H 177 H (70-110) mg/dL 05/26/25 05/26/25 Range/Units 05:48 05:48 RBC 4.03 L (4.40-5.60) X 10*6/uL Hgb 10.2 L (13.0-17.0) g/dL Hct 34.7 L (39.6-50.0) % MCH 25.3 L (27.0-32.0) pg MCHC 29.4 L (32.0-37.0) g/dL RDW 19.7 H (11.5-14.5) % Carbon Dioxide 32.6 H (21.6-31.8) mmol/L BUN/Creatinine Ratio 21.36 H (12.00-20.00) Ratio Glucose 134 H (70-110) mg/dL POC Glucose (mg/dL) (70-110) mg/dL Microbiology - Last 24 Hours (Table) 05/23/25 15:07 Blood Culture - Preliminary Blood
[2025-05-26 13:03] LABS: O2 Sat Blood Gas 56.2 %
[2025-05-26 13:05] LABS: O2 Sat Blood Gas 57.5 %
--- NOTE | 2025-05-26 13:51 | EEG ---
ELECTROENCEPHALOGRAM REPORT PREAMBLE: This is a 65-year-old male with recurrent episodes of dizziness, confusion, rule out seizure. EEG FINDINGS: This is a 21-channel digital EEG recorded with video component, utilizing 10/20 international system with referential and bipolar montages. Background consists of well developed, well regulated moderate voltage activity in 8 hertz alpha. Background is posterior dominant and seems to be reactive to eye opening and closing. The patient was drowsy during most of the study with presence of bilaterally symmetric theta frequency rhythm. Some stage 2 sleep was seen at the end of the study with presence of sleep spindles. Photic driving response was not seen. No focal or generalized epileptiform activity was seen. IMPRESSION: This is probably a normal EEG during wakefulness, drowsiness, and brief stage 2 sleep. No focal, lateralized or epileptiform activity was seen. MMODL / IJN: [id number] /
--- NOTE | 2025-05-26 17:20 | P.PN ---
Subjective Progress Note Date: 05/26/25 Principal diagnosis: Patient was initially seen by Dr. Christo Field. Please refer to his notes for details. Today is the first day I am caring for the patient in this admission. Patient seen and examined at bedside today. Patient is laying comfortably in the bed. Patient has been seen by myself in the past 05/01/2025 and 05/16/2025. Vitals ppulse 61 bpm, SpO2 93% on 5L O2 via nasal cannula Hb 10.2 Brain MRI shows no evidence of intracranial mass or acute/subacute infarct, ab normal enhancement. Nonspecific white matter changes likely related to small vessel ischemic disease Objective - Vital Signs Vital signs: Vital Signs Temp 97.9 F 05/26/25 06:53 Pulse 61 05/26/25 06:53 Resp 17 05/26/25 06:53 BP 108/63 05/26/25 06:53 Pulse Ox 93 L 05/26/25 06:53 FiO2 Intake & Output 05/25/25 05/26/25 05/26/25 18:59 06:59 18:59 Intake Total 1680 Output Total 300 Balance 1680 -300 Intake: Oral 1680 Output: Urine 300 Other: # Voids 3 1 - Exam General: no distress, lying in bed Neuro: Patient is awake alert and oriented x 3. Extraocular movements intact no nystagmus, face is symmetric, facial sensation normal. On muscle strength testing, there is 5/5 in all 4 extremities Deep tendon reflexes are symmetric 1 at the biceps, brachioradialis, knees and plantars indeterminate Sensory to touch is equal Cerebellar function showed no ataxia for [id number]-of-[id number] testing, no dysdiadocho kinesia - Labs CBC & Chem 7: 05/26/25 05:48 05/26/25 05:48 Labs: Abnormal Lab Results - Last 24 Hours (Table) 05/25/25 05/25/25 05/25/25 Range/Units 12:11 17:12 21:15 RBC (4.40-5.60) X 10*6/uL Hgb (13.0-17.0) g/dL Hct (39.6-50.0) % MCH (27.0-32.0) pg MCHC (32.0-37.0) g/dL RDW (11.5-14.5) % Carbon Dioxide (21.6-31.8) mmol/L BUN/Creatinine Ratio (12.00-20.00) Ratio Glucose (70-110) mg/dL POC Glucose (mg/dL) 167 H 182 H 227 H (70-110) mg/dL 05/26/25 05/26/25 05/26/25 Range/Units 05:27 05:48 05:48 RBC 4.03 L (4.40-5.60) X 10*6/uL Hgb 10.2 L (13.0-17.0) g/dL Hct 34.7 L (39.6-50.0) % MCH 25.3 L (27.0-32.0) pg MCHC 29.4 L (32.0-37.0) g/dL RDW 19.7 H (11.5-14.5) % Carbon Dioxide 32.6 H (21.6-31.8) mmol/L BUN/Creatinine Ratio 21.36 H (12.00-20.00) Ratio Glucose 134 H (70-110) mg/dL POC Glucose (mg/dL) 177 H (70-110) mg/dL Microbiology - Last 24 Hours (Table) 05/23/25 15:07 Blood Culture - Preliminary Blood Assessment and Plan Assessment: Altered mental status with dizziness and lightheadedness, nausea and vomiting, likely due to vertigo vs orthostatic hypotension TIA was a concern at previous visit but the patient is on Eliquis and the CTA showed no significant atherosclerotic vascular disease. Recurrent episodes of vertigo, possible due to peripheral vestibular dysfunction, rule out cardiac cause. Severe mitral regurgitation noted on KATHRYN. Atrial fibrillation CAD s/p prior stent and CABG Hypertension Diabetes mellitus LELA on CPAP Hyperlipidemia Plan: Brain CT obtained on 05/15/2025 showed no acute intracranial process. Brain MRI shows no evidence of intracranial mass or acute/subacute infarct, abnormal enhancement. Nonspecific white matter changes likely related to small vessel ischemic disease Echo (02/25/2025 )with LVEF 40% with severely increased left ventricular diastolic volume and severely increased left ventricular systolic volume and global left ventricular hypokinesia with a D-shaped septum and dilated ventricle along with severely increased left and right atrial size CT angiography obtained on 04/30/2025 no evidence of dissection of cervical internal carotid arteries or vertebral arteries or any evidence of significant stenosis of the carotid bifurcation, no evidence of intracranial high-grade stenosis or intracranial rhythm. Orthostatic vitals: Supine 106/68, sitting 118/72, standing 96/59 A1c was 7.20 February 2025 and he was recommended to optimize control of diabetes target A1c less than 7 Lipid panel showed cholesterol 108, LDL 50, HDL 36, triglycerides 108. Vitamin B12 was 138 and folate was 14.7. Obtain EEG and KATHRYN DVT prophylaxis: Eliquis 5 mg p.o. daily Dictation was produced using [employer] dictation software. please excuse any grammatical, word or spelling errors. Chetan Plata MD PGY-2 IM I was present for the hernandez and critical components of this encounter and agree with assessment and plan as documented above plus mention below. Transesophageal echocardiogram showed: FINDINGS: 1. The aortic valve is tricuspid with normal function with trace aortic regurgitation. 2. The mitral valve appears be normal with moderate to severe secondary mitral regurgitation. Systolic blunting however no systolic reversal of the lef t upper pulmonary vein consistent with more moderate mitral regurgitation. Pisa radius 0.9 cm with a Nyquist of 44. 3. Tricuspid valve appears to be normal with moderate to severe tricuspid regurgitation. RVSP 48 4. The interatrial septum is intact. No evidence of PFO. 5. Left atrial appendage has been ligated 6. Left ventricular ejection fraction 25 to 30% with global hypokinesis. There is septal bounce consistent with postoperative septum 7. Moderate to severe right ventricular dilation with RV to LV ratio of 1:1 8. Severe biatrial enlargement Await cardiology recommendations for findings on KATHRYN. Continue Eliquis. Neurologically clear for discharge. Luis Antonio Tim MD
[2025-05-26 17:27] LABS: Glucose,Whole Blood 129 mg/dL (70-110)
--- NOTE | 2025-05-26 19:56 | P.PN ---
Subjective Progress Note Date: 05/26/25 This is a 65-year-old male who comes in with complaints of dizziness and vertigo-like symptoms. He was recently worked up on 2 separate occasions for this. Neurology is following and patient is currently pending a brain MRI. He has not yet followed up with ENT on an outpatient basis as he had conflicting recommendations as to whether this was a vertigo or vestibular disease or not. He is on IV Lasix 40 mg every 8 hours as he appears volume overloaded with a known ejection fraction of 40%. Patient's proBNP was 3270 on admission. He is sitting up in the chair awake alert oriented he is not complaining of any significant shortness of breath or dizziness at this time. He is on oxygen chronically on an outpatient basis. 05/25/2025 Evaluated today in follow-up in the medical floor. He is currently sitting up in the chair. He is currently lying any further episodes of dizziness or vertigo while in the hospital. His brain MRI is negative for any acute stroke mass effect midline shift. He is currently pending EEG which is scheduled for May 26. Additionally cardiology is recommending KATHRYN right heart catheterization to evaluate for any shunting. 05/26/2025 Patient is seen in follow-up today being followed by multiple consultations including neurology and cardiology. Patient does have an EEG ordered and pending for this morning as well as discussion of KATHRYN with right heart catheterization. Patient is currently n.p.o. and is frustrated about this and reports to feeling hungry. Nurse made aware there is no exact time and KATHRYN and EEG was performed this morning and pending read. Cardiology to follow and will await report. Encourage increase activity as tolerated and also recommend PT/OT therapy evaluation as patient is significantly weak. Continue with IV diuresis and follow-up on repeat labs. Review of Systems Constitutional: Denied any fatigue denied any fever. Cardio vascular: denied any chest pain, palpitations Gastrointestinal: denied any nausea, vomiting, diarrhea Pulmonary: Reports continued shortness of breath Neurologic denied any new focal deficits, diffusely weak All inpatient medications were reviewed and appropriate changes in these medications as dictated in the interval history and assessment and plan. PHYSICAL EXAMINATION: GENERAL: The patient is alert and oriented x to, appears to be baseline. Well developed, elderly appearing, morbidly obese HEENT: Pupils are round and equally reacting to light. EOMI. No scleral icterus. No conjunctival pallor. Normocephalic, atraumatic. No pharyngeal erythema. No thyromegaly. CARDIOVASCULAR: S1 and S2 muffled PULMONARY: Diminished breath sounds bilaterally with a few scattered expiratory wheezes and crackles at the bases noted ABDOMEN: Soft, morbidly obese, nontender, nondistended, normoactive bowel sounds. No palpable organomegaly. MUSCULOSKELETAL: No joint swelling or deformity. EXTREMITIES: No cyanosis, clubbing, or pedal edema. Chronic edema noted bilaterally NEUROLOGICAL: Gross neurological examination did not reveal any focal deficits. Diffusely weak SKIN: No rashes. mild erythema of the left leg Assessment: - Dizziness with vomiting; possibly BPV cardiology considering pulmonary hypertension versus possible Eisenmenger syndrome as the cause - Altered mental status/confusion could be because of the dizziness and hypoxia, metabolic encephalopathy - Acute on chronic systolic congestive heart failure EF of 40% - Severe pulmonary hypertension moderate to severe tricuspid regurgitation - Ischemic cardiomyopathy EF 40-45% - Type 2 diabetes mellitus, uncontrolled with hyperglycemia - Hypertension - Benign prostatic hypertrophy - Chronic hypoxic and hypercapnic respiratory failure secondary to sleep apnea uses CPAP machine at home - Persistent atrial fibrillation with AVR - History of coronary artery disease with prior CABG and stenting -Morbid obesity with a BMI of 44.2 - Hyperlipidemia - Morbid Obesity GI prophylaxis DVT prophylaxis Full Code Plan: Possible KATHRYN today with right heart catheterization with cardiology following and will await official report. Patient is agitated and upset that he is currently n.p.o. and has no timeframe on the catheterization Continue IV lasix 40 mg Q8h and strict intake and output monitoring, follow-up on repeat labs and monitor kidney functions and electrolytes closely Continue Farxiga Continue lantus at HS and add accuchecks ACHS and sliding scale insulin EEG was performed this morning 05/26/2025, official EEG read is pending at this time with neurology following Patient is being followed by multiple consultations including neurology, cardiology, pulmonology Continue supplemental oxygen and wean as tolerated. Patient chronically wears oxygen outpatient Follow-up on labs in the a.m. Recommend PT/OT therapy evaluation The impression and plan of care has been dictated by Yany Wilson, Nurse Practitioner as directed. Dr. Melodie MD I have performed a history and physical examination and medical decision making of this patient, discussed the same with the dictator, and agree with the dictators assessment and plan as written, documented as a scribe. Based on total visit time, I have performed more than 50% of this visit. Objective - Vital Signs Vital signs: Vital Signs Temp 98.2 F 05/26/25 00:15 Pulse 81 05/26/25 00:15 Resp 18 05/26/25 00:15 BP 100/56 05/26/25 00:15 Pulse Ox 95 05/26/25 00:15 FiO2 Intake & Output 05/25/25 05/26/25 05/26/25 18:59 06:59 18:59 Intake Total 1680 Output Total 300 Balance 1680 -300 Intake: Oral 1680 Output: Urine 300 Other: # Voids 3 1 - Labs CBC & Chem 7: 05/26/25 05:48 05/26/25 05:48 Labs: Abnormal Lab Results - Last 24 Hours (Table) 05/24/25 05/25/25 05/25/25 Range/Units 00:10 12:11 17:12 POC Glucose (mg/dL) 167 H 182 H (70-110) mg/dL Hemoglobin A1c 7.1 H (<=6.0) % 05/25/25 05/26/25 Range/Units 21:15 05:27 POC Glucose (mg/dL) 227 H 177 H (70-110) mg/dL Hemoglobin A1c (<=6.0) % Microbiology - Last 24 Hours (Table) 05/23/25 15:07 Blood Culture - Preliminary Blood
[2025-05-26 20:18] LABS: Glucose,Whole Blood 161 mg/dL (70-110)
[2025-05-27 05:55] LABS: Glucose,Whole Blood 97 mg/dL (70-110)
[2025-05-27 08:45] LABS: Anion Gap 9.00 mmol/L (4.00-12.00); BUN/Creat Ratio 21.25 Ratio (12.00-20.00); Blood Urea Nitrogen 25.5 mg/dL (9.0-27.0); Calcium 8.8 mg/dL (8.7-10.3); Carbon Dioxide 32.0 mmol/L (21.6-31.8); Chloride 98 mmol/L (96-109); Glucose 80 mg/dL (70-110); Magnesium 2.0 mg/dL (1.5-2.4); Potassium 4.2 mmol/L (3.5-5.5); Sodium 139 mmol/L (135-145)
--- NOTE | 2025-05-27 12:05 | P.PN ---
Subjective Progress Note Date: 05/27/25 Patient is a pleasant 65-year-old male with significant past medical history of CAD with prior CABG, congestive heart failure, hypertension, hyperlipidemia, diabetes type 2, and persistent atrial fibrillation who presented with complaints of dizziness and vomiting and some confusion. He does follow with signal constructor Dr. Santiago in [place]. He states he has been evaluated 4 times in the past few months for dizziness. The dizziness was so bad that he could not stand and was vomiting. His oxygen levels were decreased in the 70's. He denies having any shortness of breath, chest pain, palpitations. He is feeling somewhat better today. He states he will have a dizzy episode 1-2 times a week. Episodes last about 1-2 hours and then will resolve. This has been going on since February 2025. Troponin negative x 1, BNP 3270, creatinine 1.07, hemoglobin 9.9. He was evaluated by neurology and has an MRI of the brain pending. He states he has been compliant with his Eliquis, however, he had s topped his aspirin as directed during a previous admission. ECHO 02/2025 with EF 40%, severe pulmonary hypertension, mod-sev tricuspid regurgitation. 05/25/25 MRI of the brain did not show any acute findings. He is sitting up in the bedside chair. No chest pain or pressure. No dizzy episodes. Shortness of breath is stable. He is on 6 L nasal cannula. 05/26/2025 Patient seen and examined. Patient is scheduled for KATHRYN and RHC today with Dr. Moffett. Blood pressure 108/63, heart rate 71, pulse ox 93% on 5 L nasal cannula. Repeat blood work reveals hemoglobin 10.2, creatinine 1.1. Patient is currently on IV Lasix 40 mg every 8 hours. 05/27/2025 Patient seen and examined. Yesterday he underwent KATHRYN as well as right heart catheterization. KATHRYN revealed trace aortic regurgitation, moderate mitral regurgitation, no PFO, left atrial appendage has been litigated, EF 25 to 30% with global hypokinesis. Septal bounce consistent with post operative septum. Moderate to severe right ventricular dilation with RV to LV ratio 1:1. Severe biatrial enlargement. Right heart cath was reported as normal to the family. Final report is pending. Blood pressure 90/58, heart rate in the 60s, pulse ox 96% on 4 L nasal cannula. Repeat blood work reveals sodium 139, potassium 4.2, creatinine 1.2. Patient is been maintained on IV Lasix 40 mg every 8 hours. PHYSICAL EXAMINATION: This is a 65-year-old male in no apparent distress at the time of my examination. HEENT: Head is atraumatic, normocephalic. Pupils are equal, round. Sclerae anicteric. Conjunctivae are clear. Mucous membranes of the mouth are moist. Neck is supple. There is no jugular venous distention. No carotid bruit is heard. CHEST EXAMINATION: Lungs are diminished. On 4L NC O2. No chest wall tenderness is noted on palpation or with deep breathing. HEART EXAMINATION: Heart irregular rate and rhythm. S1, S2 heard. No murmurs, gallops or rub. ABDOMEN: Soft, nontender. Bowel sounds are heard. EXTREMITIES: 2+ peripheral pulses with 1+ peripheral edema and no calf tenderness noted. NEUROLOGIC EXAMINATION: Patient is awake, alert and oriented x3. IMPRESSION AND PLAN: CAD status post CABG Acute on chronic systolic heart failure, EF 40% from 02/2025 Hypertension Hyperlipidemia Diabetes type 2 Atrial fibrillation, persistent Dizziness Nausea Hypoxemia, intermittent Possible Eisenmenger syndrome Pulmonary hypertension, RVSP 58 PLAN: He has been stable symptom hopson. Continue with heart failure regimen. Patient is currently on IV Lasix 40 mg every 8 hours and may transition to oral Bumex at his home dose Monitor MARTÍN, daily weights, electrolytes and renal function Patient is cleared for discharge and may follow-up with his primary signal constructor, Dr. Richards in 1 to 2 weeks. Nurse practitioner note has been reviewed, I agree with documented findings and plan of care. Patient was seen and examined. Objective - Vital Signs Vital signs: Vital Signs Temp 97.7 F 05/27/25 07:39 Pulse 63 05/27/25 07:39 Resp 15 05/27/25 07:39 BP 90/58 05/27/25 07:39 Pulse Ox 96 05/27/25 07:39 FiO2 Intake & Output 05/26/25 05/27/25 05/27/25 18:59 06:59 18:59 Intake Total 270 540 Output Total 300 790 Balance -30 -250 Intake: IV 50 Oral 220 540 Output: Urine 300 790 Other: Voiding Method Toilet Toilet - Labs CBC & Chem 7: 05/26/25 05:48 05/27/25 05:58 Labs: Abnormal Lab Results - Last 24 Hours (Table) 05/26/25 05/26/25 Range/Units 17:26 20:17 POC Glucose (mg/dL) 129 H 161 H (70-110) mg/dL Microbiology - Last 24 Hours (Table) 05/23/25 15:07 Blood Culture - Preliminary Blood
[2025-05-27 12:26] LABS: Glucose,Whole Blood 106 mg/dL (70-110)
--- NOTE | 2025-05-27 12:39 | P.PN ---
Subjective Progress Note Date: 05/27/25 This is a 65-year-old male patient with a known history of hyperlipidemia, diabetes mellitus, coronary artery disease with previous bypass grafting and previous stent placement, atrial fibrillation anticoagulated with Eliquis, former smoker who presented here to the emergency room 2 days ago with complain ts of extreme dizziness, nausea, vomiting, shortness of breath. He normally wears oxygen at home at 4 L/min. Chest x-ray shows cardiomegaly with mild pulmonary vascular congestion. EKG reveals atrial fibrillation with controlled ventricular response. CT scan of the brain revealed no acute intracranial process. White count 6.3. Hemoglobin 9.9. Platelets 171. Sodium 138. Potassium 4.1. Bicarb 34. BUN 32. Creatinine 1.07. Glucose 168. proBNP 3270. Screen negative. Serum alcohol less than 10. He is seen today in consultation on the regular medical floor. He is currently up ambulating in his room. Awake and alert in no acute distress. Maintaining O2 saturations in the mid 90s on 5 L/min per nasal cannula. He has been afebrile. Hemodynamically stable. Denies any worsening shortness of breath, cough or congestion. No further dizziness. No nausea or vomiting. The patient is seen today May 25, 2025 in follow-up on the regular medical floor. He is currently sitting up in a chair at the bedside. Awake and alert in no acute distress. Maintain O2 saturations in the 90s on 4 L/min per nasal cannula. He is afebrile. Hemodynamically stable. No further episodes of di zziness lightheadedness or shortness of breath. MRI of the brain revealed no evidence of intracranial mass, acute/subacute infarct or abnormal enhancement. Blood culture reveals no growth glucose 133. He remains on IV Lasix and Aldactone. Anticoagulated with Eliquis. The patient is seen today May 26, 2025 in follow-up on the regular medical floor. He is currently resting in bed. Awake and alert in no acute distress. About to undergo EEG testing. He is maintaining good O2 saturation in the mid 90s on 5 L/min per nasal cannula. Has been afebrile. Hemodynamically stable. He did undergo a KATHYRN that revealed no evidence of PFO. There was impaired left ventricular systolic function with an ejection fraction of 25 to 30% with global hypokinesia. Moderate to severe mitral regurgitation. Blood culture reveals no growth. White count 5.6. Hemoglobin 10.2. Platelets 170. Sodium 141. Potassium 4.0. Bicarb 33. BUN 24. Creatinine 1.1. Glucose 134. He remains anticoagulated with Eliquis. Continued on Lasix 40 mg IV every 8 hours and Aldactone. The patient is seen today May 27, 2025 in follow-up on the regular medical floor. He is currently sitting up in a chair at the bedside. Awake and alert in no acute distress. Maintaining O2 saturations in the 90s on 4 L/min per nasal cannula. That is his usual home setting as well. Sodium 139. Potassium 4.2. Bicarb 32. BUN 26. Creatinine 1.2. Glucose 80. He is anticoagulated with Eliquis. Continued on IV diuretics. Currently in a -280 mL balance. Objective - Vital Signs Vital signs: Vital Signs Temp 97.7 F 05/27/25 07:39 Pulse 63 05/27/25 07:39 Resp 15 05/27/25 07:39 BP 90/58 05/27/25 07:39 Pulse Ox 96 05/27/25 07:39 FiO2 Intake & Output 05/26/25 05/27/25 05/27/25 18:59 06:59 18:59 Intake Total 270 540 200 Output Total 300 790 Balance -30 -250 200 Intake: IV 50 Oral 220 540 200 Output: Urine 300 790 Other: Voiding Method Toilet Toilet - Exam GENERAL EXAM: Alert, pleasant 65-year-old male, sitting up in a chair, on 4 L nasal cannula, comfortable in no apparent distress. HEAD: Normocephalic. EYES: Normal reaction of pupils, equal size. NOSE: Clear with pink turbinates. THROAT: No erythema or exudates. NECK: No masses, no JVD. CHEST: No chest wall deformity. LUNGS: Equal air entry with faint crackles in the posterior bases. CVS: S1 and S2 normal with no audible murmur, regular rhythm. ABDOMEN: No hepatosplenomegaly, normal bowel sounds, no guarding or rigidity. SPINE: No scoliosis or deformity SKIN: No rashes CENTRAL NERVOUS SYSTEM: No focal deficits, tone is normal in all 4 extremities. EXTREMITIES: There is 1+ peripheral edema. Changes of chronic venous stasis. No clubbing, no cyanosis. Peripheral pulses are intact. - Labs CBC & Chem 7: 07/07/25 05:48 05/27/25 05:58 Labs: Abnormal Lab Results - Last 24 Hours (Table) 05/26/25 05/26/25 05/27/25 Range/Units 17:26 20:17 05:58 Carbon Dioxide 32.0 H (21.6-31.8) mmol/L BUN/Creatinine Ratio 21.25 H (12.00-20.00) Ratio POC Glucose (mg/dL) 129 H 161 H (70-110) mg/dL Microbiology - Last 24 Hours (Table) 05/23/25 15:07 Blood Culture - Preliminary Blood Assessment and Plan Assessment: Altered mental status with dizziness, lightheadedness, nausea and vomiting of unclear etiology. CT scan of the brain revealed no acute process. MRI of the brain revealed no acute intracranial process. KATHRYN revealed patent stent intra- atrial septum. Moderate to severe secondary mitral regurgitation. Left ventricular ejection fraction of 25 to 30% with global hypokinesia. Moderate to severe right ventricular dilatation. RVSP 58 mmHg. Possible Eisenmenger syndrome Acute on chronic hypoxemic respiratory failure secondary to an acute exacerbation of chronic systolic congestive heart failure Severe pulmonary hypertension Morbid obesity Obstructive sleep apnea maintained on BiPAP Obesity/hypoventilation syndrome maintained on home oxygen at 4 L/min per nasal cannula Chronic systolic congestive heart failure with an ejection fraction of 40% Coronary artery disease with previous stent placements and subsequent CABG in 2016 History of atrial fibrillation, anticoagulated with Eliquis Diabetes mellitus, type II Hypertension History of prostate cancer status post surgery Former smoker Gastroesophageal reflux disease Hyperlipidemia Plan: The patient was seen and evaluated Labs and medications reviewed EEG results within normal limits Remains on IV Lasix 40 mg every 8 hours Currently net negative balance Currently stable on 4 L nasal cannula He has home oxygen at 4 L Anticoagulated with Eliquis Increase his activity as tolerated Once cleared by neurology/cardiology This patient was seen independently by the pulmonary nurse practitioner addressing pulmonary issues I have personally seen and examined the patient, performed the documentation and the assessment and plan as written. Number of minutes spent on the visit: 23 Dictation was produced using [employer] software. Please excuse any grammatical, word or spelling errors.
[2025-05-27 14:36] VITALS: BP 107/67; PULSE 96; RESP 17; TEMP 98.3
--- NOTE | 2025-05-28 10:59 | P.CARDCATH ---
Description of Procedure: PROCEDURES PERFORMED: Right heart catheterization, ultrasound guided arterial access INDICATION: Pulmonary hypertension CONSENT:I have discussed the risks, benefits and alternative therapies for the above-mentioned procedure and for both sedation/analgesia as well as necessary blood product administration, if indicated, as they pertain to this patient. The patient has indicated understanding and acceptance of the risks and procedures discussed. PROCEDURE: After the risks, benefits and alternatives of the above mentioned procedure explained in detail with the patient, informed consent was obtained. Patient was taken to the catheterization lab and prepped and draped in usual fashion. Ultrasound guidance was used to assess for venous access. 1% lidocaine was used to anesthetize the right brachial area. A 6-Spanish sheath was placed in the right brachial vein using modified Seldinger technique and ultrasound guidance. A 6 Spanish [place]-Santhosh catheter was inserted into the right atrium, right ventricle, pulmonary artery and PCWP position with pressure measurements and oxygen saturations obtained. Thermodilution was performed. The right brachial sheath was removed and pressure held with hemostasis achieved. The patient tolerated the procedure well. Patient was transported back to the post catheterization holding area in stable condition. Conscious Sedation: Patient was monitored under the direct supervision of myself for conscious sedation using Versed and fentanyl for a total duration of 13 minutes HEMODYNAMICS: Aorta: 105/72 PCWP: 25 PA: 75/22 RV: 72/16 RA: 28 PA oxygen saturation: 56% RA oxygen saturation: 58% Pulse ox on 4 L nasal cannula 86% Cardiac output by Rosa: 10.2 L/min Cardiac index by Rosa: 3.4 L/min/m Cardiac output by thermodilution: 6.0 L/min Cardiac index by thermodilution: 2.0 L/min/m FINAL IMPRESSION: 1. Significantly elevated left and right sided filling pressures 2. Low normal cardiac output/cardiac index PLAN: 1. Aggressive risk factor modification per most recent ACC/AHA guidelines. 2. Increase diuresis
--- NOTE | 2025-05-30 15:21 | P.DS ---
Providers Date of admission: 05/22/25 23:12 Expected date of discharge: 05/27/25 Attending physician: Lonnie Martins Consults: 05/22/25 23:09 Consult Physician Routine Consulting Provider: Christo Field Consult Reason/Comments: acute encephalopathy, acute n/v Do you want consulting provider notified?: Yes, Notify in am 05/23/25 13:54 Consult Physician Routine Consulting Provider: Dane Rey Consult Reason/Comments: sob Do you want consulting provider notified?: Yes Consult Physician Routine Consulting Provider: Paulino Dupree Consult Reason/Comments: chf Do you want consulting provider notified?: Yes Primary care physician: Jeanie Sanchez [facility] Hospital Course: Final diagnosis - Dizziness with vomiting; possibly BPPV, cardiology considering pulmonary hypertension versus possible Eisenmenger syndrome as the cause status post KATHRYN with right heart catheterization revealing significantly elevated left and right sided filling pressures with low normal cardiac output - Altered mental status/confusion could be because of the dizziness and hypoxia, metabolic encephalopathy, improved and mentation is baseline - Acute on chronic systolic congestive heart failure EF of 40% - Severe pulmonary hypertension moderate to severe tricuspid regurgitation - Ischemic cardiomyopathy EF 40-45% - Type 2 diabetes mellitus, uncontrolled with hyperglycemia - Hypertension - Benign prostatic hypertrophy - Chronic hypoxic and hypercapnic respiratory failure secondary to sleep apnea uses CPAP machine at home - Persistent atrial fibrillation with AVR - History of coronary artery disease with prior CABG and stenting -Morbid obesity with a BMI of 44.2 - Hyperlipidemia - Morbid Obesity GI prophylaxis DVT prophylaxis Full Code Discharge disposition Patient is being discharged in a stable condition with guarded prognosis to home. Patient will follow-up with Dr. Sanchez in the outpatient setting upon discharge. Patient is to continue with current medications and outpatient f ollow-up with cardiology and pulmonary as scheduled. Recommend outpatient follow-up with neurology on discharge. Total time taken is greater than 35 minutes. Hospital course This is a 65-year-old male who comes in with complaints of dizziness and vertigo-like symptoms. He was recently worked up on 2 separate occasions for this. Neurology is following and patient is currently pending a brain MRI. He has not yet followed up with ENT on an outpatient basis as he had conflicting recommendations as to whether this was a vertigo or vestibular disease or not. He is on IV Lasix 40 mg every 8 hours as he appears volume overloaded with a known ejection fraction of 40%. Patient's proBNP was 3270 on admission. He is sitting up in the chair awake alert oriented he is not complaining of any si gnificant shortness of breath or dizziness at this time. He is on oxygen chronically on an outpatient basis. 05/25/2025 Evaluated today in follow-up in the medical floor. He is currently sitting up in the chair. He is currently lying any further episodes of dizziness or vertigo while in the hospital. His brain MRI is negative for any acute stroke mass effect midline shift. He is currently pending EEG which is scheduled for May 26. Additionally cardiology is recommending KATHRYN right heart catheterization to evaluate for any shunting. 05/26/2025 Patient is seen in follow-up today being followed by multiple consultations including neurology and cardiology. Patient does have an EEG ordered and pending for this morning as well as discussion of KATHRYN with right heart catheterization. Patient is currently n.p.o. and is frustrated about this and reports to feeling hungry. Nurse made aware there is no exact time and KATHRYN and EEG was perform morning this morning and pending read. Cardiology to follow and will await report. Encourage increase activity as tolerated and also recommend PT/OT therapy evaluation as patient is significantly weak. Continue with IV diuresis and follow-up on repeat labs. 05/27/2025 Patient is seen in follow-up today and was evaluated by physical therapy recommending home with home care. Patient did undergo KATHRYN with right heart cath with no abnormal findings noted recommending continuing current medications and close outpatient follow-up with his general adjuster out of [facility]. Patient sees Dr. Ricahrds outpatient. Patient also being evaluated by neurology as well as pulmonary and has been cleared by consultations. Patient has been instructed to follow-up with primary care provider as well as consultations outpatient. Please refer to consultation notes for further HPI. Patient will be discharged home and home care being arranged. Patient is high risk for readmissions as patient is significantly noncompliant with follow-up as well as diet and medications. Patient should continue fluid restrictions of 40 ounces per day. Recommend repeat labs in the outpatient setting. PHYSICAL EXAMINATION: GENERAL: The patient is alert and oriented x 2, appears to be baseline. Well developed, elderly appearing, morbidly obese HEENT: Pupils are round and equally reacting to light. EOMI. No scleral icterus. No conjunctival pallor. Normocephalic, atraumatic. No pharyngeal erythema. No thyromegaly. CARDIOVASCULAR: S1 and S2 muffled PULMONARY: Diminished breath sounds bilaterally with a few scattered expiratory wheezes and crackles at the bases noted ABDOMEN: Soft, morbidly obese, nontender, nondistended, normoactive bowel sounds. No palpable organomegaly. MUSCULOSKELETAL: No joint swelling or deformity. EXTREMITIES: No cyanosis, clubbing, or pedal edema. Chronic edema noted bilaterally NEUROLOGICAL: Gross neurological examination did not reveal any focal deficits. Diffusely weak SKIN: No rashes. mild erythema of the left leg Please refer to medication reconciliation sheet for a list of medications. The impression and plan of care has been dictated by Yany Wilson Nurse Practitioner as directed. Dr. Melodie MD I have performed a history and physical examination and medical decision making of this patient, discussed the same with the dictator, and agree with the dictators assessment and plan as written, documented as a scribe. Based on total visit time, I have performed more than 50% of this visit. Patient Condition at Discharge: Stable Plan - Discharge Summary New Discharge Prescriptions: Continue Apixaban [Eliquis] 5 mg PO BID Atorvastatin [Lipitor] 80 mg PO HS Empagliflozin [Jardiance] 25 mg PO DAILY Multivitamins, Thera [Multivitamin (formulary)] 1 tab PO DAILY metFORMIN HCL [Glucophage] 1,000 mg PO BID Tamsulosin [Flomax] 0.4 mg PO PC-BRKFST #30 cap Metoprolol Tartrate [Lopressor] 25 mg PO BID #60 tab Insulin Aspart [NovoLOG Flexpen] See Protocol SQ TID-W/MEALS Spironolactone [Aldactone] 25 mg PO DAILY Insulin Degludec [Tresiba Flextouch U-200 Pen] 60 units SQ HS Ferrous Sulfate [Iron (65 MG Elemental)] 325 mg PO W/LUNCH #30 tab Meclizine [Antivert] 25 mg PO TID PRN #20 tab PRN Reason: Vertigo Escitalopram [Lexapro] 10 mg PO DAILY Omeprazole 20 mg PO DAILY Bumetanide [BUMEX] 2 mg PO BID@0900,1600 tab Aspirin [Adult Low Dose Aspirin EC] 81 mg PO Changed Losartan [Cozaar] 25 mg PO DAILY #0 Discharge Medication List Apixaban [Eliquis] 5 mg PO BID 10/23/18 [History] Atorvastatin [Lipitor] 80 mg PO HS 10/23/18 [History] Empagliflozin [Jardiance] 25 mg PO DAILY 10/23/18 [History] Insulin Degludec [Tresiba Flextouch U-200 Pen] 60 units SQ HS 10/03/22 [History] Multivitamins, Thera [Multivitamin (formulary)] 1 tab PO DAILY 04/24/23 [History] metFORMIN HCL [Glucophage] 1,000 mg PO BID 02/25/25 [History] Ferrous Sulfate [Iron (65 MG Elemental)] 325 mg PO W/LUNCH #30 tab 03/05/25 [Rx] Tamsulosin [Flomax] 0.4 mg PO PC-BRKFST #30 cap 03/05/25 [Rx] Metoprolol Tartrate [Lopressor] 25 mg PO BID #60 tab 03/11/25 [Rx] Insulin Aspart [NovoLOG Flexpen] See Protocol SQ TID-W/MEALS 05/01/25 [History] Meclizine [Antivert] 25 mg PO TID PRN #20 tab 05/01/25 [Rx] Escitalopram [Lexapro] 10 mg PO DAILY 05/15/25 [History] Omeprazole 20 mg PO DAILY 05/15/25 [History] Spironolactone [Aldactone] 25 mg PO DAILY 05/15/25 [History] Bumetanide [BUMEX] 2 mg PO BID@0900,1600 tab 05/16/25 [Rx] Aspirin [Adult Low Dose Aspirin EC] 81 mg PO 05/23/25 [History] Losartan [Cozaar] 25 mg PO DAILY #0 05/27/25 [Rx] Follow up Appointment(s)/Referral(s): Jeanie Sanchez DO [Primary Care Provider] - 1-2 days Rick Richards DO [REFERRING] - [facility] [NON-STAFF] - As Needed Patient Instructions/Handouts: Vertigo (DC) Activity/Diet/Wound Care/Special Instructions: Activity limited until follow-up Follow-up with primary general adjuster outpatient this week Follow-up with primary care provider on discharge Continue taking medications as prescribed Avoid getting up and walking abruptly without sitting at the side of the chair or bed for 1 to 2 minutes before getting up and standing Follow heart healthy/diabetic diet Continue monitoring Accu-Cheks AC and at bedtime and continue with insulin regimen Recommend compression stockings to lower extremities and/or Chai wraps from the toes up to the knees and elevating while at rest Continue with 40 ounces of fluid restrictions daily including all oral liquid intake (pop, tea, coffee, water, juices) Discharge Disposition: HOME WITH HOME HEALTH SERVICES
== END 2025-05-27 17:50 | disposition home health service (06) | DRG 70 ==
LOC: EC 19:50 → 6NMEDSUR 23:12 → OBSVTOIN 23:12 → 6NMEDSUR 23:38
PROVIDERS: ADMIT Hospitalist; ATTEND Hospitalist
PROC: B24BZZ4 Ultrasonography of Heart with Aorta, Transesophageal (ICD-10-PCS; 2025-05-26)
PROC: B24BZZ4 Ultrasonography of Heart with Aorta, Transesophageal (ICD-10-PCS; principal; 2025-05-26 16:30)
DX: G93.41 Metabolic encephalopathy (principal); I50.23 Acute on chronic systolic (congestive) heart failure; J96.21 Acute and chronic respiratory failure with hypoxia; J96.22 Acute and chronic respiratory failure with hypercapnia; I27.83 Eisenmenger's syndrome; E66.2 Morbid (severe) obesity with alveolar hypoventilation; I11.0 Hypertensive heart disease with heart failure; E11.65 Type 2 diabetes mellitus with hyperglycemia; I08.1 Rheumatic disorders of both mitral and tricuspid valves; Z68.41 Body mass index [BMI] 40.0-44.9, adult; I48.19 Other persistent atrial fibrillation; L03.116 Cellulitis of left lower limb; Z79.4 Long term (current) use of insulin; H81.10 Benign paroxysmal vertigo, unspecified ear; Z99.81 Dependence on supplemental oxygen; I25.10 Atherosclerotic heart disease of native coronary artery without angina pectoris; E78.5 Hyperlipidemia, unspecified; I25.5 Ischemic cardiomyopathy; K21.9 Gastro-esophageal reflux disease without esophagitis; I87.8 Other specified disorders of veins; N40.0 Benign prostatic hyperplasia without lower urinary tract symptoms; Z91.119 Patient's noncompliance with dietary regimen due to unspecified reason; Z91.148 Patient's other noncompliance with medication regimen for other reason; Z95.1 Presence of aortocoronary bypass graft; Z79.01 Long term (current) use of anticoagulants; Z95.5 Presence of coronary angioplasty implant and graft; I25.2 Old myocardial infarction; Z85.46 Personal history of malignant neoplasm of prostate; Z87.891 Personal history of nicotine dependence; Z79.82 Long term (current) use of aspirin; Z79.84 Long term (current) use of oral hypoglycemic drugs; Z79.899 Other long term (current) drug therapy; Z86.73 Personal history of transient ischemic attack (TIA), and cerebral infarction without residual deficits
CPT/HCPCS: 36415; 70450; 70553; 71045; 71046; 80048; 80053; 80306; 80320; 81003; 82810; 83036; 83605; 83735; 83880; 84145; 84484; 85018; 85025; 85379; 87040; 93005; 93312; 93320; 93325; 95816; 96374; 96375; 99285